=== PATIENT | male | born 1940 | race Caucasian/White ===

== ENCOUNTER 2019-09-05 09:56 | Outpatient (RCR) | payer MEDICARE, SELFPAY ==
[2019-06-13 11:05] LABS: INR 2.8; Prothrombin Time 29.1 Seconds (11.1-14.7)
[2019-07-11 10:28] LABS: Prothrombin Time 30.3 Seconds (11.1-14.7)
[2019-08-10 10:32] LABS: Prothrombin Time 30.6 Seconds (11.1-14.7)
[2019-09-05 10:41] LABS: INR 2.7; Prothrombin Time 27.9 Seconds (11.1-14.7)
== END 2019-09-11 23:59 | disposition home or self-care (01) ==
LOC: ANHLAB 09:56
PROVIDERS: PCP Family Medicine; Visit Provider Specialist
DX: Z51.81 Encounter for therapeutic drug level monitoring (principal); I48.92 Unspecified atrial flutter; Z79.01 Long term (current) use of anticoagulants
CPT/HCPCS: 36415; 85610

== ENCOUNTER 2019-09-23 11:25 | Outpatient (CLI) | payer MEDICARE, SELFPAY ==
[2019-09-23 12:21] LABS: Alanine Aminotransferase 25 U/L (4-50); Albumin Level 3.1 g/dL (3.5-5.1); Alkaline Phosphatase 80 U/L (38-126); Aspartate Amino Transferase 46 U/L (17-59); Bilirubin,Total 1.7 mg/dL (0.2-1.3); Blood Urea Nitrogen 24 mg/dL (9-20); Calcium 8.7 mg/dL (8.4-10.2); Carbon Dioxide 27 mmol/L (22-30); Chloride 101 mmol/L (98-107); Estimated Glomerular Filt Rate 58; Glucose 93 mg/dL (75-110); Potassium 4.1 mmol/L (3.4-5.0); Sodium 134 mmol/L (137-145)
[2019-09-23 12:25] LABS: Hematocrit 46.5 % (42.0-52.0); Hemoglobin 15.3 g/dL (14.0-18.0); Mean Corpuscular HGB Conc 32.9 g/dl (32-36); Mean Corpuscular Hemoglobin 30.9 pg (26-34); Mean Corpuscular Volume 93.9 fl (80-100); Mean Platelet Volume 10.7 fl (7.4-10.4); Platelet Count Result 170 k/mm3 (150-375); Red Blood Count 4.95 M/mm3 (4.6-6.20); Red Cell Distribution Width 16.3 % (11.5-14.5); White Blood Count 7.3 K/mm3 (4.5-10.0)
[2019-09-23 12:27] LABS: NT Pro B Type Natriuretic Pept 1890 PG/ML (5-100)
== END 2019-09-23 11:26 | disposition home or self-care (01) ==
LOC: ANHLAB 11:27
PROVIDERS: PCP Family Medicine; Visit Provider Physician Assistant
DX: R63.5 Abnormal weight gain (principal); N18.3 Chronic kidney disease, stage 3 (moderate); I13.0 Hypertensive heart and chronic kidney disease with heart failure and stage 1 through stage 4 chronic kidney disease, or unspecified chronic kidney disease; I50.812 Chronic right heart failure
CPT/HCPCS: 36415; 80053; 83880; 84443; 85027

== ENCOUNTER 2019-09-29 00:08 | Emergency (ER) | payer MEDICARE, SELFPAY ==
--- NOTE | ~2019-09-29 | XR_ITS ---
EXAMINATION: XR shoulder RT min 2V DATE: 09/29/2019 01:18 INDICATION: Right shoulder pain. Fall. TECHNIQUE: 4 views of right shoulder were obtained. COMPARISON: None. FINDINGS: Bone alignment is normal. No fracture. There is mild osteoarthritis of glenohumeral joint a nd severe osteoarthritis of acromioclavicular joint. Cardiomegaly is noted. IMPRESSION: 1. Polyarticular osteoarthritis. Reviewed, dictated and finalized at location A. R OPERATOR
--- NOTE | ~2019-09-29 | XR_ITS ---
EXAMINATION: XR knee RT min 4V DATE: 09/29/2019 01:18 INDICATION: Right knee pain. Fall. TECHNIQUE: 4 views of right knee were obtained. COMPARISON: Right tibia and fibula radiographs 05/20/2010 FINDINGS: Bone alignment is normal. No fracture. There is mild tricompartmental osteoarthritis charac terized by tiny osteophytes. There is chondrocalcinosis of the [place]. No knee joint effusion. IMPRESSION: 1. Mild right knee osteoarthritis. Reviewed, dictated and finalized at location A. GER IN HOME
--- NOTE | ~2019-09-29 | XR_ITS ---
EXAMINATION: XR knee LT min 4V DATE: 09/29/2019 01:18 INDICATION: Left knee pain. Fall. TECHNIQUE: 4 views of left knee were obtained. COMPARISON: Left tibia and fibula radiographs 03/20/2010 FINDINGS: Bone alignment is normal. No fracture. There is mild osteoarthritis of lateral compartment characterized by tiny marginal osteophytes. No knee joint effusion. IMPRESSION: 1. Mild left knee osteoarthritis. Reviewed, dictated and finalized at location A. D DEVELOPMENT PROFESSOR
--- NOTE | ~2019-09-29 | XR_ITS ---
EXAMINATION: XR shoulder LT min 2V DATE: 09/29/2019 01:18 INDICATION: Left shoulder pain. Fall. TECHNIQUE: 4 views of left shoulder were obtained. COMPARISON: Chest 2 views 09/16/2015 FINDINGS: Bone alignment is normal. No fracture. There is moderate osteoarthritis of glenohumeral frederic nt and severe osteoarthritis of acromioclavicular joint. Cardiomegaly is noted. IMPRESSION: 1. Polyarticular osteoarthritis. Reviewed, dictated and finalized at location A. ICIAN ALLERGIST IMMUNOLOGIST
--- NOTE | ~2019-09-29 | XR_ITS ---
EXAMINATION: XR forearm RT 2V DATE: 09/29/2019 01:19 INDICATION: Right forearm injury. Fall. TECHNIQUE: 2 views of right forearm were obtained. COMPARISON: Right hand radiographs 09/08/2007 FINDINGS: Bone alignment is normal. No fracture. There is mild osteoarthritis of distal radioulnar josé luis int and severe osteoarthritis of radioscaphoid joint. No elbow joint effusion. IMPRESSION: 1. Polyarticular osteoarthritis. Reviewed, dictated and finalized at location A. INSTRUCTOR
[2019-09-29 00:08] VITALS: BP 105/46; PULSE 75; RESP 22; TEMP 36.5; O2SAT 97
--- NOTE | 2019-09-29 00:18 | ED.FALL ---
HPI - Fall General Chief Complaint: Fall Stated Complaint: fall Time Seen by Provider: 09/29/19 00:11 Source: patient and RN notes reviewed Mode of arrival: EMS Limitations: no limitations History of Present Illness HPI Narrative: Pt is a 79 y/o male with a Hx of rheumatoid arthritis, who presents to the ED via EMS with c/o fall happening this evening. He notes that he has been having difficulty getting into his bed for roughly the past week due to worsening knee complications. Pt notes that he was trying to get into bed this evening when he slipped and fell onto the ground. Pt states that he landed on his lt side during the fall, and notes that he struck his rt forearm on a chair. He denies any head injury or LOC during the fall. Pt states that he was unable to get himself up after the fall, noting that he had to use his Life Alert to contact his family. Pt reports lt shoulder pain, an abrasion on his rt forearm, and an abrasion on his lt knee s/p the fall. He denies any recent weakness. Pt is currently taking Warfarin for his Hx of A-Fib. MD complaint: fall Fall from: out of bed Place fall occurred: home Loss of consciousness: none Symptoms prior to fall: none Location of injury - extremities: Left: shoulder and knee and Right: forearm Associated symptoms (after fall): other (lt shoulder pain; abrasion on rt forearm; abrasion on lt knee) Related Data Home Medications Medication Instructions Recorded Confirmed acetaminophen 325 mg capsule 325 mg PO Q6H PRN 06/08/19 docusate sodium 100 mg capsule 100 mg PO DAILY 06/08/19 febuxostat 80 mg tablet 80 mg PO DAILY 06/08/19 fluticasone propionate 0.005 % 1 applic TOPICAL BID 06/08/19 topical ointment folic acid 1 mg tablet 1 mg PO DAILY 06/08/19 hydroxychloroquine 200 mg tablet 200 mg PO BID 06/08/19 memantine 10 mg tablet 10 mg PO BID 06/08/19 methotrexate sodium 2.5 mg tablet 2.5 mg PO WEEKLY 06/08/19 mupirocin 2 % topical ointment 1 applic TOPICAL BID 06/08/19 tamsulosin 0.4 mg capsule 0.4 mg PO DAILY 06/08/19 warfarin 2.5 mg tablet 2.5 mg PO 4XW 06/08/19 warfarin 4 mg tablet 4 mg PO QMWF 06/08/19 cetirizine [Zyrtec] mg 06/17/19 docusate sodium 100 mg PO DAILY 06/17/19 06/17/19 febuxostat [Uloric] mg 06/17/19 folic acid 06/17/19 memantine mg 06/17/19 06/17/19 methotrexate sodium 06/17/19 tamsulosin mg PO 06/17/19 warfarin 06/17/19 Allergies Allergy/AdvReac Type Severity Reaction Status Date / Time Penicillins Allergy Unknown Rash Verified 09/29/19 01:46 Sulfa (Sulfonamide Allergy Unknown Rash Verified 09/29/19 01:46 Antibiotics) Review of Systems Review of Systems: All systems reviewed & are unremarkable except as noted in HPI and below Musculoskeletal: Musculoskeletal: Reports arthralgias (lt shoulder pain) Integumentary/Breasts: Skin/Breast: Reports new lesions (abrasion on rt forearm; abrasion on lt knee) Neurologic: Denies weakness and Denies other (head injury; LOC) [facility] Past Medical History Medical History Blood blister Cataracts, bilateral Chronic a-fib Chronic right-sided heart failure Dementia Gastrointestinal ulcer GERD (gastroesophageal reflux disease) Gout, unspecified HTN (hypertension) Inguinal hernia Pneumonia Seizures Seronegative rheumatoid arthritis Thickened nail Surgical History Surgical History Hx of cardiac catheterization Hx of cataract surgery Hx of inguinal hernia repair Family History Family History (Updated 03/23/14 @ 07:13 by DOCTOR UNKNOWN) Father Family history of Parkinson's disease Mother Hypertension Cerebrovascular accident Sibling Family history of coronary artery disease Social History Social History Smoking status: Former smoker Smoking end date: 07/27/1968 Alcohol intake: never Exam Const: General: no acute dis
--- NOTE | 2019-09-29 00:25 | ECG_ITS ---
Measurements Intervals [place] Rate: 79 P: [place]: 0 QRS: 12 QRSD: 158 T: -7 QT: 436 QTc: 501 Interpretive Statements ATRIAL FLUTTER VENTRICULAR PREMATURE COMPLEXES IVCD, CONSIDER ATYPICAL LBBB BASELINE ARTIFACT- I, II, III, AVR, AVL, AVF, V2-V3 ABNORMAL ECG Electronically Signed On 09-29-2019 6:49:46 WAD PRINTING MACHINE OPERATOR by Federico Guardado D.O.
[2019-09-29] MEDS: TETANUS,DIPHTHERIA,AC PERTUSSIS ADULT (0.5 ML) BOOSTRIX IM (00:30)
[2019-09-29 00:50] LABS: Basophils Percent Auto 0.5 % (0.2-1.2); Eosinophils Absolute Auto 0.1 K/mm3 (0-0.3); Hematocrit 43.1 % (42.0-52.0); Hemoglobin 14.5 g/dL (14.0-18.0); Immature Granulocyte Absolute 0.06 K/mm3 (0.00-0.031); Immature Granulocyte Percent A 0.8 % (0-0.5); Lymphocytes Absolute Auto 0.44 K/mm3 (0.9-3.2); Lymphocytes Percent Auto 5.6 % (18.3-44.2); Mean Corpuscular HGB Conc 33.6 g/dl (32-36); Mean Corpuscular Hemoglobin 31.3 pg (26-34); Mean Corpuscular Volume 93.1 fl (80-100); Mean Platelet Volume 10.3 fl (7.4-10.4); Monocytes Absolute Auto 0.6 K/mm3 (0.1-0.6); Monocytes Percent Auto 7.4 % (2.6-8.5); Neutrophils Absolute Auto 6.7 K/mm3 (1.3-6.7); Neutrophils Percent Auto 84.7 % (45.5-73.1); Platelet Count Result 148 k/mm3 (150-375); Red Blood Count 4.63 M/mm3 (4.6-6.20); White Blood Count 7.9 K/mm3 (4.5-10.0)
[2019-09-29 00:56] LABS: Alanine Aminotransferase 22 U/L (4-50); Albumin Level 2.7 g/dL (3.5-5.1); Alkaline Phosphatase 92 U/L (38-126); Aspartate Amino Transferase 42 U/L (17-59); Blood Urea Nitrogen 27 mg/dL (9-20); Calcium 8.2 mg/dL (8.4-10.2); Carbon Dioxide 21 mmol/L (22-30); Chloride 100 mmol/L (98-107); Estimated CRCL calculation 43 ml/min; Estimated Glomerular Filt Rate 49; Glucose 128 mg/dL (75-110); INR 4.3; Potassium 3.4 mmol/L (3.4-5.0); Prothrombin Time 40.7 Seconds (11.1-14.7); Sodium 133 mmol/L (137-145)
[2019-09-29 01:34] VITALS: BP 124/51; PULSE 71; RESP 14; O2SAT 97
[2019-09-29 03:12] VITALS: BP 118/58; PULSE 78; RESP 17; O2SAT 94
[2019-09-29 03:58] VITALS: BP 105/67; PULSE 69; RESP 18; TEMP 36.3; O2SAT 98
== END 2019-09-29 04:01 | disposition home or self-care (01) ==
PROVIDERS: Emergency Provider General Practice; PCP Family Medicine
DX: S51.801A Unspecified open wound of right forearm, initial encounter (principal); S80.212A Abrasion, left knee, initial encounter; M25.562 Pain in left knee; M25.561 Pain in right knee; M19.012 Primary osteoarthritis, left shoulder; M19.011 Primary osteoarthritis, right shoulder; M06.00 Rheumatoid arthritis without rheumatoid factor, unspecified site; Z23 Encounter for immunization; Z79.01 Long term (current) use of anticoagulants; I48.20 Chronic atrial fibrillation, unspecified; F03.90 Unspecified dementia, unspecified severity, without behavioral disturbance, psychotic disturbance, mood disturbance, and anxiety; K21.9 Gastro-esophageal reflux disease without esophagitis; M10.9 Gout, unspecified; I10 Essential (primary) hypertension; Z98.42 Cataract extraction status, left eye; Z98.41 Cataract extraction status, right eye; W06.XXXA Fall from bed, initial encounter
CPT/HCPCS: 36415; 73030; 73090; 73564; 80053; 85025; 85610; 85730; 90471; 90715; 93005; 99284

== ENCOUNTER 2019-09-30 16:37 | Outpatient (CLI) | payer MEDICARE, SELFPAY ==
[2019-09-30 17:20] LABS: Blood Urea Nitrogen 27 mg/dL (9-20); Calcium 8.5 mg/dL (8.4-10.2); Carbon Dioxide 28 mmol/L (22-30); Chloride 104 mmol/L (98-107); Estimated Glomerular Filt Rate 49; Glucose 92 mg/dL (75-110); Potassium 3.9 mmol/L (3.4-5.0); Sodium 136 mmol/L (137-145)
[2019-09-30 17:28] LABS: NT Pro B Type Natriuretic Pept 2350 PG/ML (5-100)
== END 2019-09-30 16:38 | disposition home or self-care (01) ==
LOC: ANHLAB 16:38
PROVIDERS: PCP Family Medicine; Visit Provider Physician Assistant
DX: I13.0 Hypertensive heart and chronic kidney disease with heart failure and stage 1 through stage 4 chronic kidney disease, or unspecified chronic kidney disease (principal); I50.812 Chronic right heart failure; N18.3 Chronic kidney disease, stage 3 (moderate)
CPT/HCPCS: 36415; 80048; 83880

== ENCOUNTER 2019-10-11 11:22 | Outpatient (CLI) | payer MEDICARE, SELFPAY ==
[2019-10-11 11:50] LABS: Blood Urea Nitrogen 24 mg/dL (9-20); Calcium 8.8 mg/dL (8.4-10.2); Carbon Dioxide 31 mmol/L (22-30); Chloride 104 mmol/L (98-107); Estimated Glomerular Filt Rate 58; Glucose 84 mg/dL (75-110); Potassium 3.8 mmol/L (3.4-5.0); Sodium 136 mmol/L (137-145)
[2019-10-11 11:59] LABS: NT Pro B Type Natriuretic Pept 1900 PG/ML (5-100)
== END 2019-10-11 11:23 | disposition home or self-care (01) ==
PROVIDERS: PCP Family Medicine; Visit Provider Physician Assistant
DX: I50.9 Heart failure, unspecified (principal); R63.5 Abnormal weight gain
CPT/HCPCS: 36415; 80048; 83880

== ENCOUNTER → 2019-10-17 11:57 | Outpatient (NON) | payer MEDICARE, SELFPAY ==
[2019-10-17 12:44] LABS: INR 3.2; Prothrombin Time 31.9 Seconds (11.1-14.7)
== END ==
PROVIDERS: PCP Family Medicine; Visit Provider Specialist
DX: I48.92 Unspecified atrial flutter (principal); I87.2 Venous insufficiency (chronic) (peripheral); R60.0 Localized edema; I13.0 Hypertensive heart and chronic kidney disease with heart failure and stage 1 through stage 4 chronic kidney disease, or unspecified chronic kidney disease
CPT/HCPCS: 85610

== ENCOUNTER 2019-11-29 10:56 | Outpatient (CLI) | payer MEDICARE, SELFPAY | END 2019-11-29 10:57 | disposition home or self-care (01) | PROVIDERS: PCP Family Medicine; Visit Provider Urology | DX: R97.20 Elevated prostate specific antigen [PSA] (principal) | CPT/HCPCS: 36415; 84153 ==

== ENCOUNTER 2019-12-23 09:41 | Outpatient (RCR) | payer MEDICARE, SELFPAY ==
[2019-10-03 12:56] LABS: INR 3.5; Prothrombin Time 34.7 Seconds (11.1-14.7)
[2019-11-21 11:16] LABS: INR 2.4; Prothrombin Time 25.7 Seconds (11.1-14.7)
[2019-12-23 11:04] LABS: INR 2.3; Prothrombin Time 24.4 Seconds (11.1-14.7)
== END 2020-01-01 23:59 | disposition home or self-care (01) ==
LOC: ANHLAB 09:41
PROVIDERS: PCP Family Medicine; Visit Provider Specialist
DX: Z51.81 Encounter for therapeutic drug level monitoring (principal); I48.92 Unspecified atrial flutter; N39.0 Urinary tract infection, site not specified; Z79.01 Long term (current) use of anticoagulants
CPT/HCPCS: 36415; 85610; 87077; 87086; 87088; 87186

== ENCOUNTER 2020-01-09 09:37 | Outpatient (CLI) | payer MEDICARE, SELFPAY ==
[2020-01-09 10:15] LABS: Basophils Absolute Auto 0.1 K/mm3 (0.0-0.1); Basophils Percent Auto 0.8 % (0.2-1.2); Eosinophils Absolute Auto 0.2 K/mm3 (0-0.3); Hematocrit 43.2 % (42.0-52.0); Hemoglobin 14.2 g/dL (14.0-18.0); Immature Granulocyte Absolute 0.04 K/mm3 (0.00-0.031); Immature Granulocyte Percent A 0.6 % (0-0.5); Lymphocytes Absolute Auto 0.65 K/mm3 (0.9-3.2); Lymphocytes Percent Auto 10.4 % (18.3-44.2); Mean Corpuscular HGB Conc 32.9 g/dl (32-36); Mean Corpuscular Hemoglobin 31.6 pg (26-34); Mean Platelet Volume 10.4 fl (7.4-10.4); Monocytes Absolute Auto 0.4 K/mm3 (0.1-0.6); Monocytes Percent Auto 6.7 % (2.6-8.5); Neutrophils Absolute Auto 4.9 K/mm3 (1.3-6.7); Neutrophils Percent Auto 78.5 % (45.5-73.1); Platelet Count Result 148 k/mm3 (150-375); Red Cell Distribution Width 15.8 % (11.5-14.5); White Blood Count 6.3 K/mm3 (4.5-10.0)
[2020-01-09 10:41] LABS: Potassium 3.4 mmol/L (3.4-5.0)
[2020-01-09 10:55] LABS: Alanine Aminotransferase 20 U/L (4-50); Albumin Level 3.3 g/dL (3.5-5.1); Alkaline Phosphatase 114 U/L (38-126); Aspartate Amino Transferase 33 U/L (17-59); Bilirubin,Total 1.3 mg/dL (0.2-1.3); Blood Urea Nitrogen 22 mg/dL (9-20); Calcium 8.9 mg/dL (8.4-10.2); Carbon Dioxide 29 mmol/L (22-30); Chloride 104 mmol/L (98-107); Estimated Glomerular Filt Rate 58; Glucose 91 mg/dL (75-110); Sodium 137 mmol/L (137-145)
[2020-01-09 11:07] LABS: Erythrocyte Sedimentation Rate 19 mm/hr (0-20)
== END 2020-01-09 09:38 | disposition home or self-care (01) ==
LOC: ANHLAB 09:41
PROVIDERS: PCP Family Medicine; Visit Provider Physician Assistant
DX: M06.09 Rheumatoid arthritis without rheumatoid factor, multiple sites (principal); Z79.899 Other long term (current) drug therapy
CPT/HCPCS: 36415; 80053; 85025; 85652; 86140

== ENCOUNTER 2020-02-02 07:46 | Outpatient (RCR) | payer MEDICARE, SELFPAY ==
[2020-01-20 09:37] VITALS: BMI 33.3
== END 2020-04-09 08:12 | disposition home or self-care (01) ==
LOC: ANHWOC 07:46
PROVIDERS: PCP Family Medicine; Visit Provider Family Medicine
DX: I87.2 Venous insufficiency (chronic) (peripheral) (principal); L97.929 Non-pressure chronic ulcer of unspecified part of left lower leg with unspecified severity; L97.919 Non-pressure chronic ulcer of unspecified part of right lower leg with unspecified severity
CPT/HCPCS: 99212; G0463

== ENCOUNTER 2020-04-30 11:51 | Outpatient (RCR) | payer MEDICARE, SELFPAY ==
[2020-02-14 10:17] LABS: INR 2.5; Prothrombin Time 26.6 Seconds (11.1-14.7)
[2020-03-26 10:55] LABS: INR 2.7; Prothrombin Time 28.3 Seconds (11.1-14.7)
[2020-04-30 12:22] LABS: INR 2.7; Prothrombin Time 28.2 Seconds (11.1-14.7)
== END 2020-05-14 23:59 | disposition home or self-care (01) ==
LOC: ANHLAB 11:51
PROVIDERS: PCP Family Medicine; Visit Provider Specialist
DX: Z51.81 Encounter for therapeutic drug level monitoring (principal); I48.92 Unspecified atrial flutter; Z79.01 Long term (current) use of anticoagulants
CPT/HCPCS: 36415; 85610

== ENCOUNTER 2020-08-01 10:44 | Outpatient (RCR) | payer MEDICARE, SELFPAY ==
[2020-05-31 10:36] LABS: INR 2.8; Prothrombin Time 30.2 Seconds (11.1-14.7)
[2020-07-03 11:13] LABS: INR 2.3; Prothrombin Time 26.1 Seconds (11.1-14.7)
[2020-08-01 11:24] LABS: INR 2.9; Prothrombin Time 30.8 Seconds (11.1-14.7)
== END 2020-08-29 23:59 | disposition home or self-care (01) ==
LOC: ANHLAB 10:44
PROVIDERS: PCP Family Medicine; Visit Provider Specialist
DX: Z51.81 Encounter for therapeutic drug level monitoring (principal); I48.92 Unspecified atrial flutter; Z79.01 Long term (current) use of anticoagulants
CPT/HCPCS: 36415; 85610

== ENCOUNTER 2020-08-16 10:19 | Outpatient (CLI) | payer MEDICARE, SELFPAY ==
--- NOTE | ~2020-08-16 | XR_ITS ---
EXAMINATION: HAND-CARLOS ARTHRITIS 3+VIEWS DATE: 08/16/2020 12:10 INDICATION: Systemic connective tissue disease. TECHNIQUE: Posteroanterior, lateral, and oblique views of the left and of the right hands as well as a ballcatchers view of both hands were obtained. COMPARISON: Lateral hand radiographs dated 09/08/2007 FINDINGS: No fracture at either hand or wrist. Significant progression of arthritic changes at the bilateral trejo nds, advanced at the left second and third proximal interphalangeal joints and at the right second an d fifth proximal interphalangeal joints. Secondary mild subluxation and angulation at these joints. A dditional severe arthritis at the left second and third and right third metacarpophalangeal joints an d at the right radial scaphoid articulation. Mild to moderate arthritis at the left wrist, the bilate ral triscaphe and first carpal metacarpal joints and remaining bilateral metacarpophalangeal and inte rphalangeal joints. Much of the joint space narrowing appears nonuniform and there are marginal osteo phytes consistent with osteoarthritis however there also numerous scattered periarticular or juxta ar ticular erosions suggesting secondary osteoarthritis related to an underlying inflammatory arthritis. Minute erosions demonstrated within sclerotic margins with overhanging edges and not directly periar ticular which would be most consistent with a crystalline arthropathy such as gout or calcium pyropho sphate deposition (CPPD) disease. Chondrocalcinosis seen at the bilateral wrist joints which would al so be consistent with underlying crystalline arthropathy. The severity of the arthritis at a few of t he proximal interphalangeal joints with central erosions with pencil in cup appearance could also be seen in the setting of psoriatic arthritis. IMPRESSION: 1. Polyarticular osteoarthritis, advanced at several interphalangeal joints and severe at a few addit ional joints in both hands. There are however multiple erosions suggesting some secondary osteoarthri tis superimposed over an inflammatory arthritis. In order of likelihood would suspect crystalline art hropathy such as gout or calcium pyrophosphate deposition (CPPD) disease, psoriatic arthritis, reacti ve arthritis or rheumatoid arthritis. Reviewed, dictated and finalized at location A. MAKING SUPERVISOR IMPRESSION: 1. Polyarticular osteoarthritis, advanced at several interphalangeal joints and severe at a few additional joints in both hands. There are however multiple er osions suggesting some secondary osteoarthritis superimposed over an inflammato ry arthritis. In order of likelihood would suspect crystalline arthropathy such as gout or calcium pyrophosphate deposition (CPPD) disease, psoriatic arthriti s, reactive arthritis or rheumatoid arthritis.
--- NOTE | ~2020-08-16 | XR_ITS ---
EXAMINATION: XR sacroiliac joints min 3V DATE: 08/16/2020 12:10 INDICATION: Systemic connective tissue disease TECHNIQUE: AP and left and right oblique views of the bilateral sacroiliac joints were obtained. COMPARISON: None. FINDINGS: No fracture. Mild bilateral hip osteoarthritis. Mild to moderate nonuniform joint space narrowing at the bilateral sacroiliac joints without evident erosions most consistent with osteoarthritis. Severe lower lumbar spondylosis. IMPRESSION: 1. Mild to moderate bilateral sacroiliac osteoarthritis. No erosions to suggest an inflammatory synov itis. 2. Severe lower lumbar spondylosis. Reviewed, dictated and finalized at location A. PROGRAMMING PROFESSOR IMPRESSION: 1. Mild to moderate bilateral sacroiliac osteoarthritis. No erosions to suggest an inflammatory synovitis. 2. Severe lower lumbar spondylosis.
--- NOTE | ~2020-08-16 | XR_ITS ---
EXAMINATION: XR foot LT 2V DATE: 08/16/2020 12:10 INDICATION: Systemic connective tissue disease TECHNIQUE: Dorsoplantar and lateral views of the left foot were obtained. COMPARISON: 03/20/2010 FINDINGS: Bone alignment is normal. No fracture. Moderate to severe osteoarthritis at the first metatarsophalan geal joint. Minimal to mild osteoarthritis at many additional joints in the mid and forefoot. Interva l progression of cortical erosions with overhanging edges at the medial base of the first proximal ph alanx and at the medial and plantar aspect of the head of the first metatarsal. New erosion at the me dial aspect of the distal medial cuneiform without significant joint space loss at the first tarsal m etatarsal joint prominent soft tissue swelling over the dorsum of the forefoot.. IMPRESSION: 1. Erosions at the medial cuneiform, head of the first metatarsal and base of the first proximal phal anx, the former without significant associated joint space narrowing and/or with appearance favoring crystalline arthropathy such as gout over another inflammatory arthritis such as rheumatoid. 2. Polyarticular osteoarthritis, moderate severity first metatarsophalangeal joint and otherwise mini mal to mild . Reviewed, dictated and finalized at location A. UM INFORMATICS SPECIALIST IMPRESSION: 1. Erosions at the medial cuneiform, head of the first metatarsal and base of t he first proximal phalanx, the former without significant associated joint spac e narrowing and/or with appearance favoring crystalline arthropathy such as gou t over another inflammatory arthritis such as rheumatoid. 2. Polyarticular osteoarthritis, moderate severity first metatarsophalangeal josé luis int and otherwise minimal to mild .
--- NOTE | ~2020-08-16 | XR_ITS ---
EXAMINATION: XR foot RT 2V DATE: 08/16/2020 12:10 INDICATION: Systemic involvement of connective tissue, unspecified. TECHNIQUE: 2 views of right foot were obtained. COMPARISON: Right foot radiographs 12/15/2012 FINDINGS: There is moderate hallux valgus. Osteopenia is noted. No fracture. There is moderate osteoa rthritis of first metatarsophalangeal joint and mild osteoarthritis of some of the midfoot joints and interphalangeal joints. There is an enthesophyte at plantar aspect of calcaneal tuberosity. IMPRESSION: 1. Moderate hallux valgus. 2. Polyarticular osteoarthritis. Reviewed, dictated and finalized at location B. ARD/STEWARDESS LOUNGE
[2020-08-16 11:38] LABS: Hematocrit 50.3 % (42.0-52.0); Hemoglobin 16.5 g/dL (14.0-18.0); Mean Corpuscular HGB Conc 32.8 g/dl (32-36); Mean Corpuscular Hemoglobin 31.4 pg (26-34); Mean Corpuscular Volume 95.6 fl (80-100); Mean Platelet Volume 10.1 fl (7.4-10.4); Platelet Count Result 169 k/mm3 (150-375); Red Blood Count 5.26 M/mm3 (4.6-6.20); Red Cell Distribution Width 14.3 % (11.5-14.5); White Blood Count 7.1 K/mm3 (4.5-10.0)
[2020-08-16 11:41] LABS: Add Urine Microscopic? NO; Appearance Urine Clear (Clear); Bilirubin Urine Negative (Negative); Blood Urine Negative (Negative); Color Urine Straw (Yellow); Glucose Urine UA Negative (Negative); Ketones Urine Negative (Negative); Leukocyte Esterase Ur Negative LEU/UL (Negative); Nitrate Urine Negative (Negative); Protein Urine Negative (Negative); Specific Grav Ur 1.008 (1.001-1.035); Urobilinogen Urine Negative mg/dL (<2.0)
[2020-08-16 11:49] LABS: Rheumatoid Factor < 8.6 IU/ML (<12)
[2020-08-16 11:50] LABS: Alanine Aminotransferase 20 U/L (4-50); Albumin Level 3.5 g/dL (3.5-5.1); Alkaline Phosphatase 160 U/L (38-126); Anion Gap 4 mmol/L (8-16); Aspartate Amino Transferase 41 U/L (17-59); Bilirubin,Total 1.4 mg/dL (0.2-1.3); Blood Urea Nitrogen 19 mg/dL (9-20); Calcium 8.7 mg/dL (8.4-10.2); Carbon Dioxide 28 mmol/L (22-30); Chloride 106 mmol/L (98-107); Estimated Glomerular Filt Rate 53; Glucose 83 mg/dL (75-110); Potassium 3.6 mmol/L (3.4-5.0); Sodium 138 mmol/L (137-145); Uric Acid 1.4 mg/dL (3.5-8.5)
[2020-08-16 12:40] LABS: Erythrocyte Sedimentation Rate 9 mm/hr (0-20)
[2020-08-16 12:42] LABS: Hepatitis B Surface Antigen Negative (Negative)
[2020-08-16 13:00] LABS: Hepatitis B Surface Anti Res Negative; Hepatitis C Virus Antibody Negative (Negative)
[2020-08-18 09:55] LABS: SM Antibody <1.0; SM/RNP Antibody <1.0
[2020-08-18 10:07] LABS: SS-A <1.0; SS-B <1.0
[2020-08-21 11:26] LABS: Anti Cyclic Citrullinated Pept <16 Units (<20)
== END 2020-08-16 10:20 | disposition home or self-care (01) ==
PROVIDERS: PCP Family Medicine; Visit Provider Internal Medicine
DX: M1A.9XX0 Chronic gout, unspecified, without tophus (tophi) (principal); M35.9 Systemic involvement of connective tissue, unspecified; M25.9 Joint disorder, unspecified; Z11.59 Encounter for screening for other viral diseases; M19.90 Unspecified osteoarthritis, unspecified site; M47.816 Spondylosis without myelopathy or radiculopathy, lumbar region; M19.072 Primary osteoarthritis, left ankle and foot; M19.032 Primary osteoarthritis, left wrist; M19.031 Primary osteoarthritis, right wrist; M19.071 Primary osteoarthritis, right ankle and foot
CPT/HCPCS: 36415; 72202; 73130; 73620; 80053; 81003; 84550; 85027; 85652; 86038; 86140; 86200; 86225; 86235; 86430; 86706; 86803; 87340

== ENCOUNTER 2020-08-21 09:39 | Outpatient (CLI) | payer MEDICARE, SELFPAY ==
[2020-08-23 22:51] LABS: NIL 0.01 IU/mL; Quantiferon TB Plus, 1T NEGATIVE (NEGATIVE)
== END 2020-08-21 09:40 | disposition home or self-care (01) ==
LOC: ANHLAB 09:46
PROVIDERS: PCP Family Medicine; Visit Provider Internal Medicine
DX: M35.9 Systemic involvement of connective tissue, unspecified (principal); M1A.9XX0 Chronic gout, unspecified, without tophus (tophi)
CPT/HCPCS: 36415; 86480

== ENCOUNTER 2020-08-31 10:34 | Outpatient (RCR) | payer MEDICARE, SELFPAY ==
[2020-08-31 11:26] LABS: INR 2.8; Prothrombin Time 29.7 Seconds (11.1-14.7)
== END 2020-11-29 23:59 | disposition home or self-care (01) ==
LOC: ANHLAB 10:34
PROVIDERS: PCP Family Medicine; Visit Provider Specialist
DX: Z51.81 Encounter for therapeutic drug level monitoring (principal); I48.92 Unspecified atrial flutter; Z79.01 Long term (current) use of anticoagulants
CPT/HCPCS: 36415; 85610

== ENCOUNTER 2020-09-18 16:39 | Emergency (ER) | payer MEDICARE, SELFPAY ==
--- NOTE | ~2020-09-18 | CT_ITS ---
EXAMINATION: CT cervical spine wo con DATE: 09/18/2020 19:17 INDICATION: Neck injury. TECHNIQUE: Computed tomography (CT) of the cervical spine was performed without intravenous contrast. Automated exposure control and iterative reconstruction technique were employed. The dose-length pro duct was 439.05 mGy-cm. COMPARISON: None FINDINGS: There is kyphosis of cervical spine. There is 2 mm anterolisthesis of C7 on T1. There is 16 degrees levoscoliosis of cervicothoracic spine. Vertebral body heights are normal. Osteopenia is not ed. There is severely decreased disc height from C3-C4 through C6-C7 and mildly decreased disc height at C7-T1. The following disc levels are specifically discussed: C2-C3: There is no uncovertebral joint osteoarthritis. There is severe right and mild left facet join t osteoarthritis. There is mild right neural foraminal stenosis. There is no central canal stenosis. C3-C4: There is severe bilateral uncovertebral joint osteoarthritis. There is severe bilateral facet joint osteoarthritis. There is mild bilateral neural foraminal stenosis. There is mild central canal stenosis. C4-C5: There is severe bilateral uncovertebral joint osteoarthritis. There is severe bilateral facet joint osteoarthritis. There is mild bilateral neural foraminal stenosis. There is mild central canal stenosis. C5-C6: There is severe bilateral uncovertebral joint osteoarthritis. There is mild bilateral facet josé luis int osteoarthritis. There is moderate and mild left neural foraminal stenosis. There is mild central canal stenosis. C6-C7: There is severe bilateral uncovertebral joint osteoarthritis. There is moderate bilateral face t joint osteoarthritis. There is mild bilateral neural foraminal stenosis. There is mild central connie l stenosis. C7-T1: There is no uncovertebral joint osteoarthritis. There is severe bilateral facet joint osteoart hritis. There is mild bilateral neural foraminal stenosis. There is no central canal stenosis. IMPRESSION: 1. No fracture. 2. Severe cervical spondylosis. 3. Cervicothoracic levoscoliosis. Reviewed, dictated and finalized at location A. ICK BOAT LEVERMAN
--- NOTE | ~2020-09-18 | XR_ITS ---
EXAMINATION: XR hip LT 2V w AP pelvis DATE: 09/18/2020 20:38 INDICATION: Left hip pain. Fall. TECHNIQUE: An anteroposterior view of the pelvis and 2 views of left hip were obtained. COMPARISON: None. FINDINGS: Lumbar levocurvature is noted. No fracture. There is mild osteoarthritis of the hips. There is severe lumbar spondylosis. IMPRESSION: 1. Mild osteoarthritis of the hips. Reviewed, dictated and finalized at location A. GER MULTICULTURAL
--- NOTE | ~2020-09-18 | XR_ITS ---
XR ankle LT min 3V DATE: 09/18/2020 17:36 INDICATION: Fall and injury 4-5 days ago. Left ankle pain. TECHNIQUE: 2 views COMPARISON: 08/16/2020 left foot FINDINGS: There is a comminuted fracture of Thre distal tibial diametaphysis with no significant dis placement and minimal apex anterior angulation. There is a transverse fracture of the distal fibular shaft with approximately one cortical width medi al displacement. Ankle mortise is intact. Plantar calcaneal enthesopathy. There is severe soft tissue swelling of the foot, especially severe along the dorsum of the forefoot. IMPRESSION: Distal tibial diametaphyseal and fibular shaft fractures Severe soft tissue swelling of the foot Reviewed, dictated and finalized at location A. ER PHOTOGRAPH
--- NOTE | ~2020-09-18 | CT_ITS ---
EXAMINATION: CT brain wo con DATE: 09/18/2020 19:18 INDICATION: Head injury. TECHNIQUE: Computed tomography (CT) of the head was performed without intravenous contrast. The mA wa s adjusted according to patient size. Iterative reconstruction technique was employed. The dose-lengt h product was 605.33 mGy-cm. COMPARISON: Head CT 04/06/2010, brain MRI 09/15/2013 FINDINGS: There are scattered areas of low attenuation in the cerebral white matter. There is no intr acranial hemorrhage, acute infarction, or abnormal intracranial mass lesion. The ventricles are adilson l in size. 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 There are likely changes of ocular lens replacement surgeries. 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 IMPRESSION: 1. Moderate nonspecific cerebral white matter disease, which likely represents chronic small vessel i schemic disease. Reviewed, dictated and finalized at location A. HOUSE SUPERVISOR IMPRESSION: 1. Moderate nonspecific cerebral white matter disease, which likely represents chronic small vessel ischemic disease.
--- NOTE | ~2020-09-18 | XR_ITS ---
EXAMINATION: XR chest 1V portable DATE: 09/18/2020 19:23 INDICATION: Fall. TECHNIQUE: A single frontal view of the chest was obtained. COMPARISON: Chest 2 views 09/16/2015 FINDINGS: There is no pneumonia, pleural effusion, or pneumothorax. Cardiomegaly is noted. IMPRESSION: 1. Cardiomegaly. Reviewed, dictated and finalized at location A. TER FISHERMAN IMPRESSION: 1. Cardiomegaly.
[2020-09-18 16:44] VITALS: BP 104/56; PULSE 67; RESP 16; TEMP 36.1; O2SAT 98
--- NOTE | 2020-09-18 18:48 | ECG_ITS ---
Measurements Intervals [place] Rate: 80 P: [place]: 0 QRS: 18 QRSD: 100 T: -37 QT: 398 QTc: 460 Interpretive Statements ATRIAL FLUTTER/TACHYCARDIA VENTRICULAR COUPLET AND FREQUENT VENTRICULAR PREMATURE COMPLEXES INCOMPLETE LEFT BUNDLE BRANCH BLOCK ANTEROSETPTAL ST ELEVATION- CONSIDER ACUTE INFARCT BASELINE ARTIFACT- I, II, III, AVR, AVL, AVF, V1-V6 ABNORMAL ECG Electronically Signed On 09-19-2020 7:01:22 SUPERVISOR OPERATIONS by Federico Guardado D.O.
--- NOTE | 2020-09-18 19:31 | ED.GENADULT ---
HPI - General Adult General Chief complaint: Extremity Injury, Lower Stated complaint: fall/left ankle pain Time Seen by Provider: 09/18/20 18:37 Source: patient and family Mode of arrival: EMS Limitations: no limitations History of Present Illness HPI narrative: Patient is a 80-year-old male who presents to emergency department for evaluation of left leg injury patient was going from 1 to room to another in his house when he sustained what sounds like a mechanical fall presents for EMS with pain to the distal left leg patient denies head injury or syncope or loss of consciousness. Patient is denying any head injury. Patient currently on warfarin for what he describes as atrial fibrillation. Patient denies any new medication changes or recent illness. Patient notes that he lied on the floor for 2 hours before help was able to get him off the floor and bring him to the ER Related Data Home Medications Medication Instructions Recorded Confirmed acetaminophen 325 mg capsule 325 mg PO Q6H PRN 06/08/19 08/24/20 warfarin 2.5 mg tablet 2.5 mg PO 4XW 06/08/19 08/24/20 warfarin 4 mg tablet 4 mg PO QMWF 06/08/19 08/24/20 docusate sodium 100 mg PO HS 06/17/19 08/24/20 diphenhydramine-acetaminophen 1 tablet PO HS PRN 01/20/20 08/24/20 [Tylenol PM Extra Strength] nystatin 1 applic TOPICAL BID PRN 01/20/20 08/24/20 Allergies Allergy/AdvReac Type Severity Reaction Status Date / Time Penicillins Allergy Unknown Rash Verified 09/18/20 20:55 Sulfa (Sulfonamide Allergy Unknown Rash Verified 09/18/20 20:55 Antibiotics) sulfathiazole Allergy Unknown Unknown Verified 09/18/20 20:55 Review of Systems Review of Systems: All systems reviewed & are unremarkable except as noted in HPI and below PMFSH Past Medical History Medical History Blood blister Cataracts, bilateral Chronic a-fib Chronic atrial flutter Chronic gout without tophus Chronic right-sided heart failure Chronic venous stasis dermatitis Dementia Gastrointestinal ulcer GERD (gastroesophageal reflux disease) Gout, unspecified HTN (hypertension) Inguinal hernia Pneumonia Rheumatoid arthritis Seizures Seronegative rheumatoid arthritis Thickened nail Undifferentiated connective tissue disease (~2011) Surgical History Surgical History Hx of cardiac catheterization Hx of cataract surgery Hx of inguinal hernia repair Family History Family History Father Family history of Parkinson's disease Mother Hypertension Cerebrovascular accident Sibling Family history of coronary artery disease Social History Social History Smoking status: Former smoker Smoking end date: 07/27/1968 Alcohol intake: never Gender identity (if verbalized by the patient): Male Exam Narrative: Exam Narrative: GENERAL: Well-appearing, obese, and in no acute distress. HEAD: Normocephalic, atraumatic. EYES: PERRLA and EOMI. ENT: Nares clear, no rhinorrhea or epistaxis. Mucous membranes moist. NECK: Supple. No adenopathy or masses. CHEST: Clear to auscultation. No respiratory distress. No wheezes rales or rhonchi HEART: Irregularly irregular rate and rhythm. No murmur heard. Normal peripheral pulses. ABDOMEN: Soft, patient with dependent edema in the left side of the abdomen with tenderness at this location to involve the left abdomen and flank. EXTREMITIES: Tenderness of the distal left leg above the level of the ankle remainder of extremities palpated nontender. 4+ edema dorsum left foot. No cervical thoracic or lumbar tenderness. SKIN: Warm, dry, patient with excoriations here erythema to the inguinal creases NEURO: No focal deficits. Alert and oriented x3. Cranial nerves II through XII grossly intact. Neurovascularly intact. Capillary refill less joselyn
[2020-09-18 20:15] VITALS: BP 113/73; PULSE 83; RESP 16; O2SAT 96
[2020-09-18] MEDS: SODIUM CHLORIDE 0.9% IV 500 ML 999 ML IV CONT (20:18)
[2020-09-18] MEDS: MORPHINE SULFATE (*CRX) 4 MG/ML INJ IV PUSH (20:19)
[2020-09-18 20:50] LABS: Hemoglobin 16.3 g/dL (14.0-18.0); Mean Corpuscular HGB Conc 33.3 g/dl (32-36); Mean Corpuscular Hemoglobin 30.6 pg (26-34); Mean Corpuscular Volume 92.1 fl (80-100); Mean Platelet Volume 10.2 fl (7.4-10.4); Platelet Count Result 179 k/mm3 (150-375); Red Blood Count 5.32 M/mm3 (4.6-6.20); Red Cell Distribution Width 14.2 % (11.5-14.5); White Blood Count 9.1 K/mm3 (4.5-10.0)
[2020-09-18 21:02] LABS: INR 3.6; Prothrombin Time 36.4 Seconds (11.1-14.7)
[2020-09-18 21:03] LABS: Lactic Acid Reflex 1.5 mmol/L (0.7-2.1); Partial Thromboplastin Time 56.5 SECONDS (22.3-36.8)
[2020-09-18 21:07] LABS: Alanine Aminotransferase 22 U/L (4-50); Alkaline Phosphatase 151 U/L (38-126); Anion Gap 5 mmol/L (8-16); Aspartate Amino Transferase 51 U/L (17-59); Bilirubin,Total 0.9 mg/dL (0.2-1.3); Blood Urea Nitrogen 24 mg/dL (9-20); CRP 3.1 mg/dL (<1.0); Calcium 8.6 mg/dL (8.4-10.2); Carbon Dioxide 27 mmol/L (22-30); Chloride 105 mmol/L (98-107); Creatine Kinase 838 U/L (55-170); Estimated CRCL calculation 39 ml/min; Estimated Glomerular Filt Rate 45; Glucose 95 mg/dL (75-110); Potassium 3.2 mmol/L (3.4-5.0); Sodium 137 mmol/L (137-145)
[2020-09-18 21:09] LABS: Band Neutrophils Percent 3 % (0-6); Lymphocytes Absolute Manual 0.27 K/mm3 (1.1-4.5); Monocytes Absolute Manual 0.81 K/mm3 (0.1-0.90); Monocytes Percent Manual 9 % (3-9); Neutrophils Percent Manual 85 % (46-73); Platelet Estimate Adequate (Adequate); Total Cells Counted 100
[2020-09-18] MEDS: HYDROcodone/acetaminophen (*CRX) 7.5-325 MG TABLET 1 TAB PO (21:12)
[2020-09-18 21:26] VITALS: BP 127/64; PULSE 66; RESP 16; O2SAT 97
--- NOTE | 2020-09-18 21:30 | PC.NURSE ---
contacted [place] to transfer patient to [facility].eta [id number]
[2020-09-18 22:00] VITALS: BP 119/60; PULSE 69; RESP 18; O2SAT 98
[2020-09-18 22:30] VITALS: BP 120/69; PULSE 66; RESP 18; O2SAT 98
--- NOTE | 2020-09-18 22:52 | PC.NURSE ---
robin has arrived
== END 2020-09-18 23:11 | disposition short-term general hospital (02) ==
PROVIDERS: Emergency Medicine Emergency Medical Services; Emergency Provider Emergency Medicine; PCP Family Medicine
DX: S89.192A Other physeal fracture of lower end of left tibia, initial encounter for closed fracture (principal); S89.392A Other physeal fracture of lower end of left fibula, initial encounter for closed fracture; I48.20 Chronic atrial fibrillation, unspecified; Z79.01 Long term (current) use of anticoagulants; I48.92 Unspecified atrial flutter; M1A.9XX1 Chronic gout, unspecified, with tophus (tophi); F03.90 Unspecified dementia, unspecified severity, without behavioral disturbance, psychotic disturbance, mood disturbance, and anxiety; I87.8 Other specified disorders of veins; I50.9 Heart failure, unspecified; K21.9 Gastro-esophageal reflux disease without esophagitis; M06.9 Rheumatoid arthritis, unspecified; Z98.49 Cataract extraction status, unspecified eye; Z87.891 Personal history of nicotine dependence; M47.812 Spondylosis without myelopathy or radiculopathy, cervical region; I51.7 Cardiomegaly; R90.82 White matter disease, unspecified; R00.8 Other abnormalities of heart beat; I44.7 Left bundle-branch block, unspecified; R94.31 Abnormal electrocardiogram [ECG] [EKG]; M16.0 Bilateral primary osteoarthritis of hip; W19.XXXA Unspecified fall, initial encounter
CPT/HCPCS: 29515; 36415; 70450; 71045; 72125; 73502; 73610; 80053; 82550; 83605; 84484; 85025; 85610; 85730; 86140; 93005; 96361; 96374; 99285; A9270; J2270; J7040

== ENCOUNTER 2021-02-14 11:54 | Inpatient (IN) | payer MEDICARE, SELFPAY ==
--- NOTE | ~2021-02-14 | US_ITS ---
EXAMINATION: US abdomen limited EXAM DATE: 02/16/2021 08:48 INDICATION: Abd distention, evaluate liver cause TECHNIQUE: Multiple grayscale and Doppler images of the abdomen right upper quadrant were obtained (b y a technologist who performed the scan) and subsequently reviewed. Comparison is made to prior exami nation from 03/14/2015. FINDINGS: No evidence of ascites. The pancreatic head and body are normal in appearance. The pancreatic tail is not visualized. The li tolu has a mildly nodular contour, possible cirrhosis. There is no evidence of intrahepatic biliary du ct dilation. Portal venous flow was seen in the hepatopedal, normal direction and has normal Doppler waveform. No right-sided hydronephrosis. Common bile duct measures 4-5 mm, which is normal. Gallbladder is contracted likely causing the bord arias wall thickening. No calcified cholelithiasis identified. No sonographic Sotelo's sign was demo nstrated. IMPRESSION: 1. Mildly nodular liver contour, possible cirrhosis. 2. Contracted gallbladder without stones suspected. Reviewed, dictated and finalized at location G.
--- NOTE | ~2021-02-14 | XR_ITS ---
XR chest 1V portable 02/19/2021 05:52 Indication: Shortness of breath. Procedure: AP portable chest Comparison: Comparison to multiple prior studies sequentially, with oldest reviewed study dated 11/07. Findings: Moderate cardiomegaly. No focal air space disease, pulmonary edema, pleural effusion or duran pected pneumothorax. No acute osseous abnormality. Impression: 1: No acute cardiopulmonary disease. 2: Cardiomegaly. Reviewed, dictated and finalized at location A. Impression: 1: No acute cardiopulmonary disease. 2: Cardiomegaly.
--- NOTE | ~2021-02-14 | XR_ITS ---
EXAMINATION: XR chest 2V DATE: 02/14/2021 12:11 INDICATION: Lower limb swelling and shortness of breath TECHNIQUE: AP and lateral views of the chest are obtained. COMPARISON: 09/18/2020 FINDINGS: Cardiomegaly is noted. There are small pleural effusions. Minimal bibasilar airspace opacit ies are present. There is no pneumothorax. Mild IMPRESSION: 1. Cardiomegaly. 2. Small pleural effusions. 3. Minimal basilar airspace opacity, likely atelectasis Reviewed, dictated and finalized at location B.
[2021-02-14 11:57] VITALS: BP 139/65; PULSE 70; RESP 16; TEMP 37; O2SAT 100
--- NOTE | 2021-02-14 11:57 | ECG_ITS ---
Measurements Intervals [place] Rate: 74 P: [place]: 0 QRS: 16 QRSD: 130 T: 240 QT: 410 QTc: 456 Interpretive Statements ATRIAL FLUTTER/TACHYCARDIA VENTRICULAR PREMATURE COMPLEX INTRAVENTRICULAR CONDUCTION DELAY ANTEROLATERAL INFARCT, AGE INDETERMINATE CONSIDER INFERIOR INFARCT, AGE INDETERMINATE BORDERLINE T WAVE ABNORMALITY- HIGH LATERAL LEADS BASELINE WANDER- V3 ABNORMAL ECG Electronically Signed On 02-14-2021 12:44:07 CDT by Federico Guardado D.O.
[2021-02-14 12:15] LABS: Basophils Absolute Auto 0.1 K/mm3 (0.0-0.1); Basophils Percent Auto 0.8 % (0.2-1.2); Eosinophils Absolute Auto 0.3 K/mm3 (0-0.3); Eosinophils Percent Auto 4.1 % (0-4.4); Hematocrit 40.9 % (42.0-52.0); Hemoglobin 12.9 g/dL (14.0-18.0); Immature Granulocyte Absolute 0.03 K/mm3 (0.00-0.031); Immature Granulocyte Percent A 0.4 % (0-0.5); Lymphocytes Absolute Auto 0.55 K/mm3 (0.9-3.2); Lymphocytes Percent Auto 7.5 % (18.3-44.2); Mean Corpuscular HGB Conc 31.5 g/dl (32-36); Mean Corpuscular Hemoglobin 28.5 pg (26-34); Mean Corpuscular Volume 90.3 fl (80-100); Mean Platelet Volume 9.8 fl (7.4-10.4); Monocytes Absolute Auto 0.8 K/mm3 (0.1-0.6); Monocytes Percent Auto 11.3 % (2.6-8.5); Neutrophils Absolute Auto 5.6 K/mm3 (1.3-6.7); Neutrophils Percent Auto 75.9 % (45.5-73.1); Platelet Count Result 184 k/mm3 (150-375); Red Blood Count 4.53 M/mm3 (4.6-6.20); Red Cell Distribution Width 14.6 % (11.5-14.5); White Blood Count 7.4 K/mm3 (4.5-10.0)
[2021-02-14 12:26] LABS: Anion Gap 4 mmol/L (8-16); Blood Urea Nitrogen 21 mg/dL (9-20); Calcium 8.4 mg/dL (8.4-10.2); Carbon Dioxide 20 mmol/L (22-30); Chloride 109 mmol/L (98-107); Estimated CRCL calculation 49 ml/min; Estimated Glomerular Filt Rate 58; Glucose 90 mg/dL (65-110); Potassium 4.3 mmol/L (3.4-5.0); Sodium 133 mmol/L (137-145)
[2021-02-14 12:32] LABS: INR 2.3; Prothrombin Time 24.6 Seconds (11.1-14.7)
[2021-02-14 12:33] LABS: Partial Thromboplastin Time 46.1 SECONDS (22.3-36.8)
[2021-02-14 12:39] LABS: NT Pro B Type Natriuretic Pept 4350 pg/mL (5-100); Troponin I 0.043 ng/mL (0.000-0.034)
[2021-02-14 13:31] VITALS: BP 144/79; PULSE 62; RESP 20; O2SAT 100
--- NOTE | 2021-02-14 14:56 | ED.SOB ---
HPI - SOB/Dyspnea General Chief Complaint: Shortness of Breath/Dyspnea Stated Complaint: sob Time Seen by Provider: 02/14/21 13:28 Source: patient, family and EMS Mode of arrival: EMS Limitations: no limitations History of Present Illness HPI Narrative: 80-year-old male Presents from [facility] for evaluation of 3 days of increased dyspnea History of chronic A. fib, does have furosemide on his med list He has had shortness of breath and feels like he is retaining fluid, mostly in his belly and chest, for the last 3 days There was no inciting event, he does not think he missed any of his pills, he did not have any chest pain, there is no fever cough Does think he has some swelling in his legs Symptoms are severe enough that he started to have to use a walker in order to walk down the [place], not too much trouble Related Data Home Medications Medication Instructions Recorded Confirmed acetaminophen 325 mg capsule 325 mg PO Q6H PRN 06/08/19 08/24/20 warfarin 2.5 mg tablet 2.5 mg PO 4XW 06/08/19 08/24/20 warfarin 4 mg tablet 4 mg PO QMWF 06/08/19 08/24/20 docusate sodium 100 mg PO HS 06/17/19 08/24/20 diphenhydramine-acetaminophen 1 tablet PO HS PRN 01/20/20 08/24/20 [Tylenol PM Extra Strength] nystatin 1 applic TOPICAL BID PRN 01/20/20 08/24/20 Allergies Allergy/AdvReac Type Severity Reaction Status Date / Time Penicillins Allergy Unknown Rash Verified 09/18/20 20:55 Sulfa (Sulfonamide Allergy Unknown Rash Verified 09/18/20 20:55 Antibiotics) sulfathiazole Allergy Unknown Unknown Verified 09/18/20 20:55 Review of Systems Review of Systems: All systems reviewed & are unremarkable except as noted in HPI and below Constitutional: Constitutional: Reports no additional constitutional complaints, Denies chills, Denies fever(s), Denies headache(s) and Reports weakness Eyes: Eyes: Reports no additional eye complaints and Denies change in vision ENT: Denies headache(s) and Denies sore throat Cardiovascular: Cardiovascular: Denies chest pain and Denies dyspnea Respiratory: Respiratory: Denies cough and Reports dyspnea Gastrointestinal: Gastrointestinal: Denies abdominal pain, Denies diarrhea and Denies vomiting Genitourinary: Genitourinary: Denies dysuria and Denies urinary frequency Musculoskeletal: Musculoskeletal: Denies deformity, Denies arthralgias, Reports joint swelling and Denies numbness Integumentary/Breasts: Skin/Breast: Denies rash and Denies wounds Neurologic: Denies headache(s), Denies focal weakness and Denies numbness Psychiatric: Psychiatric: Reports no additional psychiatric complaints Endocrine: Endocrine: Reports no additional endocrine complaints Hematologic/Lymphatic: Hematologic/Lymphatic: Reports no additional hematologic/lymphatic complaints Allergic/Immunologic: Allergic/Immunologic: Reports no additional allergic/immunologic complaints [facility] Past Medical History Medical History Blood blister Cataracts, bilateral Chronic a-fib Chronic atrial flutter Chronic gout without tophus Chronic right-sided heart failure Chronic venous stasis dermatitis Dementia Gastrointestinal ulcer GERD (gastroesophageal reflux disease) Gout, unspecified HTN (hypertension) Inguinal hernia Pneumonia Rheumatoid arthritis Seizures Seronegative rheumatoid arthritis Thickened nail Undifferentiated connective tissue disease (~2011) Surgical History Surgical History Hx of cardiac catheterization Hx of cataract surgery Hx of inguinal hernia repair Family History Family History Father Family history of Parkinson's disease Mother Hypertension Cerebrovascular accident Sibling Family history of coronary artery disease Social History Social History Smoking status
[2021-02-14] MEDS: BUMETANIDE INJ 1 MG/4 ML VIAL 2 MG IV PUSH (15:14)
--- NOTE | 2021-02-14 15:24 | PC.NURSE ---
Spoke with [facility], they will be faxing over his facesheet and medication list.
[2021-02-14 15:48] LABS: Troponin I 0.042 ng/mL (0.000-0.034)
[2021-02-14 16:29] LABS: Add Urine Microscopic? NO; Appearance Urine Clear (Clear); Bilirubin Urine Negative (Negative); Blood Urine Negative (Negative); Color Urine Straw (Yellow); Glucose Urine UA Negative (Negative); Ketones Urine Negative (Negative); Leukocyte Esterase Ur Negative LEU/UL (Negative); Nitrate Urine Negative (Negative); Protein Urine Negative (Negative); Specific Grav Ur 1.008 (1.001-1.035); Urobilinogen Urine Negative mg/dL (<2.0)
[2021-02-14 18:57] VITALS: BP 147/90; PULSE 72; RESP 18; O2SAT 100
--- NOTE | 2021-02-14 22:13 | ADMGEN ---
This patient, Shaan Landis, was admitted to Medical Room 252-. Patient/family oriented to hospital policies and general routines including ID bracelet, bed and alarms, visiting hours, pain management, procedures, bathroom and other care routines, personal items, smoking policy, room service/diet, and visiting hours. Information on how to activate the Rapid Response Team has been discussed. Patient/Family are encouraged to report perceived risks to care and to ask questions if they do not understand what they are told or what they should do.
[2021-02-14 22:21] VITALS: BP 124/65; PULSE 69; RESP 20; TEMP 36.2; O2SAT 98; BMI 32.9
[2021-02-14 22:35] VITALS: PULSE 66
[2021-02-15] VITALS (9 sets, daily range): BP systolic 109–132; BP diastolic 51–66; PULSE 58–89; RESP 16–20; TEMP 36.1–36.7; O2SAT 95–97
--- NOTE | 2021-02-15 02:58 | PM.IMHP ---
H&P: HPI History of Present Illness Date/Time: 02/15/21 02:58 Chief Complaint: could not pee, abdominal swelling, shortness of breath Narrative: 80-year-old male with past medical history of right-sided heart failure who presented to the ER with shortness of breath. he reports that he has gained 25 lb in the last 3 weeks. He recently moved from the senior care facility to assisted Living . The meals at assisted living are not low-sodium meals. He has noticed over the last week that he has had increased abdominal distension and has had trouble producing much urine. He he has also had increased dyspnea on exertion and has had to start using a wheelchair to go to the dining [place]. Previously he had been ambulating with a walker. He denies any chest pain or palpitations. He has been taking his medications as directed. In the ER he received 2 mg of Bumex and subsequently put out 2 L of urine before he left the ER. He reports that he feels much better. His abdomen is less distended. He has been having normal bowel movements. He denies any dysuria hematuria. He has not had any cough or congestion. He is fully vaccinated for COVID-19. He has been having some nasal congestion but this has improved with Flonase. He does have a history of dementia but is a fair historian. He is alert oriented x3 but is easily distracted in will talk about events in the distant past in great detail. He is very loquacious. Review of Systems Review of Systems: Narrative: 12 systems were reviewed with pertinent positives and negatives per HPI. Except as documented in the HPI, all other systems were reviewed and are negative. [facility] Past Medical History Medical History (Updated 02/15/21 @ 03:12 by Ariela English DO) Blood blister BPH (benign prostatic hyperplasia) Chronic a-fib Chronic atrial flutter Chronic gout without tophus Chronic right-sided heart failure Echocardiogram November 2019: Normal left ventricular systolic function with EF of 78%, severe enlargement of right ventricle with severe right ventricular hypokinesis, severe enlargement of the right atrium Chronic venous stasis dermatitis Coronary artery disease Dementia Dyslipidemia Gastrointestinal ulcer GERD (gastroesophageal reflux disease) HTN (hypertension) Inguinal hernia Pneumonia Rheumatoid arthritis Seizures 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) Surgical History Surgical History (Updated 02/15/21 @ 08:37 by Ariela English DO) Hx of cardiac catheterization and 2009 Hx of cataract surgery Hx of inguinal hernia repair right Status post open reduction with internal fixation of fracture (~08/2020) left tibial fracture with interosseous pinning Family History Family History Father , at age 54 Parkinsons disease Cerebrovascular accident Mother , in her 80s Hypertension Cerebrovascular accident Essential hypertension Hypothyroidism Heart disease Sibling Coronary artery disease Social History Social History (Updated 02/15/21 @ 08:36 by Ariela English DO) Social History: He is single and has never been . He is currently living at [facility]. He had previously been in the skilled facility for rehab following a left leg fracture August 2020. He smoked a pipe up until 1979. 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 primary care physician: Dr. Carlos Manuel Vasquez Code status: Full code Healthcare power of guitar technician: Kellie Rico (cousins) Smoking status: Former smoker Tobacco type: pipe Smoking end date: 07/27/1968 Alcohol intake: never Substance use: never Gender identity (if verbalized by the patient): Male Spiritual care concerns: No Meds Home Medications and Allergies Home Medications Medication Instructio
[2021-02-15 05:51] LABS: Hematocrit 38.8 % (42.0-52.0); Hemoglobin 12.4 g/dL (14.0-18.0); Mean Corpuscular Hemoglobin 28.5 pg (26-34); Mean Corpuscular Volume 89.2 fl (80-100); Mean Platelet Volume 9.9 fl (7.4-10.4); Platelet Count Result 176 k/mm3 (150-375); Red Blood Count 4.35 M/mm3 (4.6-6.20); Red Cell Distribution Width 14.6 % (11.5-14.5); White Blood Count 6.4 K/mm3 (4.5-10.0)
[2021-02-15 06:02] LABS: Alanine Aminotransferase 12 U/L (4-50); Albumin Level 2.6 g/dL (3.5-5.1); Alkaline Phosphatase 130 U/L (38-126); Anion Gap 4 mmol/L (8-16); Aspartate Amino Transferase 26 U/L (17-59); Blood Urea Nitrogen 21 mg/dL (9-20); Calcium 8.2 mg/dL (8.4-10.2); Carbon Dioxide 20 mmol/L (22-30); Chloride 111 mmol/L (98-107); Estimated CRCL calculation 47 ml/min; Estimated Glomerular Filt Rate 58; Glucose 91 mg/dL (65-110); Potassium 4.3 mmol/L (3.4-5.0); Sodium 135 mmol/L (137-145)
[2021-02-15 06:32] LABS: Magnesium 1.7 mg/dL (1.6-2.3)
[2021-02-15] MEDS: FLUTICASONE PROPIONATE 0.05% NA SPR 16 GM BTL (*BKC) 2 SPRAY NASAL (08:24)
[2021-02-15] MEDS: ASPIRIN 81 MG CHEWABLE TABLET PO (08:24)
[2021-02-15] MEDS: TOLNAFTATE 1% POWDER 45 GM BTL 1 APPLIC TOPICAL (08:24)
[2021-02-15] MEDS: POTASSIUM CHLORIDE 20 MEQ TABLET.ER PO ×2 (08:25→16:41)
[2021-02-15] MEDS: HYDROXYCHLOROQUINE SULFATE 200 MG TABLET PO ×2 (08:25→16:41)
[2021-02-15] MEDS: LEFLUNOMIDE 20 MG TABLET PO (08:26)
[2021-02-15] MEDS: FEBUXOSTAT 40 MG TABLET 80 MG PO (08:26)
[2021-02-15] MEDS: MEMANTINE 10 MG TABLET PO ×2 (08:26→19:45)
[2021-02-15] MEDS: FOLIC ACID 1 MG TABLET PO (08:26)
[2021-02-15] MEDS: BUMETANIDE INJ 1 MG/4 ML VIAL IV PUSH (08:26)
[2021-02-15] MEDS: guaiFENesin 12 HR 600 MG TABCR PO ×2 (08:26→19:45)
[2021-02-15] MEDS: PANTOPRAZOLE 40 MG TABLET PO (08:27)
[2021-02-15] MEDS: TAMSULOSIN HCL 0.4 MG CAPSULE PO (08:27)
[2021-02-15] MEDS: SPIRONOLACTONE 25 MG TABLET PO (08:27)
--- NOTE | 2021-02-15 11:43 | PM.IMPN ---
Progress Note: A&P Assessment and Plan (1) CHF (congestive heart failure): Qualifiers: Heart failure chronicity: acute on chronic Heart failure type: right-sided Qualified Code(s): I50.813 - Acute on chronic right heart failure Code(s): I50.9 - Heart failure, unspecified Status: Acute Assessment and Plan: acute on chronic right-sided heart failure with acute exacerbation. he had elevated BNP of 4300. Flat troponin suggesting fluid overload strain on the heart. He has responded well to IV Bumex which will be continued daily while admitted. He is only on spironolactone at home will need to add second diuretic therapy at discharge. Will monitor strict I&O's and daily weights. Electrolytes during diuresis and renal function. (2) Anasarca: Code(s): R60.1 - Generalized edema Status: Acute Assessment and Plan: Normal LFTs but will get an abdominal ultrasound in the morning to rule out his liver causing anasarca. Could all be from his right-sided congestive heart failure. (3) Chronic atrial flutter: Code(s): I48.92 - Unspecified atrial flutter Status: Acute Assessment and Plan: chronic AFib. On telemetry his heart rate well controlled 85 beats per minute. Continue on his medications which include warfarin blood thinner and it does not appear he is on any type of beta-oswald. Heart rate is otherwise controlled at this time. Will DC telemetry. (4) Chronic kidney disease, stage III (moderate): Code(s): N18.3 - Chronic kidney disease, stage 3 (moderate) Status: Acute Assessment and Plan: renal function is stable with a creatinine 1.2, estimated creatinine clearance was 47. Continue monitoring electrolytes and renal function with diuresis Time Spent With Patient Time with patient: 25 - 35 minutes Subjective Date/time seen: 02/15/21 11:43 Interval history: date of service 02/15/2021: the patient reports improvement of his abdominal swelling since arrival. He is urinating well after diuretic therapy. he states before coming in he was barely urinating at all. Here he denies much urinary retention, hesitancy with urination, or pain with urination.He denies much leg swelling. He denies any chest pain, shortness of breath, orthopnea, cough, nausea, vomiting, or any other symptoms at this time. Review of Systems Review of Systems: All systems reviewed & are unremarkable except as noted in HPI and below Exam Narrative: Exam Narrative: General: 80-year-old man Sitting up in bed watching TV. Appears comfortable. In no acute distress. Skin: No jaundice or cyanosis. Good skin turgor. Neck: Full range of motion. Supple. Respiratory: Lungs are clear to auscultation bilaterally. No wheezing, rales or rhonchi.No bony chest wall tenderness. Cardiovascular: The heart has a regular rate and rhythm without murmur. Tele shows atrial flutter with a heart rate 85 beats per minute, few PVCs noted. Lower extremities: Chronic venous stasis changes with dry skin, scaling present. Some 1+ pitting edema noted to left foot. Some 2+edema noted to bilateral thighs. Distal pulses are easily palpated. No calf tenderness to palpation. Gastrointestinal: Distended abdomen. The top of the abdomen is soft, but hard subq fluid noted to bilateral flanks. Nontender with active bowel sounds. Psychiatric: Lucid and oriented. Memory intact. Neurologic: No focal deficits. Speech is clear. No facial drooping. Objective Data Vital Signs Vital Signs: Vital Signs - 24 hr 02/14/21 11:57 02/14/21 13:31 02/14/21 18:57 Temperature 98.6 F Pulse Rate 70 62 72 Respiratory Rate 16 20 18 Blood Pressure 139/65 144/79 H 147/90 H Pulse Oximetry 100 100 100
--- NOTE | 2021-02-15 12:52 | PCWOUND ---
WOCN NOTE No open areas present to the lower legs. Large plaques of dry skin noted to legs and feet from poor hygiene. Spoke with RN that patients needs to have legs and feet washed with soap and water. May resume patients home regimen of Eucerin application.
[2021-02-15] MEDS: EUCERIN CREAM 120 GM JAR 1 APPLIC TOPICAL (14:54)
[2021-02-15] MEDS: WARFARIN (*PBKC) 3 MG TABLET PO (16:41)
[2021-02-16 05:36] LABS: Hematocrit 38.2 % (42.0-52.0); Hemoglobin 12.4 g/dL (14.0-18.0); Mean Corpuscular HGB Conc 32.5 g/dl (32-36); Mean Corpuscular Hemoglobin 28.2 pg (26-34); Mean Platelet Volume 9.8 fl (7.4-10.4); Platelet Count Result 177 k/mm3 (150-375); Red Blood Count 4.39 M/mm3 (4.6-6.20); Red Cell Distribution Width 14.6 % (11.5-14.5); White Blood Count 5.7 K/mm3 (4.5-10.0)
[2021-02-16 05:47] LABS: INR 1.7; Prothrombin Time 19.4 Seconds (11.1-14.7)
[2021-02-16 05:56] LABS: Anion Gap 2 mmol/L (8-16); Blood Urea Nitrogen 26 mg/dL (9-20); Calcium 8.3 mg/dL (8.4-10.2); Carbon Dioxide 22 mmol/L (22-30); Chloride 109 mmol/L (98-107); Estimated CRCL calculation 44 ml/min; Estimated Glomerular Filt Rate 53; Glucose 87 mg/dL (65-110); Magnesium 1.8 mg/dL (1.6-2.3); Potassium 4.6 mmol/L (3.4-5.0); Sodium 133 mmol/L (137-145)
[2021-02-16 06:00] VITALS: BP 123/69; PULSE 63; RESP 14; TEMP 36.3; O2SAT 95
[2021-02-16] MEDS: FLUTICASONE PROPIONATE 0.05% NA SPR 16 GM BTL (*BKC) 2 SPRAY NASAL (09:18)
[2021-02-16] MEDS: LEFLUNOMIDE 20 MG TABLET PO (09:19)
[2021-02-16] MEDS: FEBUXOSTAT 40 MG TABLET 80 MG PO (09:19)
[2021-02-16] MEDS: ASPIRIN 81 MG CHEWABLE TABLET PO (09:19)
[2021-02-16] MEDS: SPIRONOLACTONE 25 MG TABLET PO (09:19)
[2021-02-16] MEDS: TAMSULOSIN HCL 0.4 MG CAPSULE PO (09:19)
[2021-02-16] MEDS: HYDROXYCHLOROQUINE SULFATE 200 MG TABLET PO ×2 (09:19→17:26)
[2021-02-16] MEDS: guaiFENesin 12 HR 600 MG TABCR PO ×2 (09:19→20:10)
[2021-02-16] MEDS: POTASSIUM CHLORIDE 20 MEQ TABLET.ER PO ×2 (09:19→17:26)
[2021-02-16] MEDS: FOLIC ACID 1 MG TABLET PO (09:19)
[2021-02-16] MEDS: MEMANTINE 10 MG TABLET PO ×2 (09:19→20:10)
[2021-02-16] MEDS: PANTOPRAZOLE 40 MG TABLET PO (09:19)
[2021-02-16] MEDS: BUMETANIDE INJ 1 MG/4 ML VIAL IV PUSH (09:20)
[2021-02-16] MEDS: EUCERIN CREAM 120 GM JAR 1 APPLIC TOPICAL (09:22)
--- NOTE | 2021-02-16 12:25 | PM.IMPN ---
Progress Note: A&P Assessment and Plan (1) CHF (congestive heart failure): Qualifiers: Heart failure chronicity: acute on chronic Heart failure type: right-sided Qualified Code(s): I50.813 - Acute on chronic right heart failure Code(s): I50.9 - Heart failure, unspecified Status: Acute Assessment and Plan: acute on chronic right-sided heart failure with acute exacerbation. he had elevated BNP of 4300. Flat troponin suggesting fluid overload strain on the heart. He has responded well to IV Bumex which will be continued daily while admitted. He is only on spironolactone at home will need to add second diuretic therapy at discharge. (2) Anasarca: Code(s): R60.1 - Generalized edema Status: Acute Assessment and Plan: Likely all be from his right-sided congestive heart failure. (3) Chronic atrial flutter: Code(s): I48.92 - Unspecified atrial flutter Status: Acute Assessment and Plan: On telemetry his heart rate well controlled 85 beats per minute. continue warfarin. Heart rate is controlled at this time. (4) Chronic kidney disease, stage III (moderate): Code(s): N18.3 - Chronic kidney disease, stage 3 (moderate) Status: Acute Assessment and Plan: renal function is stable with a creatinine 1.3 Continue monitoring electrolytes and renal function with diuresis Subjective Date/time seen: 02/16/21 12:25 Interval history: Admitted February 14 with exacerbation of right-sided heart failure with abdominal bloating and lower extremity swelling and dyspnea. February 16. Breathing much better. Much less swelling of lower extremities. Tolerating diet. Denied chest pain. Denied bowel or bladder issues. Denied abnormal bleeding. Review of Systems Review of Systems: All systems reviewed & are unremarkable except as noted in HPI and below Exam Narrative: Exam Narrative: General: Elderly gentleman in no acute distress Skin: No jaundice or cyanosis. Venous stasis changes over both distal lower extremities Neck: no jugular venous distention visible Respiratory: Lungs are clear to auscultation bilaterally. No wheezing, rales or rhonchi. Cardiovascular: Regular rate. Normal S1 and S2. No audible murmur. Lower extremities: 2+ pitting edema to the distal thighs Gastrointestinal: Distended but soft. Nontender with active bowel sounds. Psychiatric: Alert and oriented to person place time and situation Neurologic: No focal deficits. Speech is clear. No facial drooping. Objective Data Vital Signs Vital Signs: Vital Signs - 24 hr 02/15/21 14:00 02/15/21 16:00 02/15/21 21:51 Temperature 97.0 F L 98.0 F Pulse Rate 58 L 62 64 Respiratory Rate 18 20 Blood Pressure 109/53 L 116/51 L Pulse Oximetry 97 96 02/16/21 06:00 Temperature 97.3 F L Pulse Rate 63 Respiratory Rate 14 Blood Pressure 123/69 Pulse Oximetry 95 Intake/Output Intake/Output: Intake & Output 02/13/21 02/14/21 02/15/21 02/16/21 23:59 23:59 23:59 23:59 Intake Total 1260 780 Output Total 1875 425 Balance -615 355 Meds/Results Medications: Active Medications Generic Name Dose Route Start Last Admin Trade Name Freq PRN Reason Stop Dose Admin Acetaminophen 650 mg 02/14/21 18:01 Acetaminophen 325 Mg Tablet PO Q4H PRN Mild Pain (1-3) or Fever Hydrocodone Bitart/Acetaminophen 1 tab 02/15/21 02:52 Hydrocodone/Acetaminophen (*Crx) 5-325 Mg Tablet PO Q4H PRN pain 4-6 Albuterol 2 puff 02/15/21 02:52 Albuterol Sulfate (*Sp) Aerosol 1 Puff INHALATION Q8H PRN shortness of breath or wheezing Aspirin 81 mg 02/15/21 08:00 02/16/21 09:19 Aspirin 81 Mg Chewable Tablet PO 81 mg DA
[2021-02-16 14:30] VITALS: BP 148/61; PULSE 60; RESP 16; TEMP 36.4; O2SAT 98
[2021-02-16] MEDS: WARFARIN (*PBKC) 3 MG TABLET PO (17:26)
[2021-02-16 20:00] VITALS: PULSE 55; RESP 14; O2SAT 96
[2021-02-16 22:00] VITALS: BP 120/60; PULSE 55; RESP 14; TEMP 36.6; O2SAT 96
[2021-02-17 06:00] VITALS: BP 114/55; PULSE 56; RESP 16; TEMP 36.1; O2SAT 97
[2021-02-17 06:02] LABS: INR 1.7; Prothrombin Time 19.4 Seconds (11.1-14.7)
[2021-02-17 06:08] LABS: Anion Gap 3 mmol/L (8-16); Blood Urea Nitrogen 29 mg/dL (9-20); Calcium 8.5 mg/dL (8.4-10.2); Carbon Dioxide 23 mmol/L (22-30); Chloride 106 mmol/L (98-107); Estimated CRCL calculation 41 ml/min; Estimated Glomerular Filt Rate 49; Glucose 87 mg/dL (65-110); Potassium 4.8 mmol/L (3.4-5.0); Sodium 132 mmol/L (137-145)
[2021-02-17] MEDS: FLUTICASONE PROPIONATE 0.05% NA SPR 16 GM BTL (*BKC) 2 SPRAY NASAL (09:08)
[2021-02-17] MEDS: TAMSULOSIN HCL 0.4 MG CAPSULE PO (09:09)
[2021-02-17] MEDS: FEBUXOSTAT 40 MG TABLET 80 MG PO (09:09)
[2021-02-17] MEDS: BUMETANIDE INJ 1 MG/4 ML VIAL IV PUSH (09:09)
[2021-02-17] MEDS: PANTOPRAZOLE 40 MG TABLET PO (09:09)
[2021-02-17] MEDS: POTASSIUM CHLORIDE 20 MEQ TABLET.ER PO ×2 (09:09→17:05)
[2021-02-17] MEDS: HYDROXYCHLOROQUINE SULFATE 200 MG TABLET PO ×2 (09:09→17:05)
[2021-02-17] MEDS: SPIRONOLACTONE 25 MG TABLET PO (09:09)
[2021-02-17] MEDS: guaiFENesin 12 HR 600 MG TABCR PO ×2 (09:09→21:59)
[2021-02-17] MEDS: ASPIRIN 81 MG CHEWABLE TABLET PO (09:10)
[2021-02-17] MEDS: LEFLUNOMIDE 20 MG TABLET PO (09:10)
[2021-02-17] MEDS: FOLIC ACID 1 MG TABLET PO (09:10)
[2021-02-17] MEDS: EUCERIN CREAM 120 GM JAR 1 APPLIC TOPICAL (09:11)
[2021-02-17] MEDS: MEMANTINE 10 MG TABLET PO ×2 (10:47→21:59)
[2021-02-17 14:10] VITALS: BP 122/70; PULSE 70; RESP 16; TEMP 36.6; O2SAT 98
--- NOTE | 2021-02-17 14:32 | PM.IMPN ---
Progress Note: A&P Assessment and Plan (1) CHF (congestive heart failure): Qualifiers: Heart failure chronicity: acute on chronic Heart failure type: right-sided Qualified Code(s): I50.813 - Acute on chronic right heart failure Code(s): I50.9 - Heart failure, unspecified Status: Acute Assessment and Plan: acute on chronic right-sided heart failure with acute exacerbation. he had elevated BNP of 4300. Flat troponin suggesting fluid overload strain on the heart. Continue IV bumetanide continue spironolactone Due to Na 132, add fluid restriction 1500 ml/day 02/17 (2) Anasarca: Code(s): R60.1 - Generalized edema Status: Acute Assessment and Plan: Likely all be from his right-sided congestive heart failure. (3) Chronic atrial flutter: Code(s): I48.92 - Unspecified atrial flutter Status: Acute Assessment and Plan: continue warfarin. Heart rate is controlled. (4) Chronic kidney disease, stage III (moderate): Code(s): N18.3 - Chronic kidney disease, stage 3 (moderate) Status: Acute Assessment and Plan: renal function is relatively stable with a creatinine 1.4 (thought suggesting an upward trend) Continue monitoring electrolytes and renal function with diuresis Subjective Date/time seen: 02/17/21 14:32 Interval history: Admitted February 14 with exacerbation of right-sided heart failure with abdominal bloating and lower extremity swelling and dyspnea. February 17. Feeling better overall with less sob and less swelling of lower extremities. Tolerating diet. Denied chest pain. Denied bowel or bladder issues. Denied abnormal bleeding. Review of Systems Review of Systems: All systems reviewed & are unremarkable except as noted in HPI and below Exam Narrative: Exam Narrative: General: Elderly gentleman in no acute distress Skin: No jaundice or cyanosis. Venous stasis changes over both distal lower extremities Neck: no jugular venous distention visible Respiratory: Lungs are clear to auscultation bilaterally. No wheezing, rales or rhonchi. Cardiovascular: Regular rate. Normal S1 and S2. No audible murmur. Lower extremities: pitting edema to the distal thigh, 2+ on left, 1+ on right Gastrointestinal: Distended but soft. Nontender with active bowel sounds. Psychiatric: Alert and oriented to person place time and situation Neurologic: No focal deficits. Speech is clear. No facial drooping. Objective Data Vital Signs Vital Signs: Vital Signs - 24 hr 02/16/21 20:00 02/16/21 22:00 02/17/21 06:00 Temperature 97.8 F 96.9 F L Pulse Rate 55 L 55 L 56 L Respiratory Rate 14 14 16 Blood Pressure 120/60 114/55 L Pulse Oximetry 96 96 97 02/17/21 14:10 Temperature 97.8 F Pulse Rate 70 Respiratory Rate 16 Blood Pressure 122/70 Pulse Oximetry 98 Intake/Output Intake/Output: Intake & Output 02/14/21 02/15/21 02/16/21 02/17/21 23:59 23:59 23:59 23:59 Intake Total 1260 1890 900 Output Total 1875 1450 500 Balance -615 440 400 Meds/Results Medications: Active Medications Generic Name Dose Route Start Last Admin Trade Name Freq PRN Reason Stop Dose Admin Acetaminophen 650 mg 02/14/21 18:01 Acetaminophen 325 Mg Tablet PO Q4H PRN Mild Pain (1-3) or Fever Hydrocodone Bitart/Acetaminophen 1 tab 02/15/21 02:52 Hydrocodone/Acetaminophen (*Crx) 5-325 Mg Tablet PO Q4H PRN pain 4-6 Albuterol 2 puff 02/15/21 02:52 Albuterol Sulfate (*Sp) Aerosol 1 Puff INHALATION Q8H PRN shortness of breath or wheezing Aspirin 81 mg 02/15/21 08:00 02/17/21 09:10 Aspirin 81 Mg Chewable Tablet PO 81 mg DAILY@0800 SANAM Administration Bumetanide 1 mg
[2021-02-17] MEDS: WARFARIN (*PBKC) 3 MG TABLET PO (17:05)
[2021-02-17 20:00] VITALS: PULSE 56; RESP 20; O2SAT 98
[2021-02-17 22:00] VITALS: BP 139/82; PULSE 56; RESP 20; TEMP 36.5; O2SAT 98
--- NOTE | 2021-02-18 | ECHO_ITS ---
Patient Info Name: Shaan Landis Age: 80 years : 1940 Gender: Male Ht: 67 in Wt: 207 lbs BSA: 2.14 m2 HR: 67 bpm BP: 139 / 82 mmHg Heart Rhythm: Indeterminant Technical Quality: Fair Exam Date: 02/18/2021 3:13 PM Exam Location: [facility] Pulmonary Exam Room: 252 Patient Status: Inpatient Admit Date: 02/15/2021 Staff Ordering Physician: Jh Moya MD Industrial Electrical Technician: Windy Mcnally RDCS Attending Provider: Yusra Randolph PA-C Referring Physician: Griffin BIRD; Exam Type: CA echo doppler color flow Study Info Indications - RIGHT HEART FAILURE Complete two-dimensional, color flow and Doppler transthoracic echocardiogram is performed. Summary 1. Complete two-dimensional, color flow and Doppler transthoracic echocardiogram is performed. 2. Normal left ventricular size, thickness and systolic function, with no segmental wall motion abnormalities. Ejection fraction 60-65%. Normal diastolic function. 3. Severe right ventricular enlargement with severe hypokinesis. 4. Septal flattening during systole and diastole consistent with right ventricular volume and pressure overload. 5. Mild left atrial enlargement. 6. Severe right atrial enlargement. 7. Dilated inferior vena cava. 8. Moderate tricuspid regurgitation due to poor coaptation of the leaflet tips. 9. No pulmonary hypertension on this study; however, the hemodynamics may be abnormal and the right ventricular systolic pressure may not be he calculated reliably with this study. 10. Rhythm indeterminate. Left Ventricle Left ventricular chamber dimension is normal. Left ventricular systolic function is normal, estimated at 60-65%. There is no increased left ventricular wall thickness. Left ventricular septal wall motion is normal. The left ventricular diastolic function is normal. Right Ventricle Right ventricular chamber dimension is severely enlarged. Right ventricular systolic function is reduced. Left Atria Left atrial chamber dimension is mildly enlarged. Right Atria Right atrial chamber dimension is severely enlarged. Aortic Valve The aortic valve is trileaflet. There is no aortic valve sclerosis. There is no aortic valve stenosis. There is no aortic valve regurgitation. Pulmonic Valve The pulmonic valve is normal. There is no pulmonic valve stenosis. There is trace pulmonic regurgitation. Mitral Valve The mitral valve has normal leaflets. There is no mitral valve stenosis. There is no mitral valve regurgitation. Tricuspid Valve The tricuspid valve leaflets are normal. There is no significant tricuspid valve stenosis. There is moderate tricuspid valve regurgitation. No pulmonary hypertension, estimated pulmonary arterial systolic pressure is 21 mmHg. Pericardium/Pleural The pericardium appears normal. There is no pericardial effusion. Inferior Vena Cava Dilated inferior vena cava with >50% collapse upon inspiration consistent with Empty right atrial pressure, 10 mmHg. Aorta The aortic root size at the sinus of Valsalva is normal. The prox ascending aorta size is normal. Left Ventricular Outflow Tract Name Value Normal LVOT 2D LVOT Diameter 2.1 cm
[2021-02-18 05:59] LABS: Prothrombin Time 21.9 Seconds (11.1-14.7)
[2021-02-18 06:00] VITALS: BP 121/67; PULSE 84; RESP 18; TEMP 36.6; O2SAT 96
[2021-02-18 06:09] LABS: Anion Gap 5 mmol/L (8-16); Blood Urea Nitrogen 30 mg/dL (9-20); Calcium 8.3 mg/dL (8.4-10.2); Carbon Dioxide 20 mmol/L (22-30); Chloride 108 mmol/L (98-107); Estimated CRCL calculation 43 ml/min; Estimated Glomerular Filt Rate 53; Glucose 85 mg/dL (65-110); Potassium 4.7 mmol/L (3.4-5.0); Sodium 133 mmol/L (137-145)
[2021-02-18] MEDS: EUCERIN CREAM 120 GM JAR 1 APPLIC TOPICAL (08:01)
[2021-02-18] MEDS: ASPIRIN 81 MG CHEWABLE TABLET PO (08:03)
[2021-02-18] MEDS: POTASSIUM CHLORIDE 20 MEQ TABLET.ER PO ×2 (08:03→16:41)
[2021-02-18] MEDS: HYDROXYCHLOROQUINE SULFATE 200 MG TABLET PO ×2 (08:03→16:41)
[2021-02-18] MEDS: BUMETANIDE INJ 1 MG/4 ML VIAL IV PUSH ×2 (08:03→16:42)
[2021-02-18] MEDS: FEBUXOSTAT 40 MG TABLET 80 MG PO (08:03)
[2021-02-18] MEDS: FOLIC ACID 1 MG TABLET PO (08:04)
[2021-02-18] MEDS: LEFLUNOMIDE 20 MG TABLET PO (08:04)
[2021-02-18] MEDS: MEMANTINE 10 MG TABLET PO ×2 (08:04→21:20)
[2021-02-18] MEDS: guaiFENesin 12 HR 600 MG TABCR PO ×2 (08:04→21:20)
[2021-02-18] MEDS: FLUTICASONE PROPIONATE 0.05% NA SPR 16 GM BTL (*BKC) 2 SPRAY NASAL (08:04)
[2021-02-18] MEDS: SPIRONOLACTONE 25 MG TABLET PO (08:05)
[2021-02-18] MEDS: PANTOPRAZOLE 40 MG TABLET PO (08:05)
[2021-02-18] MEDS: TAMSULOSIN HCL 0.4 MG CAPSULE PO (08:05)
--- NOTE | 2021-02-18 08:16 | PM.IMPN ---
Progress Note: A&P Assessment and Plan (1) CHF (congestive heart failure): Qualifiers: Heart failure chronicity: acute on chronic Heart failure type: right-sided Qualified Code(s): I50.813 - Acute on chronic right heart failure Code(s): I50.9 - Heart failure, unspecified Status: Acute Assessment and Plan: acute on chronic right-sided heart failure with acute exacerbation. he had elevated BNP of 4300. Flat troponin suggesting fluid overload strain on the heart. Continue IV bumetanide but will increase the dose to 1 mg IV twice a day. He had a negative fluid balance of 80 cc in the last 24 hour. continue spironolactone Due to Na 132, add fluid restriction 1500 ml/day 02/17 Echo is pending. (2) Anasarca: Code(s): R60.1 - Generalized edema Status: Acute Assessment and Plan: Likely from his right-sided heart failure. (3) Chronic atrial flutter: Code(s): I48.92 - Unspecified atrial flutter Status: Acute Assessment and Plan: continue warfarin. Heart rate is controlled. INR is therapeutic. No signs of bleeding. (4) Chronic kidney disease, stage III (moderate): Code(s): N18.3 - Chronic kidney disease, stage 3 (moderate) Status: Acute Assessment and Plan: renal function is relatively stable Continue monitoring electrolytes and renal function with diuresis Continue to monitor intake output records closely. Additional Plan PT OT has been consulted. He will likely be discharged in a.m. if he remains stable and after PT OT evaluation. DVT prophylaxis with systemic anticoagulation GI prophylaxis with PPI Subjective Date/time seen: 02/18/21 08:16 Interval history: Admitted February 14 with exacerbation of right-sided heart failure with abdominal bloating and lower extremity swelling and dyspnea. February 18. He is feeling better. He is still complaining of shortness of breath with walking. He denied have any chest pain or cough. He was on room air at the time of my evaluation. He has not been seen by PT OT yet. He has diuresed with Bumex but had only 80 cc net negative fluid balance in the last 24 hour. Echo is pending. His INR is therapeutic. Review of Systems Review of Systems: All systems reviewed & are unremarkable except as noted in HPI and below Exam Narrative: Exam Narrative: General: Elderly gentleman in no acute distress Skin: No jaundice or cyanosis. Venous stasis changes over both distal lower extremities Neck: no jugular venous distention visible Respiratory: Bilateral crackles heard at the bases. Cardiovascular: Regular rate. Normal S1 and S2. No audible murmur. Lower extremities: pitting edema to the distal thigh, 2+ on left, 1+ on right Gastrointestinal: Soft and nontender Psychiatric: Alert and oriented to person place time and situation Neurologic: No focal deficits. Speech is clear. No facial drooping. Objective Data Vital Signs Vital Signs: Vital Signs - 24 hr 02/17/21 14:10 02/17/21 20:00 02/17/21 22:00 Temperature 36.6 C 36.5 C Pulse Rate 70 56 L 56 L Respiratory Rate 16 20 20 Blood Pressure 122/70 139/82 Pulse Oximetry 98 98 98 02/18/21 06:00 Temperature 36.6 C Pulse Rate 84 Respiratory Rate 18 Blood Pressure 121/67 Pulse Oximetry 96 Intake/Output Intake/Output: Intake & Output 02/15/21 02/16/21 02/17/21 02/18/21 23:59 23:59 23:59 23:59 Intake Total 1260 1890 1290 500 Output Total 1875 1450 1150 800 Balance -615 440 140 -300 Meds/Results Medications: Active Medications Generic Name Dose Route Start Last Admin Trade Name Freq PRN Reason Stop Dose Admin Acetaminophen 650 mg 02/14/21 18:01 Acetaminophen 325 Mg Tabl
[2021-02-18 14:15] VITALS: BP 118/73; PULSE 84; RESP 18; TEMP 36.2; O2SAT 96
[2021-02-18] MEDS: WARFARIN (*PBKC) 3 MG TABLET PO (16:41)
[2021-02-18 20:00] VITALS: PULSE 84; RESP 18; O2SAT 96
[2021-02-18 22:00] VITALS: BP 114/61; PULSE 67; RESP 18; TEMP 36.7; O2SAT 97
[2021-02-19 05:58] LABS: INR 2.1; Prothrombin Time 23.3 Seconds (11.1-14.7)
[2021-02-19 06:00] VITALS: BP 127/56; PULSE 56; RESP 16; TEMP 36.8; O2SAT 97
[2021-02-19 06:32] LABS: Anion Gap 5 mmol/L (8-16); Blood Urea Nitrogen 34 mg/dL (9-20); Calcium 8.3 mg/dL (8.4-10.2); Carbon Dioxide 22 mmol/L (22-30); Chloride 107 mmol/L (98-107); Estimated CRCL calculation 40 ml/min; Estimated Glomerular Filt Rate 49; Glucose 87 mg/dL (65-110); Potassium 4.4 mmol/L (3.4-5.0); Sodium 134 mmol/L (137-145)
[2021-02-19] MEDS: FLUTICASONE PROPIONATE 0.05% NA SPR 16 GM BTL (*BKC) 2 SPRAY NASAL (09:00)
[2021-02-19] MEDS: ASPIRIN 81 MG CHEWABLE TABLET PO (09:01)
[2021-02-19] MEDS: LEFLUNOMIDE 20 MG TABLET PO (09:01)
[2021-02-19] MEDS: FOLIC ACID 1 MG TABLET PO (09:01)
[2021-02-19] MEDS: PANTOPRAZOLE 40 MG TABLET PO (09:01)
[2021-02-19] MEDS: TAMSULOSIN HCL 0.4 MG CAPSULE PO (09:01)
[2021-02-19] MEDS: MEMANTINE 10 MG TABLET PO (09:01)
[2021-02-19] MEDS: guaiFENesin 12 HR 600 MG TABCR PO (09:01)
[2021-02-19 09:02] VITALS: RESP 16; O2SAT 96
[2021-02-19] MEDS: HYDROXYCHLOROQUINE SULFATE 200 MG TABLET PO (09:02)
[2021-02-19] MEDS: BUMETANIDE INJ 1 MG/4 ML VIAL IV PUSH (09:02)
[2021-02-19] MEDS: FEBUXOSTAT 40 MG TABLET 80 MG PO (09:02)
[2021-02-19] MEDS: POTASSIUM CHLORIDE 20 MEQ TABLET.ER PO (09:02)
[2021-02-19] MEDS: SPIRONOLACTONE 25 MG TABLET PO (09:02)
[2021-02-19] MEDS: EUCERIN CREAM 120 GM JAR 1 APPLIC TOPICAL (09:03)
--- NOTE | 2021-02-19 13:24 | PM.DS ---
DS: Admitting Diagnosis Admitting Diagnosis acute on chronic congestive heart failure exacerbation atrial flutter DS: Discharge Diagnosis Discharge Diagnosis (1) CHF (congestive heart failure): Qualifiers: Heart failure chronicity: acute on chronic Heart failure type: right-sided Qualified Code(s): I50.813 - Acute on chronic right heart failure Code(s): I50.9 - Heart failure, unspecified Status: Acute Assessment and Plan: acute on chronic right-sided heart failure with acute exacerbation. he had elevated BNP of 4300. Flat troponin suggesting fluid overload strain on the heart. he was diuresed with IV Bumex. continue spironolactone Due to Na 132, add fluid restriction 1500 ml/day 02/17 With improvement in his serum sodium. It phos 134 on the day of discharge. His symptoms improved significantly. His clinical examination improved significantly as well with no significant edema, no crepitation on lung auscultation. Echo Was done but pending read by drop hammer setter up. It will be followed by his primary care physician. (2) Anasarca: Code(s): R60.1 - Generalized edema Status: Acute Assessment and Plan: Likely from his right-sided heart failure. Improved with aggressive IV diuresis is (3) Chronic atrial flutter: Code(s): I48.92 - Unspecified atrial flutter Status: Acute Assessment and Plan: continue warfarin. Heart rate is controlled. INR is therapeutic. No signs of bleeding. (4) Chronic kidney disease, stage III (moderate): Code(s): N18.3 - Chronic kidney disease, stage 3 (moderate) Status: Acute Assessment and Plan: renal function is relatively stable Continue monitoring electrolytes and renal function with diuresis Continue to monitor intake output records closely. DS: Summary Hospital Course Reason for hospitalization: lower extremity swelling and generalized anasarca Hospital Course: as above Time Spent with Patient Time attestation: Total time spent providing and/or coordinating discharge services: 35 minutes Exam Narrative: Exam Narrative: General: Elderly gentleman in no acute distress Skin: No jaundice or cyanosis. Venous stasis changes over both distal lower extremities Neck: no jugular venous distention visible Respiratory: Bilateral crackles heard at the bases. Cardiovascular: Regular rate. Normal S1 and S2. No audible murmur. Lower extremities: minimal edema Gastrointestinal: Soft and nontender Psychiatric: Alert and oriented to person place time and situation Neurologic: No focal deficits. Speech is clear. No facial drooping. DS: Data Data Completed and Pending Labs on day of discharge: Labs from last 24 hours 02/19/21 02/19/21 05:33 05:33 PT 23.3 H INR 2.1 Sodium 134 L Potassium 4.4 Chloride 107 Carbon Dioxide 22 Anion Gap 5 L BUN 34 H Creatinine 1.40 H Estim Creat Clear Calc 40 Estimated GFR 49 L Glucose 87 Calcium 8.3 L Discharge Plan Discharge Attending physician on discharge: Roger Garcia Discharging Clinician: Roger Garcia Anticipated Discharge Date/Time: 02/19/21 11:02 Patient Disposition: [facility] Activity: as tolerated Diet: heart healthy Patient Instructions: Antibiotic Form, Warfarin (By mouth), Heart Failure (ED), Safe Use of Anticoagulants (ED) Stand Alone Forms: General Discharge Information Follow-up/Referrals: Carlos Manuel Vasquez MD [Primary Care Provider] - 2 Weeks Discharge Medications: New furosemide [Lasix] 20 mg tablet 20 mg PO DAILY Qty: 14 RF: 0 Continued docusate sodium 100 mg Tablet 100 mg PO DAILY PRN (Reason: Constipation) RF: 0
== END 2021-02-19 12:30 | DRG 292 ==
LOC: ANHED 18:01 → ANH2MED 19:36
PROVIDERS: Emergency Medicine; Internal Medicine; Physician Assistant; Admitting Provider Family Medicine; Emergency Provider Emergency Medicine; PCP Family Medicine; Visit Provider Internal Medicine Critical Care Medicine
DX: I13.0 Hypertensive heart and chronic kidney disease with heart failure and stage 1 through stage 4 chronic kidney disease, or unspecified chronic kidney disease (principal); I48.92 Unspecified atrial flutter; I48.20 Chronic atrial fibrillation, unspecified; I50.813 Acute on chronic right heart failure; N18.30 Chronic kidney disease, stage 3 unspecified; N40.0 Benign prostatic hyperplasia without lower urinary tract symptoms; I25.10 Atherosclerotic heart disease of native coronary artery without angina pectoris; E78.5 Hyperlipidemia, unspecified; M06.9 Rheumatoid arthritis, unspecified; F03.90 Unspecified dementia, unspecified severity, without behavioral disturbance, psychotic disturbance, mood disturbance, and anxiety; K21.9 Gastro-esophageal reflux disease without esophagitis; M1A.9XX0 Chronic gout, unspecified, without tophus (tophi); I87.2 Venous insufficiency (chronic) (peripheral); Z79.01 Long term (current) use of anticoagulants; Z87.891 Personal history of nicotine dependence
CPT/HCPCS: 36415; 71045; 71046; 76705; 80048; 80053; 81003; 83735; 83880; 84484; 85025; 85027; 85610; 85730; 93005; 96374; 96376; 97110; 97116; 97161; 99284; A9270; C8929; G0378

== ENCOUNTER 2021-11-25 18:16 | Inpatient (IN) | payer MEDICARE, SELFPAY ==
[2021-11-25] VITALS (23 sets, daily range): BP systolic 106–135; BP diastolic 54–75; PULSE 57–93; RESP 12–21; TEMP 36.1–36.6; O2SAT 96–100; BMI 34.7
--- NOTE | ~2021-11-25 | XR_ITS ---
EXAMINATION: XR chest 1V portable DATE: 11/28/2021 13:40 INDICATION: Shortness of breath. TECHNIQUE: A single frontal view of the chest was obtained. COMPARISON: Chest 2 views 11/25/2021 FINDINGS: There is mild atelectasis in the lower lung zones. No pleural effusion or pneumothorax. Car diomegaly is noted. IMPRESSION: 1. Mild atelectasis in the lower lung zones. 2. Cardiomegaly. Reviewed, dictated and finalized at location A.
--- NOTE | ~2021-11-25 | XR_ITS ---
EXAMINATION: XR chest 2V Exam Date/Time: 11/25/2021 18:47 CDT CLINICAL HISTORY: swelling Comparison: 02/19/2021 and 02/14/2021. RESULT: Lines, tubes, and devices: None. Lungs and pleura: Clear. Cardiomediastinal silhouette: Stable cardiomediastinal silhouette. Other: No acute osseous or upper abdominal finding. IMPRESSION: No acute cardiopulmonary process Reviewed, dictated and finalized at location K.
--- NOTE | ~2021-11-25 | NM_ITS ---
EXAMINATION: NM pulmonary perfusion DATE: 11/29/2021 14:09 INDICATION: Pulmonary embolism. TECHNIQUE: 4.8 mCi Tc-99m MAA was administered intravenously for perfusion images. Scintigraphic santy ges of the chest were obtained. COMPARISON: Chest single view 11/28/2021, ventilation perfusion scintigraphy 04/03/2010 FINDINGS: Perfusion images show small defects in the lower lobes. Cardiomegaly is noted. IMPRESSION: 1. Pulmonary embolism absent (low probability). Reviewed, dictated and finalized at location A.
--- NOTE | 2021-11-25 18:41 | ECG_ITS ---
Measurements Intervals [place] Rate: 54 P: CT: 0 QRS: 5 QRSD: 107 T: 69 QT: 462 QTc: 439 Interpretive Statements ATRIAL FLUTTER/TACHYCARDIA WITH SLOW VENTRICULAR RESPONSE LOW QRS VOLTAGE IN PRECORDIAL LEADS ANTEROSEPTAL INFARCT, AGE INDETERMINATE BASELINE ARTIFACT- I, II, AVR, V4, V6 ABNORMAL ECG Electronically Signed On 11-25-2021 20:25:15 CDT by Federico Guardado D.O.
[2021-11-25 19:12] LABS: Basophils Absolute Auto 0.1 K/mm3 (0.0-0.1); Basophils Percent Auto 0.8 % (0.2-1.2); Eosinophils Absolute Auto 0.2 K/mm3 (0-0.3); Eosinophils Percent Auto 2.1 % (0-4.4); Hematocrit 43.6 % (42.0-52.0); Hemoglobin 12.8 g/dL (14.0-18.0); Immature Granulocyte Absolute 0.08 K/mm3 (0.00-0.031); Immature Granulocyte Percent A 0.9 % (0-0.5); Lymphocytes Absolute Auto 0.83 K/mm3 (0.9-3.2); Lymphocytes Percent Auto 9.2 % (18.3-44.2); Mean Corpuscular HGB Conc 29.4 g/dl (32-36); Mean Corpuscular Hemoglobin 23.7 pg (26-34); Mean Corpuscular Volume 80.7 fl (80-100); Mean Platelet Volume 9.5 fl (7.4-10.4); Monocytes Absolute Auto 0.9 K/mm3 (0.1-0.6); Monocytes Percent Auto 9.5 % (2.6-8.5); Neutrophils Percent Auto 77.5 % (45.5-73.1); Platelet Count Result 243 k/mm3 (150-375); Red Cell Distribution Width 18.1 % (11.5-14.5); White Blood Count 9.1 K/mm3 (4.5-10.0)
[2021-11-25 19:29] LABS: Alanine Aminotransferase 17 U/L (4-50); Albumin Level 2.8 g/dL (3.5-5.1); Alkaline Phosphatase 88 U/L (38-126); Anion Gap 5 mmol/L (8-16); Aspartate Amino Transferase 32 U/L (17-59); Bilirubin,Total 0.5 mg/dL (0.2-1.3); Blood Urea Nitrogen 39 mg/dL (9-20); Calcium 8.4 mg/dL (8.4-10.2); Carbon Dioxide 26 mmol/L (22-30); Chloride 101 mmol/L (98-107); Estimated CRCL calculation 34 ml/min; Estimated Glomerular Filt Rate 39; Glucose 109 mg/dL (65-110); Potassium 4.3 mmol/L (3.4-5.0); Sodium 132 mmol/L (137-145)
--- NOTE | 2021-11-25 19:35 | PC.NURSE ---
Please call Lexi when pt gets into room. [phone]
[2021-11-25 19:42] LABS: NT Pro B Type Natriuretic Pept 3080 pg/mL (5-100); Troponin I 0.064 ng/mL (0.000-0.034)
--- NOTE | 2021-11-25 20:09 | ED.GENADULT ---
HPI - General Adult General Chief complaint: Recheck/Abnormal Lab/Rx Stated complaint: Lower Leg Swelling Time Seen by Provider: 11/25/21 19:43 History of Present Illness HPI narrative: Patient is an 81-year-old male who presents ER with shortness of breath. Ongoing over the last couple days. Associated with swelling in his legs. He endorses orthopnea. He has history of CHF. He reports he has been compliant with home medication. No chest pain or chest pressure. Family reports chronic memory issues and feels he has dementia that he would not say that he does. Patient has been in assisted living so he has been getting his medication. Patient was unable to stand up from wheelchair due to lack of mobility and he cannot be like this in assisted living. Related Data Home Medications Medication Instructions Recorded Confirmed acetaminophen 325 mg capsule 325 mg PO Q6H PRN 06/08/19 05/28/21 docusate sodium 100 mg PO DAILY PRN 06/17/19 05/28/21 fluticasone propionate [Flonase 50 mcg INTRANASAL DAILY 02/14/21 05/28/21 Allergy Relief] guaifenesin [Mucinex] 600 mg PO BID 02/14/21 05/28/21 hydrocodone-acetaminophen 1 tablet PO Q4H PRN 02/14/21 05/28/21 Allergies Allergy/AdvReac Type Severity Reaction Status Date / Time Penicillins Allergy Unknown Rash Verified 05/28/21 10:44 Sulfa (Sulfonamide Allergy Unknown Rash Verified 05/28/21 10:44 Antibiotics) sulfathiazole Allergy Unknown Unknown Verified 05/28/21 10:44 Review of Systems Review of Systems: All systems reviewed & are unremarkable except as noted in HPI and below Constitutional: Constitutional: Denies chills, Denies fever(s) and Denies weakness ENT: Denies nasal congestion and Denies sore throat Cardiovascular: Cardiovascular: Denies chest pain, Denies rapid heart rate and Denies radiating jaw, neck or arm pain Respiratory: Respiratory: Denies cough, Reports dyspnea and Denies wheezing Comments: Orthopnea Gastrointestinal: Gastrointestinal: Denies abdominal pain, Denies nausea and Denies vomiting [facility] Past Medical History Medical History (Updated 11/25/21 @ 21:15 by George Reed MD) Blood blister BPH (benign prostatic hyperplasia) Chronic a-fib Chronic atrial flutter Chronic gout without tophus Chronic kidney disease, stage 3 unspecified Chronic right-sided heart failure Echocardiogram November 2019: Normal left ventricular systolic function with EF of 78%, severe enlargement of right ventricle with severe right ventricular hypokinesis, severe enlargement of the right atrium Chronic venous stasis dermatitis Coronary artery disease Dementia Dyslipidemia Gastrointestinal ulcer GERD (gastroesophageal reflux disease) HTN (hypertension) Inguinal hernia Pneumonia Rheumatoid arthritis Seizures 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) Surgical History Surgical History Hx of cardiac catheterization and 2009 Hx of cataract surgery Hx of inguinal hernia repair right Status post open reduction with internal fixation of fracture (~08/2020) left tibial fracture with interosseous pinning Family History Family History Father , at age 54 Parkinsons disease Cerebrovascular accident Mother , in her 80s Hypertension Cerebrovascular accident Essential hypertension Hypothyroidism Heart disease Sibling Coronary artery disease Social History Social History Social History: He is single and has never been . He is currently living at [facility]. He had previously been in the skilled facility for rehab following a left leg fracture August 2020. He smoked a pipe up until 1979. 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 primary care physician: Dr. Street
[2021-11-25 20:20] LABS: Prothrombin Time 30.3 Seconds (11.1-14.7)
[2021-11-25 20:21] LABS: Partial Thromboplastin Time 48.9 SECONDS (22.3-36.8)
[2021-11-25] MEDS: FUROSEMIDE INJ 40 MG/4 ML VIAL IV PUSH (20:39)
--- NOTE | 2021-11-25 22:54 | ADMGEN ---
This patient, Shaan Landis, was admitted to IMU Room 200-01. Patient/family oriented to hospital policies and general routines including ID bracelet, bed and alarms, visiting hours, pain management, procedures, bathroom and other care routines, personal items, smoking policy, room service/diet, and visiting hours. Information on how to activate the Rapid Response Team has been discussed. Patient/Family are encouraged to report perceived risks to care and to ask questions if they do not understand what they are told or what they should do.
[2021-11-26] VITALS (8 sets, daily range): BP systolic 111–124; BP diastolic 61–72; PULSE 60–85; RESP 16–20; TEMP 36.1–36.5; O2SAT 97–100
--- NOTE | 2021-11-26 04:43 | ECHO_ITS ---
Patient Info Name: Shaan Landis Age: 81 years : 1940 Gender: Male Ht: 67 in Wt: 221 lbs BSA: 2.22 m2 HR: 61 bpm BP: 122 / 62 mmHg Heart Rhythm: Sinus Rhythm Technical Quality: Fair Exam Date: 11/26/2021 7:45 AM Exam Location: [facility] Pulmonary Patient Status: Inpatient Admit Date: 11/26/2021 Staff Ordering Physician: Gregorio Ding DO Utility Accounts Director: Gely Cruz RDCS Attending Provider: Gregorio Ding DO Exam Type: CA echo doppler color flow Study Info Indications - HF, h/o RV failure Complete two-dimensional, color flow and Doppler transthoracic echocardiogram is performed. Summary 1. Complete two-dimensional, color flow and Doppler transthoracic echocardiogram is performed. 2. Left ventricular chamber dimension is normal. 3. Left ventricular systolic function is normal, estimated at 65-70%. 4. There is no increased left ventricular wall thickness. 5. The left ventricular diastolic function is abnormal. 6. D shaped septum in both systole and diastole consistent right ventricular volume and pressure. 7. Right ventricular chamber dimension is severely enlarged. 8. Right ventricular systolic function is reduced. 9. Left atrial chamber dimension is mildly enlarged. 10. Right atrial chamber dimension is severely enlarged. 11. There is mild mitral valve regurgitation. 12. There is mild tricuspid valve regurgitation. 13. There is mild pulmonic regurgitation. 14. There is small pericardial effusion. Left Ventricle Left ventricular chamber dimension is normal. Left ventricular systolic function is normal, estimated at 65-70%. There is no increased left ventricular wall thickness. The left ventricular diastolic function is abnormal. D shaped septum in both systole and diastole consistent right ventricular volume and pressure. Right Ventricle Right ventricular chamber dimension is severely enlarged. Right ventricular systolic function is reduced. Left Atria Left atrial chamber dimension is mildly enlarged. Right Atria Right atrial chamber dimension is severely enlarged. Atrial Septum Intact interatrial septum visualized by color flow imaging. Aortic Valve The aortic valve is trileaflet. There is mild aortic valve sclerosis. There is no aortic valve stenosis. There is trace aortic valve regurgitation. Pulmonic Valve The pulmonic valve is normal. There is no pulmonic valve stenosis. There is mild pulmonic regurgitation. Mitral Valve The mitral valve has thickened leaflets. There is no mitral valve stenosis. There is mild mitral valve regurgitation. Tricuspid Valve The tricuspid valve leaflets are normal. There is no significant tricuspid valve stenosis. There is mild tricuspid valve regurgitation. No pulmonary hypertension, estimated pulmonary arterial systolic pressure is 30 mmHg. Pericardium/Pleural The pericardium appears normal. There is small pericardial effusion. Inferior Vena Cava Dilated inferior vena cava with >50% collapse upon inspiration consistent with elevated right atrial pressure, 15 mmHg. Aorta The aortic root size at the sinus of Valsalva is normal. Left Ventricular Outflow Tract Name Value Normal LVOT 2D LVOT Diameter
--- NOTE | 2021-11-26 04:50 | PM.IMHP ---
H&P: HPI History of Present Illness Date/Time: 11/26/21 04:50 Chief Complaint: SOB, abdominal distension Narrative: 81 yo M PMHx of seizures, CAD, AF on coumadin, HFpEF with known RV Failure, GERD, CKD (baseline Cr around 1.4), HTN/HLD, RA, and gout. Presents with SOB for 4 days, and abdominal distension for the past 2-3 days. He states this feels similar to his previous HF episodes. Denies fevers/chills, cough, n/v/d/c, dysuria, hematuria, blood in stool. Patient last TTE 01/2021 shows normal LVEF, but dilated RV with elevated RA pressures and mild to moderate TR, but RVSP is normal. In ED patient's labs remarkable for INR 3, sodium 132 and chloride 101, Cr 1.7. Troponin 0.064, BNP 3080. Albumin 2.8. EKG shows slow a flutter wtih HR in 50s. CXR shows cardiomegaly, no pulmonary vascular congestion. Patient given IV lasix 40 mg. Review of Systems Review of Systems: All systems reviewed & are unremarkable except as noted in HPI and below [facility] Past Medical History Medical History (Updated 11/26/21 @ 05:14 by Gregorio Ding DO) Blood blister BPH (benign prostatic hyperplasia) Chronic a-fib Chronic atrial flutter Chronic gout without tophus Chronic kidney disease, stage 3 unspecified Chronic right-sided heart failure Echocardiogram November 2019: Normal left ventricular systolic function with EF of 78%, severe enlargement of right ventricle with severe right ventricular hypokinesis, severe enlargement of the right atrium Chronic venous stasis dermatitis Coronary artery disease Dementia Dyslipidemia Gastrointestinal ulcer GERD (gastroesophageal reflux disease) HTN (hypertension) Inguinal hernia Pneumonia Rheumatoid arthritis Seizures 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) Surgical History Surgical History Hx of cardiac catheterization and 2009 Hx of cataract surgery Hx of inguinal hernia repair right Status post open reduction with internal fixation of fracture (~08/2020) left tibial fracture with interosseous pinning Family History Family History Father , at age 54 Parkinsons disease Cerebrovascular accident Mother , in her 80s Hypertension Cerebrovascular accident Essential hypertension Hypothyroidism Heart disease Sibling Coronary artery disease Social History Social History Social History: He is single and has never been . He is currently living at [facility]. He had previously been in the skilled facility for rehab following a left leg fracture August 2020. He smoked a pipe up until 1979. 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 primary care physician: Dr. Carlos Manuel Vasquez Code status: Full code Healthcare power of compliance attorney: Kellie Rico (cousins) Smoking status: Former smoker Tobacco type: cigarettes, pipe and cigars Smoking end date: 07/27/1968 Alcohol intake: never Substance use: never Gender identity (if verbalized by the patient): Male Spiritual care concerns: No Meds Home Medications and Allergies Home Medications Medication Instructions Recorded Confirmed Type acetaminophen 325 mg capsule 325 mg PO Q6H PRN 06/08/19 11/25/21 History docusate sodium 100 mg PO DAILY PRN 06/17/19 11/25/21 History fluticasone propionate [Flonase 1 spray INTRANASAL BID 02/14/21 11/25/21 History Allergy Relief] guaifenesin [Mucinex] 600 mg PO BID PRN 02/14/21 11/25/21 History hydrocodone-acetaminophen 1 tablet PO Q4H PRN 02/14/21 11/25/21 History albuterol sulfate 90 mcg/actuation 2 inh INHALATION Q8H PRN #8.5 g 03/11/21 11/25/21 Rx aerosol inhaler warfarin 3 mg tablet 3 mg PO DAILY #90 tablet 09/03/21 11/25/21 Rx ergocalciferol (vitamin D2) 1,250 1,250 mcg PO
[2021-11-26] MEDS: FUROSEMIDE INJ 100 MG/10 ML VIAL 80 MG IV PUSH ×2 (06:13→17:29)
[2021-11-26 06:32] LABS: Basophils Absolute Auto 0.1 K/mm3 (0.0-0.1); Basophils Percent Auto 0.8 % (0.2-1.2); Eosinophils Absolute Auto 0.2 K/mm3 (0-0.3); Eosinophils Percent Auto 2.9 % (0-4.4); Hematocrit 39.7 % (42.0-52.0); Hemoglobin 11.9 g/dL (14.0-18.0); Immature Granulocyte Absolute 0.06 K/mm3 (0.00-0.031); Immature Granulocyte Percent A 0.8 % (0-0.5); Lymphocytes Percent Auto 8.2 % (18.3-44.2); Mean Corpuscular Hemoglobin 23.7 pg (26-34); Mean Corpuscular Volume 78.9 fl (80-100); Mean Platelet Volume 9.8 fl (7.4-10.4); Monocytes Absolute Auto 0.7 K/mm3 (0.1-0.6); Monocytes Percent Auto 9.1 % (2.6-8.5); Neutrophils Absolute Auto 5.8 K/mm3 (1.3-6.7); Neutrophils Percent Auto 78.2 % (45.5-73.1); Platelet Count Result 243 k/mm3 (150-375); Red Blood Count 5.03 M/mm3 (4.6-6.20); Red Cell Distribution Width 17.5 % (11.5-14.5); White Blood Count 7.4 K/mm3 (4.5-10.0)
[2021-11-26 06:33] LABS: Anion Gap 1 mmol/L (8-16); Blood Urea Nitrogen 38 mg/dL (9-20); Calcium 8.2 mg/dL (8.4-10.2); Carbon Dioxide 30 mmol/L (22-30); Chloride 102 mmol/L (98-107); Estimated CRCL calculation 39 ml/min; Estimated Glomerular Filt Rate 45; Glucose 100 mg/dL (65-110); Sodium 133 mmol/L (137-145)
[2021-11-26 06:46] LABS: INR 3.1; Prothrombin Time 31.2 Seconds (11.1-14.7)
[2021-11-26 06:47] LABS: Troponin I 0.054 ng/mL (0.000-0.034)
[2021-11-26 09:36] LABS: Appearance Urine Clear (Clear); Bilirubin Urine Negative (Negative); Blood Urine Negative (Negative); Color Urine Yellow (Yellow); Glucose Urine UA Negative (Negative); Ketones Urine Negative (Negative); Leukocyte Esterase Ur Negative LEU/UL (Negative); Nitrate Urine Negative (Negative); Protein Urine Negative (Negative); Specific Grav Ur 1.015 (1.001-1.035); Urobilinogen Urine 0.2 mg/dL (<2.0); pH Urine 7.5 (5.0-9.0)
[2021-11-26 09:37] LABS: RBC Urine 0-2 /hpf (0-2); WBC Urine 0-3 /hpf
[2021-11-26] MEDS: TAMSULOSIN HCL 0.4 MG CAPSULE PO (09:39)
[2021-11-26] MEDS: PANTOPRAZOLE 40 MG TABLET PO ×2 (09:39→17:29)
[2021-11-26] MEDS: MEMANTINE 10 MG TABLET PO ×2 (09:39→20:26)
[2021-11-26] MEDS: FOLIC ACID 1 MG TABLET PO (09:40)
[2021-11-26 10:02] LABS: Add Urine Microscopic? YES
--- NOTE | 2021-11-26 10:19 | PM.CNCAR ---
Assessment and Plan Assessment and plan (1) Acute exacerbation of congestive heart failure: Code(s): I50.9 - Heart failure, unspecified Status: Acute Assessment and Plan: 81-year-old male with CHF with preserved ejection fraction, RV failure, atrial fibrillation on chronic anticoagulation with warfarin, CKD, gout,? Rheumatoid arthritis, cognitive impairment/dementia. Patient admitted to the hospital with worsening shortness of breath. He has history of RV failure. His previous echocardiogram has shown preserved LV systolic function, RV enlargement with RV failure. Exact etiology of RV failure is uncertain at this time. Patient had symptomatic improvement with diuresis since hospitalization. Check echocardiogram with Doppler to reassess LV/RV function and PA pressures. May consider invasive hemodynamics with right heart catheterization if echocardiogram is inadequate to check PA pressures. Pulmonology evaluation as an outpatient to check for intrinsic lung disease. Continue diuresis with furosemide with close monitoring of electrolytes and renal function. Avoid excessive diuresis as patient is preload dependent. (2) Atrial flutter: Code(s): I48.92 - Unspecified atrial flutter Status: Acute Assessment and Plan: Patient has atrial flutter/fibrillation with controlled ventricular response. He is not on rate-controlling agents. Patient has been on chronic anticoagulation with warfarin. Consider switching warfarin to one of the direct oral anticoagulants. (3) Acute kidney injury superimposed on chronic kidney disease: Code(s): N17.9 - Acute kidney failure, unspecified; N18.9 - Chronic kidney disease, unspecified Status: Acute Assessment and Plan: Creatinine has improved. Continue to monitor renal function and electrolytes. History of Present Illness History of Present Illness Consult date/time: 11/26/21 10:19 DATE OF CONSULT: 11/26/2021 REASON FOR CONSULT: CHF exacerbation REQUESTING PHYSICIAN:Gregorio Ding DO CHIEF COMPLAINT: Shortness of breath HPI: 81-year-old male with CHF with preserved ejection fraction, RV failure, atrial fibrillation on chronic anticoagulation with warfarin, CKD, gout,? Rheumatoid arthritis, cognitive impairment/dementia. Patient lives in assisted living facility. He states that he follows up with Dr. Lozano for his cardiovascular care. He was brought to [facility] on 11/25/2021 with worsening shortness of breath. He denied chest pain, palpitation, dizziness or syncope. Patient has limited mobility in the assisted living facility. EKG on my personal evaluation showed atrial flutter with slow ventricular response, low voltage, anteroseptal infarct-age indeterminate. Chest x-ray showed cardiomegaly without pulmonary vascular congestion. Troponins minimally elevated. NT proBNP 3080. Reason For Visit: chf exacerbation, chronically elevated troponin Review of Systems Review of Systems: General: Positive for fatigue Psychological: Negative for anxiety, depression Ophthalmic: negative for loss of vision ENT: Negative for epistaxis, headaches Allergy and immunology: Negative for hives, nasal congestion Hematologic and lymphatic: Negative for overt bleeding problems Endocrine: Negative for hot flashes, palpitations Respiratory: Positive for shortness of breaths Cardiovascular: Negative for chest pain, positive for shortness of breaths Gastrointestinal: Negative for abdominal pain Musculoskeletal: Negative for myalgia, joint pains Neurological: Generalized weakness, memory impairment Dermatological: Stasis dermatitis changes both lower extremity [facility] Past Medical History Medical History Blood blister BPH (benign prostatic hyperplasia) Chronic a-fib Chronic atrial flutter Chronic gout without tophus Chronic kidney disease, stage 3 unspecified Chronic right-sided heart failure Ec
--- NOTE | 2021-11-26 11:27 | PM.IMPN ---
Progress Note: A&P Assessment and Plan (1) Acute exacerbation of congestive heart failure: Code(s): I50.9 - Heart failure, unspecified Status: Acute Assessment and Plan: Probable acute and of chronic diastolic CHF exacerbation Pending echo Cardiology recommendation appreciated IV diuresis (2) Chronic gout without tophus: Code(s): M1A.9XX0 - Chronic gout, unspecified, without tophus (tophi) Status: Acute Assessment and Plan: patient on febuxostat at home, consider stopping in setting of heart disease (black box warning) follow-up with PCP (3) Rheumatoid arthritis: Code(s): M06.9 - Rheumatoid arthritis, unspecified Status: Acute Assessment and Plan: Patient does not appear to be on any medication for this at the moment (4) Chronic atrial flutter: Code(s): I48.92 - Unspecified atrial flutter Status: Acute Assessment and Plan: Patient is not on rate controlling meds. INR 3,1 will hold today's dose of coumadin. (5) Unspecified dementia without behavioral disturbance: Code(s): F03.90 - Unspecified dementia without behavioral disturbance Status: Acute Assessment and Plan: Continue galantamine and memantine (6) BPH (benign prostatic hyperplasia): Code(s): N40.0 - Benign prostatic hyperplasia without lower urinary tract symptoms Status: Inactive Assessment and Plan: continue flomax (7) Acute kidney injury superimposed on chronic kidney disease: Code(s): N17.9 - Acute kidney failure, unspecified; N18.9 - Chronic kidney disease, unspecified Status: Acute Assessment and Plan: likely cardiorenal in setting of RV failure, continue to monitor with diuresis (8) Poor nutrition: Code(s): E63.9 - Nutritional deficiency, unspecified Status: Acute Assessment and Plan: albumin 2.8. C/s dietary Subjective Date/time seen: 11/26/21 11:27 Interval history: 81 years old male with past medical history of AFib CHF CKD gout presented to the hospital shortness of breath was found to have acute CHF exacerbation treated with IV diuresis cardiology was consulted Patient feels weak short of breath Patient denies fever headache chest pain shortness of breath I am seeing the patient for shortness of breath Exam Narrative: Alert Chest no wheeze crackles Abdomen nontender nondistended CVS S1 + S2 Lower extremity edema bilateral lower extremity redness Objective Data Vital Signs Vital Signs: Vital Signs - 24 hr 11/25/21 18:38 11/25/21 20:00 11/25/21 20:01 Temperature 96.9 F L Pulse Rate 74 62 57 L Respiratory Rate 16 15 20 Blood Pressure 123/54 L 106/57 L Pulse Oximetry 99 96 11/25/21 20:15 11/25/21 20:16 11/25/21 20:30 Temperature Pulse Rate 76 73 75 Respiratory Rate 19 19 15 Blood Pressure 121/60 Pulse Oximetry 97 96 100 11/25/21 20:31 11/25/21 20:43 11/25/21 20:45 Temperature Pulse Rate 61 67 59 L Respiratory Rate 15 16 16 Blood Pressure 114/61 124/58 L Pulse Oximetry 100 97 98 11/25/21 20:46 11/25/21 21:00 11/25/21 21:01 Temperature Pulse Rate 93 65 63 Respiratory Rate 17 16 18 Blood Pressure 115/66 122/64 Pulse Oximetry 99 11/25/21 21:15 11/25/21 21:16 11/25/21 21:30 Temperature Pulse Rate 59 L 69 67 Respiratory Rate 21 H 15 18 Blood Pressure 120/75 Pulse Oximetry 11/25/21 21:31 11/25/21 21:46 11/25/21 21:58 Temperature Pulse Rate 66 75 Respiratory Rate 21 H 15 Blood Pressure 106/67 114/56 L Pulse Oximetry 11/25/21 22:01 11/25/21 22:04 11/25/21 22:15 Temperature Pulse Rate 75 65 Respiratory Rate 12 19 Blood Pressure 126/70 110/57 L Pulse Oximetry 96 11/25/21 23:03 11/25/21 23:18 11/26/21 00:00 Temperature 97.8 F 97.8 F Pulse Rate 84 84 78 Respiratory Rate 20 20 Blood Pressure 135/68 135/68 Pulse Oximetry 99 99 11/26/21 04:00 11/26/21 08:00 Temperature 97.4 F L 97 F L P
--- NOTE | 2021-11-26 11:48 | PCDIET ---
Nutrition consult received for possible need for supplementation. Pt is on a heart healthy 2gm NA diet, 1800ml fluid restriction. Intake of meals is excellent at 100%. Pt reports great appetite and intake, no hx of decreased appetite prior. No reported wt loss. BMI: 34 - obese. Noted some weight gain, most likely from fluid retention as pt is on lasix and restricted fluids. No skin issues. Continue with current plan of care. No recommendations at this time.
[2021-11-26] MEDS: TOLNAFTATE 1% POWDER 45 GM BTL 1 APPLIC TOPICAL (20:27)
[2021-11-27] VITALS (15 sets, daily range): BP systolic 110–129; BP diastolic 56–67; PULSE 54–78; RESP 16–20; TEMP 35.7–36.5; O2SAT 97–100
[2021-11-27 05:22] LABS: Basophils Absolute Auto 0.1 K/mm3 (0.0-0.1); Basophils Percent Auto 0.8 % (0.2-1.2); Eosinophils Absolute Auto 0.2 K/mm3 (0-0.3); Eosinophils Percent Auto 3.3 % (0-4.4); Hematocrit 39.6 % (42.0-52.0); Hemoglobin 12.1 g/dL (14.0-18.0); Immature Granulocyte Absolute 0.04 K/mm3 (0.00-0.031); Immature Granulocyte Percent A 0.6 % (0-0.5); Lymphocytes Absolute Auto 0.66 K/mm3 (0.9-3.2); Lymphocytes Percent Auto 9.1 % (18.3-44.2); Mean Corpuscular HGB Conc 30.6 g/dl (32-36); Mean Corpuscular Hemoglobin 23.4 pg (26-34); Mean Corpuscular Volume 76.4 fl (80-100); Mean Platelet Volume 9.6 fl (7.4-10.4); Monocytes Absolute Auto 0.7 K/mm3 (0.1-0.6); Monocytes Percent Auto 9.5 % (2.6-8.5); Neutrophils Absolute Auto 5.6 K/mm3 (1.3-6.7); Neutrophils Percent Auto 76.7 % (45.5-73.1); Platelet Count Result 235 k/mm3 (150-375); Red Blood Count 5.18 M/mm3 (4.6-6.20); Red Cell Distribution Width 17.5 % (11.5-14.5); White Blood Count 7.3 K/mm3 (4.5-10.0)
[2021-11-27 05:29] LABS: INR 2.7; Prothrombin Time 27.4 Seconds (11.1-14.7)
[2021-11-27 05:33] LABS: Anion Gap 2 mmol/L (8-16); Blood Urea Nitrogen 44 mg/dL (9-20); Calcium 8.3 mg/dL (8.4-10.2); Carbon Dioxide 26 mmol/L (22-30); Chloride 105 mmol/L (98-107); Estimated CRCL calculation 36 ml/min; Estimated Glomerular Filt Rate 42; Glucose 102 mg/dL (65-110); Potassium 4.1 mmol/L (3.4-5.0); Sodium 133 mmol/L (137-145)
--- NOTE | 2021-11-27 08:30 | PM.PNCARD ---
Progress Note: A&P Additional Plan This is an 81-year-old man with: Chronic atrial flutter with rate control and anticoagulation. Patient has baseline AV node dysfunction requires no medication to provide rate control. He has echocardiographic evidence of normal/vigorous left ventricular systolic function but obvious evidence of right ventricular dilation with severe systolic dysfunction. Current echocardiogram also shows flattening of the septum suggestive of pulmonary hypertension. The exact etiology of this is unclear but in this 81-year-old gentleman with DNR status I do not believe any further invasive workup is going to be recommended. He is benefiting from IV furosemide feels better with less volume overload. There is no evidence on exam today or on admitting chest x-ray of left-sided heart failure. Fluid volume and sodium restriction will also be important parts of his management Gregorio Lozano MD [facility] Subjective Date/time seen: Date of service: 11/27/21 08:30 Interval history: Follow-up visit in this 81-year-old man with: Chronic atrial flutter/atrial fib with chronic right ventricular failure and significant volume overload. Echocardiogram has stigmata of RV pressure overload as well. Patient says he feels better this morning has been in the hospital for a couple of days receiving intravenous furosemide. Breathing is much more comfortable. Exam Const: General: comfortable and no acute distress Other: Pleasant elderly man supine in bed head of the bed elevated about 30? feels well this morning HENMT: Mouth: Yes moist mucous membranes Eyes: Sclera: sclerae normal Pupils: Equal, round and reactive pupils present Neck: Neck: supple Other: About 2 cm of JVD Resp: Effort & Inspection: normal respiratory effort Auscultation: clear to auscultation bilaterally Cardio: Rhythm: abnormal rhythm irregularly irregular Other: PMI not palpable/no murmur GI: Inspection: distended Auscultation: normal bowel sounds Skin: General skin exam: normal color Neuro: Cognition (Neuro): normal cognition Extrem: Other: Very small amount of lower extremity pitting remains. Changes of chronic venous stasis noted bilaterally Objective Data Vital Signs Vital Signs: Vital Signs - 24 hr 11/26/21 12:00 11/26/21 16:00 11/26/21 18:00 Temperature 36.4 C 36.5 C Pulse Rate 77 70 79 Respiratory Rate 16 18 Blood Pressure 119/72 111/64 Pulse Oximetry 97 97 11/26/21 20:00 11/26/21 22:00 11/27/21 00:00 Temperature 36.4 C L 36.4 C L Pulse Rate 68 60 76 Respiratory Rate 16 20 Blood Pressure 118/61 116/56 L Pulse Oximetry 100 99 11/27/21 02:00 11/27/21 04:00 11/27/21 06:00 Temperature 36.5 C Pulse Rate 62 69 64 Respiratory Rate 16 Blood Pressure 125/63 Pulse Oximetry 98 11/27/21 08:00 Temperature 36.4 C Pulse Rate 75 Respiratory Rate 16 Blood Pressure 117/66 Pulse Oximetry 99 Intake/Output Intake/Output: Intake & Output 11/24/21 11/25/21 11/26/21 11/27/21 23:59 23:59 23:59 23:59 Intake Total 480 450 Output Total 200 1275 Balance -200 -795 450 Meds/Results Medications: Active Medications Generic Name Dose Route Start Last Admin Trade Name Freq PRN Reason Stop Dose Admin Acetaminophen 650 mg 11/25/21 21:06 Acetaminophen 325 Mg Tablet PO Q4H PRN Mild Pain (1-3) or Fever Hydrocodone Bitart/Acetaminophen 1 tab 11/26/21 04:40 Hydrocodone/Acetaminophen (*Crx) 5-325 Mg Tablet PO Q4H PRN pain 4-6 Albuterol 2 puff 11/26/21 04:40 Albuterol Sulfate (*Sp) Aerosol 1 Puff INHALATION Q8H PRN shortness of breath or wheezing Febuxostat 80 mg 11/27/21 09:00 Febuxostat 40 Mg Tablet PO 12/27/21 08:59 DAILY SANAM Folic Acid 1 mg 11/26/21 09:00 11/26/21 09:40 Folic Acid 1 Mg Tablet PO 1 mg DAILY SANAM Administration Furosemide 80 mg 11/26/21 04:40 11/26/21 17:29 Furosemide Inj 100 Mg/10 Ml Vial IV PUSH
[2021-11-27] MEDS: FUROSEMIDE INJ 100 MG/10 ML VIAL 80 MG IV PUSH ×2 (08:37→17:29)
[2021-11-27] MEDS: FEBUXOSTAT 40 MG TABLET 80 MG PO (08:38)
[2021-11-27] MEDS: FOLIC ACID 1 MG TABLET PO (08:38)
[2021-11-27] MEDS: MEMANTINE 10 MG TABLET PO ×2 (08:38→20:19)
[2021-11-27] MEDS: TAMSULOSIN HCL 0.4 MG CAPSULE PO (08:38)
[2021-11-27] MEDS: PANTOPRAZOLE 40 MG TABLET PO ×2 (08:38→17:30)
[2021-11-27] MEDS: TOLNAFTATE 1% POWDER 45 GM BTL 1 APPLIC TOPICAL ×2 (08:39→20:19)
--- NOTE | 2021-11-27 11:05 | PM.IMPN ---
Progress Note: A&P Assessment and Plan (1) Acute exacerbation of congestive heart failure: Code(s): I50.9 - Heart failure, unspecified Status: Acute Assessment and Plan: Probable acute and of chronic diastolic CHF exacerbation Pending echo Cardiology recommendation appreciated IV diuresis no plan for ivasive work up (2) Chronic gout without tophus: Code(s): M1A.9XX0 - Chronic gout, unspecified, without tophus (tophi) Status: Acute Assessment and Plan: patient on febuxostat at home, consider stopping in setting of heart disease (black box warning) follow-up with PCP (3) Rheumatoid arthritis: Code(s): M06.9 - Rheumatoid arthritis, unspecified Status: Acute Assessment and Plan: Patient does not appear to be on any medication for this at the moment (4) Chronic atrial flutter: Code(s): I48.92 - Unspecified atrial flutter Status: Acute Assessment and Plan: Patient is not on rate controlling meds. INR 3,1 will hold today's dose of coumadin. (5) Unspecified dementia without behavioral disturbance: Code(s): F03.90 - Unspecified dementia without behavioral disturbance Status: Acute Assessment and Plan: Continue galantamine and memantine (6) BPH (benign prostatic hyperplasia): Code(s): N40.0 - Benign prostatic hyperplasia without lower urinary tract symptoms Status: Inactive Assessment and Plan: continue flomax (7) Acute kidney injury superimposed on chronic kidney disease: Code(s): N17.9 - Acute kidney failure, unspecified; N18.9 - Chronic kidney disease, unspecified Status: Acute Assessment and Plan: likely cardiorenal in setting of RV failure, continue to monitor with diuresis (8) Poor nutrition: Code(s): E63.9 - Nutritional deficiency, unspecified Status: Acute Assessment and Plan: albumin 2.8. C/s dietary (9) Abnormal finding on urinalysis: Code(s): R82.90 - Unspecified abnormal findings in urine Status: Acute Assessment and Plan: positive recent culture probable contaminant continue to monitor Subjective Date/time seen: 11/27/21 11:05 Interval history: 81 years old male with past medical history of AFib CHF CKD gout presented to the hospital shortness of breath was found to have acute CHF exacerbation treated with IV diuresis cardiology was consulted Patient feels weak short of breath better than yesterday Patient denies fever headache chest pain shortness of breath I am seeing the patient for shortness of breath Exam Narrative: Alert Chest no wheeze crackles Abdomen nontender nondistended CVS S1 + S2 Lower extremity edema bilateral lower extremity redness Objective Data Vital Signs Vital Signs: Vital Signs - 24 hr 11/26/21 12:00 11/26/21 16:00 11/26/21 18:00 Temperature 97.6 F 97.7 F Pulse Rate 77 70 79 Respiratory Rate 16 18 Blood Pressure 119/72 111/64 Pulse Oximetry 97 97 11/26/21 20:00 11/26/21 22:00 11/27/21 00:00 Temperature 97.5 F L 97.5 F L Pulse Rate 68 60 76 Respiratory Rate 16 20 Blood Pressure 118/61 116/56 L Pulse Oximetry 100 99 11/27/21 02:00 11/27/21 04:00 11/27/21 06:00 Temperature 97.7 F Pulse Rate 62 69 64 Respiratory Rate 16 Blood Pressure 125/63 Pulse Oximetry 98 11/27/21 08:00 11/27/21 10:00 Temperature 97.6 F Pulse Rate 59 L 77 Respiratory Rate 16 Blood Pressure 117/66 Pulse Oximetry 99 Intake/Output Intake/Output: Intake & Output 11/24/21 11/25/21 11/26/21 11/27/21 23:59 23:59 23:59 23:59 Intake Total 480 570 Output Total 200 1275 Balance -200 -790 570 Meds/Results Medications: Active Medications Generic Name Dose Route Start Last Admin Trade Name Magdy PRN Reason Stop Dose Admin Acetaminophen 650 mg 11/25/21 21:06 Acetaminophen 325 Mg Tablet PO Q4H PRN Mild Pain (1-3) or Fever Hydrocodone Bitart/Acetaminophen 1 tab
[2021-11-27] MEDS: WARFARIN (*PBKC) 2 MG TABLET PO (12:58)
[2021-11-27] MEDS: ACETAMINOPHEN 325 MG TABLET 650 MG PO (13:00)
[2021-11-28] VITALS (14 sets, daily range): BP systolic 92–129; BP diastolic 55–74; PULSE 52–79; RESP 16–20; TEMP 36.2–37.1; O2SAT 95–100
[2021-11-28] MEDS: ACETAMINOPHEN 325 MG TABLET 650 MG PO ×2 (03:23→13:48)
[2021-11-28 05:46] LABS: INR 2.2; Prothrombin Time 23.3 Seconds (11.1-14.7)
[2021-11-28 05:57] LABS: Anion Gap 3 mmol/L (8-16); Blood Urea Nitrogen 43 mg/dL (9-20); Calcium 8.3 mg/dL (8.4-10.2); Carbon Dioxide 29 mmol/L (22-30); Chloride 104 mmol/L (98-107); Estimated CRCL calculation 32 ml/min; Estimated Glomerular Filt Rate 36; Glucose 99 mg/dL (65-110); Potassium 3.5 mmol/L (3.4-5.0); Sodium 136 mmol/L (137-145)
[2021-11-28] MEDS: FOLIC ACID 1 MG TABLET PO (08:33)
[2021-11-28] MEDS: MEMANTINE 10 MG TABLET PO ×2 (08:33→20:42)
[2021-11-28] MEDS: FEBUXOSTAT 40 MG TABLET 80 MG PO (08:33)
[2021-11-28] MEDS: PANTOPRAZOLE 40 MG TABLET PO ×2 (08:33→17:08)
[2021-11-28] MEDS: TAMSULOSIN HCL 0.4 MG CAPSULE PO (08:33)
[2021-11-28] MEDS: FUROSEMIDE INJ 100 MG/10 ML VIAL 80 MG IV PUSH (08:34)
[2021-11-28] MEDS: TOLNAFTATE 1% POWDER 45 GM BTL 1 APPLIC TOPICAL ×2 (08:34→20:42)
--- NOTE | 2021-11-28 08:54 | PM.PNCARD ---
Progress Note: A&P Assessment and Plan (1) Acute exacerbation of congestive heart failure: Code(s): I50.9 - Heart failure, unspecified Status: Acute Assessment and Plan: 81-year-old male with CHF with preserved ejection fraction, RV failure, atrial fibrillation on chronic anticoagulation with warfarin, CKD, gout,? Rheumatoid arthritis, cognitive impairment/dementia. Patient admitted to the hospital with worsening shortness of breath. He has history of RV failure. His previous echocardiogram has shown preserved LV systolic function, RV enlargement with RV failure. Exact etiology of RV failure is uncertain at this time. Patient had symptomatic improvement with diuresis since hospitalization. No plans for invasive hemodynamic assessment with [facility] pulmonology evaluation to check for intrinsic lung disease Continue diuresis but avoid excessive diuresis as he is preload dependent. Perhaps shift to oral furosemide tomorrow Monitor renal function and electrolytes with daily BMP Dietary c/s to review low sodium diet (2) Atrial flutter: Code(s): I48.92 - Unspecified atrial flutter Status: Acute Assessment and Plan: Patient has atrial flutter/fibrillation with controlled ventricular response. He is not on rate-controlling agents. Patient has been on chronic anticoagulation with warfarin. Consider switching warfarin to one of the direct oral anticoagulants. (3) Acute kidney injury superimposed on chronic kidney disease: Code(s): N17.9 - Acute kidney failure, unspecified; N18.9 - Chronic kidney disease, unspecified Status: Acute Assessment and Plan: Creatinine 1.8 today from 1.6. Continue to monitor renal function and electrolytes. Subjective Date/time seen: 11/28/21 08:55 Interval history: Follow-up visit in this 81-year-old man with: Chronic atrial flutter/atrial fib with chronic right ventricular failure and significant volume overload. Echocardiogram has stigmata of RV pressure overload as well. Patient says he feels better this morning has been in the hospital for a couple of days receiving intravenous furosemide. Breathing is much more comfortable. Date of service 11/28/2021: Continues to feel better. Breathing comfortably on room air at this point. He does still have pitting edema on his thighs but he tells me this has significantly improved. Does not have any chest pain or palpitations. Review of Systems Review of Systems: All systems reviewed & are unremarkable except as noted in HPI and below Exam Const: General: comfortable and no acute distress Other: [facility] HENMT: Mouth: Yes moist mucous membranes Eyes: Sclera: sclerae normal Pupils: Equal, round and reactive pupils present Neck: Neck: supple Resp: Effort & Inspection: normal respiratory effort Auscultation: clear to auscultation bilaterally Cardio: Rhythm: abnormal rhythm irregularly irregular Heart sounds: no murmurs GI: Inspection: distended Auscultation: normal bowel sounds Skin: General skin exam: normal color Neuro: Cranial nerves: Yes Equal, round and reactive pupils present Cognition (Neuro): normal cognition Extrem: Other: Mild pretibial edema, 1+ pitting edema on thighs. Changes of chronic venous stasis noted bilaterally Objective Data Vital Signs Vital Signs: Vital Signs - 24 hr 11/27/21 10:00 11/27/21 12:00 11/27/21 14:00 Temperature 35.7 C L Pulse Rate 77 54 L 76 Respiratory Rate 16 Blood Pressure 129/67 Pulse Oximetry 97 11/27/21 16:00 11/27/21 18:00 11/27/21 19:58 Temperature 36.4 C L Pulse Rate 76 77 65 Respiratory Rate 18 Blood Pressure 110/58 L Pulse Oximetry 99 11/27/21 20:00 11/27/21 22:00 11/27/21 23:42 Temperature 36.1 C L 36.1 C L Pulse Rate 78 57 L 56 L Respiratory Rate 16 20 Blood Pressure 126/64 123/67 Pulse Oximetry 99 100 11/27/21 23:55 11/28/21 00:00 11/28/21 02:00
--- NOTE | 2021-11-28 11:06 | PM.IMPN ---
Progress Note: A&P Assessment and Plan (1) Acute exacerbation of congestive heart failure: Code(s): I50.9 - Heart failure, unspecified Status: Acute Assessment and Plan: Probable acute and of chronic diastolic CHF exacerbation Follow echo Cardiology recommendation appreciated Associated with worsening renal failure decreased the dose of IV Lasix out re-evaluate in a.m. Will get repeat chest x-ray no plan for ivasive work up (2) Chronic gout without tophus: Code(s): M1A.9XX0 - Chronic gout, unspecified, without tophus (tophi) Status: Acute Assessment and Plan: patient on febuxostat at home, consider stopping in setting of heart disease (black box warning) follow-up with PCP (3) Rheumatoid arthritis: Code(s): M06.9 - Rheumatoid arthritis, unspecified Status: Acute Assessment and Plan: Patient does not appear to be on any medication for this at the moment (4) Chronic atrial flutter: Code(s): I48.92 - Unspecified atrial flutter Status: Acute Assessment and Plan: INR was supratherapeutic on admission but currently INR currently therapeutic resume Coumadin today (5) Unspecified dementia without behavioral disturbance: Code(s): F03.90 - Unspecified dementia without behavioral disturbance Status: Acute Assessment and Plan: Continue galantamine and memantine (6) BPH (benign prostatic hyperplasia): Code(s): N40.0 - Benign prostatic hyperplasia without lower urinary tract symptoms Status: Inactive Assessment and Plan: continue flomax (7) Acute kidney injury superimposed on chronic kidney disease: Code(s): N17.9 - Acute kidney failure, unspecified; N18.9 - Chronic kidney disease, unspecified Status: Acute Assessment and Plan: likely cardiorenal in setting of RV failure, continue to monitor with diuresis worsening today benefit outweighed the risk adjusted diuresis (8) Poor nutrition: Code(s): E63.9 - Nutritional deficiency, unspecified Status: Acute Assessment and Plan: albumin 2.8. C/s dietary (9) Abnormal finding on urinalysis: Code(s): R82.90 - Unspecified abnormal findings in urine Status: Acute Assessment and Plan: positive recent culture probable contaminant continue to monitor Subjective Date/time seen: 11/28/21 11:06 Interval history: 81 years old male with past medical history of AFib CHF CKD gout presented to the hospital shortness of breath was found to have acute CHF exacerbation treated with IV diuresis cardiology was consulted renal function worsening lower extremity swelling has resolved shortness of breath has significantly improved with IV diuresis will get repeat chest x-ray today decrease the dose of IV Lasix to 40 IV daily and re-evaluate in a.m. Patient feels weak short of breath better than yesterday Patient denies fever headache chest pain shortness of breath I am seeing the patient for shortness of breath Exam Narrative: Alert Chest no wheeze crackles Abdomen nontender nondistended CVS S1 + S2 Lower extremity edema bilateral lower extremity redness Objective Data Vital Signs Vital Signs: Vital Signs - 24 hr 11/27/21 12:00 11/27/21 14:00 11/27/21 16:00 Temperature 96.2 F L 97.5 F L Pulse Rate 54 L 76 76 Respiratory Rate 16 18 Blood Pressure 129/67 110/58 L Pulse Oximetry 97 99 11/27/21 18:00 11/27/21 19:58 11/27/21 20:00 Temperature 96.9 F L Pulse Rate 77 65 78 Respiratory Rate 16 Blood Pressure 126/64 Pulse Oximetry 99 11/27/21 22:00 11/27/21 23:42 11/27/21 23:55 Temperature 96.9 F L Pulse Rate 57 L 56 L 74 Respiratory Rate 20 Blood Pressure 123/67 Pulse Oximetry 100 11/28/21 00:00 11/28/21 02:00 11/28/21 04:00 Temperature 97.2 F L Pulse Rate 74 74 71 Respiratory Rate 20 16 Blood Pressure 129/65 Pulse Oximetry 100 97 11/28/21 06:00 11/28/21 08:00 11/28/21 08:06 T
[2021-11-28 11:36] LABS: Basophils Absolute Auto 0.1 K/mm3 (0.0-0.1); Basophils Percent Auto 0.7 % (0.2-1.2); Eosinophils Absolute Auto 0.2 K/mm3 (0-0.3); Eosinophils Percent Auto 2.3 % (0-4.4); Hemoglobin 12.9 g/dL (14.0-18.0); Immature Granulocyte Absolute 0.05 K/mm3 (0.00-0.031); Immature Granulocyte Percent A 0.6 % (0-0.5); Lymphocytes Absolute Auto 0.44 K/mm3 (0.9-3.2); Lymphocytes Percent Auto 5.3 % (18.3-44.2); Mean Corpuscular HGB Conc 30.7 g/dl (32-36); Mean Corpuscular Hemoglobin 23.8 pg (26-34); Mean Corpuscular Volume 77.3 fl (80-100); Mean Platelet Volume 9.4 fl (7.4-10.4); Monocytes Absolute Auto 0.7 K/mm3 (0.1-0.6); Monocytes Percent Auto 7.8 % (2.6-8.5); Neutrophils Absolute Auto 6.9 K/mm3 (1.3-6.7); Neutrophils Percent Auto 83.3 % (45.5-73.1); Platelet Count Result 251 k/mm3 (150-375); Red Blood Count 5.43 M/mm3 (4.6-6.20); White Blood Count 8.3 K/mm3 (4.5-10.0)
--- NOTE | 2021-11-28 13:02 | PCNSR ---
On 11/28/21, the student, Charity Estrada, provided care and completed [facility] documentation on this patient. I have reviewed the student's documentation and agree with the findings.
[2021-11-28] MEDS: WARFARIN (*PBKC) 0.5 MG TABLET PO (17:08)
[2021-11-28] MEDS: WARFARIN (*PBKC) 3 MG TABLET PO (17:08)
[2021-11-29] VITALS (16 sets, daily range): BP systolic 119–133; BP diastolic 51–63; PULSE 54–80; RESP 16–24; TEMP 36.2–37; O2SAT 97–100
[2021-11-29 05:03] LABS: Basophils Absolute Auto 0.1 K/mm3 (0.0-0.1); Basophils Percent Auto 0.7 % (0.2-1.2); Eosinophils Absolute Auto 0.2 K/mm3 (0-0.3); Eosinophils Percent Auto 3.2 % (0-4.4); Hematocrit 39.3 % (42.0-52.0); Hemoglobin 12.1 g/dL (14.0-18.0); Immature Granulocyte Absolute 0.05 K/mm3 (0.00-0.031); Immature Granulocyte Percent A 0.7 % (0-0.5); Lymphocytes Percent Auto 8.3 % (18.3-44.2); Mean Corpuscular HGB Conc 30.8 g/dl (32-36); Mean Corpuscular Hemoglobin 23.7 pg (26-34); Mean Corpuscular Volume 76.9 fl (80-100); Mean Platelet Volume 9.3 fl (7.4-10.4); Monocytes Absolute Auto 0.7 K/mm3 (0.1-0.6); Monocytes Percent Auto 9.9 % (2.6-8.5); Neutrophils Absolute Auto 5.6 K/mm3 (1.3-6.7); Neutrophils Percent Auto 77.2 % (45.5-73.1); Platelet Count Result 213 k/mm3 (150-375); Red Blood Count 5.11 M/mm3 (4.6-6.20); Red Cell Distribution Width 17.5 % (11.5-14.5); White Blood Count 7.2 K/mm3 (4.5-10.0)
[2021-11-29 05:15] LABS: INR 2.2; Prothrombin Time 23.9 Seconds (11.1-14.7)
[2021-11-29 05:22] LABS: Alanine Aminotransferase 14 U/L (4-50); Albumin Level 2.6 g/dL (3.5-5.1); Alkaline Phosphatase 79 U/L (38-126); Anion Gap 3 mmol/L (8-16); Aspartate Amino Transferase 28 U/L (17-59); Bilirubin,Total 1.1 mg/dL (0.2-1.3); Blood Urea Nitrogen 45 mg/dL (9-20); Calcium 8.2 mg/dL (8.4-10.2); Carbon Dioxide 26 mmol/L (22-30); Chloride 106 mmol/L (98-107); Estimated CRCL calculation 34 ml/min; Estimated Glomerular Filt Rate 39; Glucose 102 mg/dL (65-110); Potassium 3.7 mmol/L (3.4-5.0); Sodium 135 mmol/L (137-145)
[2021-11-29] MEDS: ACETAMINOPHEN 325 MG TABLET 650 MG PO (08:22)
[2021-11-29] MEDS: MEMANTINE 10 MG TABLET PO ×2 (09:13→20:20)
[2021-11-29] MEDS: FEBUXOSTAT 40 MG TABLET 80 MG PO (09:13)
[2021-11-29] MEDS: PANTOPRAZOLE 40 MG TABLET PO ×2 (09:13→16:01)
[2021-11-29] MEDS: FOLIC ACID 1 MG TABLET PO (09:13)
[2021-11-29] MEDS: TOLNAFTATE 1% POWDER 45 GM BTL 1 APPLIC TOPICAL ×2 (09:14→20:20)
[2021-11-29] MEDS: FUROSEMIDE INJ 40 MG/4 ML VIAL IV PUSH (09:14)
[2021-11-29] MEDS: TAMSULOSIN HCL 0.4 MG CAPSULE PO (10:10)
--- NOTE | 2021-11-29 10:20 | PM.IMPN ---
Progress Note: A&P Assessment and Plan (1) Acute exacerbation of congestive heart failure: Code(s): I50.9 - Heart failure, unspecified Status: Acute Assessment and Plan: Probable acute and of chronic diastolic CHF exacerbation Follow echo shows normal ejection fraction D shaped right ventricle V/Q scan on 11/29/2021 Cardiology recommendation appreciated Renal function improved continue Lasix 80 mg twice a day Cardiology following Reviewed chest x-ray Cardiomegaly and atelectasis no plan for ivasive work up (2) Chronic gout without tophus: Code(s): M1A.9XX0 - Chronic gout, unspecified, without tophus (tophi) Status: Acute Assessment and Plan: patient on febuxostat at home, consider stopping in setting of heart disease (black box warning) follow-up with PCP (3) Rheumatoid arthritis: Code(s): M06.9 - Rheumatoid arthritis, unspecified Status: Acute Assessment and Plan: Patient does not appear to be on any medication for this at the moment (4) Chronic atrial flutter: Code(s): I48.92 - Unspecified atrial flutter Status: Acute Assessment and Plan: INR was supratherapeutic on admission but currently INR currently therapeutic resume Coumadin today (5) Unspecified dementia without behavioral disturbance: Code(s): F03.90 - Unspecified dementia without behavioral disturbance Status: Acute Assessment and Plan: Continue galantamine and memantine (6) BPH (benign prostatic hyperplasia): Code(s): N40.0 - Benign prostatic hyperplasia without lower urinary tract symptoms Status: Inactive Assessment and Plan: continue flomax (7) Acute kidney injury superimposed on chronic kidney disease: Code(s): N17.9 - Acute kidney failure, unspecified; N18.9 - Chronic kidney disease, unspecified Status: Acute Assessment and Plan: likely cardiorenal in setting of RV failure, improved monitor closely as patient also on IV diuresis (8) Poor nutrition: Code(s): E63.9 - Nutritional deficiency, unspecified Status: Acute Assessment and Plan: albumin 2.8. C/s dietary (9) Abnormal finding on urinalysis: Code(s): R82.90 - Unspecified abnormal findings in urine Status: Acute Assessment and Plan: positive recent culture probable contaminant continue to monitor Subjective Date/time seen: 11/29/21 10:20 Interval history: 81 years old male with past medical history of AFib CHF CKD gout presented to the hospital shortness of breath was found to have acute CHF exacerbation treated with IV diuresis cardiology was consulted renal function improved today but lower extremity swelling has worsened continue IV Lasix 80 mg twice a day. Still feels short of breath Patient denies fever headache chest pain shortness of breath I am seeing the patient for shortness of breath Objective Data Vital Signs Vital Signs: Vital Signs - 24 hr 11/28/21 12:00 11/28/21 14:00 11/28/21 16:00 Temperature 97.5 F L 97.6 F Pulse Rate 75 62 52 L Respiratory Rate 16 16 Blood Pressure 113/55 L 109/68 Pulse Oximetry 97 100 11/28/21 18:00 11/28/21 20:00 11/28/21 22:00 Temperature 97.5 F L Pulse Rate 78 52 L 56 L Respiratory Rate 16 Blood Pressure 92/59 L Pulse Oximetry 98 11/28/21 23:35 11/29/21 00:00 11/29/21 02:00 Temperature 98.8 F Pulse Rate 55 L 61 62 Respiratory Rate 16 16 Blood Pressure 123/74 Pulse Oximetry 99 99 11/29/21 04:00 11/29/21 05:46 11/29/21 08:15 Temperature 98.6 F 97.1 F L Pulse Rate 70 54 L 77 Respiratory Rate 20 20 Blood Pressure 133/63 120/58 L Pulse Oximetry 99 100 Intake/Output Intake/Output: Intake & Output 11/26/21 11/27/21 11/28/21 11/29/21 23:59 23:59 23:59 23:59 Intake Total 480 1210 460 440 Output Total 0622 419 3732 900 Balance -795 960 -1760 -460 Meds/Results Medications: Active Medications Generic Name Dose Route St
--- NOTE | 2021-11-29 11:21 | PM.PNCARD ---
Progress Note: A&P Assessment and Plan (1) Acute exacerbation of congestive heart failure: Code(s): I50.9 - Heart failure, unspecified Status: Acute Assessment and Plan: 81-year-old male with CHF with preserved ejection fraction, RV failure, atrial fibrillation on chronic anticoagulation with warfarin, CKD, gout,? Rheumatoid arthritis, cognitive impairment/dementia. Patient admitted to the hospital with worsening shortness of breath. He has history of RV failure. His previous echocardiogram has shown preserved LV systolic function, RV enlargement with RV failure. Exact etiology of RV failure is uncertain at this time. Patient had symptomatic improvement with diuresis since hospitalization. No plans for invasive hemodynamic assessment with [facility] pulmonology evaluation to check for intrinsic lung disease Continue diuresis but avoid excessive diuresis as he is preload dependent. Will shift him to p.o. furosemide today with the intent of discharge within the next 1-2 days. Monitor renal function and electrolytes with daily BMP Dietary c/s to review low sodium diet (2) Atrial flutter: Code(s): I48.92 - Unspecified atrial flutter Status: Acute Assessment and Plan: Patient has atrial flutter/fibrillation with controlled ventricular response. He is not on rate-controlling agents. Patient has been on chronic anticoagulation with warfarin. Consider switching warfarin to one of the direct oral anticoagulants. (3) Acute kidney injury superimposed on chronic kidney disease: Code(s): N17.9 - Acute kidney failure, unspecified; N18.9 - Chronic kidney disease, unspecified Status: Acute Assessment and Plan: Renal function is stable. Continue monitoring with diuresis. Subjective Date/time seen: 11/29/21 11:21 Interval history: Follow-up visit in this 81-year-old man with: Chronic atrial flutter/atrial fib with chronic right ventricular failure and significant volume overload. Echocardiogram has stigmata of RV pressure overload as well. Patient says he feels better this morning has been in the hospital for a couple of days receiving intravenous furosemide. Breathing is much more comfortable. Date of service 11/28/2021: Continues to feel better. Breathing comfortably on room air at this point. He does still have pitting edema on his thighs but he tells me this has significantly improved. Does not have any chest pain or palpitations. Date of service 11/28/2021: Continues to improve. Swelling is better. Denies shortness of breath. Review of Systems Review of Systems: All systems reviewed & are unremarkable except as noted in HPI and below Exam Const: General: comfortable and no acute distress Other: Pleasant elderly man sitting in the ciahr HENMT: Mouth: Yes moist mucous membranes Eyes: Sclera: sclerae normal Pupils: Equal, round and reactive pupils present Neck: Neck: supple Other: Did not appreciate any JVD Resp: Effort & Inspection: normal respiratory effort Auscultation: clear to auscultation bilaterally Cardio: Rhythm: abnormal rhythm irregularly irregular Heart sounds: no murmurs GI: Inspection: distended Auscultation: normal bowel sounds Skin: General skin exam: normal color Neuro: Cranial nerves: Yes Equal, round and reactive pupils present Cognition (Neuro): normal cognition Extrem: Other: Mild pretibial edema, 1+ pitting edema on thighs. Changes of chronic venous stasis noted bilaterally Objective Data Vital Signs Vital Signs: Vital Signs - 24 hr 11/28/21 12:00 11/28/21 14:00 11/28/21 16:00 Temperature 36.4 C L 36.4 C Pulse Rate 75 62 52 L Respiratory Rate 16 16 Blood Pressure 113/55 L 109/68 Pulse Oximetry 97 100 11/28/21 18:00 11/28/21 20:00 11/28/21 22:00 Temperature 36.4 C L Pulse Rate 78 52 L 56 L Respiratory Rate 16 Blood Pressure 92/59 L Pulse Oximetry 98 11/28/21 23:35 11/29/21 00:00 11/29/21 02:00
[2021-11-29] MEDS: WARFARIN (*PBKC) 3 MG TABLET PO (16:01)
[2021-11-29] MEDS: HYDROcodone/acetaminophen (*CRX) 5-325 MG TABLET 1 TAB PO (16:02)
[2021-11-29] MEDS: WARFARIN (*PBKC) 0.5 MG TABLET PO (16:02)
[2021-11-29] MEDS: FUROSEMIDE 40 MG TABLET PO (16:20)
[2021-11-30] VITALS (13 sets, daily range): BP systolic 103–132; BP diastolic 55–66; PULSE 46–98; RESP 18–20; TEMP 36.2–37; O2SAT 96–98
[2021-11-30 05:26] LABS: Basophils Absolute Auto 0.1 K/mm3 (0.0-0.1); Basophils Percent Auto 0.6 % (0.2-1.2); Eosinophils Absolute Auto 0.2 K/mm3 (0-0.3); Eosinophils Percent Auto 1.9 % (0-4.4); Hemoglobin 12.3 g/dL (14.0-18.0); Immature Granulocyte Absolute 0.04 K/mm3 (0.00-0.031); Immature Granulocyte Percent A 0.5 % (0-0.5); Lymphocytes Percent Auto 8.1 % (18.3-44.2); Mean Corpuscular HGB Conc 30.8 g/dl (32-36); Mean Corpuscular Hemoglobin 23.9 pg (26-34); Mean Corpuscular Volume 77.7 fl (80-100); Monocytes Percent Auto 11.1 % (2.6-8.5); Neutrophils Absolute Auto 6.7 K/mm3 (1.3-6.7); Neutrophils Percent Auto 77.8 % (45.5-73.1); Platelet Count Result 212 k/mm3 (150-375); Red Blood Count 5.15 M/mm3 (4.6-6.20); Red Cell Distribution Width 18.1 % (11.5-14.5); White Blood Count 8.6 K/mm3 (4.5-10.0)
[2021-11-30 05:40] LABS: Alanine Aminotransferase 17 U/L (4-50); Albumin Level 2.6 g/dL (3.5-5.1); Alkaline Phosphatase 88 U/L (38-126); Anion Gap 2 mmol/L (8-16); Aspartate Amino Transferase 30 U/L (17-59); Bilirubin,Total 1.2 mg/dL (0.2-1.3); Blood Urea Nitrogen 41 mg/dL (9-20); Calcium 8.3 mg/dL (8.4-10.2); Carbon Dioxide 28 mmol/L (22-30); Chloride 106 mmol/L (98-107); Estimated CRCL calculation 38 ml/min; Estimated Glomerular Filt Rate 45; Glucose 106 mg/dL (65-110); Potassium 3.8 mmol/L (3.4-5.0); Sodium 136 mmol/L (137-145)
[2021-11-30 05:47] LABS: INR 2.7
[2021-11-30] MEDS: PANTOPRAZOLE 40 MG TABLET PO ×2 (10:00→17:16)
[2021-11-30] MEDS: TAMSULOSIN HCL 0.4 MG CAPSULE PO (10:00)
[2021-11-30] MEDS: FUROSEMIDE 40 MG TABLET PO ×2 (10:01→17:16)
[2021-11-30] MEDS: MEMANTINE 10 MG TABLET PO ×2 (10:01→20:32)
[2021-11-30] MEDS: FOLIC ACID 1 MG TABLET PO (10:01)
[2021-11-30] MEDS: TOLNAFTATE 1% POWDER 45 GM BTL 1 APPLIC TOPICAL ×2 (10:02→20:32)
[2021-11-30] MEDS: FEBUXOSTAT 40 MG TABLET 80 MG PO (10:02)
--- NOTE | 2021-11-30 11:09 | PM.IMPN ---
Progress Note: A&P Assessment and Plan (1) Acute exacerbation of congestive heart failure: Code(s): I50.9 - Heart failure, unspecified Status: Acute Assessment and Plan: Probable acute and of chronic diastolic CHF exacerbation Follow echo shows normal ejection fraction D shaped right ventricle V/Q scan on 11/29/2021 negative Cardiology recommendation appreciated Renal function improved continue diuresis per Cardiology Cardiology following Reviewed chest x-ray cardiomegaly and atelectasis Cardiomegaly and atelectasis no plan for ivasive work up (2) Chronic gout without tophus: Code(s): M1A.9XX0 - Chronic gout, unspecified, without tophus (tophi) Status: Acute Assessment and Plan: patient on febuxostat at home, consider stopping in setting of heart disease (black box warning) follow-up with PCP (3) Rheumatoid arthritis: Code(s): M06.9 - Rheumatoid arthritis, unspecified Status: Acute Assessment and Plan: Patient does not appear to be on any medication for this at the moment (4) Chronic atrial flutter: Code(s): I48.92 - Unspecified atrial flutter Status: Acute Assessment and Plan: INR was supratherapeutic on admission but currently INR currently therapeutic resume Coumadin today (5) Unspecified dementia without behavioral disturbance: Code(s): F03.90 - Unspecified dementia without behavioral disturbance Status: Acute Assessment and Plan: Continue galantamine and memantine (6) BPH (benign prostatic hyperplasia): Code(s): N40.0 - Benign prostatic hyperplasia without lower urinary tract symptoms Status: Inactive Assessment and Plan: continue flomax (7) Acute kidney injury superimposed on chronic kidney disease: Code(s): N17.9 - Acute kidney failure, unspecified; N18.9 - Chronic kidney disease, unspecified Status: Acute Assessment and Plan: likely cardiorenal in setting of RV failure, improved monitor closely as patient also on diuresis (8) Poor nutrition: Code(s): E63.9 - Nutritional deficiency, unspecified Status: Acute Assessment and Plan: albumin 2.8. C/s dietary (9) Abnormal finding on urinalysis: Code(s): R82.90 - Unspecified abnormal findings in urine Status: Acute Assessment and Plan: positive recent culture probable contaminant continue to monitor Subjective Date/time seen: 11/30/21 11:09 Interval history: 81 years old male with past medical history of AFib CHF CKD gout presented to the hospital shortness of breath was found to have acute CHF exacerbation treated with IV diuresis cardiology was consulted renal function improved switched to oral diuretics V/Q scan negative for PE chest x-ray shows cardiomegaly and atelectasis Shortness of breath has improved patient is interested to go to rehab Patient denies fever headache chest pain I am seeing the patient for shortness of breath Exam Narrative: Alert Chest no wheeze crackles Abdomen nontender nondistended CVS S1 + S2 Lower extremity edema bilateral lower extremity redness Objective Data Vital Signs Vital Signs: Vital Signs - 24 hr 11/29/21 11:44 11/29/21 12:00 11/29/21 14:00 Temperature 97.8 F Pulse Rate 78 80 67 Respiratory Rate 20 Blood Pressure 119/57 L Pulse Oximetry 98 11/29/21 16:00 11/29/21 16:47 11/29/21 18:00 Temperature 98.4 F Pulse Rate 60 71 80 Respiratory Rate 24 H Blood Pressure 126/51 L Pulse Oximetry 98 11/29/21 20:00 11/29/21 20:03 11/29/21 23:08 Temperature 97.6 F 97.6 F Pulse Rate 79 80 Respiratory Rate 18 20 Blood Pressure 120/53 L 126/52 L Pulse Oximetry 98 98 97 11/30/21 00:00 11/30/21 04:00 11/30/21 05:49 Temperature 98.6 F Pulse Rate 60 69 50 L Respiratory Rate 20 Blood Pressure 118/55 L Pulse Oximetry 97 11/30/21 08:00 11/30/21 10:00 Temperature 97.5 F L Pulse Rate 78 83 Respiratory Ra
--- NOTE | 2021-11-30 13:38 | PM.PNCARD ---
Progress Note: A&P Assessment and Plan (1) Acute exacerbation of congestive heart failure: Code(s): I50.9 - Heart failure, unspecified Status: Acute Assessment and Plan: 81-year-old male with CHF with preserved ejection fraction, RV failure, atrial fibrillation on chronic anticoagulation with warfarin, CKD, cognitive impairment/dementia. RV enlargement with RV failure. Exact etiology of RV failure is uncertain at this time. Patient had symptomatic improvement with diuresis since hospitalization. Diuresis well with oral diuretics lasix 40 mg po BID Low slat diet and limit fluid intake to 1 L per day (2) Atrial flutter: Code(s): I48.92 - Unspecified atrial flutter Status: Acute Assessment and Plan: Patient has atrial flutter/fibrillation with controlled ventricular response. He is not on rate-controlling agents. Patient has been on chronic anticoagulation with warfarin. Consider switching warfarin to one of the direct oral anticoagulants. (3) Acute kidney injury superimposed on chronic kidney disease: Code(s): N17.9 - Acute kidney failure, unspecified; N18.9 - Chronic kidney disease, unspecified Status: Acute Assessment and Plan: Renal function is stable. Continue monitoring with diuresis. Subjective Date/time seen: 11/30/21 13:38 Interval history: no acute events Tele: A flutter 80 Review of Systems Review of Systems: All systems reviewed & are unremarkable except as noted in HPI and below Exam Narrative: PHYSICAL EXAMINATION: GENERAL: Patient is sitting up in the chair, Alert, oriented, no acute distress MENTAL STATUS: affect appropriate to mood EYES: Extraocular movements intact, no pallor EARS: External ears appear normal, hearing grossly normal NOSE: Normal and patent, no discharge MOUTH: Mucous membranes moist, tongue normal NECK: Supple, JVD CHEST: Scattered crackles bilaterally, predominantly at the base HEART: Normal rate, irregular rhythm, systolic murmur ABDOMEN: Soft, nontender NEUROLOGICAL: Alert, oriented, normal speech MUSCULOSKELETAL: No major deformity, no amputation EXTREMITIES: Nonpitting edema bilaterally lower extremities SKIN: Extensive stasis dermatitis bilateral lower extremities PSYCHIATRIC: Normal mood, appropriate affect Const: Other: Able to lie flat Resp: Other: No chest wall tenderness Skin: Other: Warm Neuro: Other: No obvious focal deficit or facial asymmetry Extrem: Other: Normal capillary refills Intact distal pulses. Objective Data Vital Signs Vital Signs: Vital Signs - 24 hr 11/29/21 14:00 11/29/21 16:00 11/29/21 16:47 Temperature 36.9 C Pulse Rate 67 60 71 Respiratory Rate 24 H Blood Pressure 126/51 L Pulse Oximetry 98 11/29/21 18:00 11/29/21 20:00 11/29/21 20:03 Temperature 36.4 C Pulse Rate 80 79 Respiratory Rate 18 Blood Pressure 120/53 L Pulse Oximetry 98 98 11/29/21 23:08 11/30/21 00:00 11/30/21 04:00 Temperature 36.4 C 37.0 C Pulse Rate 80 60 69 Respiratory Rate 20 20 Blood Pressure 126/52 L 118/55 L Pulse Oximetry 97 97 11/30/21 05:49 11/30/21 08:00 11/30/21 10:00 Temperature 36.4 C L Pulse Rate 50 L 78 83 Respiratory Rate 18 Blood Pressure 132/61 Pulse Oximetry 96 11/30/21 12:00 Temperature 36.4 C L Pulse Rate 67 Respiratory Rate 20 Blood Pressure 103/58 L Pulse Oximetry 98 Intake/Output Intake/Output: Intake & Output 11/27/21 11/28/21 11/29/21 11/30/21 23:59 23:59 23:59 23:59 Intake Total 1210 460 680 240 Output Total 250 2220 1750 825 Balance 960 -1760 -1070 -585 Meds/Results Medications: Active Medications Generic Name Dose Route Start Last Admin Trade Name Freq PRN Reason Stop Dose Admin Acetaminophen 650 mg 11/25/21 21:06 11/29/21 08:22 Acetaminophen 325 Mg Tablet PO 650 mg Q4H PRN Administration Mild Pain (1-3) or Fever Hydrocodone Bitart/Acetaminophen 1 tab 05
[2021-11-30] MEDS: WARFARIN (*PBKC) 0.5 MG TABLET PO (17:16)
[2021-11-30] MEDS: WARFARIN (*PBKC) 3 MG TABLET PO (17:16)
[2021-12-01] VITALS (9 sets, daily range): BP systolic 118–139; BP diastolic 57–66; PULSE 46–93; RESP 16–20; TEMP 36.2–36.9; O2SAT 97–99
[2021-12-01 06:38] LABS: Basophils Absolute Auto 0.1 K/mm3 (0.0-0.1); Basophils Percent Auto 0.8 % (0.2-1.2); Eosinophils Absolute Auto 0.3 K/mm3 (0-0.3); Eosinophils Percent Auto 4.6 % (0-4.4); Hematocrit 40.7 % (42.0-52.0); Hemoglobin 11.6 g/dL (14.0-18.0); Immature Granulocyte Absolute 0.06 K/mm3 (0.00-0.031); Immature Granulocyte Percent A 0.8 % (0-0.5); Lymphocytes Absolute Auto 0.66 K/mm3 (0.9-3.2); Lymphocytes Percent Auto 9.1 % (18.3-44.2); Mean Corpuscular HGB Conc 28.5 g/dl (32-36); Mean Corpuscular Hemoglobin 23.4 pg (26-34); Mean Corpuscular Volume 82.2 fl (80-100); Mean Platelet Volume 10.4 fl (7.4-10.4); Monocytes Absolute Auto 0.8 K/mm3 (0.1-0.6); Monocytes Percent Auto 10.6 % (2.6-8.5); Neutrophils Absolute Auto 5.4 K/mm3 (1.3-6.7); Neutrophils Percent Auto 74.1 % (45.5-73.1); Platelet Count Result 216 k/mm3 (150-375); Red Blood Count 4.95 M/mm3 (4.6-6.20); Red Cell Distribution Width 18.4 % (11.5-14.5); White Blood Count 7.3 K/mm3 (4.5-10.0)
[2021-12-01 06:45] LABS: Alanine Aminotransferase 15 U/L (4-50); Albumin Level 2.5 g/dL (3.5-5.1); Alkaline Phosphatase 79 U/L (38-126); Anion Gap 5 mmol/L (8-16); Aspartate Amino Transferase 35 U/L (17-59); Bilirubin,Total 0.8 mg/dL (0.2-1.3); Blood Urea Nitrogen 47 mg/dL (9-20); Calcium 8.4 mg/dL (8.4-10.2); Carbon Dioxide 28 mmol/L (22-30); Chloride 106 mmol/L (98-107); Estimated CRCL calculation 34 ml/min; Estimated Glomerular Filt Rate 39; Glucose 98 mg/dL (65-110); Sodium 139 mmol/L (137-145)
[2021-12-01] MEDS: MEMANTINE 10 MG TABLET PO ×2 (09:18→21:42)
[2021-12-01] MEDS: FEBUXOSTAT 40 MG TABLET 80 MG PO (09:18)
[2021-12-01] MEDS: FUROSEMIDE 40 MG TABLET PO ×2 (09:18→17:08)
[2021-12-01] MEDS: FOLIC ACID 1 MG TABLET PO (09:18)
[2021-12-01] MEDS: PANTOPRAZOLE 40 MG TABLET PO ×2 (09:19→17:07)
[2021-12-01] MEDS: TAMSULOSIN HCL 0.4 MG CAPSULE PO (09:19)
[2021-12-01] MEDS: TOLNAFTATE 1% POWDER 45 GM BTL 1 APPLIC TOPICAL (09:20)
[2021-12-01] MEDS: ARTIFICIAL TEARS OPHTH SOLN 15 ML BOTTLE 1 DROP EACH EYE ×2 (09:58→21:43)
--- NOTE | 2021-12-01 10:17 | PM.IMPN ---
Progress Note: A&P Assessment and Plan (1) Acute exacerbation of congestive heart failure: Code(s): I50.9 - Heart failure, unspecified Status: Acute Assessment and Plan: Probable acute and of chronic diastolic CHF exacerbation Follow echo shows normal ejection fraction D shaped right ventricle V/Q scan on 11/29/2021 negative Cardiology recommendation appreciated Renal function improved continue diuresis per Cardiology Cardiology following continue diuresis Reviewed chest x-ray cardiomegaly and atelectasis Cardiomegaly and atelectasis no plan for ivasive work up (2) Chronic gout without tophus: Code(s): M1A.9XX0 - Chronic gout, unspecified, without tophus (tophi) Status: Acute Assessment and Plan: patient on febuxostat at home, consider stopping in setting of heart disease (black box warning) follow-up with PCP (3) Rheumatoid arthritis: Code(s): M06.9 - Rheumatoid arthritis, unspecified Status: Acute Assessment and Plan: Patient does not appear to be on any medication for this at the moment (4) Chronic atrial flutter: Code(s): I48.92 - Unspecified atrial flutter Status: Acute Assessment and Plan: INR was supratherapeutic on admission but currently INR currently therapeutic resume Coumadin at lower dose (5) Unspecified dementia without behavioral disturbance: Code(s): F03.90 - Unspecified dementia without behavioral disturbance Status: Acute Assessment and Plan: Continue galantamine and memantine (6) BPH (benign prostatic hyperplasia): Code(s): N40.0 - Benign prostatic hyperplasia without lower urinary tract symptoms Status: Inactive Assessment and Plan: continue flomax (7) Acute kidney injury superimposed on chronic kidney disease: Code(s): N17.9 - Acute kidney failure, unspecified; N18.9 - Chronic kidney disease, unspecified Status: Acute Assessment and Plan: likely cardiorenal in setting of RV failure, worsened today monitor closely as patient also on diuresis (8) Poor nutrition: Code(s): E63.9 - Nutritional deficiency, unspecified Status: Acute Assessment and Plan: albumin 2.8. C/s dietary (9) Abnormal finding on urinalysis: Code(s): R82.90 - Unspecified abnormal findings in urine Status: Acute Assessment and Plan: positive recent culture probable contaminant continue to monitor Subjective Date/time seen: 12/01/21 10:17 Interval history: 81 years old male with past medical history of AFib CHF CKD gout presented to the hospital shortness of breath was found to have acute CHF exacerbation treated with IV diuresis cardiology was consulted renal function improved switched to oral diuretics V/Q scan negative for PE chest x-ray shows cardiomegaly and atelectasis Shortness of breath has improved patient is interested to go to rehab For renal function mildly worsening Patient denies fever headache chest pain I am seeing the patient for shortness of breath Exam Narrative: Alert Chest no wheeze crackles Abdomen nontender nondistended CVS S1 + S2 Lower extremity edema bilateral lower extremity redness Objective Data Vital Signs Vital Signs: Vital Signs - 24 hr 11/30/21 12:00 11/30/21 14:00 11/30/21 16:00 Temperature 97.5 F L 97.4 F L Pulse Rate 98 47 L 98 Respiratory Rate 20 20 Blood Pressure 103/58 L 124/66 Pulse Oximetry 98 98 11/30/21 18:00 11/30/21 20:00 11/30/21 21:50 Temperature 97.1 F L Pulse Rate 80 79 46 L Respiratory Rate 20 Blood Pressure 118/63 Pulse Oximetry 98 11/30/21 23:45 11/30/21 23:59 12/01/21 00:00 Temperature 97.6 F Pulse Rate 74 74 46 L Respiratory Rate 20 20 Blood Pressure 112/56 L Pulse Oximetry 98 98 12/01/21 02:00 12/01/21 04:00 12/01/21 05:15 Temperature 97.6 F Pulse Rate 76 93 71 Respiratory Rate 20 Blood Pressure 126/64 Pulse Oximetry 99 12/01/21 08:
--- NOTE | 2021-12-01 11:18 | PM.PNCARD ---
Progress Note: A&P Assessment and Plan (1) Acute exacerbation of congestive heart failure: Code(s): I50.9 - Heart failure, unspecified Status: Acute Assessment and Plan: 81-year-old male with CHF with preserved ejection fraction, RV failure, atrial fibrillation on chronic anticoagulation with warfarin, CKD, cognitive impairment/dementia. RV enlargement with RV failure. Exact etiology of RV failure is uncertain at this time. Patient had symptomatic improvement with diuresis since hospitalization. Diuresis well with oral diuretics lasix 40 mg po BID Low salt diet and limit fluid intake to 1 L per day (2) Atrial flutter: Code(s): I48.92 - Unspecified atrial flutter Status: Acute Assessment and Plan: Patient has atrial flutter/fibrillation with controlled ventricular response. He is not on rate-controlling agents. Patient has been on chronic anticoagulation with warfarin. Consider switching warfarin to one of the direct oral anticoagulants. (3) Acute kidney injury superimposed on chronic kidney disease: Code(s): N17.9 - Acute kidney failure, unspecified; N18.9 - Chronic kidney disease, unspecified Status: Acute Assessment and Plan: Renal function is stable. Continue monitoring with diuresis. Subjective Date/time seen: 12/01/21 11:18 Interval history: no acute events Feels better A flutter with controlled V response Review of Systems Review of Systems: All systems reviewed & are unremarkable except as noted in HPI and below Exam Const: General: comfortable and no acute distress Other: Able to lie flat HENMT: General nose exam: Normal nares present and no epistaxis Mouth: Yes moist mucous membranes Eyes: Sclera: sclerae normal Pupils: Equal, round and reactive pupils present Neck: Neck: supple and no JVD Carotids: no bruits Resp: Auscultation: clear to auscultation bilaterally and lung sounds not diminished Other: No chest wall tenderness Cardio: Rate: regular rate Rhythm: regular rhythm Heart sounds: no gallops, no murmurs and no rubs GI: GI Palp: Yes Soft to palpation and No Tenderness to palpation present (GI) Auscultation: normal bowel sounds Skin: General skin exam: normal color, rashes and/or lesions noted and no erythema Other: Warm Neuro: Cranial nerves: Yes Equal, round and reactive pupils present Speech: normal speech Other: No obvious focal deficit or facial asymmetry Extrem: General: edema (bilateral) Other: Normal capillary refills Intact distal pulses. Objective Data Vital Signs Vital Signs: Vital Signs - 24 hr 11/30/21 12:00 11/30/21 14:00 11/30/21 16:00 Temperature 36.4 C L 36.3 C L Pulse Rate 98 47 L 98 Respiratory Rate 20 20 Blood Pressure 103/58 L 124/66 Pulse Oximetry 98 98 11/30/21 18:00 11/30/21 20:00 11/30/21 21:50 Temperature 36.2 C L Pulse Rate 80 79 46 L Respiratory Rate 20 Blood Pressure 118/63 Pulse Oximetry 98 11/30/21 23:45 11/30/21 23:59 12/01/21 00:00 Temperature 36.4 C Pulse Rate 74 74 46 L Respiratory Rate 20 20 Blood Pressure 112/56 L Pulse Oximetry 98 98 12/01/21 02:00 12/01/21 04:00 12/01/21 05:15 Temperature 36.4 C Pulse Rate 76 93 71 Respiratory Rate 20 Blood Pressure 126/64 Pulse Oximetry 99 12/01/21 08:00 Temperature 36.2 C L Pulse Rate 78 Respiratory Rate 16 Blood Pressure 139/66 Pulse Oximetry 98 Intake/Output Intake/Output: Intake & Output 11/28/21 11/29/21 11/30/21 12/01/21 23:59 23:59 23:59 23:59 Intake Total 460 680 600 80 Output Total 2220 1750 1125 540 [facility] -1760 -1070 -525 -460 Meds/Results Medications: Active Medications Generic Name Dose Route Start Last Admin Trade Name Freq PRN Reason Stop Dose Admin Acetaminophen 650 mg 11/25/21 21:06 11/29/21 08:22 Acetaminophen 325 Mg Tablet PO 650 mg Q4H PRN Administration Mild Pain (1-3) or Fever Hydrocodone Bitart/Acetaminophen 1 tab 0
[2021-12-01] MEDS: HYDROcodone/acetaminophen (*CRX) 5-325 MG TABLET 1 TAB PO (17:08)
[2021-12-01 18:12] LABS: INR 2.8; Prothrombin Time 28.5 Seconds (11.1-14.7)
[2021-12-01] MEDS: WARFARIN (*PBKC) 3 MG TABLET PO (18:52)
[2021-12-02] VITALS (7 sets, daily range): BP systolic 125–127; BP diastolic 46–60; PULSE 54–86; RESP 18–22; TEMP 36.2–37.6; O2SAT 96–97
[2021-12-02 05:50] LABS: Prothrombin Time 29.8 Seconds (11.1-14.7)
[2021-12-02] MEDS: FEBUXOSTAT 40 MG TABLET 80 MG PO (09:02)
[2021-12-02] MEDS: FUROSEMIDE 40 MG TABLET PO (09:02)
[2021-12-02] MEDS: ARTIFICIAL TEARS OPHTH SOLN 15 ML BOTTLE 1 DROP EACH EYE (09:03)
[2021-12-02] MEDS: TAMSULOSIN HCL 0.4 MG CAPSULE PO (09:03)
[2021-12-02] MEDS: MEMANTINE 10 MG TABLET PO (09:03)
[2021-12-02] MEDS: FOLIC ACID 1 MG TABLET PO (09:03)
[2021-12-02] MEDS: PANTOPRAZOLE 40 MG TABLET PO (09:03)
[2021-12-02] MEDS: TOLNAFTATE 1% POWDER 45 GM BTL 1 APPLIC TOPICAL (09:04)
[2021-12-02] MEDS: HYDROcodone/acetaminophen (*CRX) 5-325 MG TABLET 1 TAB PO (09:07)
--- NOTE | 2021-12-02 10:25 | PM.DS ---
DS: Admitting Diagnosis Discharge Date 12/02/2021 Admitting Diagnosis Shortness of breath DS: Discharge Diagnosis Discharge Diagnosis (1) Acute exacerbation of congestive heart failure: Code(s): I50.9 - Heart failure, unspecified Status: Acute Assessment and Plan: Probable acute and of chronic diastolic CHF exacerbation Follow echo shows normal ejection fraction D shaped right ventricle V/Q scan on 11/29/2021 negative Cardiology recommendation appreciated Renal function improved continue diuresis per Cardiology Cardiology following continue diuresis Reviewed chest x-ray Cardiomegaly and atelectasis no plan for ivasive work up Patient will be discharged on oral Lasix DC Bumex Consider evaluation for restart Aldactone as outpatient once patient follow-up with cardiology (2) Chronic gout without tophus: Code(s): M1A.9XX0 - Chronic gout, unspecified, without tophus (tophi) Status: Acute Assessment and Plan: patient on febuxostat at home, consider stopping in setting of heart disease (black box warning) follow-up with PCP (3) Rheumatoid arthritis: Code(s): M06.9 - Rheumatoid arthritis, unspecified Status: Acute Assessment and Plan: Patient does not appear to be on any medication for this at the moment (4) Chronic atrial flutter: Code(s): I48.92 - Unspecified atrial flutter Status: Acute Assessment and Plan: INR was supratherapeutic on admission repeat INR in the morning patient to follow-up as outpatient with PCP I decreased at the dose of Coumadin to 2.5 mg daily pending results of INR in the morning do not take Coumadin today follow INR in the morning Consider new generation oral anticoagulation as outpatient follow-up with PCP (5) Unspecified dementia without behavioral disturbance: Code(s): F03.90 - Unspecified dementia without behavioral disturbance Status: Acute Assessment and Plan: Continue galantamine and memantine (6) BPH (benign prostatic hyperplasia): Code(s): N40.0 - Benign prostatic hyperplasia without lower urinary tract symptoms Status: Inactive Assessment and Plan: continue flomax (7) Acute kidney injury superimposed on chronic kidney disease: Code(s): N17.9 - Acute kidney failure, unspecified; N18.9 - Chronic kidney disease, unspecified Status: Acute Assessment and Plan: likely cardiorenal in setting of RV failure, monitor CMP in 1 week (8) Poor nutrition: Code(s): E63.9 - Nutritional deficiency, unspecified Status: Acute Assessment and Plan: albumin 2.8. C/s dietary (9) Abnormal finding on urinalysis: Code(s): R82.90 - Unspecified abnormal findings in urine Status: Acute Assessment and Plan: positive recent culture probable contaminant continue to monitor DS: Summary Hospital Course Hospital Course: 81 years old male with past medical history of AFib CHF CKD gout presented to the hospital shortness of breath was found to have acute CHF exacerbation acute and of chronic renal failure treated with IV diuresis cardiology was consulted renal function improved switched to oral diuretics V/Q scan negative for PE chest x-ray shows cardiomegaly and atelectasis patient will be discharged on oral diuretics, INR was supratherapeutic on admission Coumadin dose was adjusted follow INR in the morning follow-up with and Cardiology PCP as outpatient Time Spent with Patient Time attestation: Total time spent providing and/or coordinating discharge services: Exam Narrative: Alert Chest no wheeze crackles Abdomen nontender nondistended CVS S1 + S2 Lower extremity edema bilateral lower extremity redness DS: Data Data Completed and Pending Labs on day of discharge: Labs from last 24 hours 12/02/21 12/01/21 04:48 17:47 PT 29.8 H 28.5 H INR 3.0 2.8 Preliminary micro results at discharge 11/28/21 11:29 Blood Culture - Prelimin
== END 2021-12-02 13:43 | disposition home health service (06) | DRG 291 ==
LOC: ANHED 21:15 → ANHIMU 21:27
PROVIDERS: Emergency Medicine; Admitting Provider Internal Medicine; Emergency Provider Emergency Medicine; PCP Family Medicine; Visit Provider Internal Medicine
DX: I13.0 Hypertensive heart and chronic kidney disease with heart failure and stage 1 through stage 4 chronic kidney disease, or unspecified chronic kidney disease (principal); I50.33 Acute on chronic diastolic (congestive) heart failure; N17.9 Acute kidney failure, unspecified; I48.92 Unspecified atrial flutter; I48.20 Chronic atrial fibrillation, unspecified; E63.9 Nutritional deficiency, unspecified; N18.30 Chronic kidney disease, stage 3 unspecified; R82.90 Unspecified abnormal findings in urine; F03.90 Unspecified dementia, unspecified severity, without behavioral disturbance, psychotic disturbance, mood disturbance, and anxiety; N40.0 Benign prostatic hyperplasia without lower urinary tract symptoms; M1A.9XX0 Chronic gout, unspecified, without tophus (tophi); M06.00 Rheumatoid arthritis without rheumatoid factor, unspecified site; K21.9 Gastro-esophageal reflux disease without esophagitis; I87.2 Venous insufficiency (chronic) (peripheral); Z66 Do not resuscitate; Z87.891 Personal history of nicotine dependence
CPT/HCPCS: 36415; 71045; 71046; 78580; 80048; 80053; 81001; 83880; 84484; 85025; 85610; 85730; 87040; 93005; 93306; 96374; 96376; 97110; 97116; 97161; 97165; 97530; 99285; A9270; A9540; G0378; J1940

== ENCOUNTER 2021-12-18 01:33 | Emergency (ER) | payer MEDICARE, SELFPAY ==
[2021-12-18 01:34] VITALS: BP 125/59; PULSE 70; RESP 19; TEMP 36.3; O2SAT 98
[2021-12-18 01:41] VITALS: BP 125/59; PULSE 70; RESP 19; TEMP 36.3; O2SAT 98
--- NOTE | 2021-12-18 01:59 | ED.MALEGU ---
HPI - Male Genitourinary General Chief complaint: Urogenital-Male Stated complaint: PAINFUL URINATION Time Seen by Provider: 12/18/21 01:43 History of Present Illness HPI Narrative: Patient is an 81-year-old male complaining of unable to urinate x1 day. Patient states that last time he urinated was this morning. Patient states that he had similar episodes in the past due to his enlarged prostate. Patient also complaining of bilateral testicular swelling which is nothing new, he has a history of CHF, but claims that it is more swollen than usual. Patient denies any testicular or scrotal pain. Patient denies any chest pain, shortness of breath, abdominal pain, nausea, vomiting, urinary symptoms, fever or chills. Related Data Home Medications Medication Instructions Recorded Confirmed acetaminophen 325 mg capsule 325 mg PO Q6H PRN Pain 06/08/19 11/25/21 docusate sodium 100 mg tablet 100 mg PO DAILY PRN Constipation 06/17/19 11/25/21 fluticasone propionate 50 1 spray intranasal BID 02/14/21 11/25/21 mcg/actuation nasal spray,suspension (Flonase Allergy Relief) guaifenesin 600 mg tablet, 600 mg PO BID PRN Sinus Symptoms 02/14/21 11/25/21 extended release 12 hr (Mucinex) hydrocodone 5 mg-acetaminophen 325 1 tablet PO Q4H PRN pain 4-6 02/14/21 11/25/21 mg tablet furosemide 20 mg tablet 20 mg PO DAILY 11/25/21 11/25/21 galantamine 8 mg 24 hr 8 mg PO DAILY 11/25/21 11/25/21 capsule,extended release memantine 10 mg tablet 10 mg PO Q12H 11/25/21 11/25/21 Allergies Allergy/AdvReac Type Severity Reaction Status Date / Time Penicillins Allergy Unknown Rash Verified 12/18/21 01:43 Sulfa (Sulfonamide Allergy Unknown Rash Verified 12/18/21 01:43 Antibiotics) sulfathiazole Allergy Unknown Unknown Unverified 12/18/21 01:43 Review of Systems Review of Systems: All systems reviewed & are unremarkable except as noted in HPI and below Constitutional: Constitutional: Denies body ache(s), Denies chills, Denies excessive sweating, Denies fatigue, Denies fever(s), Denies headache(s), Denies lethargy, Denies malaise, Denies weakness and Denies weight loss Eyes: Eyes: Denies blurry vision, Denies change in vision and Denies loss of vision ENT: Denies dizziness, Denies ear discharge, Denies headache(s), Denies lip swelling, Denies epistaxis, Denies nasal congestion, Denies neck pain, Denies throat swelling and Denies tongue swelling Cardiovascular: Cardiovascular: Denies chest pain, Denies chest pain at rest, Denies chest pain with activity, Denies diaphoresis, Denies rapid heart rate, Denies edema, Denies irregular heart rhythm, Denies lightheadedness, Denies palpitations, Denies dyspnea and Denies dyspnea on exertion Respiratory: Respiratory: Denies chest congestion, Denies cough, Denies hemoptysis, Denies dyspnea and Denies dyspnea on exertion Gastrointestinal: Gastrointestinal: Denies abdominal pain, Denies melena, Denies hematochezia, Denies diarrhea, Denies nausea, Denies vomiting and Denies hematemesis Musculoskeletal: Musculoskeletal: Denies abnormal gait, Denies deformity, Denies joint swelling, Denies limited range of motion, Denies neck pain and Denies numbness Neurologic: Denies Abnormal speech present, Denies abnormal gait, Denies confusion, Denies dizziness, Denies headache(s), Denies focal weakness, Denies loss of vision, Denies numbness, Denies Other visual disturbances, Denies Sensory deficit (Neuro) and Denies weakness Psychiatric: Psychiatric: Denies confusion, Denies depression, Denies auditory hallucinations, Denies homicidal ideation and Denies suicidal ideation Endocrine: Endocrine: Denies cold intolerance, Denies excessive sweating, Denies fatigue, Denies heat intolerance and Denies palpitations Hematologic/Lymphatic: Hematologic/Lymphatic: Denies easy bleeding and Denies easy bruising Allergic/Immunologic: Allergic/Immunologic: Denies lip swelling, Denies throat swelling and Denies tongue swelling PMFSH
[2021-12-18] MEDS: LIDOCAINE HCL 2% GEL UROJET 10 ML PKG MUCOUS MEM (02:11)
[2021-12-18 02:32] LABS: Appearance Urine Clear (Clear); Bilirubin Urine Negative (Negative); Blood Urine Negative (Negative); Glucose Urine UA Negative (Negative); Ketones Urine Negative (Negative); Leukocyte Esterase Ur Negative LEU/UL (Negative); Nitrate Urine Negative (Negative); Protein Urine Negative (Negative); Urobilinogen Urine 0.2 mg/dL (<2.0); pH Urine 5.5 (5.0-9.0)
[2021-12-18 02:38] VITALS: BP 172/96; PULSE 103; RESP 22; O2SAT 98
[2021-12-18 02:41] LABS: Add Urine Microscopic? YES; Color Urine Dark Yellow (Yellow)
--- NOTE | 2021-12-18 03:38 | PC.NURSE ---
Verb received from Dr. Zamora that Toradol and Fluids are not needed.
[2021-12-18 04:02] VITALS: BP 110/60; PULSE 74; RESP 20; O2SAT 98
== END 2021-12-18 04:00 ==
PROVIDERS: Emergency Provider Emergency Medicine; PCP Family Medicine
DX: N40.1 Benign prostatic hyperplasia with lower urinary tract symptoms (principal); R33.8 Other retention of urine; I48.20 Chronic atrial fibrillation, unspecified; I13.0 Hypertensive heart and chronic kidney disease with heart failure and stage 1 through stage 4 chronic kidney disease, or unspecified chronic kidney disease; N18.30 Chronic kidney disease, stage 3 unspecified; I50.812 Chronic right heart failure; I87.2 Venous insufficiency (chronic) (peripheral); I25.10 Atherosclerotic heart disease of native coronary artery without angina pectoris; F03.90 Unspecified dementia, unspecified severity, without behavioral disturbance, psychotic disturbance, mood disturbance, and anxiety; E78.5 Hyperlipidemia, unspecified; M06.00 Rheumatoid arthritis without rheumatoid factor, unspecified site; M1A.9XX0 Chronic gout, unspecified, without tophus (tophi); K21.9 Gastro-esophageal reflux disease without esophagitis; Z87.01 Personal history of pneumonia (recurrent); Z98.49 Cataract extraction status, unspecified eye; Z87.891 Personal history of nicotine dependence
CPT/HCPCS: 51702; 81001; 99283

== ENCOUNTER 2021-12-19 16:56 | Inpatient (IN) | payer MEDICARE, SELFPAY ==
--- NOTE | ~2021-12-19 | US_ITS ---
US scrotum doppler INDICATION: Severe testicular edema. Possible hydrocele. TECHNIQUE: Testicular sonogram utilizing grayscale and color Doppler FINDINGS: The testicles are not visualized. There is severe scrotal wall edema. There is a left sided cyst measuring 5 cm, possibly epididymal. There are bilateral hydroceles, right greater than left. There is no varicocele. IMPRESSION: 1. Testicles not visualized, possibly atrophic or undescended. 2: Prominent bilateral hydroceles, right greater than left. 3: Diffuse scrotal wall edema/thickening measuring up to 2.8 cm thickness. Consider infection/inflamm atory process. 4: Large left-sided cyst, possibly epididymal measuring up to 5 cm Reviewed, dictated and finalized at location A. IMPRESSION: 1. Testicles not visualized, possibly atrophic or undescended. 2: Prominent bilateral hydroceles, right greater than left. 3: Diffuse scrotal wall edema/thickening measuring up to 2.8 cm thickness. Cons ider infection/inflammatory process. 4: Large left-sided cyst, possibly epididymal measuring up to 5 cm
--- NOTE | ~2021-12-19 | XR_ITS ---
EXAMINATION: XR chest 1V portable DATE: 12/19/2021 17:17 INDICATION: Shortness of breath TECHNIQUE: One view COMPARISON: Chest radiograph dated 11/28/2021 FINDINGS: Tiny minimally with pulmonary gastric congestion. Subtle groundglass opacity and increased interstiti al pattern in the right lower lung zone which could represent mild pulmonary edema, atelectasis or le ss likely pneumonia. No pleural effusion or pneumothorax. IMPRESSION: 1. Subtle opacities in the right lower lung zone most likely mild pulmonary edema related to congesti ve heart failure although differential would include atelectasis or pneumonia. 2. Cardiomegaly. Reviewed, dictated and finalized at location B. IMPRESSION: 1. Subtle opacities in the right lower lung zone most likely mild pulmonary beatriz ma related to congestive heart failure although differential would include atel ectasis or pneumonia. 2. Cardiomegaly.
[2021-12-19 17:05] VITALS: BP 123/63; PULSE 53; RESP 14; TEMP 36.7; O2SAT 98
--- NOTE | 2021-12-19 17:07 | ECG_ITS ---
Measurements Intervals [place] Rate: 56 P: NM: 0 QRS: 11 QRSD: 77 T: 245 QT: 418 QTc: 404 Interpretive Statements ATRIAL FLUTTER/TACHYCARDIA WITH SLOW VENTRICULAR RESPONSE LOW QRS VOLTAGE IN PRECORDIAL LEADS ANTEROSEPTAL INFARCT, AGE INDETERMINATE BORDERLINE ST-T WAVE ABNORMALITY- DIFFUSE LEADS BASELINE ARTIFACT- I, II, III, V2-V4 ABNORMAL ECG Electronically Signed On 12-19-2021 20:37:08 CDT by Federico Guardado D.O.
[2021-12-19 17:23] LABS: Appearance Urine Clear (Clear); Bilirubin Urine Negative (Negative); Blood Urine 2+ (Negative); Color Urine Yellow (Yellow); Glucose Urine UA Negative (Negative); Ketones Urine Negative (Negative); Leukocyte Esterase Ur 1+ LEU/UL (Negative); Nitrate Urine Negative (Negative); Protein Urine Negative (Negative); Specific Grav Ur 1.015 (1.001-1.035); Urobilinogen Urine 0.2 mg/dL (<2.0); pH Urine 5.5 (5.0-9.0)
[2021-12-19 17:28] LABS: Amorphous Sediment Urine Few; Bacteria Urine Trace /hpf; Mucus Urine Rare /lpf; RBC Urine >75 /hpf (0-2); Squamous Epithelial Cell Urine Rare /hpf (Few)
[2021-12-19 17:31] LABS: Add Urine Microscopic? YES
[2021-12-19 17:38] LABS: Basophils Absolute Auto 0.1 K/mm3 (0.0-0.1); Basophils Percent Auto 0.6 % (0.2-1.2); Eosinophils Absolute Auto 0.3 K/mm3 (0-0.3); Eosinophils Percent Auto 3.1 % (0-4.4); Hematocrit 42.1 % (42.0-52.0); Hemoglobin 12.4 g/dL (14.0-18.0); Immature Granulocyte Absolute 0.07 K/mm3 (0.00-0.031); Immature Granulocyte Percent A 0.9 % (0-0.5); Lymphocytes Absolute Auto 0.61 K/mm3 (0.9-3.2); Lymphocytes Percent Auto 7.6 % (18.3-44.2); Mean Corpuscular HGB Conc 29.5 g/dl (32-36); Mean Corpuscular Hemoglobin 23.4 pg (26-34); Mean Corpuscular Volume 79.4 fl (80-100); Mean Platelet Volume 9.8 fl (7.4-10.4); Monocytes Absolute Auto 0.7 K/mm3 (0.1-0.6); Monocytes Percent Auto 8.7 % (2.6-8.5); Neutrophils Absolute Auto 6.4 K/mm3 (1.3-6.7); Neutrophils Percent Auto 79.1 % (45.5-73.1); Platelet Count Result 216 k/mm3 (150-375); Red Cell Distribution Width 19.6 % (11.5-14.5); White Blood Count 8.1 K/mm3 (4.5-10.0)
--- NOTE | 2021-12-19 17:47 | ED.SOB ---
HPI - SOB/Dyspnea General Chief Complaint: Shortness of Breath/Dyspnea Stated Complaint: CHF exacerbation Time Seen by Provider: 12/19/21 17:31 History of Present Illness HPI Narrative: Patient is an 81-year-old male with a history of CHF complaining of shortness of breath, worse with exertion and increasing bilateral lower extremity edema that started yesterday. Patient denies any cough, congestion, chest pain, abdominal pain, abdominal distention, diaphoresis, fever or chills. Related Data Home Medications Medication Instructions Recorded Confirmed acetaminophen 325 mg capsule 325 mg PO Q6H PRN Pain 06/08/19 11/25/21 docusate sodium 100 mg tablet 100 mg PO DAILY PRN Constipation 06/17/19 11/25/21 fluticasone propionate 50 1 spray intranasal BID 02/14/21 11/25/21 mcg/actuation nasal spray,suspension (Flonase Allergy Relief) guaifenesin 600 mg tablet, 600 mg PO BID PRN Sinus Symptoms 02/14/21 11/25/21 extended release 12 hr (Mucinex) hydrocodone 5 mg-acetaminophen 325 1 tablet PO Q4H PRN pain 4-6 02/14/21 11/25/21 mg tablet furosemide 20 mg tablet 20 mg PO DAILY 11/25/21 11/25/21 memantine 10 mg tablet 10 mg PO Q12H 11/25/21 11/25/21 Allergies Allergy/AdvReac Type Severity Reaction Status Date / Time Penicillins Allergy Unknown Rash Verified 12/18/21 01:43 Sulfa (Sulfonamide Allergy Unknown Rash Verified 12/18/21 01:43 Antibiotics) sulfathiazole Allergy Unknown Unknown Verified 12/19/21 18:10 Review of Systems Review of Systems: All systems reviewed & are unremarkable except as noted in HPI and below Constitutional: Constitutional: Denies body ache(s), Denies chills, Denies excessive sweating, Denies fatigue, Denies fever(s), Denies headache(s), Denies lethargy, Denies malaise, Denies weakness and Denies weight loss Eyes: Eyes: Denies blurry vision, Denies change in vision and Denies loss of vision ENT: Denies dizziness, Denies ear discharge, Denies headache(s), Denies lip swelling, Denies epistaxis, Denies nasal congestion, Denies neck pain, Denies throat swelling and Denies tongue swelling Cardiovascular: Cardiovascular: Denies chest pain, Denies chest pain at rest, Denies chest pain with activity, Denies diaphoresis, Denies rapid heart rate, Denies edema, Denies irregular heart rhythm, Denies lightheadedness and Denies palpitations Respiratory: Respiratory: Denies chest congestion, Denies cough and Denies hemoptysis Gastrointestinal: Gastrointestinal: Denies abdominal pain, Denies melena, Denies hematochezia, Denies diarrhea, Denies nausea, Denies vomiting and Denies hematemesis Musculoskeletal: Musculoskeletal: Denies abnormal gait, Denies deformity, Denies joint swelling, Denies limited range of motion, Denies neck pain and Denies numbness Neurologic: Denies Abnormal speech present, Denies abnormal gait, Denies confusion, Denies dizziness, Denies headache(s), Denies focal weakness, Denies loss of vision, Denies numbness, Denies Other visual disturbances, Denies Sensory deficit (Neuro) and Denies weakness Psychiatric: Psychiatric: Denies confusion, Denies depression, Denies auditory hallucinations, Denies homicidal ideation and Denies suicidal ideation Endocrine: Endocrine: Denies cold intolerance, Denies excessive sweating, Denies fatigue, Denies heat intolerance and Denies palpitations Hematologic/Lymphatic: Hematologic/Lymphatic: Denies easy bleeding and Denies easy bruising Allergic/Immunologic: Allergic/Immunologic: Denies lip swelling, Denies throat swelling and Denies tongue swelling PMFSH Past Medical History Medical History Blood blister BPH (benign prostatic hyperplasia) Chronic a-fib Chronic atrial flutter Chronic gout without tophus Chronic kidney disease, stage 3 unspecified Chronic right-sided heart failure Echocardiogram November 2019: Normal left ventricular systolic function with EF of 78%, severe enlargement of right ventricle with
[2021-12-19 17:48] LABS: Alanine Aminotransferase 17 U/L (6-50); Albumin Level 2.6 g/dL (3.5-5.1); Alkaline Phosphatase 119 U/L (38-126); Anion Gap 3 mmol/L (8-16); Aspartate Amino Transferase 32 U/L (17-59); Bilirubin,Total 0.5 mg/dL (0.2-1.3); Blood Urea Nitrogen 37 mg/dL (9-20); Calcium 8.2 mg/dL (8.4-10.2); Carbon Dioxide 26 mmol/L (22-30); Chloride 109 mmol/L (98-107); Estimated Glomerular Filt Rate 42; Glucose 93 mg/dL (65-110); Potassium 3.8 mmol/L (3.4-5.0); Sodium 138 mmol/L (137-145)
[2021-12-19 17:55] LABS: Hypochromasia 1+ (NORMAL); Ovalocytes 1+ (NORMAL); Platelet Estimate Adequate (Adequate)
[2021-12-19 17:58] LABS: INR 1.5; Prothrombin Time 17.8 Seconds (11.1-14.7)
[2021-12-19 18:00] VITALS: PULSE 55; PULSE 56; RESP 12; O2SAT 98
[2021-12-19 18:06] LABS: NT Pro B Type Natriuretic Pept 4380 pg/mL (5-100); Troponin I 0.069 ng/mL (0.000-0.034)
[2021-12-19] MEDS: FUROSEMIDE INJ 40 MG/4 ML VIAL 20 MG IV PUSH (18:11)
[2021-12-19 20:00] VITALS: BP 138/66; PULSE 54; RESP 12; O2SAT 98
[2021-12-19 21:38] LABS: SARS-CoV-2 RNA PCR Negative
[2021-12-19 21:50] VITALS: BP 141/58; PULSE 100; RESP 24; TEMP 36.1; O2SAT 100; BMI 35.7
[2021-12-19 22:12] VITALS: BMI 35.7
--- NOTE | 2021-12-19 22:45 | PM.IMHP ---
H&P: HPI History of Present Illness Date/Time: 12/19/21 22:45 Chief Complaint: shortness of breath Narrative: 81-year-old male with history of CHF (last echo from the chart showed an EF of 60-65% with normal diastolic function, no pulmonary hypertension, but there was noted right ventricular enlargement with severe hypokinesis, indicating cor pulmonale) presenting with shortness of breath and worsening lower extremity edema for the last few days. Of note, the patient recently had urinary retention requiring the placement of a Arnett. Urology was consulted from the ER. They will see patient in the morning. In the ER he had mildly elevated troponin but appears chronic. Chest x-ray showed some vascular congestion and pulmonary edema with an associated elevated BNP. He was started on Lasix 40 mg IV q.12 hours. Urinalysis was abnormal but not definitive UTI, urine sent for culture. patient denied any chest pain or shortness of breath. He states he feels much better than when he 1st came in. He denies nausea vomiting or diarrhea. He states he has had multiple episodes of heart failure requiring diuresis and thinks that is all that this was. After urinating with a Arnett, he states his symptoms are essentially resolved and would like to go home tomorrow. No fevers or chills. Review of Systems Review of Systems: Twelve point review of systems was done and is negative except as noted in HPI [facility] Past Medical History Medical History Blood blister BPH (benign prostatic hyperplasia) Chronic a-fib Chronic atrial flutter Chronic gout without tophus Chronic kidney disease, stage 3 unspecified Chronic right-sided heart failure Echocardiogram November 2019: Normal left ventricular systolic function with EF of 78%, severe enlargement of right ventricle with severe right ventricular hypokinesis, severe enlargement of the right atrium Chronic venous stasis dermatitis Coronary artery disease Dementia Dyslipidemia Gastrointestinal ulcer GERD (gastroesophageal reflux disease) HTN (hypertension) Inguinal hernia Pneumonia Rheumatoid arthritis Seizures 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) Surgical History Surgical History Hx of cardiac catheterization and 2009 Hx of cataract surgery Hx of inguinal hernia repair right Status post open reduction with internal fixation of fracture (~08/2020) left tibial fracture with interosseous pinning Family History Family History Father , at age 54 Parkinsons disease Cerebrovascular accident Mother , in her 80s Hypertension Cerebrovascular accident Essential hypertension Hypothyroidism Heart disease Sibling Coronary artery disease Social History Social History Social History: He is single and has never been . He is currently living at [facility]. He had previously been in the skilled facility for rehab following a left leg fracture August 2020. He smoked a pipe up until 1979. 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 primary care physician: Dr. Carlos Manuel Vasquez Code status: Full code Healthcare power of regulatory attorney: Kellie Rico (cousins) Smoking status: Former smoker Tobacco type: cigars Alcohol intake: never Substance use: never Substance use type: does not use Gender identity (if verbalized by the patient): Male Spiritual care concerns: No Meds Home Medications and Allergies Home Medications Medication Instructions Recorded Confirmed Type acetaminophen 325 mg capsule 325 mg PO Q6H PRN Pain 06/08/19 12/19/21 History docusate sodium 100 mg tablet 100 mg PO DAILY PRN Cons
--- NOTE | 2021-12-19 23:16 | ADMGEN ---
This patient, Shaan Landis, was admitted to IMU Room 205-01. Patient/family oriented to hospital policies and general routines including ID bracelet, bed and alarms, visiting hours, pain management, procedures, bathroom and other care routines, personal items, smoking policy, room service/diet, and visiting hours. Information on how to activate the Rapid Response Team has been discussed. Patient/Family are encouraged to report perceived risks to care and to ask questions if they do not understand what they are told or what they should do.
[2021-12-20] VITALS (13 sets, daily range): BP systolic 111–158; BP diastolic 52–87; PULSE 43–81; RESP 16–20; TEMP 36.1–37.1; O2SAT 97–99
[2021-12-20 05:10] LABS: Basophils Absolute Auto 0.1 K/mm3 (0.0-0.1); Eosinophils Absolute Auto 0.2 K/mm3 (0-0.3); Eosinophils Percent Auto 3.6 % (0-4.4); Hematocrit 43.5 % (42.0-52.0); Hemoglobin 12.5 g/dL (14.0-18.0); Immature Granulocyte Absolute 0.07 K/mm3 (0.00-0.031); Lymphocytes Percent Auto 7.5 % (18.3-44.2); Mean Corpuscular HGB Conc 28.7 g/dl (32-36); Mean Corpuscular Hemoglobin 23.8 pg (26-34); Mean Corpuscular Volume 82.9 fl (80-100); Mean Platelet Volume 9.4 fl (7.4-10.4); Monocytes Absolute Auto 0.6 K/mm3 (0.1-0.6); Monocytes Percent Auto 8.8 % (2.6-8.5); Neutrophils Absolute Auto 5.2 K/mm3 (1.3-6.7); Neutrophils Percent Auto 78.1 % (45.5-73.1); Platelet Count Result 169 k/mm3 (150-375); Red Blood Count 5.25 M/mm3 (4.6-6.20); Red Cell Distribution Width 19.5 % (11.5-14.5); White Blood Count 6.7 K/mm3 (4.5-10.0)
[2021-12-20 05:17] LABS: Anion Gap 5 mmol/L (8-16); Blood Urea Nitrogen 35 mg/dL (9-20); Carbon Dioxide 21 mmol/L (22-30); Chloride 112 mmol/L (98-107); Estimated CRCL calculation 42 ml/min; Estimated Glomerular Filt Rate 49; Glucose 100 mg/dL (65-110); Potassium 3.5 mmol/L (3.4-5.0); Sodium 138 mmol/L (137-145)
[2021-12-20 05:28] LABS: Anisocytosis 2+ (NORMAL); Hypochromasia 1+ (NORMAL); Platelet Estimate Adequate (Adequate)
[2021-12-20] MEDS: FUROSEMIDE INJ 40 MG/4 ML VIAL IV PUSH ×2 (08:51→20:58)
--- NOTE | 2021-12-20 08:54 | PM.CNCAR ---
Assessment and Plan Assessment and plan (1) Acute exacerbation of congestive heart failure: Code(s): I50.9 - Heart failure, unspecified Status: Acute Plan This is an 81-year-old gentleman who appears to have recent diagnosis of right ventricular failure/RV dysfunction presenting to the hospital with increasing abdominal girth and shortness of breath. Really not much peripheral edema in the lower extremities. He normally takes warfarin for his atrial fibrillation and furosemide 40 mg q.12 hours for his edema. He is currently receiving the furosemide at this dosage intravenously and reporting improvement in his symptoms. I am going to try starting bit of STEFFANIE-inhibitor therapy with this given his recurrent volume overload despite the fact that his LV systolic function is normal. I will also in advance the dose of his warfarin to 3 mg daily since he is subtherapeutic assuming is receiving the home dosage since he is in an assisted living facility. I suppose it is possible that he is not receiving his medications since his INR is subtherapeutic and if that were to be the case that would explain recurrent volume overload as well. We will follow him with you. Hopefully with these medication allergy us mints he will improve and be able to be discharged. He may require a higher dose of furosemide when we transition him to oral prior to discharge Gregorio Lozano MD [facility] History of Present Illness History of Present Illness Consult date/time: 12/20/21 08:54 Reason For Visit: Acute CHF,acute urinary retention,elevate troponin Narrative: This is an 81-year-old gentleman who is known to me with a history of chronic atrial fibrillation being seen at the request of the hospitalist with assistance with evaluation and management of volume overload and some shortness of breath. The patient has been seeing me in the office for a number of years with atrial fibrillation which is chronic and he has evidence of AV node dysfunction as he requires no medication of any kind for rate control. He has simply been managed with anticoagulation with Coumadin and has been stable for quite a while. He recently came to the hospital with symptoms of lower extremity edema and volume overload in the early part of this month. He was found on echocardiogram to have normal left ventricular size and contractility, no significant valvular disease but he does have evidence of right ventricular dysfunction and some echocardiographic stigmata to suggest that he probably has pulmonary hypertension due to flattening of the septum. The echocardiogram did not allow other more accurate determination of estimated pulmonary artery pressure. Because of his advanced age and frail condition no other specific workup of this was recommended he was started on furosemide with improvement and he was discharged. He is in a assisted living facility at [facility] at this time. He was sent back to the hospital yesterday afternoon because of increasing abdominal girth and shortness of breath. He states this began about 5-7 days prior to coming into the hospital. He noticed that his abdominal size was increasing in he was having some respiratory difficulty. He is not noticing increasing lower extremity edema and otherwise has no complaints. Upon arrival to the hospital he was evaluated he placed on some IV furosemide yesterday he says that he feels considerably better this morning and offers no other complaints he is eating his breakfast tray when I came in the room to see him. Of note on his laboratory data his INR is subtherapeutic. His chest x-ray demonstrates a large cardiac silhouette no significant pulmonary congestion and is in my view not significantly changed from x-rays done several weeks ago when he was here last time. Review of Systems Constitutional: Constitutional: Reports no additional constitutional complaints Eyes: Eyes: Reports no additional eye complaints ENT: Rep
[2021-12-20] MEDS: FLUTICASONE PROPIONATE 0.05% NA SPR 16 GM BTL (*BKC) 1 SPRAY NASAL ×2 (09:46→20:58)
[2021-12-20] MEDS: FOLIC ACID 1 MG TABLET PO (09:46)
[2021-12-20] MEDS: guaiFENesin 12 HR 600 MG TABCR PO (09:46)
[2021-12-20] MEDS: MEMANTINE 10 MG TABLET PO ×2 (09:47→20:58)
[2021-12-20] MEDS: FEBUXOSTAT 40 MG TABLET 80 MG PO (09:47)
[2021-12-20] MEDS: PANTOPRAZOLE 40 MG TABLET PO ×2 (09:47→20:58)
[2021-12-20] MEDS: TAMSULOSIN HCL 0.4 MG CAPSULE PO (09:47)
--- NOTE | 2021-12-20 12:21 | WPDURCON ---
Assessment and Plan Assessment and plan (1) Acute kidney injury superimposed on chronic kidney disease: Code(s): N17.9 - Acute kidney failure, unspecified; N18.9 - Chronic kidney disease, unspecified Status: Acute Assessment and Plan: Creatinine appears to have improved s/p catheter insertion. (2) Anasarca: Code(s): R60.1 - Generalized edema Status: Acute Assessment and Plan: Cardiology is following. (3) Acute urinary retention: Code(s): R33.8 - Other retention of urine Status: Acute Assessment and Plan: Continue Tamsulosin, will start Finasteride and keep pereira in for 7-10 days and then follow up in the office for a voiding trial. (4) BPH (benign prostatic hyperplasia): Code(s): N40.0 - Benign prostatic hyperplasia without lower urinary tract symptoms Status: Acute (5) Hydrocele: Code(s): N43.3 - Hydrocele, unspecified Status: Acute Assessment and Plan: This is a chronic problem secondary to CHF and dependent edema. Place a scrotal support to help decrease edema and pain or use a rolled towel/wash cloth. We will plan to order a scrotal US as he has not had one done in the office for several years to re-assess. NO further plans to intervene at this time. Urology Consult Note HPI Date Seen: 12/20/21 Requesting Physician: Candie Brink DO Primary Care Provider: Carlos Manuel Vasquez MD Consult Narrative Narrative: Shaan Landis is a 81 year old male who presented to the ER initially for CHF exacerbation on 12/18/21 and was found incidentally to be in retention, with 800cc of urine drained upon catheter insertion in the ER. He was then sent home to f/u. His breathing became more difficult and he then proceeded back to the ER where he was admitted. He is on Tamsulosin normally and usually has no complaints with urination. He has a history of a hydrocele in which he see's DR. Willams for that was being treated conservatively with scrotal elevation and NSAID's for pain PRN. He does c/o scrotal edema that is worse since his CHF exacerbation. He is currently afebrile, WBC is 6.7< creatinine is 1.40, which appears to be around baseline for him compared to previous creatinine levels. Review of Systems Cardiovascular: Comments: Denies chest pain. Respiratory: Comments: SOB Gastrointestinal: Comments: Denies abdominal pain. Genitourinary: Comments: Denies hematuria, states he had some hesitancy recently, but prior to that no straining, frequency or urgency. [facility] Past Medical History Medical History Blood blister BPH (benign prostatic hyperplasia) Chronic a-fib Chronic atrial flutter Chronic gout without tophus Chronic kidney disease, stage 3 unspecified Chronic right-sided heart failure Echocardiogram November 2019: Normal left ventricular systolic function with EF of 78%, severe enlargement of right ventricle with severe right ventricular hypokinesis, severe enlargement of the right atrium Chronic venous stasis dermatitis Coronary artery disease Dementia Dyslipidemia Gastrointestinal ulcer GERD (gastroesophageal reflux disease) HTN (hypertension) Inguinal hernia Pneumonia Rheumatoid arthritis Seizures 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) Surgical History Surgical History Hx of cardiac catheterization and 2009 Hx of cataract surgery Hx of inguinal hernia repair right Status post open reduction with internal fixation of fracture (~08/2020) left tibial fracture with interosseous pinning Family History Family History Father , at age 54 Parkinsons disease Cerebrovascular accident Mother , in her 80s Hypertension Cerebrovascular accident Essential hypert
[2021-12-20] MEDS: FINASTERIDE 5 MG TABLET PO (13:46)
--- NOTE | 2021-12-20 15:05 | PC.NURSE ---
This patient, Shaan Landis, was transferred to [facility] on 12/20/21 at 1505. Personal belongings sent with patient. Report given to Carmella. Appropriate documentation sent with patient.
--- NOTE | 2021-12-20 15:15 | PC.NURSE ---
This patient, Shaan Landis, was received from [[id number] ] on 12/20/21 at 1515. Patient/family oriented to unit policies and routines
--- NOTE | 2021-12-20 15:51 | PM.IMPN ---
Progress Note: A&P Assessment and Plan (1) Acute exacerbation of CHF (congestive heart failure): Code(s): I50.9 - Heart failure, unspecified Status: Acute Assessment and Plan: appears to be right-sided heart failure, strict I&Os, daily weights, diurese with Lasix 40 mg IV q.12, consult Cardiology 12/20/2021 interval history: patient is 81-year-old male presented with shortness of breast and edema around his abdominal girth patient also has history of hydrocele and this is made worse because of exacerbation of CHF patient is seen by Urology recommending conservative management with elevation of scrotum, patient also seen by detector car operator for acute exacerbation of congestive heart failure and suspect the patient may not have been receiving home medication of Lasix currently being treated with Lasix 40 mg b.i.d. IV, and also added ramipril 2.5 mg q.day, also patient with history of atrial fibrillation for which patient is taking warfarin however INR is subtherapeutic and supposed to be taking 2.5 mg qd cardiology increase to 3 mg q.day will monitor, will have a PT OT evaluate the patient will benefit with acute rehab (2) Elevated troponin: Code(s): R77.8 - Other specified abnormalities of plasma proteins Status: Acute Assessment and Plan: suspect this is chronic, not acute, monitor (3) Acute urinary retention: Code(s): R33.8 - Other retention of urine Status: Acute Assessment and Plan: consult Urology, maintain Arnett for now, likely the precipitant to his acute heart failure exacerbation at this time (4) Abnormal finding on urinalysis: Code(s): R82.90 - Unspecified abnormal findings in urine Status: Acute Assessment and Plan: unsure if this is indicative of a UTI, follow-up urine culture, hold off on antibiotics for now (5) Chronic kidney disease, stage 3 unspecified: Code(s): N18.30 - Chronic kidney disease, stage 3 unspecified Status: Acute Assessment and Plan: appears to be at baseline with a creatinine of 1.6 Subjective Date/time seen: 12/20/21 15:51 HPI: 81-year-old male with history of CHF (last echo from the chart showed an EF of 60-65% with normal diastolic function,? no pulmonary hypertension, but there was noted right ventricular enlargement with severe hypokinesis, indicating cor pulmonale) presenting with shortness of breath and worsening lower extremity edema for the last few days.? Of note, the patient recently had urinary retention requiring the placement of a Arnett.? Urology was consulted from the ER.? They will see patient in the morning. ? In the ER he had mildly elevated troponin but appears chronic.? Chest x-ray showed some vascular congestion and pulmonary edema with an associated elevated BNP. ? He was started on Lasix 40 mg IV q.12 hours. ? Urinalysis was abnormal but not definitive UTI, urine sent for culture. ?patient denied any chest pain or shortness of breath.? He states he feels much better than when he 1st came in.? He denies nausea vomiting or diarrhea.? He states he has had multiple episodes of heart failure requiring diuresis and thinks that is all that this was.? After urinating with a Arnett, he states his symptoms are essentially resolved and would like to go home tomorrow.? No fevers or chills. 12/20/2021 interval history: patient is 81-year-old male presented with shortness of breast and edema around his abdominal girth patient also has history of hydrocele and this is made worse because of exacerbation of CHF patient is seen by Urology recommending conservative management with elevation of scrotum, patient also seen by detector car operator for acute exacerbation of congestive heart failure and suspect the patient may not have been receiving home medication of Lasix currently being treated with Lasix 40 mg b.i.d. IV, and also added ramipril 2.5 mg q.day, also patient with history of atrial fibrillation for which patient is
[2021-12-20] MEDS: WARFARIN (*PBKC) 3 MG TABLET PO (16:43)
[2021-12-21] VITALS (10 sets, daily range): BP systolic 109–154; BP diastolic 45–98; PULSE 46–96; RESP 16–20; TEMP 35.8–36.8; O2SAT 97–100
[2021-12-21 06:07] LABS: Hematocrit 45.9 % (42.0-52.0); Hemoglobin 13.4 g/dL (14.0-18.0); Mean Corpuscular HGB Conc 29.2 g/dl (32-36); Mean Corpuscular Hemoglobin 23.3 pg (26-34); Mean Corpuscular Volume 79.8 fl (80-100); Mean Platelet Volume 9.5 fl (7.4-10.4); Platelet Count Result 196 k/mm3 (150-375); Red Blood Count 5.75 M/mm3 (4.6-6.20); Red Cell Distribution Width 19.9 % (11.5-14.5); White Blood Count 7.5 K/mm3 (4.5-10.0)
[2021-12-21 06:15] LABS: Anion Gap 5 mmol/L (8-16); Blood Urea Nitrogen 32 mg/dL (9-20); Calcium 7.9 mg/dL (8.4-10.2); Carbon Dioxide 21 mmol/L (22-30); Chloride 110 mmol/L (98-107); Estimated CRCL calculation 42 ml/min; Estimated Glomerular Filt Rate 49; Glucose 88 mg/dL (65-110); Magnesium 2.5 mg/dL (1.6-2.3); Potassium 3.7 mmol/L (3.4-5.0); Sodium 136 mmol/L (137-145)
[2021-12-21 06:16] LABS: INR 1.7; Prothrombin Time 19.3 Seconds (11.1-14.7)
[2021-12-21] MEDS: FEBUXOSTAT 40 MG TABLET 80 MG PO (08:12)
[2021-12-21] MEDS: FINASTERIDE 5 MG TABLET PO (08:13)
[2021-12-21] MEDS: PANTOPRAZOLE 40 MG TABLET PO ×2 (08:13→21:39)
[2021-12-21] MEDS: TAMSULOSIN HCL 0.4 MG CAPSULE PO (08:13)
[2021-12-21] MEDS: MEMANTINE 10 MG TABLET PO ×2 (08:13→21:39)
[2021-12-21] MEDS: FOLIC ACID 1 MG TABLET PO (08:13)
[2021-12-21] MEDS: FUROSEMIDE INJ 40 MG/4 ML VIAL IV PUSH ×2 (08:13→21:39)
[2021-12-21] MEDS: FLUTICASONE PROPIONATE 0.05% NA SPR 16 GM BTL (*BKC) 1 SPRAY NASAL ×2 (10:00→21:39)
--- NOTE | 2021-12-21 11:28 | PM.IMPN ---
Progress Note: A&P Assessment and Plan (1) Acute exacerbation of CHF (congestive heart failure): Code(s): I50.9 - Heart failure, unspecified Status: Acute Assessment and Plan: appears to be right-sided heart failure, strict I&Os, daily weights, diurese with Lasix 40 mg IV q.12, consult Cardiology 12/20/2021 interval history: patient is 81-year-old male presented with shortness of breast and edema around his abdominal girth patient also has history of hydrocele and this is made worse because of exacerbation of CHF patient is seen by Urology recommending conservative management with elevation of scrotum, patient also seen by highway inspector for acute exacerbation of congestive heart failure and suspect the patient may not have been receiving home medication of Lasix currently being treated with Lasix 40 mg b.i.d. IV, and also added ramipril 2.5 mg q.day, also patient with history of atrial fibrillation for which patient is taking warfarin however INR is subtherapeutic and supposed to be taking 2.5 mg qd cardiology increase to 3 mg q.day will monitor, will have a PT OT evaluate the patient will benefit with acute rehab (2) Elevated troponin: Code(s): R77.8 - Other specified abnormalities of plasma proteins Status: Acute Assessment and Plan: suspect this is chronic, not acute, monitor (3) Acute urinary retention: Code(s): R33.8 - Other retention of urine Status: Acute Assessment and Plan: consult Urology, maintain Arnett for now, likely the precipitant to his acute heart failure exacerbation at this time (4) Abnormal finding on urinalysis: Code(s): R82.90 - Unspecified abnormal findings in urine Status: Acute Assessment and Plan: unsure if this is indicative of a UTI, follow-up urine culture, hold off on antibiotics for now (5) Chronic kidney disease, stage 3 unspecified: Code(s): N18.30 - Chronic kidney disease, stage 3 unspecified Status: Acute Assessment and Plan: appears to be at baseline with a creatinine of 1.6 Additional Plan 12/21/2021 patient is clinically improving. Will continue current treatment. Start p.o. doxycycline. If stays okay possible discharge in the morning. Subjective Date/time seen: 12/21/21 11:28 Patient was seen during the morning rounds today. Patient is feeling much better. Decreased shortness of breath, no chest pain. Testicular swelling is better. Review of Systems Review of Systems: All systems reviewed & are unremarkable except as noted in HPI and below ( The history and physical examination.) Exam Narrative: morbidly obese Patient is comfortable, NAD HEENT: eyes are clear and none icteric LUNGS: normal respiratory effort ABD: distended mild scrotal swelling Lower extremities: no edema SKIN: nonjaundiced Neuro: grossly intact. Objective Data Vital Signs Vital Signs: Vital Signs - 24 hr 12/20/21 11:50 12/20/21 12:00 12/20/21 12:00 Temperature 36.2 C L Pulse Rate 52 L 81 Respiratory Rate 20 Blood Pressure 158/87 H Pulse Oximetry 99 Oxygen Delivery Room Air 12/20/21 12:00 12/20/21 14:00 12/20/21 15:15 Temperature 36.1 C L Pulse Rate 81 52 L 57 L Respiratory Rate 18 Blood Pressure 127/62 Pulse Oximetry 97 Oxygen Delivery Room Air 12/20/21 16:00 12/20/21 20:00 12/20/21 20:00 Temperature 37.1 C Pulse Rate 46 L 52 L Respiratory Rate 18 Blood Pressure 111/52 L Pulse Oximetry 98 Oxygen Delivery Room Air 12/20/21 23:34 12/21/21 00:00 12/21/21 03:53 Temperature 36.6 C 36.5 C Pulse Rate 51 L 59 L 51 L Respiratory Rate 18 20 Blood Pressure 114/55 L 114/50 L Pulse Oximetry 99 100 Oxygen Delivery 12/21/21 04:00 12/21/21 08:00 12/21/21 08:40 Temperature 35.8 C L Pulse Rate 46 L 86 Respiratory Rate 18 Blood Pressure 154/98 H Pulse Oximetry 99 Oxygen Delivery Room Air 12/21/21 08:00 Temperat
--- NOTE | 2021-12-21 14:36 | PM.PNCARD ---
Progress Note: A&P Assessment and Plan (1) Acute exacerbation of congestive heart failure: Qualifiers: Heart failure type: right-sided Qualified Code(s): I50.813 - Acute on chronic right heart failure Code(s): I50.9 - Heart failure, unspecified Status: Acute Assessment and Plan: Acute predominant right heart failure with RV hypokinesis. Continue IV diuresis responding thus far Lasix 40 mg IV q.12 hours. Accurate input and output, daily weight. Arnett catheter in place for accurate fluid management. (2) HTN (hypertension): Code(s): I10 - Essential (primary) hypertension Status: Acute Assessment and Plan: Fair control, continue ramipril. Monitor BP and renal function. Avoid symptomatic hypotension. (3) Chronic atrial flutter: Code(s): I48.92 - Unspecified atrial flutter Status: Acute Assessment and Plan: Persistent, controlled ventricular response. Subtherapeutic INR 1.7. Continue warfarin check INR in a.m.. If remains subtherapeutic will increase warfarin as INR was 1.5 12/19/2021. (4) Chronic kidney disease, stage 3 unspecified: Code(s): N18.30 - Chronic kidney disease, stage 3 unspecified Status: Acute Assessment and Plan: Stable. Monitor BMP. (5) Chronic anticoagulation: Code(s): Z79.01 - [facility] (current) use of anticoagulants Status: Acute Assessment and Plan: As above, subtherapeutic goal INR 2-3. 1.7 today. Check in a.m.. Adjustments to follow. Subjective Date/time seen: Date of service: 12/21/21 14:36 Follow-up for CHF Patient feeling better, less short of breath. Still notes abdominal fullness but is improving. Edema improving but persists. States he is making a lot of urine. Venous, chest pain. No new issues overnight. Review of Systems Review of Systems: All systems negative other than reported in HPI. Constitutional: Constitutional: Reports no additional constitutional complaints Eyes: Eyes: Reports no additional eye complaints ENT: Reports system reviewed and no additional complaints, except as documented Cardiovascular: Cardiovascular: Reports as per HPI and Reports dyspnea Respiratory: Respiratory: Reports dyspnea Gastrointestinal: Gastrointestinal: Reports no additional gastrointestinal complaints Musculoskeletal: Musculoskeletal: Reports no additional musculoskeletal complaints Integumentary/Breasts: Skin/Breast: Reports system reviewed and no additional complaints, except as docu Neurologic: Reports system reviewed and no additional complaints, except as documented Endocrine: Endocrine: Reports no additional endocrine complaints Hematologic/Lymphatic: Hematologic/Lymphatic: Reports no additional hematologic/lymphatic complaints Allergic/Immunologic: Allergic/Immunologic: Reports no additional allergic/immunologic complaints Exam Const: General: comfortable and no acute distress Other: Elderly gentleman enjoying breakfast tray does not appear to have any complaints today HENMT: Mouth: Yes moist mucous membranes Eyes: Sclera: sclerae normal Neck: Neck: supple Other: Mild JVD Resp: Effort & Inspection: normal respiratory effort Auscultation: diminished lung sounds Other: Diminished breath sounds diffusely No rales no wheezing Cardio: Rate: regular rate and bradycardic Rhythm: regular rhythm GI: Auscultation: normal bowel sounds Other: Abdominal distension nontender Skin: General skin exam: normal color Neuro: Other: Normal cognition no focal deficits Extrem: Other: 2 to 3+ bilateral equal pitting lower extremity edema with Extremities with changes of chronic venous insufficiency and francoise skin but no significant edema at this time Psych: Other: Common appropriate Objective Data Vital Signs Vital Signs: Vital Signs - 24 hr 12/20/21 15:15 12/20/21 16:00 12/20/21 20:00 Temperature 36.1 C L 37.1 C Pulse Rate 57 L 46 L 52 L Resp
[2021-12-21] MEDS: WARFARIN (*PBKC) 3 MG TABLET PO (17:03)
[2021-12-21] MEDS: DOXYCYCLINE HYCLATE 100 MG TABLET PO (21:39)
[2021-12-22] VITALS (9 sets, daily range): BP systolic 97–124; BP diastolic 48–55; PULSE 46–63; RESP 16–18; TEMP 36.2–36.7; O2SAT 96–99
[2021-12-22 06:38] LABS: INR 1.8; Prothrombin Time 20.3 Seconds (11.1-14.7)
[2021-12-22] MEDS: FEBUXOSTAT 40 MG TABLET 80 MG PO (08:28)
[2021-12-22] MEDS: FLUTICASONE PROPIONATE 0.05% NA SPR 16 GM BTL (*BKC) 1 SPRAY NASAL ×2 (08:28→20:21)
[2021-12-22] MEDS: TAMSULOSIN HCL 0.4 MG CAPSULE PO (08:28)
[2021-12-22] MEDS: FUROSEMIDE INJ 40 MG/4 ML VIAL IV PUSH ×3 (08:29→20:22)
[2021-12-22] MEDS: FOLIC ACID 1 MG TABLET PO (08:29)
[2021-12-22] MEDS: DOXYCYCLINE HYCLATE 100 MG TABLET PO ×2 (08:29→20:22)
[2021-12-22] MEDS: PANTOPRAZOLE 40 MG TABLET PO ×2 (08:29→20:22)
[2021-12-22] MEDS: FINASTERIDE 5 MG TABLET PO (08:29)
[2021-12-22] MEDS: MEMANTINE 10 MG TABLET PO ×2 (08:29→20:22)
--- NOTE | 2021-12-22 09:24 | PM.IMPN ---
Progress Note: A&P Assessment and Plan (1) Acute exacerbation of CHF (congestive heart failure): Code(s): I50.9 - Heart failure, unspecified Status: Acute Assessment and Plan: appears to be right-sided heart failure, strict I&Os, daily weights, diurese with Lasix 40 mg IV q.12, consult Cardiology 12/20/2021 interval history: patient is 81-year-old male presented with shortness of breast and edema around his abdominal girth patient also has history of hydrocele and this is made worse because of exacerbation of CHF patient is seen by Urology recommending conservative management with elevation of scrotum, patient also seen by it analyst for acute exacerbation of congestive heart failure and suspect the patient may not have been receiving home medication of Lasix currently being treated with Lasix 40 mg b.i.d. IV, and also added ramipril 2.5 mg q.day, also patient with history of atrial fibrillation for which patient is taking warfarin however INR is subtherapeutic and supposed to be taking 2.5 mg qd cardiology increase to 3 mg q.day will monitor, will have a PT OT evaluate the patient will benefit with acute rehab (2) Elevated troponin: Code(s): R77.8 - Other specified abnormalities of plasma proteins Status: Acute Assessment and Plan: suspect this is chronic, not acute, monitor (3) Acute urinary retention: Code(s): R33.8 - Other retention of urine Status: Acute Assessment and Plan: consult Urology, maintain Arnett for now, likely the precipitant to his acute heart failure exacerbation at this time (4) Abnormal finding on urinalysis: Code(s): R82.90 - Unspecified abnormal findings in urine Status: Acute Assessment and Plan: unsure if this is indicative of a UTI, follow-up urine culture, hold off on antibiotics for now (5) Chronic kidney disease, stage 3 unspecified: Code(s): N18.30 - Chronic kidney disease, stage 3 unspecified Status: Acute Assessment and Plan: appears to be at baseline with a creatinine of 1.6 Additional Plan 12/21/2021 patient is clinically improving. Will continue current treatment. Start p.o. doxycycline. If stays okay possible discharge in the morning. 12/22/2021 Plan is to continue current treatment. Patient is improving gradually. Possible discharge home in the morning. Subjective Date/time seen: 12/22/21 09:24 Patient was seen during the morning rounds today. Patient is feeling much better. Decreased shortness of breath. No chest pain. Mood stable. Review of Systems Review of Systems: All systems reviewed & are unremarkable except as noted in HPI and below ( The history and physical examination.) Exam Narrative: morbidly obese Patient is comfortable, NAD HEENT: eyes are clear and none icteric LUNGS: normal respiratory effort ABD: distended mild scrotal swelling Lower extremities: no edema SKIN: nonjaundiced Neuro: grossly intact. Objective Data Vital Signs Vital Signs: Vital Signs - 24 hr 12/21/21 14:00 12/21/21 12:00 12/21/21 16:00 Temperature 35.9 C L Pulse Rate 96 64 46 L Respiratory Rate 16 Blood Pressure 140/68 Pulse Oximetry 98 Oxygen Delivery 12/21/21 21:50 12/21/21 20:00 12/21/21 20:00 Temperature 36.8 C Pulse Rate 56 L 55 L Respiratory Rate 17 Blood Pressure 109/45 L Pulse Oximetry 98 Oxygen Delivery Room Air 12/21/21 23:54 12/22/21 00:00 12/22/21 04:00 Temperature Pulse Rate 50 L 52 L Respiratory Rate Blood Pressure Pulse Oximetry 97 Oxygen Delivery Room Air 12/22/21 05:51 12/22/21 08:45 12/22/21 08:00 Temperature 36.7 C Pulse Rate 63 61 Respiratory Rate 18 Blood Pressure 124/55 L Pulse Oximetry 98 Oxygen Delivery Room Air Intake/Output Intake/Output: Intake & Output 12/19/21 12/20/21 12/21/21 12/22/21 23:59 23:59 23:59 23:59 Intake Total 1100 838 200 Output Total 1900 1
[2021-12-22 09:49] LABS: Anion Gap 5 mmol/L (8-16); Blood Urea Nitrogen 38 mg/dL (9-20); Calcium 8.1 mg/dL (8.4-10.2); Carbon Dioxide 26 mmol/L (22-30); Chloride 106 mmol/L (98-107); Estimated CRCL calculation 40 ml/min; Estimated Glomerular Filt Rate 45; Glucose 162 mg/dL (65-110); Magnesium 2.1 mg/dL (1.6-2.3); Sodium 137 mmol/L (137-145)
[2021-12-22 09:56] LABS: NT Pro B Type Natriuretic Pept 2500 pg/mL (5-100)
--- NOTE | 2021-12-22 13:30 | PM.PNCARD ---
Progress Note: A&P Assessment and Plan (1) Acute exacerbation of congestive heart failure: Qualifiers: Heart failure type: right-sided Qualified Code(s): I50.813 - Acute on chronic right heart failure Code(s): I50.9 - Heart failure, unspecified Status: Acute Assessment and Plan: Acute predominant right heart failure with RV hypokinesis. Continue IV diuresis urine output marginal overnight. Give additional IV Lasix 40 mg IV x1 and monitor response. Ideally I feel escalation in diuretic likely be needed, however, the to monitor renal function electrolytes closely. BUN and creatinine slightly increased. Monitor electrolytes. Input and output, daily weight. Arnett catheter in place for accurate fluid management. (2) HTN (hypertension): Code(s): I10 - Essential (primary) hypertension Status: Acute Assessment and Plan: Fair control, continue ramipril. Monitor BP and renal function. Avoid symptomatic hypotension. (3) Chronic atrial flutter: Code(s): I48.92 - Unspecified atrial flutter Status: Acute Assessment and Plan: Persistent, controlled ventricular response. Subtherapeutic INR 1.8. Continue warfarin check INR in a.m.. Increase warfarin to 4 mg this evening and change to 3mg alternating with 4mg q48hr. (4) Chronic kidney disease, stage 3 unspecified: Code(s): N18.30 - Chronic kidney disease, stage 3 unspecified Status: Acute Assessment and Plan: Stable. Monitor BMP. (5) Chronic anticoagulation: Code(s): Z79.01 - [facility] (current) use of anticoagulants Status: Acute Assessment and Plan: As above, subtherapeutic goal INR 2-3. 1.7 today. Check in a.m.. Adjustments to follow. Subjective Date/time seen: Date of service: 12/22/21 13:30 Follow-up for right heart failure/CHF Patient states he feels a little better slightly less short of breath. Abdomen less full, lower extremity edema persists yet admits he is sitting in a dependent position with his legs hanging down most of the day. Arnett catheter in place. No chest pain, dizziness or palpitations. No new issues overnight. Review of Systems Constitutional: Constitutional: Reports no additional constitutional complaints Eyes: Eyes: Reports no additional eye complaints ENT: Reports system reviewed and no additional complaints, except as documented Cardiovascular: Cardiovascular: Reports as per HPI and Reports dyspnea Respiratory: Respiratory: Reports dyspnea Gastrointestinal: Gastrointestinal: Reports no additional gastrointestinal complaints Musculoskeletal: Musculoskeletal: Reports no additional musculoskeletal complaints Integumentary/Breasts: Skin/Breast: Reports system reviewed and no additional complaints, except as docu Neurologic: Reports system reviewed and no additional complaints, except as documented Endocrine: Endocrine: Reports no additional endocrine complaints Hematologic/Lymphatic: Hematologic/Lymphatic: Reports no additional hematologic/lymphatic complaints Allergic/Immunologic: Allergic/Immunologic: Reports no additional allergic/immunologic complaints Exam Const: General: comfortable and no acute distress Other: Elderly gentleman enjoying breakfast tray does not appear to have any complaints today HENMT: Mouth: Yes moist mucous membranes Eyes: Sclera: sclerae normal Neck: Neck: supple Other: Mild JVD Resp: Effort & Inspection: normal respiratory effort Auscultation: clear to auscultation bilaterally and diminished lung sounds Other: Diminished breath sounds diffusely No rales no wheezing Cardio: Rate: regular rate and bradycardic Rhythm: regular rhythm GI: Auscultation: normal bowel sounds Other: Abdominal distension nontender Skin: General skin exam: normal color Neuro: Other: Normal cognition no focal deficits Extrem: Other: 2 to 3+ bilateral equal pitting lower extremity edema with Extremities wi
[2021-12-22] MEDS: WARFARIN (*PBKC) 4 MG TABLET PO (17:18)
[2021-12-23] VITALS (11 sets, daily range): BP systolic 113–124; BP diastolic 52–64; PULSE 48–70; RESP 16–18; TEMP 36.1–36.4; O2SAT 97–100
[2021-12-23 06:06] LABS: Prothrombin Time 21.7 Seconds (11.1-14.7)
[2021-12-23] MEDS: TAMSULOSIN HCL 0.4 MG CAPSULE PO (08:23)
[2021-12-23] MEDS: guaiFENesin 12 HR 600 MG TABCR PO (08:23)
[2021-12-23] MEDS: FOLIC ACID 1 MG TABLET PO (08:23)
[2021-12-23] MEDS: FEBUXOSTAT 40 MG TABLET 80 MG PO (08:23)
[2021-12-23] MEDS: PANTOPRAZOLE 40 MG TABLET PO ×2 (08:23→20:52)
[2021-12-23] MEDS: FLUTICASONE PROPIONATE 0.05% NA SPR 16 GM BTL (*BKC) 1 SPRAY NASAL ×2 (08:23→20:52)
[2021-12-23] MEDS: ERGOCALCIFEROL 50,000 UNIT CAPSULE 50000 UNITS PO (08:23)
[2021-12-23] MEDS: FINASTERIDE 5 MG TABLET PO (08:24)
[2021-12-23] MEDS: MEMANTINE 10 MG TABLET PO ×2 (08:24→20:52)
[2021-12-23] MEDS: FUROSEMIDE INJ 40 MG/4 ML VIAL IV PUSH (08:24)
[2021-12-23] MEDS: DOXYCYCLINE HYCLATE 100 MG TABLET PO ×2 (08:24→20:52)
--- NOTE | 2021-12-23 09:33 | PM.IMPN ---
Progress Note: A&P Assessment and Plan (1) Acute exacerbation of CHF (congestive heart failure): Code(s): I50.9 - Heart failure, unspecified Status: Acute Assessment and Plan: appears to be right-sided heart failure, strict I&Os, daily weights, diurese with Lasix 40 mg IV q.12, consult Cardiology 12/20/2021 interval history: patient is 81-year-old male presented with shortness of breast and edema around his abdominal girth patient also has history of hydrocele and this is made worse because of exacerbation of CHF patient is seen by Urology recommending conservative management with elevation of scrotum, 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 IV, and also added ramipril 2.5 mg q.day, also patient with history of atrial fibrillation for which patient is taking warfarin however INR is subtherapeutic and supposed to be taking 2.5 mg qd cardiology increase to 3 mg q.day will monitor, will have a PT OT evaluate the patient will benefit with acute rehab (2) Elevated troponin: Code(s): R77.8 - Other specified abnormalities of plasma proteins Status: Acute Assessment and Plan: suspect this is chronic, not acute, monitor (3) Acute urinary retention: Code(s): R33.8 - Other retention of urine Status: Acute Assessment and Plan: consult Urology, maintain Arnett for now, likely the precipitant to his acute heart failure exacerbation at this time (4) Abnormal finding on urinalysis: Code(s): R82.90 - Unspecified abnormal findings in urine Status: Acute Assessment and Plan: unsure if this is indicative of a UTI, follow-up urine culture, hold off on antibiotics for now (5) Chronic kidney disease, stage 3 unspecified: Code(s): N18.30 - Chronic kidney disease, stage 3 unspecified Status: Acute Assessment and Plan: appears to be at baseline with a creatinine of 1.6 Additional Plan 12/21/2021 patient is clinically improving. Will continue current treatment. Start p.o. doxycycline. If stays okay possible discharge in the morning. 12/22/2021 Plan is to continue current treatment. Patient is improving gradually. Possible discharge home in the morning. 12/23/2021 Plan is to continue current treatment. Increase activity and possible dc in am. Subjective Date/time seen: 12/23/21 09:33 Patient was seen during the morning rounds today. SOB is better. No Chest pain. No abdominal pain or nausea. Mood stable. Review of Systems Review of Systems: All systems reviewed & are unremarkable except as noted in HPI and below ( The history and physical examination.) Exam Narrative: morbidly obese Patient is comfortable, NAD HEENT: eyes are clear and none icteric LUNGS: normal respiratory effort ABD: distended mild scrotal swelling Lower extremities: no edema SKIN: nonjaundiced Neuro: grossly intact. Objective Data Vital Signs Vital Signs: Vital Signs - 24 hr 12/22/21 12:00 12/22/21 14:00 12/22/21 16:00 Temperature 36.2 C L Pulse Rate 61 52 L 47 L Respiratory Rate 18 Blood Pressure 116/48 L Pulse Oximetry 99 Oxygen Delivery 12/22/21 19:31 12/22/21 22:00 12/22/21 20:00 Temperature 36.7 C Pulse Rate 49 L 46 L Respiratory Rate 16 Blood Pressure 97/52 L Pulse Oximetry 96 Oxygen Delivery Room Air 12/23/21 00:00 12/23/21 04:00 12/23/21 06:00 Temperature 36.4 C Pulse Rate 53 L 54 L 55 L Respiratory Rate 18 Blood Pressure 124/64 Pulse Oximetry 100 Oxygen Delivery Intake/Output Intake/Output: Intake & Output 12/20/21 12/21/21 12/22/21 12/23/21 23:59 23:59 23:59 23:59 Intake Total 1100 838 872 450 Output Total 1900 1450 825 725 [facility] [phone] Meds/Results Medications: Active Medications Gener
[2021-12-23 12:27] LABS: Anion Gap 4 mmol/L (8-16); Blood Urea Nitrogen 41 mg/dL (9-20); Carbon Dioxide 25 mmol/L (22-30); Chloride 107 mmol/L (98-107); Estimated CRCL calculation 37 ml/min; Estimated Glomerular Filt Rate 42; Glucose 105 mg/dL (65-110); Magnesium 2.2 mg/dL (1.6-2.3); Potassium 3.9 mmol/L (3.4-5.0); Sodium 136 mmol/L (137-145)
--- NOTE | 2021-12-23 15:03 | PM.PNCARD ---
Progress Note: A&P Assessment and Plan (1) Acute exacerbation of congestive heart failure: Qualifiers: Heart failure type: right-sided Qualified Code(s): I50.813 - Acute on chronic right heart failure Code(s): I50.9 - Heart failure, unspecified Status: Acute Assessment and Plan: Acute predominant right heart failure with RV hypokinesis. Continue IV diuresis urine output marginal overnight. No significant response with additional IV Lasix 40 mg IV x1 yesterday. Increase Lasix to 60 mg IV q.12 hour. Add metolazone 2.5 mg daily. Ideally I feel escalation in diuretic likely be needed, however, the to monitor renal function electrolytes closely as well as intermittent relative hypotension. Input and output, daily weight. Arnett catheter in place for accurate fluid assessment. (2) HTN (hypertension): Code(s): I10 - Essential (primary) hypertension Status: Acute Assessment and Plan: Fair control, relatively hypotensive will hold ramipril tomorrow morning and observe Monitor BP and renal function. Avoid symptomatic hypotension. (3) Chronic atrial flutter: Code(s): I48.92 - Unspecified atrial flutter Status: Acute Assessment and Plan: Persistent, controlled ventricular response. INR 2.0. Check INR in a.m. after increase in warfarin to 4 mg/3mg alternating q48hr. (4) Chronic kidney disease, stage 3 unspecified: Code(s): N18.30 - Chronic kidney disease, stage 3 unspecified Status: Acute Assessment and Plan: Slight increase but overall Stable. Monitor BMP. 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 Subjective Date/time seen: Date of service: 12/23/21 15:03 Follow-up for right heart failure Patient feels about the same. No new issues overnight. Still notes some shortness of breath, edema. Urine output seems to be declining. Labs not available this morning. Review of Systems Constitutional: Constitutional: Reports no additional constitutional complaints Eyes: Eyes: Reports no additional eye complaints ENT: Reports system reviewed and no additional complaints, except as documented Cardiovascular: Cardiovascular: Reports as per HPI and Reports dyspnea Respiratory: Respiratory: Reports dyspnea Gastrointestinal: Gastrointestinal: Reports no additional gastrointestinal complaints Musculoskeletal: Musculoskeletal: Reports no additional musculoskeletal complaints Integumentary/Breasts: Skin/Breast: Reports system reviewed and no additional complaints, except as docu Neurologic: Reports system reviewed and no additional complaints, except as documented Endocrine: Endocrine: Reports no additional endocrine complaints Hematologic/Lymphatic: Hematologic/Lymphatic: Reports no additional hematologic/lymphatic complaints Allergic/Immunologic: Allergic/Immunologic: Reports no additional allergic/immunologic complaints Exam Const: General: comfortable and no acute distress Other: Elderly gentleman enjoying breakfast tray does not appear to have any complaints today HENMT: Mouth: Yes moist mucous membranes Eyes: Sclera: sclerae normal Neck: Neck: supple Other: Mild JVD Resp: Effort & Inspection: normal respiratory effort Auscultation: clear to auscultation bilaterally and diminished lung sounds Other: Diminished breath sounds diffusely No rales no wheezing Cardio: Rate: regular rate and bradycardic Rhythm: regular rhythm GI: Auscultation: normal bowel sounds Other: Abdominal distension nontender Skin: General skin exam: normal color Neuro: Other: Normal cognition no focal deficits Extrem: Other: 2 to 3+ bilateral equal pitting lower extremity edema with Extremities with changes of chronic venous insufficiency and francoise skin but no significant edema at this time Psych: Other: Common appropriate
[2021-12-23] MEDS: EUCERIN CREAM 120 GM JAR 1 APPLIC TOPICAL ×2 (15:23→20:52)
[2021-12-23] MEDS: WARFARIN (*PBKC) 3 MG TABLET PO (16:56)
[2021-12-23] MEDS: FUROSEMIDE INJ 100 MG/10 ML VIAL 60 MG IV PUSH (20:53)
[2021-12-24] VITALS (8 sets, daily range): BP systolic 126–132; BP diastolic 57–60; PULSE 44–62; RESP 16–18; TEMP 36.2–36.6; O2SAT 96–100
[2021-12-24 07:04] LABS: Hematocrit 40.6 % (42.0-52.0); Hemoglobin 12.5 g/dL (14.0-18.0); Mean Corpuscular HGB Conc 30.8 g/dl (32-36); Mean Corpuscular Hemoglobin 23.5 pg (26-34); Mean Corpuscular Volume 76.5 fl (80-100); Mean Platelet Volume 9.6 fl (7.4-10.4); Platelet Count Result 187 k/mm3 (150-375); Red Blood Count 5.31 M/mm3 (4.6-6.20); Red Cell Distribution Width 19.9 % (11.5-14.5); White Blood Count 8.5 K/mm3 (4.5-10.0)
[2021-12-24 07:19] LABS: Alanine Aminotransferase 15 U/L (6-50); Albumin Level 2.5 g/dL (3.5-5.1); Alkaline Phosphatase 89 U/L (38-126); Anion Gap 3 mmol/L (8-16); Aspartate Amino Transferase 35 U/L (17-59); Bilirubin,Total 0.7 mg/dL (0.2-1.3); Blood Urea Nitrogen 40 mg/dL (9-20); Calcium 7.9 mg/dL (8.4-10.2); Carbon Dioxide 22 mmol/L (22-30); Chloride 106 mmol/L (98-107); Estimated CRCL calculation 43 ml/min; Estimated Glomerular Filt Rate 49; Glucose 97 mg/dL (65-110); Potassium 3.8 mmol/L (3.4-5.0); Sodium 131 mmol/L (137-145)
[2021-12-24] MEDS: TAMSULOSIN HCL 0.4 MG CAPSULE PO (08:47)
[2021-12-24] MEDS: PANTOPRAZOLE 40 MG TABLET PO ×2 (08:47→21:11)
[2021-12-24] MEDS: MEMANTINE 10 MG TABLET PO ×2 (08:47→21:11)
[2021-12-24] MEDS: DOXYCYCLINE HYCLATE 100 MG TABLET PO ×2 (08:47→21:11)
[2021-12-24] MEDS: EUCERIN CREAM 120 GM JAR 1 APPLIC TOPICAL ×2 (08:47→21:12)
[2021-12-24] MEDS: guaiFENesin 12 HR 600 MG TABCR PO (08:48)
[2021-12-24] MEDS: FOLIC ACID 1 MG TABLET PO (08:48)
[2021-12-24] MEDS: FLUTICASONE PROPIONATE 0.05% NA SPR 16 GM BTL (*BKC) 1 SPRAY NASAL ×2 (08:48→21:11)
[2021-12-24] MEDS: FINASTERIDE 5 MG TABLET PO (08:48)
[2021-12-24] MEDS: FEBUXOSTAT 40 MG TABLET 80 MG PO (08:48)
[2021-12-24] MEDS: metOLazone 2.5 MG TABLET PO (08:49)
[2021-12-24 10:21] LABS: INR 2.1; Prothrombin Time 23.1 Seconds (11.1-14.7)
[2021-12-24] MEDS: FUROSEMIDE INJ 100 MG/10 ML VIAL 60 MG IV PUSH ×2 (10:53→21:11)
--- NOTE | 2021-12-24 14:59 | PM.IMPN ---
Progress Note: A&P Assessment and Plan (1) Acute exacerbation of CHF (congestive heart failure): Code(s): I50.9 - Heart failure, unspecified Status: Acute Assessment and Plan: appears to be right-sided heart failure, strict I&Os, daily weights, diurese with Lasix 40 mg IV q.12, consult Cardiology 12/20/2021 interval history: patient is 81-year-old male presented with shortness of breast and edema around his abdominal girth patient also has history of hydrocele and this is made worse because of exacerbation of CHF patient is seen by Urology recommending conservative management with elevation of scrotum, 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 IV, and also added ramipril 2.5 mg q.day, also patient with history of atrial fibrillation for which patient is taking warfarin however INR is subtherapeutic and supposed to be taking 2.5 mg qd cardiology increase to 3 mg q.day will monitor, will have a PT OT evaluate the patient will benefit with acute rehab. (2) Elevated troponin: Code(s): R77.8 - Other specified abnormalities of plasma proteins Status: Acute Assessment and Plan: suspect this is chronic, not acute, monitor (3) Acute urinary retention: Code(s): R33.8 - Other retention of urine Status: Acute Assessment and Plan: consult Urology, maintain Arnett for now, likely the precipitant to his acute heart failure exacerbation at this time (4) Abnormal finding on urinalysis: Code(s): R82.90 - Unspecified abnormal findings in urine Status: Acute Assessment and Plan: unsure if this is indicative of a UTI, follow-up urine culture, hold off on antibiotics for now (5) Chronic kidney disease, stage 3 unspecified: Code(s): N18.30 - Chronic kidney disease, stage 3 unspecified Status: Acute Assessment and Plan: appears to be at baseline with a creatinine of 1.6 Additional Plan 12/21/2021 patient is clinically improving. Will continue current treatment. Start p.o. doxycycline. If stays okay possible discharge in the morning. 12/22/2021 Plan is to continue current treatment. Patient is improving gradually. Possible discharge home in the morning. 12/23/2021 Plan is to continue current treatment. Increase activity and possible dc in am. 12/24/2021 interval history: patient is 81-year-old male presented with shortness of breast and edema around his abdominal girth patient also has history of hydrocele and this is made worse because of exacerbation of CHF patient is seen by Urology recommending conservative management with elevation of scrotum, patient also seen by roofer apprentice for acute exacerbation of congestive heart failure with right heart failure and suspect the patient may not have been receiving home medication of Lasix, patient was treated with Lasix 40 mg b.i.d. IV, and also added ramipril 2.5 mg q.day, there was no significant improvement and on 12/23 cardiology increase Lasix 60 mg b.i.d., also patient with history of atrial fibrillation for which patient is taking warfarin however INR is subtherapeutic and supposed to be taking 2.5 mg qd cardiology increase to 3 mg q.day today patient's INR is therapeutic 2.1, today patient states is feeling much better compared to when he arrived not as swollen, and breathing better, will monitor, will have a PT OT evaluate the patient will benefit with acute rehab Subjective Date/time seen: 12/24/21 14:59 12/24/2021 interval history: patient is 81-year-old male presented with shortness of breast and edema around his abdominal girth patient also has history of hydrocele and this is made worse because of exacerbation of CHF patient is seen by Urology recommending conservative management with elevation of scrotum, patient also seen by cardiologi
--- NOTE | 2021-12-24 16:30 | PM.PNCARD ---
Progress Note: A&P Assessment and Plan (1) Acute exacerbation of congestive heart failure: Qualifiers: Heart failure type: right-sided Qualified Code(s): I50.813 - Acute on chronic right heart failure <REKHA Walker - Last Filed: 12/24/21 16:36> Code(s): I50.9 - Heart failure, unspecified <REKHA Walker - Last Filed: 12/24/21 16:36> Status: Acute <REKHA Walker - Last Filed: 12/24/21 16:36> Assessment and Plan: Acute predominant right heart failure with RV hypokinesis. Continue IV diuresis, furosemide has been increased to 60mg IV b.i.d. and metolazone added with no significant response, he is slightly fluid balance positive today. monitor renal function electrolytes closely as well as intermittent relative hypotension. Caution to avoid intravascular volume depletion as he is preload dependent Input and output daily weight. Arnett catheter in place for accurate fluid assessment. Can consider addition of spironolactone, SGLT2 inhibitor <REKHA Walker - Last Filed: 12/24/21 16:36> (2) HTN (hypertension): Code(s): I10 - Essential (primary) hypertension <REKHA Walker - Last Filed: 12/24/21 16:36> Status: Acute <REKHA Walker - Last Filed: 12/24/21 16:36> Assessment and Plan: Fair control, relatively hypotensive will hold ramipril tomorrow morning and observe Monitor BP and renal function. Avoid symptomatic hypotension. <REKHA Walker - Last Filed: 12/24/21 16:36> (3) Chronic atrial flutter: Code(s): I48.92 - Unspecified atrial flutter <REKHA Walker - Last Filed: 12/24/21 16:36> Status: Acute <REKHA Walker - Last Filed: 12/24/21 16:36> Assessment and Plan: Persistent, controlled ventricular response. INR 2.1 today. <REKHA Walker - Last Filed: 12/24/21 16:36> (4) Chronic kidney disease, stage 3 unspecified: Code(s): N18.30 - Chronic kidney disease, stage 3 unspecified <REKHA Walker - Last Filed: 12/24/21 16:36> Status: Acute <REKHA Walker - Last Filed: 12/24/21 16:36> Assessment and Plan: Overall Stable. Monitor BMP. 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 <REKHA Walker - Last Filed: 12/24/21 16:36> Additional Plan Attending addendum: I agree with the above documentation and plan of care as outlined. At this time do not feel he will tolerate spironolactone or Jardiance nausea clear indication for benefit with regards to Jardiance and predominant right heart failure. <Todd Stone MD - Last Filed: 12/24/21 17:21> Subjective Date/time seen: 12/24/21 16:30 <REKHA Walker - Last Filed: 12/24/21 16:36> Review of Systems Constitutional: Constitutional: Reports no additional constitutional complaints <REKHA Walker - Last Filed: 12/24/21 16:36> Eyes: Eyes: Reports no additional eye complaints <REKHA Walker - Last Filed: 12/24/21 16:36> ENT: Reports system reviewed and no additional complaints, except as documented <REKHA Walker - Last Filed: 12/24/21 16:36> Cardiovascular: Cardiovascular: Reports as per HPI and Reports dyspnea <REKHA Walker - Last Filed: 12/24/21 16:36> Respiratory: Respiratory: Reports dyspnea <REKHA Walker - Last Filed: 12/24/21 16:36> Gastrointestinal: Gastrointestinal: Reports no additional gastrointestinal complaints <REKHA Walker - Last Filed: 12/24/21 16:36> Musculoskeletal: Musculoskeletal: Reports no additional musculoskeletal complaints <REKHA Walker - Last Filed: 0
[2021-12-24] MEDS: WARFARIN (*PBKC) 4 MG TABLET PO (17:37)
[2021-12-25] VITALS (10 sets, daily range): BP systolic 118–123; BP diastolic 55–57; PULSE 47–59; RESP 14–18; TEMP 35.9–36.7; O2SAT 90–99
[2021-12-25 08:12] LABS: Hematocrit 45.4 % (42.0-52.0); Hemoglobin 13.4 g/dL (14.0-18.0); Mean Corpuscular HGB Conc 29.5 g/dl (32-36); Mean Corpuscular Hemoglobin 23.4 pg (26-34); Mean Corpuscular Volume 79.2 fl (80-100); Mean Platelet Volume 9.4 fl (7.4-10.4); Platelet Count Result 203 k/mm3 (150-375); Red Blood Count 5.73 M/mm3 (4.6-6.20); Red Cell Distribution Width 19.9 % (11.5-14.5); White Blood Count 8.1 K/mm3 (4.5-10.0)
[2021-12-25] MEDS: metOLazone 2.5 MG TABLET PO (08:21)
[2021-12-25] MEDS: FLUTICASONE PROPIONATE 0.05% NA SPR 16 GM BTL (*BKC) 1 SPRAY NASAL ×2 (08:21→20:52)
[2021-12-25] MEDS: FUROSEMIDE INJ 100 MG/10 ML VIAL 60 MG IV PUSH ×2 (08:22→20:52)
[2021-12-25] MEDS: TAMSULOSIN HCL 0.4 MG CAPSULE PO (08:22)
[2021-12-25] MEDS: guaiFENesin 12 HR 600 MG TABCR PO (08:22)
[2021-12-25] MEDS: DOXYCYCLINE HYCLATE 100 MG TABLET PO ×2 (08:22→20:52)
[2021-12-25] MEDS: FOLIC ACID 1 MG TABLET PO (08:22)
[2021-12-25] MEDS: FINASTERIDE 5 MG TABLET PO (08:22)
[2021-12-25] MEDS: MEMANTINE 10 MG TABLET PO ×2 (08:22→20:52)
[2021-12-25] MEDS: FEBUXOSTAT 40 MG TABLET 80 MG PO (08:22)
[2021-12-25] MEDS: PANTOPRAZOLE 40 MG TABLET PO ×2 (08:22→20:52)
[2021-12-25 08:23] LABS: INR 2.6; Prothrombin Time 27.1 Seconds (11.1-14.7)
[2021-12-25] MEDS: EUCERIN CREAM 120 GM JAR 1 APPLIC TOPICAL ×2 (08:25→20:53)
[2021-12-25 08:27] LABS: Anion Gap 5 mmol/L (8-16); Blood Urea Nitrogen 39 mg/dL (9-20); Calcium 8.2 mg/dL (8.4-10.2); Carbon Dioxide 23 mmol/L (22-30); Chloride 104 mmol/L (98-107); Estimated CRCL calculation 46 ml/min; Estimated Glomerular Filt Rate 53; Glucose 89 mg/dL (65-110); Magnesium 2.3 mg/dL (1.6-2.3); Potassium 3.6 mmol/L (3.4-5.0); Sodium 132 mmol/L (137-145)
--- NOTE | 2021-12-25 11:05 | PM.PNCARD ---
Progress Note: A&P Assessment and Plan (1) Acute exacerbation of congestive heart failure: Qualifiers: Heart failure type: right-sided Qualified Code(s): I50.813 - Acute on chronic right heart failure Code(s): I50.9 - Heart failure, unspecified Status: Acute Assessment and Plan: Acute predominant right heart failure with RV hypokinesis. He remains volume overloaded. Continue IV diuresis with Lasix 60mg IV b.i.d. and metolazone 2.5mg daily improving once again. monitor renal function electrolytes closely as well as intermittent relative hypotension. Caution to avoid intravascular volume depletion as he is preload dependent Input and output daily weight. Arnett catheter in place for accurate fluid assessment. Urine output improving with increasing Lasix and addition of metolazone. Potassium 3.6, creatinine 1.3, stable. Give potassium chloride 20 mg p.o. x1 if further decline. (2) HTN (hypertension): Code(s): I10 - Essential (primary) hypertension Status: Acute Assessment and Plan: Fair control, relatively hypotensive will hold ramipril tomorrow morning and observe Monitor BP and renal function. Avoid symptomatic hypotension. (3) Chronic atrial flutter: Code(s): I48.92 - Unspecified atrial flutter Status: Acute Assessment and Plan: Persistent, controlled ventricular response without AV iram blocking agents indicative of a degree of conduction system disease. INR 2.1 today. (4) Chronic kidney disease, stage 3 unspecified: Code(s): N18.30 - Chronic kidney disease, stage 3 unspecified Status: Acute Assessment and Plan: Overall Stable. Monitor BMP/electrolytes. (5) Chronic anticoagulation: Code(s): Z79.01 - snf (current) use of anticoagulants Status: Acute Assessment and Plan: As above. INR 2.6 today. Reduce warfarin back to 3 mg daily. Additional Plan Attending addendum: I agree with the above documentation and plan of care as outlined. At this time do not feel he will tolerate spironolactone or Jardiance nausea clear indication for benefit with regards to Jardiance and predominant right heart failure. Subjective Date/time seen: Date of service: 12/25/21 11:05 Follow-up for CHF, AFib Patient feels little better today. Edema has finally began to resolve shortness of breath improved. Urine output has picked up significantly overnight. No chest pain or palpitations. Difficulty drawing blood he states. No fevers or chills. Review of Systems Constitutional: Constitutional: Reports no additional constitutional complaints Eyes: Eyes: Reports no additional eye complaints ENT: Reports system reviewed and no additional complaints, except as documented Cardiovascular: Cardiovascular: Reports as per HPI and Reports dyspnea Respiratory: Respiratory: Reports dyspnea Gastrointestinal: Gastrointestinal: Reports no additional gastrointestinal complaints Musculoskeletal: Musculoskeletal: Reports no additional musculoskeletal complaints Integumentary/Breasts: Skin/Breast: Reports system reviewed and no additional complaints, except as docu Neurologic: Reports system reviewed and no additional complaints, except as documented Endocrine: Endocrine: Reports no additional endocrine complaints Hematologic/Lymphatic: Hematologic/Lymphatic: Reports no additional hematologic/lymphatic complaints Allergic/Immunologic: Allergic/Immunologic: Reports no additional allergic/immunologic complaints Exam Const: General: comfortable, no acute distress, alert, awake and Physically active Orientation/consciousness: patient oriented x3 Other: Elderly gentleman lying supine in bed breathing comfortably speaking full sentences HENMT: Head: normal to inspection Mouth: Yes moist mucous membranes Eyes: General: appearance normal, both eyes and all related structures Sclera: sclerae normal Pupils: Equal, round a
--- NOTE | 2021-12-25 12:17 | PM.IMPN ---
Progress Note: A&P Assessment and Plan (1) Acute exacerbation of CHF (congestive heart failure): Code(s): I50.9 - Heart failure, unspecified Status: Acute Assessment and Plan: appears to be right-sided heart failure, strict I&Os, daily weights, diurese per Cardiology (2) Elevated troponin: Code(s): R77.8 - Other specified abnormalities of plasma proteins Status: Acute Assessment and Plan: suspect this is chronic, not acute, monitor (3) Acute urinary retention: Code(s): R33.8 - Other retention of urine Status: Acute Assessment and Plan: consult Urology, maintain Arnett for now, likely the precipitant to his acute heart failure exacerbation at this time (4) Abnormal finding on urinalysis: Code(s): R82.90 - Unspecified abnormal findings in urine Status: Acute Assessment and Plan: unsure if this is indicative of a UTI, follow-up urine culture (5) Chronic kidney disease, stage 3 unspecified: Code(s): N18.30 - Chronic kidney disease, stage 3 unspecified Status: Acute Assessment and Plan: creatinine at baseline Subjective Date/time seen: 12/25/21 12:17 breathing better, no new complaints. Edema is improving Exam Narrative: morbidly obese Patient is comfortable, NAD HEENT: eyes are clear and none icteric LUNGS: normal respiratory effort ABD: distended mild scrotal swelling Lower extremities: no edema SKIN: nonjaundiced Neuro: grossly intact. Objective Data Vital Signs Vital Signs: Vital Signs - 24 hr 12/24/21 16:00 12/24/21 16:00 12/24/21 20:59 Temperature 97.8 F Pulse Rate 54 L 49 L Respiratory Rate 18 Blood Pressure 126/60 Pulse Oximetry 100 96 Oxygen Delivery Room Air 12/24/21 23:28 12/24/21 20:00 12/24/21 20:00 Temperature 97.2 F L Pulse Rate 59 L 52 L Respiratory Rate 16 Blood Pressure 132/57 L Pulse Oximetry 97 Oxygen Delivery Room Air 12/25/21 00:00 12/25/21 04:00 12/25/21 09:18 Temperature Pulse Rate 53 L 48 L Respiratory Rate Blood Pressure Pulse Oximetry 97 Oxygen Delivery Room Air Intake/Output Intake/Output: Intake & Output 12/22/21 12/23/21 12/24/21 12/25/21 23:59 23:59 23:59 23:59 Intake Total 872 1046 2470 990 Output Total 822 8771 5238 2100 Balance 87 -952 -852 -3326 Meds/Results Medications: Active Medications Generic Name Dose Route Start Last Admin Trade Name Freq PRN Reason Stop Dose Admin Acetaminophen 325 mg 12/20/21 08:51 Acetaminophen 325 Mg Tablet PO Q6H PRN Pain 1-3 Hydrocodone Bitart/Acetaminophen 1 tab 12/20/21 08:51 Hydrocodone/Acetaminophen (*Crx) 5-325 Mg Tablet PO Q4H PRN pain 4-6 Albuterol 2 puff 12/20/21 08:51 Albuterol Sulfate (*Sp) Aerosol 1 Puff INHALATION Q8HRT PRN shortness of breath or wheezing Docusate Sodium 100 mg 12/20/21 08:51 Docusate Sodium 100 Mg Capsule PO DAILY PRN Constipation Doxycycline Hyclate 100 mg 12/21/21 21:00 12/25/21 08:22 Doxycycline Hyclate 100 Mg Tablet PO 01/03/22 06:00 100 mg Q12HR SANAM Administration Ergocalciferol 50,000 unit 12/23/21 09:00 12/23/21 08:23 Ergocalciferol 50,000 Unit Capsule PO 50,000 unit Mo@0900 SANAM Administration Febuxostat 80 mg 12/20/21 09:00 12/25/21 08:22 Febuxostat 40 Mg Tablet PO 01/19/22 08:59 80 mg DAILY SANAM Administration Finasteride 5 mg 12/20/21 13:00 12/25/21 08:22 Finasteride 5 Mg Tablet PO 5 mg QAM SANAM Administration Fluticasone Propionate 1 spray 12/20/21 09:00 12/25/21 08:21 Fluticasone Propionate 0.05% Na Spr 16 Gm Btl (*Bkc) NASAL 1 spray Q12HR SANAM Administration Folic Acid 1 mg 12/20/21 09:00 12/25/21 08:22 Folic Acid 1 Mg Tablet PO 1 mg DAILY SANAM Administration Furosemide 60 mg 12/23/21 21:00 12/25/21 08:22 Furosemide Inj 100 Mg/10 Ml Vial IV PUSH 60 mg Q12HR SANAM Admini
[2021-12-25] MEDS: WARFARIN (*PBKC) 3 MG TABLET PO (16:45)
[2021-12-26] VITALS (9 sets, daily range): BP systolic 118–138; BP diastolic 51–55; PULSE 43–67; RESP 16–18; TEMP 36.4; O2SAT 95–100
[2021-12-26 07:00] LABS: Hematocrit 47.1 % (42.0-52.0); Hemoglobin 13.6 g/dL (14.0-18.0); Mean Corpuscular HGB Conc 28.9 g/dl (32-36); Mean Corpuscular Hemoglobin 23.7 pg (26-34); Mean Corpuscular Volume 82.1 fl (80-100); Mean Platelet Volume 10.1 fl (7.4-10.4); Platelet Count Result 207 k/mm3 (150-375); Red Blood Count 5.74 M/mm3 (4.6-6.20); Red Cell Distribution Width 19.9 % (11.5-14.5)
[2021-12-26 08:35] LABS: INR 2.7; Prothrombin Time 27.5 Seconds (11.1-14.7)
[2021-12-26 08:45] LABS: Anion Gap 5 mmol/L (8-16); Blood Urea Nitrogen 41 mg/dL (9-20); Calcium 8.6 mg/dL (8.4-10.2); Carbon Dioxide 24 mmol/L (22-30); Chloride 101 mmol/L (98-107); Estimated CRCL calculation 41 ml/min; Estimated Glomerular Filt Rate 49; Glucose 84 mg/dL (65-110); Magnesium 2.2 mg/dL (1.6-2.3); Potassium 3.7 mmol/L (3.4-5.0); Sodium 130 mmol/L (137-145)
--- NOTE | 2021-12-26 09:49 | PCCCNOTE ---
On 12/26/21, the student, [Bella Gao], provided care and completed [facility] documentation on this patient. I have reviewed the student's documentation and agree with the findings.
[2021-12-26] MEDS: FUROSEMIDE INJ 100 MG/10 ML VIAL 60 MG IV PUSH ×2 (09:54→20:52)
[2021-12-26] MEDS: FINASTERIDE 5 MG TABLET PO (09:54)
[2021-12-26] MEDS: FOLIC ACID 1 MG TABLET PO (09:54)
[2021-12-26] MEDS: DOXYCYCLINE HYCLATE 100 MG TABLET PO ×2 (09:55→20:52)
[2021-12-26] MEDS: PANTOPRAZOLE 40 MG TABLET PO ×2 (09:55→20:52)
[2021-12-26] MEDS: MEMANTINE 10 MG TABLET PO ×2 (09:55→20:52)
[2021-12-26] MEDS: TAMSULOSIN HCL 0.4 MG CAPSULE PO (09:55)
[2021-12-26] MEDS: metOLazone 2.5 MG TABLET PO (09:55)
[2021-12-26] MEDS: FEBUXOSTAT 40 MG TABLET 80 MG PO (09:55)
[2021-12-26] MEDS: EUCERIN CREAM 120 GM JAR 1 APPLIC TOPICAL ×2 (09:56→20:53)
[2021-12-26] MEDS: FLUTICASONE PROPIONATE 0.05% NA SPR 16 GM BTL (*BKC) 1 SPRAY NASAL ×2 (09:56→20:52)
--- NOTE | 2021-12-26 11:36 | PM.DS ---
DS: Admitting Diagnosis Discharge Date December 26, 2021 Admitting Diagnosis Right heart failure DS: Discharge Diagnosis Discharge Diagnosis (1) Acute exacerbation of CHF (congestive heart failure): Code(s): I50.9 - Heart failure, unspecified Status: Acute Assessment and Plan: appears to be right-sided heart failure, increased diuretic therapy discharge. Follow Cardiology 2 weeks. Also added ramipril (2) Elevated troponin: Code(s): R77.8 - Other specified abnormalities of plasma proteins Status: Acute Assessment and Plan: suspect this is chronic, not acute, monitor (3) Acute urinary retention: Code(s): R33.8 - Other retention of urine Status: Acute Assessment and Plan: Monitor as an outpatient (4) Abnormal finding on urinalysis: Code(s): R82.90 - Unspecified abnormal findings in urine Status: Acute Assessment and Plan: Repeat culture negative (5) Chronic kidney disease, stage 3 unspecified: Code(s): N18.30 - Chronic kidney disease, stage 3 unspecified Status: Acute Assessment and Plan: creatinine at baseline DS: Summary Hospital Course Hospital Course: See plan diagnoses Time Spent with Patient Time attestation: Total time spent providing and/or coordinating discharge services: Exam Narrative: morbidly obese Patient is comfortable, NAD HEENT: eyes are clear and none icteric LUNGS: normal respiratory effort ABD: distended mild scrotal swelling Lower extremities: no edema SKIN: nonjaundiced Neuro: grossly intact. DS: Data Data Completed and Pending Labs on day of discharge: Labs from last 24 hours 12/26/21 12/26/21 12/26/21 07:50 07:50 06:13 WBC 8.0 RBC 5.74 Hgb 13.6 L Hct 47.1 MCV 82.1 MCH 23.7 L MCHC 28.9 L RDW 19.9 H Plt Count 207 MPV 10.1 PT 27.5 H INR 2.7 Sodium 130 L Potassium 3.7 Chloride 101 Carbon Dioxide 24 Anion Gap 5 L BUN 41 H Creatinine 1.40 H Estim Creat Clear Calc 41 Estimated GFR 49 L Glucose 84 Calcium 8.6 Magnesium 2.2 Discharge Plan Discharge Attending physician on discharge: Gregorio Nam Consulting providers: Norma Pollard ; Louise Willams Discharging Clinician: Gregorio Nam Patient Disposition: Home, Self-Care Activity: no preference Diet: as tolerated Discharge Instructions: Urology Instructions: Follow up for your voiding trial in our office on 12/30/2021 at 1:15 with Marilin ROSENTHAL. Call the office or go to the ER if you develop a fever, blood in your urine, clots in the tubing of the catheter or your catheter stops draining. Continue Finasteride and Tamsulosin. Patient Instructions: Antibiotic Form, Warfarin (By mouth), Heart Failure (DC), Urinary Retention in Men (GEN), Arnett Catheter Placement and Care (DC) Stand Alone Forms: General Discharge Information Follow-up/Referrals: Marilin Espinosa APRN [Advanced Practice Nurse] - Louise Willams MD [Physician] - Discharge Medications: New finasteride [Proscar] 5 mg Tablet 5 mg PO QAM Qty: 30 6RF metolazone 2.5 mg Tablet 2.5 mg PO QAM 30 Days Qty: 30 0RF ramipril [Altace] 1.25 mg Capsule 2.5 mg PO QAM 30 Days Qty: 60 0RF Continued docusate sodium 100 mg Tablet 100 mg PO DAILY PRN (Reason: Constipation) acetaminophen 325 mg capsule 325 mg PO Q6H PRN (Reason: Pain) memantine 10 mg tablet 10 mg PO Q12H warfarin 2.5 mg tablet 2.5 mg PO DAILY Qty: 30 0RF Rx Instructions: Do not start taking Coumadin and untill INR is resulted under provider called you by tomorrow Call your primary care physician INR is planned to be done tomorrow hydrocodone-acetaminophen 5-325 mg Tablet 1 tablet PO Q4H PRN (Reason: pain 4-6) fluticasone propionate [Flonase Allergy Relief] 50 mcg/actuation [place],Suspension 1 spray INTRANASA
--- NOTE | 2021-12-26 13:12 | PC.NURSE ---
Spoke with Teresa Pollard with cardiology regarding possible discharge. Per cardiology, patient is not ready for discharge at this time due to edema and high dose of diuretics.
--- NOTE | 2021-12-26 13:22 | PM.PNCARD ---
Progress Note: A&P Assessment and Plan (1) Acute exacerbation of congestive heart failure: Qualifiers: Heart failure type: right-sided Qualified Code(s): I50.813 - Acute on chronic right heart failure <REKHA Walker - Last Filed: 12/26/21 13:37> Code(s): I50.9 - Heart failure, unspecified <REKHA Walker - Last Filed: 12/26/21 13:37> Status: Acute <REKHA Walker - Last Filed: 12/26/21 13:37> Assessment and Plan: Acute predominant right heart failure with RV hypokinesis. He remains volume overloaded. Continue IV diuresis with Lasix 60mg IV b.i.d. and metolazone 2.5mg daily. monitor renal function electrolytes closely as well as intermittent relative hypotension. Caution to avoid intravascular volume depletion as he is preload dependent Input and output daily weight. Arnett catheter in place for accurate fluid assessment. Urine output improving with increasing Lasix and addition of metolazone Perhaps shift to oral diuretics tomorrow <REKHA Walker - Last Filed: 12/26/21 13:37> (2) HTN (hypertension): Code(s): I10 - Essential (primary) hypertension <REKHA Walker - Last Filed: 12/26/21 13:37> Status: Acute <REKHA Walker - Last Filed: 12/26/21 13:37> Assessment and Plan: Fair control, relatively hypotensive will hold ramipril tomorrow morning and observe Monitor BP and renal function. Avoid symptomatic hypotension. <REKHA Walker - Last Filed: 12/26/21 13:37> (3) Chronic atrial flutter: Code(s): I48.92 - Unspecified atrial flutter <REKHA Walker - Last Filed: 12/26/21 13:37> Status: Acute <REKHA Walker - Last Filed: 12/26/21 13:37> Assessment and Plan: Persistent, controlled ventricular response without AV iram blocking agents indicative of a degree of conduction system disease. INR 2.1 today. <REKHA Walker - Last Filed: 12/26/21 13:37> (4) Chronic kidney disease, stage 3 unspecified: Code(s): N18.30 - Chronic kidney disease, stage 3 unspecified <REKHA Walker - Last Filed: 12/26/21 13:37> Status: Acute <REKHA Walker - Last Filed: 12/26/21 13:37> Assessment and Plan: Overall Stable. Monitor BMP/electrolytes. 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 INR 2.6 today. Reduce warfarin back to 3 mg daily. <REKHA Walker - Last Filed: 12/26/21 13:37> Additional Plan Attending addendum: I agree with the above documentation and plan of care as outlined. At this time do not feel he will tolerate spironolactone or Jardiance nausea clear indication for benefit with regards to Jardiance and predominant right heart failure. <REKHA Walker - Last Filed: 12/26/21 13:37> Attending addendum: I agree with the above documentation and plan of care as outlined. Recommend further observation overnight on IV diuresis. Possible transition to oral regimen tomorrow as tolerated. <Todd Stone MD - Last Filed: 12/26/21 17:09> Subjective Date/time seen: 12/26/21 13:22 Cardiology follow up for CHF Patient states he is feeling much better today. Breathing is better. He still has significant bilateral LE edema extending to thighs. Urine output improved. <REKHA Walker - Last Filed: 12/26/21 13:37> Review of Systems Constitutional: Constitutional: Reports no additional constitutional complaints <REKHA Walker - Last Filed: 12/26/21 13:37> Eyes: Eyes: Reports no additional eye complaints <REKHA Walker - Last Filed: 12/26/21 13:37> ENT: Reports system re
[2021-12-26] MEDS: WARFARIN (*PBKC) 3 MG TABLET PO (17:08)
[2021-12-27] VITALS (8 sets, daily range): BP systolic 111–119; BP diastolic 47–55; PULSE 47–86; RESP 16–22; TEMP 36.2–36.6; O2SAT 97–98
[2021-12-27] MEDS: HYDROcodone/acetaminophen (*CRX) 5-325 MG TABLET 1 TAB PO (03:09)
[2021-12-27 06:10] LABS: Hematocrit 39.6 % (42.0-52.0); Hemoglobin 12.4 g/dL (14.0-18.0); Mean Corpuscular HGB Conc 31.3 g/dl (32-36); Mean Corpuscular Hemoglobin 23.6 pg (26-34); Mean Corpuscular Volume 75.3 fl (80-100); Mean Platelet Volume 9.4 fl (7.4-10.4); Platelet Count Result 226 k/mm3 (150-375); Red Blood Count 5.26 M/mm3 (4.6-6.20); Red Cell Distribution Width 19.1 % (11.5-14.5); White Blood Count 8.2 K/mm3 (4.5-10.0)
[2021-12-27 06:16] LABS: INR 2.6; Prothrombin Time 27.2 Seconds (11.1-14.7)
[2021-12-27 06:26] LABS: Anion Gap 3 mmol/L (8-16); Blood Urea Nitrogen 43 mg/dL (9-20); Calcium 8.3 mg/dL (8.4-10.2); Carbon Dioxide 28 mmol/L (22-30); Chloride 97 mmol/L (98-107); Estimated CRCL calculation 38 ml/min; Estimated Glomerular Filt Rate 45; Glucose 102 mg/dL (65-110); Magnesium 1.8 mg/dL (1.6-2.3); Potassium 3.1 mmol/L (3.4-5.0); Sodium 128 mmol/L (137-145)
[2021-12-27] MEDS: POTASSIUM CHLORIDE 20 MEQ TABLET 40 MEQ PO (08:37)
[2021-12-27] MEDS: FINASTERIDE 5 MG TABLET PO (08:38)
[2021-12-27] MEDS: FEBUXOSTAT 40 MG TABLET 80 MG PO (08:38)
[2021-12-27] MEDS: PANTOPRAZOLE 40 MG TABLET PO ×2 (08:38→21:15)
[2021-12-27] MEDS: MEMANTINE 10 MG TABLET PO ×2 (08:38→21:15)
[2021-12-27] MEDS: FOLIC ACID 1 MG TABLET PO (08:38)
[2021-12-27] MEDS: metOLazone 2.5 MG TABLET PO (08:38)
[2021-12-27] MEDS: FUROSEMIDE INJ 100 MG/10 ML VIAL 60 MG IV PUSH (08:38)
[2021-12-27] MEDS: EUCERIN CREAM 120 GM JAR 1 APPLIC TOPICAL ×2 (08:39→21:16)
[2021-12-27] MEDS: TAMSULOSIN HCL 0.4 MG CAPSULE PO (08:39)
[2021-12-27] MEDS: FLUTICASONE PROPIONATE 0.05% NA SPR 16 GM BTL (*BKC) 1 SPRAY NASAL ×2 (08:39→21:16)
[2021-12-27] MEDS: DOXYCYCLINE HYCLATE 100 MG TABLET PO (08:39)
--- NOTE | 2021-12-27 10:33 | PM.PNCARD ---
Progress Note: A&P Assessment and Plan (1) Acute exacerbation of congestive heart failure: Qualifiers: Heart failure type: right-sided Qualified Code(s): I50.813 - Acute on chronic right heart failure <REKHA Walker - Last Filed: 12/27/21 12:58> Code(s): I50.9 - Heart failure, unspecified <REKHA Walker - Last Filed: 12/27/21 12:58> Status: Acute <REKHA Walker - Last Filed: 12/27/21 12:58> Assessment and Plan: Acute predominant right heart failure with RV hypokinesis. He remains volume overloaded but has improved. Shift diuretic to furosemide 80mg p.o. b.i.d. and continue metolazone 2.5mg daily. monitor renal function electrolytes closely as well as intermittent relative hypotension. Caution to avoid intravascular volume depletion as he is preload dependent Input and output daily weight. Arnett catheter in place for accurate fluid assessment Perhaps discharge in next 1-2 days? <REKHA Walker - Last Filed: 12/27/21 12:58> (2) HTN (hypertension): Code(s): I10 - Essential (primary) hypertension <REKHA Walker - Last Filed: 12/27/21 12:58> Status: Acute <REKHA Walker - Last Filed: 12/27/21 12:58> Assessment and Plan: Fair control, relatively hypotensive. Holding ramipril. <REKHA Walker - Last Filed: 12/27/21 12:58> (3) Chronic atrial flutter: Code(s): I48.92 - Unspecified atrial flutter <REKHA Walker - Last Filed: 12/27/21 12:58> Status: Acute <REKHA Walker - Last Filed: 12/27/21 12:58> Assessment and Plan: Persistent, controlled ventricular response without AV iram blocking agents indicative of a degree of conduction system disease. INR 2.1 today. <REKHA Walker - Last Filed: 12/27/21 12:58> (4) Chronic kidney disease, stage 3 unspecified: Code(s): N18.30 - Chronic kidney disease, stage 3 unspecified <REKHA Walker - Last Filed: 12/27/21 12:58> Status: Acute <REKHA Walker - Last Filed: 12/27/21 12:58> Assessment and Plan: Overall Stable. Monitor BMP/electrolytes. <REKHA Walker - Last Filed: 12/27/21 12:58> (5) Chronic anticoagulation: Code(s): Z79.01 - assisted (current) use of anticoagulants <REKHA Walker - Last Filed: 12/27/21 12:58> Status: Acute <REKHA Walker - Last Filed: 12/27/21 12:58> Assessment and Plan: As above. INR 2.6 today. Continue daily INR. <REKHA Walker - Last Filed: 12/27/21 12:58> Additional Plan Attending addendum: I agree with the above documentation and plan of care as outlined. <Todd Stone MD - Last Filed: 12/27/21 16:44> Subjective Date/time seen: 12/27/21 10:33 Continues to diurese well. Feeling more energetic today and has noticed improved appetite. Less shortness of breath with ambulation to the bathroom. <REKHA Walker - Last Filed: 12/27/21 12:58> Review of Systems Constitutional: Constitutional: Reports no additional constitutional complaints <REKHA Walker - Last Filed: 12/27/21 12:58> Eyes: Eyes: Reports no additional eye complaints <REKHA Walker - Last Filed: 12/27/21 12:58> ENT: Reports system reviewed and no additional complaints, except as documented <REKHA Walker - Last Filed: 12/27/21 12:58> Cardiovascular: Cardiovascular: Reports as per HPI and Reports dyspnea <REKHA Walker - Last Filed: 12/27/21 12:58> Respiratory: Respiratory: Reports dyspnea <REKHA Walker - Last Filed: 12/27/21 12:58> Gastrointestinal: Gastrointestinal: Reports no additional gastrointestinal complaints <REKHA Walker - Last Filed: 12/27/21 12:58> Musculoskeletal: Musculoskeletal: Reports no additional musculoskeletal complaints <REKHA Walker - Last Filed: 12/27/21 12:58> Integument
--- NOTE | 2021-12-27 10:53 | PM.IMPN ---
Progress Note: A&P Assessment and Plan (1) Acute exacerbation of CHF (congestive heart failure): Code(s): I50.9 - Heart failure, unspecified Status: Acute Assessment and Plan: appears to be right-sided heart failure, increased diuretic therapy discharge. continue diuresis per Cardiology. (2) Elevated troponin: Code(s): R77.8 - Other specified abnormalities of plasma proteins Status: Acute Assessment and Plan: suspect this is chronic, not acute, monitor (3) Acute urinary retention: Code(s): R33.8 - Other retention of urine Status: Acute Assessment and Plan: Monitor as an outpatient (4) Abnormal finding on urinalysis: Code(s): R82.90 - Unspecified abnormal findings in urine Status: Acute Assessment and Plan: Repeat culture negative (5) Chronic kidney disease, stage 3 unspecified: Code(s): N18.30 - Chronic kidney disease, stage 3 unspecified Status: Acute Assessment and Plan: creatinine at baseline Subjective Date/time seen: 12/27/21 10:53 Shortness of breath continues to improve Review of Systems Review of Systems: All systems reviewed & are unremarkable except as noted in HPI and below ( The history and physical examination.) Exam Narrative: morbidly obese Patient is comfortable, NAD HEENT: eyes are clear and none icteric LUNGS: normal respiratory effort ABD: distended mild scrotal swelling Lower extremities: no edema SKIN: nonjaundiced Neuro: grossly intact. Objective Data Vital Signs Vital Signs: Vital Signs - 24 hr 12/26/21 12:00 12/26/21 14:15 12/26/21 16:00 Temperature 97.6 F Pulse Rate 62 58 L 58 L Respiratory Rate 16 Blood Pressure 138/51 L Pulse Oximetry 98 Oxygen Delivery 12/26/21 20:39 12/26/21 20:00 12/27/21 00:00 Temperature 97.2 F L Pulse Rate 67 47 L Respiratory Rate 16 Blood Pressure 117/47 L Pulse Oximetry 95 97 Oxygen Delivery Room Air 12/26/21 20:00 12/27/21 04:00 12/27/21 00:00 Temperature Pulse Rate 47 L 52 L 62 Respiratory Rate 16 Blood Pressure Pulse Oximetry 97 Oxygen Delivery Room Air 12/27/21 09:35 Temperature 97.8 F Pulse Rate 58 L Respiratory Rate 22 H Blood Pressure 119/55 L Pulse Oximetry 97 Oxygen Delivery Intake/Output Intake/Output: Intake & Output 12/24/21 12/25/21 12/26/21 12/27/21 23:59 23:59 23:59 23:59 Intake Total 2470 1900 1270 1110 Output Total 2950 3450 4400 2400 Balance -965 -9478 -1338 -4150 Meds/Results Medications: Active Medications Generic Name Dose Route Start Last Admin Trade Name Freq PRN Reason Stop Dose Admin Acetaminophen 325 mg 12/20/21 08:51 Acetaminophen 325 Mg Tablet PO Q6H PRN Pain 1-3 Hydrocodone Bitart/Acetaminophen 1 tab 12/20/21 08:51 12/27/21 03:09 Hydrocodone/Acetaminophen (*Crx) 5-325 Mg Tablet PO 1 tab Q4H PRN Administration pain 4-6 Albuterol 2 puff 12/20/21 08:51 Albuterol Sulfate (*Sp) Aerosol 1 Puff INHALATION Q8HRT PRN shortness of breath or wheezing Docusate Sodium 100 mg 12/20/21 08:51 Docusate Sodium 100 Mg Capsule PO DAILY PRN Constipation Doxycycline Hyclate 100 mg 12/21/21 21:00 12/27/21 08:39 Doxycycline Hyclate 100 Mg Tablet PO 01/03/22 06:00 100 mg Q12HR SANAM Administration Ergocalciferol 50,000 unit 12/23/21 09:00 12/23/21 08:23 Ergocalciferol 50,000 Unit Capsule PO 50,000 unit Mo@0900 SANAM Administration Febuxostat 80 mg 12/20/21 09:00 12/27/21 08:38 Febuxostat 40 Mg Tablet PO 01/19/22 08:59 80 mg DAILY SANAM Administration Finasteride 5 mg 12/20/21 13:00 12/27/21 08:38 Finasteride 5 Mg Tablet PO 5 mg QAM SANAM Administration Fluticasone Propionate 1 spray 12/20/21 09:00 12/27/21 08:39 Fluticasone Propionate 0.05% Na Spr 16 Gm Btl (*Bkc) NASAL 1 spray Q12HR SANAM Administration Folic Acid 1 mg 12/20/21 09:00
--- NOTE | 2021-12-27 11:06 | PCNWS ---
Weekly nutritional screen. Patient screened in for length of stay. Patient is tolerating current diet with adequate intake. No weight loss reported. No nutritional needs at this time. No nutritional interventions at this time. Will follow up in 7 days if pt has not been discharged.
[2021-12-27] MEDS: WARFARIN (*PBKC) 3 MG TABLET PO (17:51)
[2021-12-27] MEDS: FUROSEMIDE 80 MG TABLET PO (17:51)
--- NOTE | 2021-12-27 22:39 | PCCCNOTE ---
On 12/27/21, the student, Bella Gao, provided care and completed [facility] documentation on this patient. I have reviewed the student's documentation and agree with the findings.
[2021-12-28] VITALS (9 sets, daily range): BP systolic 114–124; BP diastolic 50–59; PULSE 53–88; RESP 16–20; TEMP 36–37.1; O2SAT 94–98
[2021-12-28 06:12] LABS: Hematocrit 41.4 % (42.0-52.0); Hemoglobin 12.4 g/dL (14.0-18.0); Mean Corpuscular Hemoglobin 23.1 pg (26-34); Mean Corpuscular Volume 77.2 fl (80-100); Mean Platelet Volume 10.1 fl (7.4-10.4); Platelet Count Result 218 k/mm3 (150-375); Red Blood Count 5.36 M/mm3 (4.6-6.20); Red Cell Distribution Width 19.3 % (11.5-14.5); White Blood Count 8.1 K/mm3 (4.5-10.0)
[2021-12-28 06:24] LABS: INR 2.7
[2021-12-28 06:29] LABS: Anion Gap 5 mmol/L (8-16); Blood Urea Nitrogen 48 mg/dL (9-20); Calcium 8.3 mg/dL (8.4-10.2); Carbon Dioxide 29 mmol/L (22-30); Chloride 96 mmol/L (98-107); Estimated CRCL calculation 36 ml/min; Estimated Glomerular Filt Rate 42; Glucose 103 mg/dL (65-110); Magnesium 1.8 mg/dL (1.6-2.3); Potassium 3.1 mmol/L (3.4-5.0); Sodium 130 mmol/L (137-145)
[2021-12-28] MEDS: FOLIC ACID 1 MG TABLET PO (09:20)
[2021-12-28] MEDS: FINASTERIDE 5 MG TABLET PO (09:20)
[2021-12-28] MEDS: MEMANTINE 10 MG TABLET PO ×2 (09:20→21:04)
[2021-12-28] MEDS: FEBUXOSTAT 40 MG TABLET 80 MG PO (09:20)
[2021-12-28] MEDS: FLUTICASONE PROPIONATE 0.05% NA SPR 16 GM BTL (*BKC) 1 SPRAY NASAL ×2 (09:20→21:04)
[2021-12-28] MEDS: POTASSIUM CHLORIDE 20 MEQ TABLET.ER PO (09:20)
[2021-12-28] MEDS: TAMSULOSIN HCL 0.4 MG CAPSULE PO (09:20)
[2021-12-28] MEDS: FUROSEMIDE 80 MG TABLET PO ×2 (09:20→17:02)
[2021-12-28] MEDS: PANTOPRAZOLE 40 MG TABLET PO ×2 (09:20→21:04)
[2021-12-28] MEDS: metOLazone 2.5 MG TABLET PO (09:20)
[2021-12-28] MEDS: EUCERIN CREAM 120 GM JAR 1 APPLIC TOPICAL ×2 (09:27→21:04)
--- NOTE | 2021-12-28 10:40 | PM.IMPN ---
Progress Note: A&P Assessment and Plan (1) Acute exacerbation of CHF (congestive heart failure): Code(s): I50.9 - Heart failure, unspecified Status: Acute Assessment and Plan: appears to be right-sided heart failure, increased diuretic therapy discharge. continue diuresis per Cardiology. (2) Elevated troponin: Code(s): R77.8 - Other specified abnormalities of plasma proteins Status: Acute Assessment and Plan: suspect this is chronic, not acute, monitor (3) Acute urinary retention: Code(s): R33.8 - Other retention of urine Status: Acute Assessment and Plan: Monitor as an outpatient (4) Abnormal finding on urinalysis: Code(s): R82.90 - Unspecified abnormal findings in urine Status: Acute Assessment and Plan: Repeat culture negative (5) Chronic kidney disease, stage 3 unspecified: Code(s): N18.30 - Chronic kidney disease, stage 3 unspecified Status: Acute Assessment and Plan: creatinine at baseline Additional Plan 12/21/2021 patient is clinically improving. Will continue current treatment. Start p.o. doxycycline. If stays okay possible discharge in the morning. 12/22/2021 Plan is to continue current treatment. Patient is improving gradually. Possible discharge home in the morning. 12/23/2021 Plan is to continue current treatment. Increase activity and possible dc in am. 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 IV, and also added ramipril 2.5 mg q.day, there was no significant improvement and on 12/23 cardiology increase Lasix 60 mg b.i.d., also patient with history of atrial fibrillation for which patient is taking warfarin however INR is subtherapeutic and supposed to be taking 2.5 mg qd cardiology increase to 3 mg q.day today patient's INR is therapeutic 2.1, today patient states is feeling much better compared to when he arrived not as swollen, and breathing better, will monitor, will have a PT OT evaluate the patient will benefit with acute rehab Subjective Date/time seen: 12/28/21 10:40 No new complaints Exam Narrative: morbidly obese Patient is comfortable, NAD HEENT: eyes are clear and none icteric LUNGS: normal respiratory effort ABD: distended mild scrotal swelling Lower extremities: no edema SKIN: nonjaundiced Neuro: grossly intact. Objective Data Vital Signs Vital Signs: Vital Signs - 24 hr 12/27/21 15:27 12/27/21 12:00 12/27/21 16:00 Temperature 97.8 F Pulse Rate 79 79 86 Respiratory Rate 16 Blood Pressure 111/51 L Pulse Oximetry 98 12/27/21 20:30 12/28/21 00:00 12/28/21 00:00 Temperature 97.8 F Pulse Rate 52 L 55 L 64 Respiratory Rate 16 Blood Pressure 114/50 L Pulse Oximetry 98 12/28/21 04:00 Temperature Pulse Rate 53 L Respiratory Rate Blood Pressure Pulse Oximetry Intake/Output Intake/Output: Intake & Output 12/25/21 12/26/21 12/27/21 12/28/21 23:59 23:59 23:59 23:59 Intake Total 1900 1270 1840 990 Output Total 3450 4400 4050 1700 Balance -1550 -3130 -2210 -710 Meds/Results Medications: Active Medications Generic Name Dose Route Start Last Admin Trade Name Freq PRN Reason Stop Dose Admin Acetaminophen 325 mg 12/20/21 08:51 Acetaminophen 325 Mg Tablet PO Q6H PRN Pain 1-3 Hydrocodone Bitart/Acetaminophen 1 tab 12/20/21 08:51 12/27/21 03:09 Hydrocodone/Acetaminophen (*Crx) 5-325 Mg Tablet PO 1 tab Q4H P
[2021-12-28] MEDS: POTASSIUM CHLORIDE 20 MEQ TABLET 40 MEQ PO (11:45)
--- NOTE | 2021-12-28 13:47 | PM.PNCARD ---
Progress Note: A&P Assessment and Plan (1) Acute exacerbation of congestive heart failure: Qualifiers: Heart failure type: right-sided Qualified Code(s): I50.813 - Acute on chronic right heart failure Code(s): I50.9 - Heart failure, unspecified Status: Acute Assessment and Plan: Acute predominant right heart failure with RV hypokinesis. He remains volume overloaded but has improved. Shifted diuretics to furosemide 80mg p.o. b.i.d. and continue metolazone 2.5mg daily 12/27/2021 Continues to diurese with oral diuretics. monitor renal function electrolytes closely as well as intermittent relative hypotension. Caution to avoid intravascular volume depletion as he is preload dependent Input and output daily weight. Perhaps discharge Thursday? (2) HTN (hypertension): Code(s): I10 - Essential (primary) hypertension Status: Acute Assessment and Plan: Fair control, relatively hypotensive. Holding ramipril. (3) Chronic atrial flutter: Code(s): I48.92 - Unspecified atrial flutter Status: Acute Assessment and Plan: Persistent, controlled ventricular response without AV iram blocking agents indicative of a degree of conduction system disease. INR 2.7 today. (4) Chronic kidney disease, stage 3 unspecified: Code(s): N18.30 - Chronic kidney disease, stage 3 unspecified Status: Acute Assessment and Plan: BUN and creatinine have increased slightly. Continue to Monitor BMP/electrolytes, but cont same. 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 Continue daily INR. Subjective Date/time seen: 12/27/2021: Continues to diurese well.? Feeling more energetic today and has noticed improved appetite.? Less shortness of breath with ambulation to the bathroom.? Changed to furosemide 80 mg p.o. b.i.d. and metolazone 2.5 mg daily. 12/28/21 13:47 walk with physical therapy down the [address], no shortness of breath. Continues to diurese well. On room air. Potassium a little low this morning at 3.1, supplemented. BUN and creatinine have risen slightly. Review of Systems Constitutional: Constitutional: Reports difficulty sleeping (Feet hurt due to arthritis) Eyes: Eyes: Reports no additional eye complaints ENT: Denies epistaxis Cardiovascular: Cardiovascular: Denies chest pain, Reports pedal edema, Reports leg edema and Denies lightheadedness Respiratory: Respiratory: Denies chest congestion and Denies dyspnea on exertion Gastrointestinal: Gastrointestinal: Denies abdominal pain Musculoskeletal: Musculoskeletal: Reports arthralgias Integumentary/Breasts: Skin/Breast: Reports rash (Thickening and discoloration of the skin on his legs) Neurologic: Denies confusion Psychiatric: Psychiatric: Reports no additional psychiatric complaints Exam Const: General: comfortable and in distress Other: Alert and pleasant, watching TV HENMT: Mouth: Yes moist mucous membranes Eyes: EOM: EOMs intact bilaterally Neck: Neck: supple Resp: Effort & Inspection: normal respiratory effort Auscultation: clear to auscultation bilaterally Cardio: Rate: regular rate Rhythm: abnormal rhythm irregularly irregular Heart sounds: no murmurs GI: Inspection: distended GI Palp: No Tenderness to palpation present (GI) Skin: General skin exam: No normal color Other: Thickening and discoloration of the skin on his legs Neuro: Speech: normal speech Motor exam (neuro): 5/5 motor strength present throughout Extrem: General: edema (severe edema below the knee, mild to moderate edema of the hips and thighs) Psych: Mental Status: mental status grossly normal Affect: normal affect Objective Data Vital Signs Vital Signs: Vital Signs - 24 hr 12/27/21 15:27 12/27/21 16:00 12/27/21 20:30 Temperature 97.8 F Pulse Rate 79 86 5
[2021-12-28] MEDS: WARFARIN (*PBKC) 3 MG TABLET PO (17:03)
[2021-12-29] VITALS: PULSE 55
[2021-12-29 04:00] VITALS: PULSE 61
[2021-12-29 06:00] VITALS: BP 126/47; PULSE 50; RESP 20; TEMP 36.6; O2SAT 96
[2021-12-29 07:10] LABS: Hemoglobin 12.2 g/dL (14.0-18.0); Mean Corpuscular HGB Conc 31.3 g/dl (32-36); Mean Corpuscular Hemoglobin 23.4 pg (26-34); Mean Corpuscular Volume 74.9 fl (80-100); Mean Platelet Volume 9.9 fl (7.4-10.4); Platelet Count Result 225 k/mm3 (150-375); Red Blood Count 5.21 M/mm3 (4.6-6.20); Red Cell Distribution Width 19.3 % (11.5-14.5); White Blood Count 7.6 K/mm3 (4.5-10.0)
[2021-12-29 07:20] LABS: INR 2.7; Prothrombin Time 27.9 Seconds (11.1-14.7)
[2021-12-29 07:21] LABS: Anion Gap 4 mmol/L (8-16); Blood Urea Nitrogen 50 mg/dL (9-20); Calcium 8.3 mg/dL (8.4-10.2); Carbon Dioxide 30 mmol/L (22-30); Chloride 96 mmol/L (98-107); Estimated CRCL calculation 35 ml/min; Estimated Glomerular Filt Rate 42; Glucose 104 mg/dL (65-110); Magnesium 1.9 mg/dL (1.6-2.3); Potassium 3.1 mmol/L (3.4-5.0); Sodium 130 mmol/L (137-145)
[2021-12-29 08:00] VITALS: PULSE 66
[2021-12-29] MEDS: POTASSIUM CHLORIDE 20 MEQ TABLET.ER PO (08:47)
[2021-12-29] MEDS: FOLIC ACID 1 MG TABLET PO (08:47)
[2021-12-29] MEDS: FINASTERIDE 5 MG TABLET PO (08:47)
[2021-12-29] MEDS: FLUTICASONE PROPIONATE 0.05% NA SPR 16 GM BTL (*BKC) 1 SPRAY NASAL (08:48)
[2021-12-29] MEDS: EUCERIN CREAM 120 GM JAR 1 APPLIC TOPICAL (08:48)
[2021-12-29] MEDS: metOLazone 2.5 MG TABLET PO (08:48)
[2021-12-29] MEDS: FUROSEMIDE 80 MG TABLET PO (08:48)
[2021-12-29] MEDS: MEMANTINE 10 MG TABLET PO (08:48)
[2021-12-29] MEDS: TAMSULOSIN HCL 0.4 MG CAPSULE PO (08:48)
[2021-12-29] MEDS: FEBUXOSTAT 40 MG TABLET 80 MG PO (08:48)
[2021-12-29] MEDS: PANTOPRAZOLE 40 MG TABLET PO (08:48)
--- NOTE | 2021-12-29 10:44 | PM.PNCARD ---
Progress Note: A&P Assessment and Plan (1) Acute exacerbation of congestive heart failure: Qualifiers: Heart failure type: right-sided Qualified Code(s): I50.813 - Acute on chronic right heart failure Code(s): I50.9 - Heart failure, unspecified Status: Acute Assessment and Plan: Acute predominant right heart failure with RV hypokinesis. He remains volume overloaded but has improved. Reduce diuretics to furosemide 40mg p.o. b.i.d. and continue metolazone 2.5mg daily OK for discharge; will arrange OPT FU in near future. Ordered a BMP for 1 week ADELA Arnett (2) HTN (hypertension): Code(s): I10 - Essential (primary) hypertension Status: Acute Assessment and Plan: Fair control, relatively hypotensive. Holding ramipril. (3) Chronic atrial flutter: Code(s): I48.92 - Unspecified atrial flutter Status: Acute Assessment and Plan: Persistent, controlled ventricular response without AV iram blocking agents indicative of a degree of conduction system disease. INR 2.7 today, therapeutic.. (4) Chronic kidney disease, stage 3 unspecified: Code(s): N18.30 - Chronic kidney disease, stage 3 unspecified Status: Acute Assessment and Plan: BUN and creatinine have increased slightly. Continue to Monitor BMP/electrolytes, reduced furosemide dose (5) Chronic anticoagulation: Code(s): Z79.01 - senior care (current) use of anticoagulants Status: Acute Assessment and Plan: As above. FU as OPT. Subjective Date/time seen: 12/27/2021:? Continues to diurese well.? Feeling more energetic today and has noticed improved appetite.? Less shortness of breath with ambulation to the bathroom.? Changed to furosemide 80 mg p.o.? b.i.d. and metolazone 2.5 mg daily. 12/28/21? 13:47 walked with physical therapy down the [address], no shortness of breath.? Continues to diurese well.? On room air.? Potassium a little low this morning at 3.1, supplemented.? BUN and creatinine have risen slightly. 12/29/21 10:44 Up in rooom with no PRASAD or dizziness. Has Hope. STill diuresing w/ po Lasix. BUN up slightly to 50. Had 11 beats VT yesterday, and K+ still low despite 60 Meq Kcl yesterday. Review of Systems Constitutional: Constitutional: Reports difficulty sleeping (Feet hurt due to arthritis) Eyes: Eyes: Reports no additional eye complaints ENT: Denies epistaxis Cardiovascular: Cardiovascular: Denies chest pain, Reports pedal edema, Reports leg edema, Denies lightheadedness and Denies dyspnea on exertion Respiratory: Respiratory: Denies chest congestion and Denies dyspnea on exertion Gastrointestinal: Gastrointestinal: Denies abdominal pain Musculoskeletal: Musculoskeletal: Reports arthralgias Integumentary/Breasts: Skin/Breast: Reports rash (Thickening and discoloration of the skin on his legs) Neurologic: Denies confusion Psychiatric: Psychiatric: Reports no additional psychiatric complaints and Denies confusion Exam Const: General: comfortable and in distress; No confusion Orientation/consciousness: No confusion Other: Alert and pleasant, watching TV HENMT: Mouth: Yes moist mucous membranes Eyes: EOM: EOMs intact bilaterally Neck: Neck: supple Resp: Effort & Inspection: normal respiratory effort Auscultation: clear to auscultation bilaterally Cardio: Rate: regular rate Rhythm: abnormal rhythm irregularly irregular Heart sounds: no murmurs GI: Inspection: distended : Other: Arnett present; pt says testicles used to be huge. Still some swelling but not bad. Some crusting around catheter/penis. Urinary Catheter: Urinary Catheter: patent and draining and urine clear Skin: General skin exam: No normal color Other: Thickening and discoloration of the skin on his legs Neuro: General: No confusion Speech: normal speech Motor exam (neuro): 5/5 motor strength present throughout Extrem: General: edema (severe ed
--- NOTE | 2021-12-29 11:35 | PM.DS ---
DS: Admitting Diagnosis Discharge Date December 29, 2021 Admitting Diagnosis CHF, right heart failure DS: Discharge Diagnosis Discharge Diagnosis (1) Acute exacerbation of CHF (congestive heart failure): Code(s): I50.9 - Heart failure, unspecified Status: Acute Assessment and Plan: appears to be right-sided heart failure, increased diuretic therapy discharge. continue diuresis per Cardiology. (2) Elevated troponin: Code(s): R77.8 - Other specified abnormalities of plasma proteins Status: Acute Assessment and Plan: suspect this is chronic, not acute, monitor (3) Acute urinary retention: Code(s): R33.8 - Other retention of urine Status: Acute Assessment and Plan: Monitor as an outpatient (4) Abnormal finding on urinalysis: Code(s): R82.90 - Unspecified abnormal findings in urine Status: Acute Assessment and Plan: Repeat culture negative (5) Chronic kidney disease, stage 3 unspecified: Code(s): N18.30 - Chronic kidney disease, stage 3 unspecified Status: Acute Assessment and Plan: creatinine at baseline DS: Summary Hospital Course Hospital Course: Patient was admitted for worsening edema and shortness of breath. Patient has history of right heart failure. Diuretics were adjusted on this hospitalization. Otherwise he can be discharged home. Time Spent with Patient Time attestation: Total time spent providing and/or coordinating discharge services: Exam Narrative: morbidly obese Patient is comfortable, NAD HEENT: eyes are clear and none icteric LUNGS: normal respiratory effort ABD: distended mild scrotal swelling Lower extremities: no edema SKIN: nonjaundiced Neuro: grossly intact. DS: Data Data Completed and Pending Labs on day of discharge: Labs from last 24 hours 12/29/21 12/29/21 12/29/21 06:39 06:39 06:39 WBC 7.6 RBC 5.21 Hgb 12.2 L Hct 39.0 L MCV 74.9 L MCH 23.4 L MCHC 31.3 L RDW 19.3 H Plt Count 225 MPV 9.9 PT 27.9 H INR 2.7 Sodium 130 L Potassium 3.1 L Chloride 96 L Carbon Dioxide 30 Anion Gap 4 L BUN 50 H Creatinine 1.60 H Estim Creat Clear Calc 35 Estimated GFR 42 L Glucose 104 Calcium 8.3 L Magnesium 1.9 Discharge Plan Discharge Attending physician on discharge: Gregorio Nam Consulting providers: Norma Pollard ; Louise Willams Discharging Clinician: Gregorio Nam Patient Disposition: Home Health Service Activity: no preference Diet: as tolerated Discharge Instructions: Per Care Coordination: [facility] to [facility] services for RN/PT/OT [place] and [place] [phone]. They will contact pt. to schedule first visit. Urology Instructions: Follow up for your voiding trial in our office on 12/30/2021 at 1:15 with Marilin ROSENTHAL. Call the office or go to the ER if you develop a fever, blood in your urine, clots in the tubing of the catheter or your catheter stops draining. Continue Finasteride and Tamsulosin. Patient Instructions: Antibiotic Form, Warfarin (By mouth), Heart Failure (DC), Urinary Retention in Men (GEN), Arnett Catheter Placement and Care (DC) Stand Alone Forms: General Discharge Information Follow-up/Referrals: Marilin Espinosa APRN [Advanced Practice Nurse] - Louise Willams MD [Physician] - Discharge Medications: New finasteride [Proscar] 5 mg Tablet 5 mg PO QAM Qty: 30 6RF metolazone 2.5 mg Tablet 2.5 mg PO QAM 30 Days Qty: 30 0RF potassium chloride [K-Tab] 20 mEq Tablet Extended Release 20 meq PO DAILY@0800 30 Days Qty: 30 0RF ramipril [Altace] 1.25 mg Capsule 2.5 mg PO QAM 30 Days Qty: 60 0RF Continued docusate sodium 100 mg Tablet 100 mg PO DAILY PRN (Reason: Constipation) acetaminophen 325 mg capsule 325 mg PO Q6H PRN (Reason: Pain) memantine 10 mg tablet 10 mg PO Q12H
[2021-12-29 14:00] VITALS: BP 138/59; PULSE 85; RESP 20; TEMP 35.8; O2SAT 99
[2021-12-29] MEDS: WARFARIN (*PBKC) 3 MG TABLET PO (17:13)
== END 2021-12-29 17:55 | disposition home health service (06) | DRG 292 ==
LOC: ANHED 18:57 → ANHIMU 20:34 → ANH3MEDSUR 12-20 15:00
PROVIDERS: Family Medicine; Internal Medicine; Internal Medicine Cardiovascular Disease; Specialist; Admitting Provider Student in an Organized Health Care Education/Training Program; Emergency Provider Emergency Medicine; PCP Family Medicine; Visit Provider Chiropractor
DX: I13.0 Hypertensive heart and chronic kidney disease with heart failure and stage 1 through stage 4 chronic kidney disease, or unspecified chronic kidney disease (principal); I48.20 Chronic atrial fibrillation, unspecified; I48.92 Unspecified atrial flutter; I50.813 Acute on chronic right heart failure; Z20.822 Contact with and (suspected) exposure to COVID-19; R77.8 Other specified abnormalities of plasma proteins; N40.1 Benign prostatic hyperplasia with lower urinary tract symptoms; R33.8 Other retention of urine; N43.3 Hydrocele, unspecified; R82.90 Unspecified abnormal findings in urine; N18.30 Chronic kidney disease, stage 3 unspecified; M1A.9XX0 Chronic gout, unspecified, without tophus (tophi); I87.2 Venous insufficiency (chronic) (peripheral); I25.10 Atherosclerotic heart disease of native coronary artery without angina pectoris; F03.90 Unspecified dementia, unspecified severity, without behavioral disturbance, psychotic disturbance, mood disturbance, and anxiety; E78.5 Hyperlipidemia, unspecified; K21.9 Gastro-esophageal reflux disease without esophagitis; M06.00 Rheumatoid arthritis without rheumatoid factor, unspecified site; Z87.891 Personal history of nicotine dependence; Z79.01 Long term (current) use of anticoagulants; Z79.899 Other long term (current) drug therapy; Z88.0 Allergy status to penicillin; Z88.2 Allergy status to sulfonamides; Z97.8 Presence of other specified devices
CPT/HCPCS: 36415; 51702; 71045; 76870; 80048; 80053; 81001; 83735; 83880; 84484; 85025; 85027; 85610; 85730; 87086; 87088; 93005; 93976; 96374; 97110; 97116; 97161; 97530; 99285; A9270; C9803; G0378; J1940; U0003; U0005

== ENCOUNTER 2022-01-14 14:24 | Inpatient (IN) | payer MEDICARE, SELFPAY ==
[2022-01-14] VITALS (10 sets, daily range): BP systolic 101–129; BP diastolic 56–72; PULSE 53–62; RESP 12–20; TEMP 36.1–36.7; O2SAT 97–100; BMI 34.7
--- NOTE | ~2022-01-14 | XR_ITS ---
EXAMINATION: XR chest 1V portable Exam Date/Time: 01/14/2022 14:40 CDT HISTORY: dyspnea Comparison: 12/19/21. RESULT: Lines, tubes, and devices: None. Lungs and pleura: Senescent change. Right midlung micronodules and reticular opacities. Cardiomediastinal silhouette: Stable cardiomediastinal silhouette. Other: No acute osseous or upper abdominal finding. IMPRESSION: Right midlung reticulonodular opacities, may represent atypical infection in the appropriate clinical context. Reviewed, dictated and finalized at location K. IMPRESSION: Right midlung reticulonodular opacities, may represent atypical infection in th e appropriate clinical context.
--- NOTE | 2022-01-14 14:27 | ECG_ITS ---
Measurements Intervals [place] Rate: 58 P: CO: 0 QRS: 0 QRSD: 103 T: 218 QT: 456 QTc: 451 Interpretive Statements ATRIAL FIBRILLATION WITH SLOW VENTRICULAR RESPONSE ANTEROSEPTAL INFARCTION, AGE INDETERMINATE LOW-VOLTAGE QRS IN PRECORDIAL LEADS NONSPECIFIC ST AND T-WAVE ABNORMALITY ABNORMAL ECG COMPARED TO ECG 12/19/2021 17:05:47 NO SIGNIFICANT CHANGE Electronically Signed On 01-15-2022 12:07:24 CDT by Todd Stone M.D.
--- NOTE | 2022-01-14 14:29 | ED.SOB ---
HPI - SOB/Dyspnea General Chief Complaint: Urogenital-Male Stated Complaint: urinary retention History of Present Illness HPI Narrative: Pt presents with SOB and urinary retention for a few days. Pt says he has been swelling in ihis abdomen and legs. Pt denies CP. Any exertion worsens SOB and rest improves. Pt has Hx of CHF. Related Data Home Medications Medication Instructions Recorded Confirmed acetaminophen 325 mg capsule 650 mg PO Q6H PRN Pain (Scale 06/08/19 01/14/22 Score 1-3) docusate sodium 100 mg tablet 100 mg PO DAILY PRN Constipation 06/17/19 01/14/22 fluticasone propionate 50 1 spray intranasal DAILY 02/14/21 01/14/22 mcg/actuation nasal spray,suspension (Flonase Allergy Relief) guaifenesin 600 mg tablet, 600 mg PO BID PRN Sinus Symptoms 02/14/21 01/14/22 extended release 12 hr (Mucinex) hydrocodone 5 mg-acetaminophen 325 1 tablet PO Q4H PRN pain 4-6 02/14/21 01/14/22 mg tablet memantine 10 mg tablet 10 mg PO Q12H 11/25/21 01/14/22 galantamine 8 mg 24 hr 8 mg PO DAILY 01/14/22 01/14/22 capsule,extended release potassium chloride 20 mEq 40 meq PO DAILY 01/14/22 01/14/22 tablet,extended release (K-Tab) warfarin 2.5 mg tablet 2 mg PO DAILY 01/14/22 01/14/22 Allergies Allergy/AdvReac Type Severity Reaction Status Date / Time Penicillins Allergy Unknown Rash Verified 12/18/21 01:43 Sulfa (Sulfonamide Allergy Unknown Rash Verified 12/18/21 01:43 Antibiotics) sulfathiazole Allergy Unknown Unknown Verified 12/19/21 18:10 Review of Systems Review of Systems: All systems reviewed & are unremarkable except as noted in HPI and below PMFSH Past Medical History Medical History Blood blister BPH (benign prostatic hyperplasia) Chronic a-fib Chronic atrial flutter Chronic gout without tophus Chronic kidney disease, stage 3 unspecified Chronic right-sided heart failure Echocardiogram November 2019: Normal left ventricular systolic function with EF of 78%, severe enlargement of right ventricle with severe right ventricular hypokinesis, severe enlargement of the right atrium Chronic venous stasis dermatitis Coronary artery disease Dementia Dyslipidemia Gastrointestinal ulcer GERD (gastroesophageal reflux disease) HTN (hypertension) Inguinal hernia Pneumonia Rheumatoid arthritis Seizures 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) Surgical History Surgical History Hx of cardiac catheterization and 2009 Hx of cataract surgery Hx of inguinal hernia repair right Status post open reduction with internal fixation of fracture (~08/2020) left tibial fracture with interosseous pinning Family History Family History Father , at age 54 Parkinsons disease Cerebrovascular accident Mother , in her 80s Hypertension Cerebrovascular accident Essential hypertension Hypothyroidism Heart disease Sibling Coronary artery disease Social History Social History Social History: He is single and has never been . He is currently living at [facility]. He had previously been in the skilled facility for rehab following a left leg fracture August 2020. He smoked a pipe up until 1979. 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 primary care physician: Dr. Carlos Manuel Vasquez Code status: Full code [facility] power of chief human resources officer: Kellie Rico (cousins) Smoking status: Former smoker Tobacco type: pipe Alcohol intake: never Substance use: never Substance use type: does not use Gender identity (if verbalized by the patient): Male Spiritual care concerns: No Exam Const: General: cooperative and leana
[2022-01-14 14:58] LABS: Basophils Absolute Auto 0.1 K/mm3 (0.0-0.1); Basophils Percent Auto 0.7 % (0.2-1.2); Eosinophils Absolute Auto 0.1 K/mm3 (0-0.3); Eosinophils Percent Auto 1.5 % (0-4.4); Hematocrit 39.8 % (42.0-52.0); Immature Granulocyte Absolute 0.09 K/mm3 (0.00-0.031); Immature Granulocyte Percent A 0.9 % (0-0.5); Lymphocytes Absolute Auto 0.58 K/mm3 (0.9-3.2); Lymphocytes Percent Auto 6.1 % (18.3-44.2); Mean Corpuscular HGB Conc 30.2 g/dl (32-36); Mean Corpuscular Hemoglobin 23.4 pg (26-34); Mean Corpuscular Volume 77.7 fl (80-100); Mean Platelet Volume 9.2 fl (7.4-10.4); Monocytes Absolute Auto 0.7 K/mm3 (0.1-0.6); Monocytes Percent Auto 7.6 % (2.6-8.5); Neutrophils Percent Auto 83.2 % (45.5-73.1); Platelet Count Result 227 k/mm3 (150-375); Red Blood Count 5.12 M/mm3 (4.6-6.20); White Blood Count 9.6 K/mm3 (4.5-10.0)
[2022-01-14 15:07] LABS: INR 1.9; Prothrombin Time 21.3 Seconds (11.1-14.7)
[2022-01-14 15:08] LABS: Partial Thromboplastin Time 33.4 SECONDS (22.3-36.8)
[2022-01-14 15:24] LABS: Alanine Aminotransferase 18 U/L (6-50); Albumin Level 2.5 g/dL (3.5-5.1); Alkaline Phosphatase 92 U/L (38-126); Anion Gap 5 mmol/L (8-16); Aspartate Amino Transferase 29 U/L (17-59); Bilirubin,Total 0.6 mg/dL (0.2-1.3); Blood Urea Nitrogen 50 mg/dL (9-20); Carbon Dioxide 25 mmol/L (22-30); Chloride 104 mmol/L (98-107); Estimated Glomerular Filt Rate 45; Glucose 110 mg/dL (65-110); NT Pro B Type Natriuretic Pept 4230 pg/mL (5-100); Potassium 4.1 mmol/L (3.4-5.0); Sodium 134 mmol/L (137-145)
[2022-01-14 15:30] LABS: Magnesium 1.9 mg/dL (1.6-2.3)
[2022-01-14 15:51] LABS: Troponin I 0.067 ng/mL (0.000-0.034)
--- NOTE | 2022-01-14 16:02 | PC.NURSE ---
Unable to catheterize patient due to significant swelling of their penis. ERP aware. Bladder scan showed 300ml in bladder.
--- NOTE | 2022-01-14 16:37 | WPDURCON ---
Assessment and Plan Assessment and plan (1) BPH (benign prostatic hyperplasia): Code(s): N40.0 - Benign prostatic hyperplasia without lower urinary tract symptoms Status: Acute Assessment and Plan: Continue Flomax and Finasteride as he is doing well. His output was only 200cc upon catheter insertion. He states he feels better now that the catheter is in place. (2) Acute urinary retention: Code(s): R33.8 - Other retention of urine Status: Acute Assessment and Plan: Not noted at this time, keep pereira in place for I&O purposes at this time, ok to remove pereira prior to discharge. No further evaluation needed. Follow up in the office as planned. (3) Scrotal edema: Code(s): N50.89 - Other specified disorders of the male genital organs Status: Acute Assessment and Plan: Improved from last month. Secondary to exacerbation of CHF and dependent fluid. Keep scrotum elevated, ok to apply ice to the area for discomfort. Will take months to resolve completely. No further workup needed. Urology Consult Note HPI Date Seen: 01/14/22 Time Seen: 16:37 Primary Care Provider: Carlos Manuel Vasquez MD Consult Narrative Reason for consult: Difficult Catheter Insertion Narrative: Shaan Landis is a 81 year old male who presents to the ER today with c/o worsening lower extremity edema, urinary retention and abdominal edema. He is a known patient of ours that we saw during his last hospitalization at [facility] on 12/20/21 for retention and scrotal edema. He had a pereira placed at that time which was difficult d/t his severe penile and scrotal edema. He was started on Finasteride and Flomax at that time and the catheter was kept in place until 12/29/21 when it was removed prior to discharge. He then followed up in the office the next day and had a bladder scan of 6cc. He was emptying well on Tamsulosin and Finasteride. He started having difficulty urinating again yesterday. He is afebrile, has a creatinine of 1.50 and WBC of 9.6. The ER tried to place a pereira, but was unable to do so and consulted us to come and place the pereira for retention. He continues to c/o scrotal edema as well. His scrotal US last month showed Testicles not visualized, possibly atrophic or undescended. Prominent bilateral hydroceles, right greater than left. Diffuse scrotal wall edema/thickening measuring up to 2.8 cm thickness. Consider infection/inflammatory process and a large left-sided cyst, possibly epididymal measuring up to 5 cm. Review of Systems Cardiovascular: Cardiovascular: Denies chest pain Respiratory: Respiratory: Reports dyspnea Gastrointestinal: Gastrointestinal: Denies abdominal pain, Denies nausea and Denies vomiting Genitourinary: Genitourinary: Denies hematuria, Denies dysuria, Denies flank pain, Denies urinary frequency, Reports urinary hesitancy and Denies urinary incontinence [facility] Past Medical History Medical History Blood blister BPH (benign prostatic hyperplasia) Chronic a-fib Chronic atrial flutter Chronic gout without tophus Chronic kidney disease, stage 3 unspecified Chronic right-sided heart failure Echocardiogram November 2019: Normal left ventricular systolic function with EF of 78%, severe enlargement of right ventricle with severe right ventricular hypokinesis, severe enlargement of the right atrium Chronic venous stasis dermatitis Coronary artery disease Dementia Dyslipidemia Gastrointestinal ulcer GERD (gastroesophageal reflux disease) HTN (hypertension) Inguinal hernia Pneumonia Rheumatoid arthritis Seizures 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) Surgical History Surgical History Hx of cardiac catheterization and 2009 Hx of cataract surgery Hx of inguinal hernia repair right Status post open reduction with internal fi
[2022-01-14] MEDS: FUROSEMIDE INJ 40 MG/4 ML VIAL IV PUSH (16:50)
--- NOTE | 2022-01-14 19:11 | PC.NURSE ---
This nurse attempted to call to give report, but was noted to call back since the nurse was still giving report.
--- NOTE | 2022-01-14 19:33 | PC.NURSE ---
This nurse attempted to give report to the floor nurse receiving the pt (pt new room assignment is 205-2 per [facility] RN) but was told to call back. This nurse asked to speak to hot metal mixer operator for report and was told she was not available at this time. This rn to call back in 5-10 minutes.
--- NOTE | 2022-01-14 20:30 | ADMGEN ---
This patient, Shaan Landis, was admitted to IMU Room 205-02. Patient/family oriented to hospital policies and general routines including ID bracelet, bed and alarms, visiting hours, pain management, procedures, bathroom and other care routines, personal items, smoking policy, room service/diet, and visiting hours. Information on how to activate the Rapid Response Team has been discussed. Patient/Family are encouraged to report perceived risks to care and to ask questions if they do not understand what they are told or what they should do.
[2022-01-14 21:14] LABS: Troponin I 0.072 ng/mL (0.000-0.034)
[2022-01-15] VITALS (13 sets, daily range): BP systolic 119–130; BP diastolic 52–66; PULSE 54–72; RESP 16–20; TEMP 36.1–37; O2SAT 97–99
--- NOTE | 2022-01-15 00:03 | PM.IMHP ---
H&P: HPI History of Present Illness Date/Time: Patient was placed observation status for expected length of stay less than 23 hours for management, will plan to re-evaluate tomorrow for improvement. 01/14/22 1700 Chief Complaint: Edema Narrative: Mr. Landis is an 81-year-old gentleman who presented emergency room with complaints of increasing edema and shortness of breath. Patient states that he noticed that he was retaining fluid starting yesterday. Patient states that he feels like his abdomen is very full of fluid and he noticed that he was short of breath yesterday. Patient states he would urinate in very small amounts but felt like he could not empty his bladder. Patient states he has been taking all medications without any difficulty. Patient denies any chest pain. Patient states that he does not feel like he has a large amount of edema to bilateral lower extremities. Patient states he feels like all of his swelling is to his chest and abdomen area. Patient states he has had issues with urinary retention in the past. Upon evaluation in emergency room patient was noted to have a mild elevation in his BNP above baseline as well as an elevation in troponins. Patient also has a known history of atrial fibrillation for which he takes Coumadin. Patient denies any dysuria, hematuria, frequency, or urgency. Patient has a known history of chronic kidney disease, atrial fibrillation/flutter, hypertension, CAD, seizure disorder, and dementia. Patient had an echo performed on 11/26/2021 that shows ejection fraction of 65-70%. Patient was noted to have left ventricular diastolic dysfunction with severely enlarged right ventricle. Patient states that he does follow with Cardiology routine basis for his edema and heart failure. Review of Systems Review of Systems: A 12 point review of systems was completed patient all pertinent positive and negative per HPI the remainder are unremarkable. [facility] Past Medical History Medical History Blood blister BPH (benign prostatic hyperplasia) Chronic a-fib Chronic atrial flutter Chronic gout without tophus Chronic kidney disease, stage 3 unspecified Chronic right-sided heart failure Echocardiogram November 2019: Normal left ventricular systolic function with EF of 78%, severe enlargement of right ventricle with severe right ventricular hypokinesis, severe enlargement of the right atrium Chronic venous stasis dermatitis Coronary artery disease Dementia Dyslipidemia Gastrointestinal ulcer GERD (gastroesophageal reflux disease) HTN (hypertension) Inguinal hernia Pneumonia Rheumatoid arthritis Seizures 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) Surgical History Surgical History Hx of cardiac catheterization and 2009 Hx of cataract surgery Hx of inguinal hernia repair right Status post open reduction with internal fixation of fracture (~08/2020) left tibial fracture with interosseous pinning Family History Family History Father , at age 54 Parkinsons disease Cerebrovascular accident Mother , in her 80s Hypertension Cerebrovascular accident Essential hypertension Hypothyroidism Heart disease Sibling Coronary artery disease Social History Social History Social History: He is single and has never been . He is currently living at [facility]. He had previously been in the skilled facility for rehab following a left leg fracture August 2020. He smoked a pipe up until 1979. 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 primary care physician: Dr. Carlos Manuel Vasquez Code status: Full code [facility] power of employment law attorney: Braden
[2022-01-15] MEDS: HYDROcodone/acetaminophen (*CRX) 5-325 MG TABLET 1 TAB PO (01:17)
[2022-01-15 05:06] LABS: Basophils Absolute Auto 0.1 K/mm3 (0.0-0.1); Basophils Percent Auto 0.9 % (0.2-1.2); Eosinophils Absolute Auto 0.2 K/mm3 (0-0.3); Eosinophils Percent Auto 2.3 % (0-4.4); Hematocrit 38.3 % (42.0-52.0); Immature Granulocyte Absolute 0.08 K/mm3 (0.00-0.031); Immature Granulocyte Percent A 0.9 % (0-0.5); Lymphocytes Percent Auto 7.7 % (18.3-44.2); Mean Corpuscular HGB Conc 31.3 g/dl (32-36); Mean Corpuscular Hemoglobin 23.7 pg (26-34); Mean Corpuscular Volume 75.5 fl (80-100); Mean Platelet Volume 9.6 fl (7.4-10.4); Monocytes Absolute Auto 0.7 K/mm3 (0.1-0.6); Neutrophils Absolute Auto 7.3 K/mm3 (1.3-6.7); Neutrophils Percent Auto 80.2 % (45.5-73.1); Platelet Count Result 208 k/mm3 (150-375); Red Blood Count 5.07 M/mm3 (4.6-6.20); Red Cell Distribution Width 20.1 % (11.5-14.5); White Blood Count 9.1 K/mm3 (4.5-10.0)
[2022-01-15 05:18] LABS: INR 1.7; Prothrombin Time 19.3 Seconds (11.1-14.7)
[2022-01-15 05:19] LABS: Alanine Aminotransferase 16 U/L (6-50); Albumin Level 2.4 g/dL (3.5-5.1); Alkaline Phosphatase 83 U/L (38-126); Anion Gap 3 mmol/L (8-16); Aspartate Amino Transferase 37 U/L (17-59); Bilirubin,Total 0.6 mg/dL (0.2-1.3); Blood Urea Nitrogen 49 mg/dL (9-20); Carbon Dioxide 26 mmol/L (22-30); Chloride 105 mmol/L (98-107); Estimated CRCL calculation 37 ml/min; Estimated Glomerular Filt Rate 45; Glucose 106 mg/dL (65-110); Sodium 134 mmol/L (137-145)
[2022-01-15] MEDS: POTASSIUM CHLORIDE 20 MEQ TABLET.ER 40 MEQ PO (08:55)
[2022-01-15] MEDS: metOLazone 2.5 MG TABLET PO (08:55)
[2022-01-15] MEDS: FEBUXOSTAT 40 MG TABLET 80 MG PO (08:55)
[2022-01-15] MEDS: MEMANTINE 10 MG TABLET PO ×2 (08:56→20:13)
[2022-01-15] MEDS: FOLIC ACID 1 MG TABLET PO (08:56)
[2022-01-15] MEDS: FLUTICASONE PROPIONATE 0.05% NA SPR 16 GM BTL (*BKC) 1 SPRAY NASAL (08:56)
[2022-01-15] MEDS: PANTOPRAZOLE 40 MG TABLET PO (08:56)
[2022-01-15] MEDS: TAMSULOSIN HCL 0.4 MG CAPSULE PO (08:56)
[2022-01-15] MEDS: FUROSEMIDE INJ 100 MG/10 ML VIAL 60 MG IV PUSH ×2 (08:56→16:56)
[2022-01-15] MEDS: FINASTERIDE 5 MG TABLET PO (08:56)
--- NOTE | 2022-01-15 13:06 | PM.CNCAR ---
Assessment and Plan Assessment and plan (1) CHF (congestive heart failure): Code(s): I50.9 - Heart failure, unspecified Status: Acute Plan This is an elderly man with chronic atrial fibrillation, AV node dysfunction requiring no rate controlling medication he is anticoagulated with warfarin because of this. He has developed significant right ventricular failure I recently and has had several recent admissions with edema/volume overload. He is readmitted with the same complaints once again. On physical exam I am not impressed at all that the edema is any substantially worse than it was the last time he was discharged. Since he is back in the hospital I would favor the decision to advance his diuretics which already has been done. It is tempting to place him on an STEFFANIE-inhibitor but I tried to do this the last admission with a very gentle dose of ramipril and it was discontinued after several days because of relative hypotension. We will follow him with you as he diuresis once again but at this point I do not believe there is anything else to recommend/suggest regarding his cardiac status. Gregorio Lozano MD [facility] History of Present Illness History of Present Illness Consult date/time: 01/15/22 13:06 Reason For Visit: chf Narrative: This is an 81-year-old man who was admitted to the hospital yesterday because of complaints of increasing lower extremity edema, abdominal girth and some shortness of breath. The patient is well known to me and has been hospitalized here at [facility] frequently recently because of these same problems/issues. He is a gentleman that I have been following for a number of years in my office because of chronic atrial fibrillation. He has been managed over the years with rate control and anticoagulation and has been stable. As he has aged she no longer requires any rate-controlling medication he is simply anticoagulated with warfarin. The patient recently has begun to experience complaints of increasing lower extremity edema and some abdominal girth he was found on echocardiogram recently to have significant right ventricular dysfunction, normal left ventricular function and no significant left-sided valve disease. He has been treated several times with diuretics with improvement and discharged back to the skilled care facility where he resides. He was sent back to the hospital yesterday because he was apparently complaining of increasing edema once again and it was evaluated and admitted back to the hospital. Comparing the admission weight during this admission versus the discharge weight about 3 weeks ago he has gained about 6 lb. During the last admission even though he has normal left ventricular function I made an attempt at starting him on some STEFFANIE-inhibitor therapy to attempt to prevent this cycle of frequent readmission. He tolerated the STEFFANIE-inhibitor poorly with relative hypotension and it was stopped. This was a modest dose of ramipril. He was sleeping flat in bed when I entered the room to see him breathing room air and states he feels somewhat better than when he was discharged several weeks ago but otherwise offers no complaints. Review of Systems Constitutional: Constitutional: Reports lethargy Eyes: Eyes: Reports no additional eye complaints ENT: Reports system reviewed and no additional complaints, except as documented Cardiovascular: Cardiovascular: Reports as per HPI and Reports leg edema Respiratory: Respiratory: Reports dyspnea Gastrointestinal: Gastrointestinal: Reports no additional gastrointestinal complaints Musculoskeletal: Musculoskeletal: Reports no additional musculoskeletal complaints Integumentary/Breasts: Skin/Breast: Reports system reviewed and no additional complaints, except as docu Neurologic: Reports system reviewed and no additional complaints, except as documented Endocrine: Endocrine: Reports no additional endocrine complaints Hematologic/Lymphatic:
[2022-01-15] MEDS: WARFARIN (*PBKC) 2 MG TABLET PO (16:56)
--- NOTE | 2022-01-15 17:41 | PM.IMPN ---
Progress Note: A&P Assessment and Plan (1) CHF (congestive heart failure): Code(s): I50.9 - Heart failure, unspecified Status: Acute Assessment and Plan: Patient's is in acute on chronic diastolic heart failure. Will place patient on Lasix 60 mg IV b.i.d. and continue home medications. Patient is on metolazone at home and this needs to be given at least to half are prior to Lasix. Will monitor intake and output very closely. Will place patient on daily weights. Will place patient on a fluid restriction of 2 L per day. Will consult Cardiology and do appreciate further recommendations regarding diuresis. (2) HTN (hypertension): Code(s): I10 - Essential (primary) hypertension Status: Acute Assessment and Plan: Will resume patient's home medications once verified home medication list and adjust medications accordingly for optimal blood pressure control. (3) Chronic anticoagulation: Code(s): Z79.01 - long term care phlebotomist (current) use of anticoagulants Status: Acute Assessment and Plan: Patient is on Coumadin at home. INR upon arrival to emergency room was 1.9. Will continue with home dose of Coumadin and monitor INR closely. (4) Atrial flutter: Code(s): I48.92 - Unspecified atrial flutter Status: Acute Assessment and Plan: Patient remains in atrial fib/flutter with a controlled ventricular rate. Will continue with home medications and continue with home dose of Coumadin. Will monitor INR. Subjective Date/time seen: 01/15/22 17:41 Interval history: Patient resting comfortably in bed. He states he feels much better than when he came in. No fevers chills or overnight events. No chest pain or shortness of breath. Review of Systems Review of Systems: Twelve point review of systems was reviewed and is negative except as noted in the HPI Exam Narrative: Constitutional: Patient is well-nourished in no acute distress. Patient is alert and oriented x3 HEENT: Moist mucous membranes. No scleral icterus. No lymphadenopathy. Neck: No carotid bruits noted no JVD noted Lungs: Lung sounds are decreasedto auscultation bilaterally. No accessory muscle use. No rhonchi, rales, or wheezes noted. Cardiovascular: Apical pulse is irregularly irregular, S1 variable S2, no S3 or S4. No gallops, murmurs, or rubs noted. Abdomen: Abdomen is distended and does appear edematous upon palpation. No palpable masses. Extremities: 2+ edema noted bilateral lower extremities Skin: No rashes or lesions. Warm and dry. Skin is intact. Neurological: No focal neurological deficits. Cranial nerves II-XII grossly intact. Psychiatric: Cooperative, appropriate mood, and affect Objective Data Vital Signs Vital Signs: Vital Signs - 24 hr 01/14/22 18:56 01/14/22 19:09 01/14/22 20:15 Temperature 97.5 F L Pulse Rate 53 L 58 L 61 Respiratory Rate 12 19 16 Blood Pressure 101/56 L 121/72 Pulse Oximetry 98 99 98 Oxygen Delivery 01/14/22 20:00 01/14/22 20:00 01/14/22 22:00 Temperature Pulse Rate 58 L 58 L 62 Respiratory Rate 16 Blood Pressure Pulse Oximetry 98 Oxygen Delivery Room Air 01/14/22 23:53 01/15/22 00:00 01/15/22 00:00 Temperature 97 F L Pulse Rate 61 72 70 Respiratory Rate 16 16 Blood Pressure 123/63 Pulse Oximetry 97 97 Oxygen Delivery Room Air 01/15/22 02:00 01/15/22 04:00 01/15/22 04:00 Temperature Pulse Rate 70 64 64 Respiratory Rate 16 Blood Pressure Pulse Oximetry 97 Oxygen Delivery Room Air 01/15/22 04:00 01/15/22 06:00 01/15/22 08:00 Temperature 97 F L 98.5 F Pulse Rate 57 L 54 L 57 L Respiratory Rate 16 18 Blood Pressure 130/66 122/63 Pulse Oximetry 97 99 Oxygen Delivery 01/15/22 08:00 01/15/22 08:00 01/15/22 10:00 Temperature Pulse Rate 57 L 67 Respiratory Rate Blood Pressure Pulse Oximetry 99 Oxygen Delivery Room Air 01/15/22 12:00 01/15/22 15:44 01/15/22 16
--- NOTE | 2022-01-15 18:21 | PC.NURSE ---
This patient, Shaan Landis, was transferred to [[id number] ] on 01/15/22 at 1821. Personal belongings sent with patient. Report given to [NIRU Levy @ [phone] ]. Appropriate documentation sent with patient. Transfer delayed d/t patient receiving dinner tray and wanting to eat before moving. Receiving unit aware and ok with this.
--- NOTE | 2022-01-15 18:30 | PC.NURSE ---
This patient, Shaan Landis, was received from IMU on 01/15/22 at 1830. Patient/family oriented to unit policies and routines
[2022-01-16] VITALS: PULSE 60
[2022-01-16 04:00] VITALS: PULSE 57
[2022-01-16 05:41] VITALS: BP 115/65; PULSE 59; RESP 16; TEMP 36.4; O2SAT 97
[2022-01-16 06:31] LABS: INR 1.5; Prothrombin Time 17.1 Seconds (11.1-14.7)
[2022-01-16 08:00] VITALS: PULSE 57
[2022-01-16] MEDS: MEMANTINE 10 MG TABLET PO (08:56)
[2022-01-16] MEDS: FINASTERIDE 5 MG TABLET PO (08:56)
[2022-01-16] MEDS: guaiFENesin 12 HR 600 MG TABCR PO (08:56)
[2022-01-16] MEDS: PANTOPRAZOLE 40 MG TABLET PO (08:57)
[2022-01-16] MEDS: POTASSIUM CHLORIDE 20 MEQ TABLET.ER 40 MEQ PO (08:57)
[2022-01-16] MEDS: FOLIC ACID 1 MG TABLET PO (08:57)
[2022-01-16] MEDS: TAMSULOSIN HCL 0.4 MG CAPSULE PO (08:57)
[2022-01-16] MEDS: FEBUXOSTAT 40 MG TABLET 80 MG PO (08:57)
[2022-01-16] MEDS: metOLazone 2.5 MG TABLET PO (08:57)
[2022-01-16] MEDS: FUROSEMIDE INJ 100 MG/10 ML VIAL 60 MG IV PUSH (08:57)
[2022-01-16] MEDS: FLUTICASONE PROPIONATE 0.05% NA SPR 16 GM BTL (*BKC) 1 SPRAY NASAL (08:57)
[2022-01-16 09:18] LABS: Troponin I 0.065 ng/mL (0.000-0.034)
--- NOTE | 2022-01-16 11:48 | PM.DS ---
DS: Admitting Diagnosis Discharge Date January 16, 2022 Admitting Diagnosis Heart failure exacerbation DS: Discharge Diagnosis Discharge Diagnosis (1) CHF (congestive heart failure): Code(s): I50.9 - Heart failure, unspecified Status: Acute Assessment and Plan: Patient's is in acute on chronic diastolic heart failure. Will place patient on Lasix 60 mg IV b.i.d. and continue home medications. Patient is on metolazone at home and this needs to be given at least to half are prior to Lasix. Will monitor intake and output very closely. Will place patient on daily weights. Will place patient on a fluid restriction of 2 L per day. Will consult Cardiology and do appreciate further recommendations regarding diuresis. (2) HTN (hypertension): Code(s): I10 - Essential (primary) hypertension Status: Acute Assessment and Plan: Will resume patient's home medications once verified home medication list and adjust medications accordingly for optimal blood pressure control. (3) Chronic anticoagulation: Code(s): Z79.01 - long-term (current) use of anticoagulants Status: Acute Assessment and Plan: Patient is on Coumadin at home. INR upon arrival to emergency room was 1.9. Will continue with home dose of Coumadin and monitor INR closely. (4) Atrial flutter: Code(s): I48.92 - Unspecified atrial flutter Status: Acute Assessment and Plan: Patient remains in atrial fib/flutter with a controlled ventricular rate. Will continue with home medications and continue with home dose of Coumadin. Will monitor INR. DS: Summary Hospital Course Hospital Course: 81-year-old male with past medical history significant for kidney disease, AFib, hypertension, coronary artery disease, heart failure, seizure disorder and dementia presented with complaints of fluid retention. He was admitted with IV diuresis, Cardiology was consulted and stated patient appeared fairly close to his baseline despite having some edema. He seems to respond to the IV Lasix and reached his baseline fluid status. Therefore, he was discharged in good condition on his home medications with close outpatient follow-up with Family Medicine and Cardiology. Status at Discharge Overall status at discharge: patient is back to baseline Time Spent with Patient Time attestation: Total time spent providing and/or coordinating discharge services: Time spent: Greater than 30 minutes Exam Narrative: Constitutional: Patient is well-nourished in no acute distress. Patient is alert and oriented x3 HEENT: Moist mucous membranes. No scleral icterus. No lymphadenopathy. Neck: No carotid bruits noted no JVD noted Lungs: Lung sounds are decreasedto auscultation bilaterally. No accessory muscle use. No rhonchi, rales, or wheezes noted. Cardiovascular: Apical pulse is irregularly irregular, S1 variable S2, no S3 or S4. No gallops, murmurs, or rubs noted. Abdomen: Abdomen is distended and does appear edematous upon palpation. No palpable masses. Extremities: 2+ edema noted bilateral lower extremities Skin: No rashes or lesions. Warm and dry. Skin is intact. Neurological: No focal neurological deficits. Cranial nerves II-XII grossly intact. Psychiatric: Cooperative, appropriate mood, and affect DS: Data Data Completed and Pending Labs on day of discharge: Labs from last 24 hours 01/16/22 01/16/22 01/16/22 10:57 08:35 06:09 PT 17.1 H INR 1.5 Troponin I 0.065 H* SARS-CoV-2 IgG/IgM Ag?Rapid Pending Discharge Plan Discharge Attending physician on discharge: Candie Brink Consulting providers: Todd Stone Discharging Clinician: Candie Brink Patient Disposition: Home Health Service Activity: as tolerated Diet: as tolerated Patient Instructions: Antibiotic Form, Warfarin (By mouth), Heart Failure (DC) Stand Alone Forms: General Discharge Information Follow-up/Referral
[2022-01-16 11:56] LABS: EDCOVIDSCREEN Negative (Negative)
[2022-01-16 12:00] VITALS: PULSE 61
[2022-01-16 14:00] VITALS: BP 103/50; PULSE 56; RESP 18; TEMP 36.2; O2SAT 98
== END 2022-01-16 16:52 | disposition home health service (06) | DRG 291 ==
LOC: ANHED 17:59 → ANHIMU 18:23 → ANH2MED 01-15 18:15
PROVIDERS: Nurse Practitioner Adult Health; Admitting Provider Family Medicine; Emergency Provider Emergency Medicine; PCP Family Medicine; Visit Provider Student in an Organized Health Care Education/Training Program
DX: I13.0 Hypertensive heart and chronic kidney disease with heart failure and stage 1 through stage 4 chronic kidney disease, or unspecified chronic kidney disease (principal); I50.33 Acute on chronic diastolic (congestive) heart failure; I48.92 Unspecified atrial flutter; I48.20 Chronic atrial fibrillation, unspecified; N18.30 Chronic kidney disease, stage 3 unspecified; Z20.822 Contact with and (suspected) exposure to COVID-19; I25.10 Atherosclerotic heart disease of native coronary artery without angina pectoris; F03.90 Unspecified dementia, unspecified severity, without behavioral disturbance, psychotic disturbance, mood disturbance, and anxiety; G40.909 Epilepsy, unspecified, not intractable, without status epilepticus; N40.0 Benign prostatic hyperplasia without lower urinary tract symptoms; N50.89 Other specified disorders of the male genital organs; M06.00 Rheumatoid arthritis without rheumatoid factor, unspecified site; K21.9 Gastro-esophageal reflux disease without esophagitis; E78.5 Hyperlipidemia, unspecified; R33.8 Other retention of urine; Z79.01 Long term (current) use of anticoagulants; Z87.891 Personal history of nicotine dependence
CPT/HCPCS: 36415; 71045; 80053; 83735; 83880; 84484; 85025; 85610; 85730; 87426; 93005; 96374; 99285; A9270; C9803; G0378; J1940

== ENCOUNTER 2022-01-22 18:08 | Inpatient (IN) | payer MEDICARE, SELFPAY ==
[2022-01-22] VITALS (10 sets, daily range): BP systolic 110–127; BP diastolic 48–67; PULSE 57–74; RESP 10–18; TEMP 36.3–36.4; O2SAT 96–100
--- NOTE | ~2022-01-22 | XR_ITS ---
XR chest 1V portable DATE: 01/24/2022 05:55 INDICATION: Shortness of breath TECHNIQUE: Portable upright AP chest on 01/24/2022 at 0541 hours COMPARISON: 01/22/2022 AP and lateral chest 11/25/2021 PA and lateral chest 02/14/2021 AP and lateral chest FINDINGS: Globular enlarged cardiac silhouette which may be due to cardiomegaly and/or pericardial ef fusion. This is stable in appearance since 02/14/2021, favoring cardiomegaly. Aortic arch and great vessel calcification. Patchy infiltrate or atelectasis is suggested in the left retrocardiac lower lung zone. Right lung ap pears essentially clear. No pleural effusion or pulmonary vascular congestion or pneumothorax is dete cted. Osteopenia. IMPRESSION: Moderately enlarged cardiac silhouette suggesting cardiomegaly/cardiomyopathy Aortic and great vessel atherosclerosis Possible left lower lung infiltrate and/atelectasis Reviewed, dictated and finalized at location A. IMPRESSION: Moderately enlarged cardiac silhouette suggesting cardiomegaly/card iomyopathy Aortic and great vessel atherosclerosis Possible left lower lung infiltrate and/atelectasis
--- NOTE | ~2022-01-22 | XR_ITS ---
EXAMINATION: XR chest 2V Exam Date/Time: 01/22/2022 18:45 CDT HISTORY: c/o sob at rest and exertion, general edema. hx of CHF Comparison: 01/14/2022. RESULT: Lines, tubes, and devices: None. Lungs and pleura: Senescent change, similar right mid and lower lung reticulonodular opacities. Pers istent left hemidiaphragm elevation. Cardiomediastinal silhouette: Stable cardiomediastinal silhouette. Other: No acute osseous or upper abdominal finding. IMPRESSION: No overt pulmonary edema. Stable reticulonodular opacities in the right mid/lower lung may represent bronchiolitis, as can be seen with atypical infection, asthma, aspiration, and small airways disease. . Reviewed, dictated and finalized at location K. IMPRESSION: No overt pulmonary edema. Stable reticulonodular opacities in the right mid/low er lung may represent bronchiolitis, as can be seen with atypical infection, as thma, aspiration, and small airways disease..
--- NOTE | ~2022-01-22 | US_ITS ---
EXAMINATION: US renal BI DATE: 01/23/2022 16:57 INDICATION: Acute kidney injury TECHNIQUE: Multiple grayscale and Doppler ultrasound images of the kidneys were obtained. COMPARISON: None. FINDINGS: The right kidney measures 9.8 x 5.2 x 5.3 cm. The left kidney measures 9.5 x 5.4 x 6.1 cm. The kidneys demonstrate normal parenchymal echogenicity. There is no hydronephrosis. The bladder is d ecompressed by Arnett catheter. IMPRESSION: 1. Normal kidneys without hydronephrosis. Reviewed, dictated and finalized at location F.
--- NOTE | 2022-01-22 18:30 | ECG_ITS ---
Measurements Intervals [place] Rate: 61 P: NC: 0 QRS: 5 QRSD: 134 T: 60 QT: 452 QTc: 459 Interpretive Statements ATRIAL FIBRILLATION INTRAVENTRICULAR CONDUCTION DELAY [130+ ms QRS DURATION] ANTEROSEPTAL MYOCARDIAL INFARCTION , OF INDETERMINATE AGE [40+ ms Q WAVE IN V1-V4] COMPARED TO ECG 01/14/2022 14:36:05 INTRAVENTRICULAR CONDUCTION DELAY NOW PRESENT Electronically Signed On 01-22-2022 22:51:23 CDT by Vani Lara M.D.
--- NOTE | 2022-01-22 18:56 | ED.SOB ---
HPI - SOB/Dyspnea General Chief Complaint: Shortness of Breath/Dyspnea <Drea Begum PA-C - Last Filed: 01/22/22 23:30> Stated Complaint: pedal edema <ALMA Blackman Last Filed: 01/22/22 23:30> Time Seen by Provider: 01/22/22 18:45 <Drea Begum PA-C - Last Filed: 01/22/22 23:30> Source: patient <ALMA Blackman Last Filed: 01/22/22 23:30> Mode of arrival: EMS <ALMA Blackman Last Filed: 01/22/22 23:30> Limitations: no limitations <ALAM Blackman Last Filed: 01/22/22 23:30> History of Present Illness HPI Narrative: This is a 81-year-old male that presents to the emergency department for worsening shortness of breath. Ongoing over the last couple of days. Associated with generalized edema. Denies fever or chest pain. <ALMA Blackman Last Filed: 01/22/22 23:30> Related Data Home Medications: Home Medications Medication Instructions Recorded Confirmed acetaminophen 325 mg capsule 650 mg PO Q6H PRN Pain (Scale 06/08/19 01/30/22 Score 1-3) docusate sodium 100 mg tablet 100 mg PO DAILY PRN Constipation 06/17/19 01/30/22 fluticasone propionate 50 1 spray intranasal DAILY 02/14/21 01/30/22 mcg/actuation nasal spray,suspension (Flonase Allergy Relief) guaifenesin 600 mg tablet, 600 mg PO BID PRN Sinus Symptoms 02/14/21 01/30/22 extended release 12 hr (Mucinex) hydrocodone 5 mg-acetaminophen 325 1 tablet PO Q4H PRN pain 4-6 02/14/21 01/30/22 mg tablet memantine 10 mg tablet 10 mg PO Q12H 11/25/21 01/30/22 galantamine 8 mg 24 hr 8 mg PO DAILY 01/30/22 01/30/22 capsule,extended release <ALMA Blackman Last Filed: 01/22/22 23:30> Allergies/Adverse Reactions: Allergies Allergy/AdvReac Type Severity Reaction Status Date / Time Penicillins Allergy Unknown Rash Verified 01/30/22 15:14 Sulfa (Sulfonamide Allergy Unknown Rash Verified 01/30/22 15:14 Antibiotics) sulfathiazole Allergy Unknown Unknown Verified 01/30/22 15:14 <Drea Begum PA-C - Last Filed: 01/22/22 23:30> Review of Systems Review of Systems: CONSTITUTIONAL: Denies fever CARDIOVASCULAR: Reports edema. Denies chest pain RESPIRATORY: Reports dyspnea. Denies cough <Drea Begum PA-C - Last Filed: 01/22/22 23:30> All systems reviewed & are unremarkable except as noted in HPI and below <Drea Begum PA-C - Last Filed: 01/22/22 23:30> [facility] Past Medical History Medical History: Medical History (Updated 02/03/22 @ 17:49 by Toro Montano MD) Benign prostatic hyperplasia Chronic anticoagulation Chronic atrial fibrillation Chronic atrial flutter Chronic gout without tophus Chronic kidney disease, stage 3 unspecified Chronic right-sided heart failure Echocardiogram on 11/26/2021 showed normal left ventricular chamber size and function with an EF of 65 to 70%, abnormal diastolic function, severely enlarged right ventricular chamber, and reduced right ventricular systolic function. Chronic venous stasis dermatitis Coronary artery disease Dementia Dyslipidemia Gastroesophageal reflux disease Gastrointestinal ulcer Hypertension Pneumonia Rheumatoid arthritis Seizures 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) <Drea Begum PA-C - Last Filed: 01/22/22 23:30> Surgical History Surgical History: Surgical History (Updated 01/30/22 @ 14:07 by Malaika Pulido PA-C) History of cardiac catheterization History of cataract extraction History of right inguinal hernia repair Status post open reduction with internal fixation of fracture (08/2020) Left tibial fracture with interosseous pinning. <Drea Begum PA-C - Last Filed: 01/22/22 23:30> Family History Family History: Family History Father , at age 54 Parkinsons disease Cerebrovascular accident Mother
--- NOTE | 2022-01-22 19:16 | PC.NURSE ---
Assuming care of pt.
[2022-01-22 19:19] LABS: Basophils Absolute Auto 0.1 K/mm3 (0.0-0.1); Eosinophils Absolute Auto 0.1 K/mm3 (0-0.3); Eosinophils Percent Auto 1.6 % (0-4.4); Hematocrit 38.6 % (42.0-52.0); Hemoglobin 11.8 g/dL (14.0-18.0); Immature Granulocyte Absolute 0.08 K/mm3 (0.00-0.031); Lymphocytes Absolute Auto 0.56 K/mm3 (0.9-3.2); Lymphocytes Percent Auto 6.7 % (18.3-44.2); Mean Corpuscular HGB Conc 30.6 g/dl (32-36); Mean Corpuscular Hemoglobin 23.2 pg (26-34); Mean Platelet Volume 9.4 fl (7.4-10.4); Monocytes Absolute Auto 0.6 K/mm3 (0.1-0.6); Monocytes Percent Auto 7.3 % (2.6-8.5); Neutrophils Absolute Auto 6.9 K/mm3 (1.3-6.7); Neutrophils Percent Auto 82.4 % (45.5-73.1); Platelet Count Result 224 k/mm3 (150-375); Red Blood Count 5.08 M/mm3 (4.6-6.20); Red Cell Distribution Width 19.9 % (11.5-14.5); White Blood Count 8.4 K/mm3 (4.5-10.0)
[2022-01-22 19:44] LABS: NT Pro B Type Natriuretic Pept 4930 pg/mL (5-100)
[2022-01-22 19:46] LABS: Alanine Aminotransferase 21 U/L (6-50); Albumin Level 2.5 g/dL (3.5-5.1); Alkaline Phosphatase 95 U/L (38-126); Anion Gap 4 mmol/L (8-16); Aspartate Amino Transferase 33 U/L (17-59); Bilirubin,Total 0.5 mg/dL (0.2-1.3); Blood Urea Nitrogen 47 mg/dL (9-20); Calcium 8.1 mg/dL (8.4-10.2); Carbon Dioxide 28 mmol/L (22-30); Chloride 97 mmol/L (98-107); Estimated CRCL calculation 39 ml/min; Estimated Glomerular Filt Rate 45; Glucose 149 mg/dL (65-110); Potassium 2.8 mmol/L (3.4-5.0); Sodium 129 mmol/L (137-145)
--- NOTE | 2022-01-22 21:19 | PM.IMHP ---
H&P: HPI History of Present Illness Date/Time: 01/22/22 21:19 Chief Complaint: SWELLING Narrative: this is an 81-year-old male with past medical history significant for cor pulmonale, gastroesophageal reflux disease, chronic AFib aflutter, chronic kidney disease, chronic venous stasis dermatitis, coronary artery disease, rheumatoid arthritis,patient resides at assisted living facility. He is brought in today for evaluation due to generalized edema, shortness of breath with minimal activity, patient sleeps in a recliner, he has worsening bilateral lower extremity swelling, denies chest pain, palpitations, dizziness, syncope, or near syncope, this has been progressively getting worse over the course of the last 2 weeks or so denies any chills, rigors, fevers, nausea, vomiting, abdominal pain, or diarrhea. Preliminary workup was significant for chest x-ray with no overt pulmonary edema and stable reticular nodule are opacities, hemoglobin was 11 MCV 75, sodium 129, potassium 2.8. Review of Systems Review of Systems: shortness of breath Constitutional: Constitutional: Denies chills, Denies fever(s), Denies frequent falls, Denies malaise, Denies night sweats, Denies weakness and Reports weight gain Eyes: Eyes: Denies change in vision ENT: Denies dysphagia, Denies vertigo, Denies dizziness, Denies nasal congestion, Denies nasal discharge, Denies nasal obstruction and Denies odynophagia Cardiovascular: Cardiovascular: Denies chest pain, Denies syncope, Reports edema, Denies irregular heart rhythm, Denies lightheadedness, Denies radiating jaw, neck or arm pain, Denies palpitations, Reports dyspnea and Reports dyspnea on exertion Respiratory: Respiratory: Denies change in phlegm color, Denies chest congestion, Denies cough, Denies excessive phlegm production and Reports dyspnea Gastrointestinal: Gastrointestinal: Denies abdominal pain, Denies dyspepsia, Denies heartburn, Denies diarrhea and Denies nausea Genitourinary: Genitourinary: Denies dysuria Musculoskeletal: Musculoskeletal: Reports abnormal gait Integumentary/Breasts: Skin/Breast: Denies rash Neurologic: Denies vertigo, Denies dizziness, Denies focal weakness and Denies Sensory deficit (Neuro) Psychiatric: Psychiatric: Reports no additional psychiatric complaints and Reports as per HPI Endocrine: Endocrine: Denies cold intolerance, Denies fatigue, Denies flushing, Denies heat intolerance, Denies polyphagia, Denies polydipsia and Denies palpitations Hematologic/Lymphatic: Hematologic/Lymphatic: Reports no additional hematologic/lymphatic complaints and Reports as per HPI Allergic/Immunologic: Allergic/Immunologic: Reports no additional allergic/immunologic complaints and Reports as per HPI [facility] Past Medical History Medical History (Updated 01/23/22 @ 03:02 by Shirley Vazquez MD) Blood blister BPH (benign prostatic hyperplasia) Chronic a-fib Chronic atrial flutter Chronic gout without tophus Chronic kidney disease, stage 3 unspecified Chronic right-sided heart failure Echocardiogram November 2019: Normal left ventricular systolic function with EF of 78%, severe enlargement of right ventricle with severe right ventricular hypokinesis, severe enlargement of the right atrium Chronic venous stasis dermatitis Coronary artery disease Dementia Dyslipidemia Gastrointestinal ulcer GERD (gastroesophageal reflux disease) HTN (hypertension) Inguinal hernia Pneumonia Rheumatoid arthritis Seizures 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) Surgical History Surgical History Hx of cardiac catheterization and 2009 Hx of cataract surgery Hx of inguinal hernia repair right Status post open reduction with internal fixation of fracture (~08/2020) left tibial fracture with interosseous pinning Family History Family History (Reviewed 01/14/22 @ 16:43 by Marilin Espinosa, APR
[2022-01-22] MEDS: POTASSIUM CHLORIDE 20 MEQ TABLET 40 MEQ PO (21:20)
[2022-01-22] MEDS: FUROSEMIDE INJ 40 MG/4 ML VIAL IV PUSH (22:26)
[2022-01-22 22:46] LABS: SARS-CoV-2 RNA PCR Negative
[2022-01-23] VITALS (9 sets, daily range): BP systolic 107–139; BP diastolic 62–73; PULSE 54–77; RESP 16–18; TEMP 36.1–36.6; O2SAT 94–99; BMI 34.7
--- NOTE | 2022-01-23 00:02 | ADMGEN ---
This patient, Shaan Landis, was admitted to [facility] Surg Room 332-02. Patient/family oriented to hospital policies and general routines including ID bracelet, bed and alarms, visiting hours, pain management, procedures, bathroom and other care routines, personal items, smoking policy, room service/diet, and visiting hours. Information on how to activate the Rapid Response Team has been discussed. Patient/Family are encouraged to report perceived risks to care and to ask questions if they do not understand what they are told or what they should do.
[2022-01-23 02:32] LABS: INR 1.7; Prothrombin Time 19.5 Seconds (11.1-14.7)
[2022-01-23 02:59] LABS: Anion Gap 3 mmol/L (8-16); Blood Urea Nitrogen 48 mg/dL (9-20); Carbon Dioxide 30 mmol/L (22-30); Chloride 98 mmol/L (98-107); Estimated CRCL calculation 41 ml/min; Estimated Glomerular Filt Rate 49; Glucose 114 mg/dL (65-110); Potassium 2.8 mmol/L (3.4-5.0); Sodium 131 mmol/L (137-145)
[2022-01-23] MEDS: POTASSIUM CHLORIDE INJ 40 MEQ in SODIUM CHLORIDE 0.9% IV 500 ML 130 MEQ IVPB (05:20)
[2022-01-23] MEDS: metOLazone 2.5 MG TABLET PO (08:24)
[2022-01-23] MEDS: FLUTICASONE PROPIONATE 0.05% NA SPR 16 GM BTL (*BKC) 1 SPRAY NASAL (08:24)
[2022-01-23] MEDS: FEBUXOSTAT 40 MG TABLET 80 MG PO (08:25)
[2022-01-23] MEDS: MEMANTINE 10 MG TABLET PO ×2 (08:25→21:42)
[2022-01-23] MEDS: TAMSULOSIN HCL 0.4 MG CAPSULE PO (08:26)
[2022-01-23] MEDS: PANTOPRAZOLE 40 MG TABLET PO ×2 (08:26→17:17)
[2022-01-23] MEDS: FUROSEMIDE INJ 100 MG/10 ML VIAL 80 MG IV PUSH ×2 (08:26→17:16)
[2022-01-23] MEDS: POTASSIUM CHLORIDE 20 MEQ TABLET.ER 40 MEQ PO (08:26)
[2022-01-23] MEDS: FOLIC ACID 1 MG TABLET PO (08:26)
[2022-01-23] MEDS: FINASTERIDE 5 MG TABLET PO (08:26)
--- NOTE | 2022-01-23 13:09 | PM.IMPN ---
Progress Note: A&P Assessment and Plan (1) Acute exacerbation of CHF (congestive heart failure): Code(s): I50.9 - Heart failure, unspecified Status: Acute Assessment and Plan: Monitor vital signs, I&Os, BUN/creatinine, daily weights, neuro status and patient is a fall risk Monitor serum electrolytes, Keep serum Potassium>4 and serum Magnesium>2 and CBC Obtain an Echocardiogram Lasix 40 mg IV q12H Consult cardiology for further management, appreciate assistance and recommendations fluid restriction of 1500 cc daily Ranett catheter inserted (2) Acute hypokalemia: Code(s): E87.6 - Hypokalemia Status: Acute Assessment and Plan: replace as needed Patient has received a total of 80 mEq IVPB of potassium. As well as 40 mEq of Klor-Con. Repeat potassium at 1400. (3) Acute dyspnea: Code(s): R06.00 - Dyspnea, unspecified Status: Acute Assessment and Plan: likely secondary to fluid overload on room air continue to monitor - Slow improvement (4) Atrial flutter: Code(s): I48.92 - Unspecified atrial flutter Status: Acute Assessment and Plan: anticoagulated rate controlled (5) Anasarca: Code(s): R60.1 - Generalized edema Status: Acute Assessment and Plan: likely secondary to decompensated congestive heart failure continue to diurese fluid restriction (6) Acute kidney injury superimposed on chronic kidney disease: Code(s): N17.9 - Acute kidney failure, unspecified; N18.9 - Chronic kidney disease, unspecified Status: Acute Assessment and Plan: likely to be cardiorenal syndrome continue to monitor BUN and creatinine obtain renal ultrasound in a.m. Arnett catheter inserted nephrology consulted, appreciate assistance and recommendations (7) Chronic venous stasis dermatitis: Code(s): I87.2 - Venous insufficiency (chronic) (peripheral) Status: Acute Assessment and Plan: compression stockings (8) Rheumatoid arthritis: Code(s): M06.9 - Rheumatoid arthritis, unspecified Status: Acute Assessment and Plan: unchanged (9) GERD (gastroesophageal reflux disease): Code(s): K21.9 - Gastro-esophageal reflux disease without esophagitis Status: Acute Assessment and Plan: PPI Subjective Date/time seen: 01/23/22 13:09 Interval history: patient is alert and oriented x4. Patient denies any acute respiratory distress. Patient has received aggressive diuresis and has had good urine output. Patient does not require oxygen supplementation. Patient reports that he has been eating tv dinners- healthy choice. he does seem to know about his dietary intake. However a registered dietitian was consulted for further discussion about nutritional needs. Patient's potassium continues to be low at 2.8, he has received a total of 80 mEq IVPB and 40 mEq oral. Repeat potassium will be performed at 2:00 p.m.. At this time the patient denies any chest pain, additional shortness of breath, nausea, vomiting upset stomach or diarrhea. Review of Systems Review of Systems: All systems reviewed & are unremarkable except as noted in HPI and below Exam Narrative: General: No acute distress. Mental Status: Awake, alert and oriented to person, place, and time with clear speech. Skin: Skin in warm, dry and intact without rashes or lesions. Bilateral lower extremity venous stasis dermatitis Head: Normocephalic and atraumatic. Eyes: Conjunctivae are clear without exudates or hemorrhage. Sclera is non-icteric. EOM are intact, PERRLA. Ears: The external ear and canal are non-tender and without swelling or discharge. Nose: Nasal mucosa is pink and moist. Septum midline. Nares patent bilaterally. Throat: Oral mucosa pink and moist with good dentition. Tongue midline. Neck: The neck supple without adenopathy. Trachea midline. No JVD. Cardiac: S1 and S2 regular rate and
--- NOTE | 2022-01-23 13:44 | PM.CNCAR ---
Assessment and Plan Assessment and plan (1) CHF (congestive heart failure): Code(s): I50.9 - Heart failure, unspecified Status: Acute Plan This is an 81-year-old gentleman well known to all of us here at the hospital admitted yet again with symptoms of worsening dyspnea and increasing fluid volume. He says that he gained about 15 lb since his last admission which was obviously a problem. Tried to look at his discharge weight from the last admission but I was not able to find on his EMR. It is reasonable to a once a can advance his furosemide as has been done. His potassium is being supplemented by the primary team. He clearly has underlying dyspnea with and has relatively severe right ventricular dysfunction. As I mentioned in my previous notes with this being the case he he will always have some chronic lower extremity edema that I am sure we will not be able to resolve. There is no strong argument to repeatedly hospitalized him because of edema. We will follow him with you while he is in the hospital. It should be once again mention that despite his symptoms his chest x-ray looks relatively clear of fluid congestion at the time of this admission as it did a week or 2 ago as well. He does have a few crackles at the left base so he may benefit some from additional diuresis. Gregorio Lozano MD [facility] History of Present Illness History of Present Illness Consult date/time: 01/23/22 13:44 Consult reason: congestive heart failure Reason For Visit: Fluid overload, hypokalemia Narrative: This is an 81-year-old man admitted to the hospital with symptoms of shortness of breath and fluid retention. He is well known to me into the doctors in our practice with a history of chronic atrial fibrillation and right ventricular failure. The reader is directed to previous consultation notes. In summary this is an elderly man that I have been following for some time with atrial fibrillation. At his age he has not required any medication for rate control recently. He has been systemically anticoagulated with warfarin. He has had frequent hospitalizations here complaining of shortness of breath and worsening bipedal edema. Recent echocardiography has demonstrated preserved left ventricular systolic function, no significant aortic or mitral valve disease but he does have severe right ventricular dysfunction. At his advanced age in with DNR status I did not recommend or consider aggressive evaluation into his RV failure and further workup of that. Despite being treated in the hospital a number of times with diuresis he is repeatedly readmitted here recently with the same symptoms. He was discharged about 7 days before this admission. He says that he gained about 15 lb since the last discharge and felt poorly again and came back into the hospital yesterday. He has been placed on intravenous furosemide 80 mg q.12 hours which represents doubling of his baseline dosage and he is takes metolazone 2.5 mg daily as well. Of course of concern during this admission is he is now hypokalemic and that is being supplemented by the primary team. Coming in the room to see him this afternoon he is sitting in his bedside chair watching tennis on television says that he feels relatively well at this time. He lives in an assisted living facility as of late and because of the am observing respiratory distress and weakness he was sent back to the emergency room for readmission again yesterday. Review of Systems Constitutional: Constitutional: Reports weakness Eyes: Eyes: Reports no additional eye complaints ENT: Reports system reviewed and no additional complaints, except as documented Cardiovascular: Cardiovascular: Reports as per HPI and Reports leg edema Respiratory: Respiratory: Reports dyspnea on exertion Gastrointestinal: Gastrointestinal: Reports no additional gastrointestinal complaints Musculoskeletal: Musculoskeletal: Reports no additional musculo
[2022-01-23 14:27] LABS: Potassium 3.1 mmol/L (3.4-5.0)
--- NOTE | 2022-01-23 14:37 | PM.CNNEP ---
Assessment and Plan Assessment and plan (1) Chronic kidney disease, stage 3: Code(s): N18.30 - Chronic kidney disease, stage 3 unspecified Status: Chronic Assessment and Plan: creatinine has been running around 1.4 - 1.8mg/dl in the last year (causing him to fluctuate between CKD stage 3A - 3B) likely secondary to HTN, gout, vascular disease, age, and need for diuretics to maintain volume status follow trend of labs and UOP with diuresis (2) Acute exacerbation of CHF (congestive heart failure): Code(s): I50.9 - Heart failure, unspecified Status: Acute Assessment and Plan: apparently a recurrent problem given recent admission/hospitalization 1 - 2 weeks ago Cardiology recommendations noted follow I/Os, daily weights, and respiratory status suspect he likely always have some edema and dyspnea in general (3) Acute hypokalemia: Code(s): E87.6 - Hypokalemia Status: Acute Assessment and Plan: presumably due to ongoing diuresis magnesium okay replete as needed Will continue to follow. History of Present Illness Reason for Consult Consult date: 02/01/22 Reason for consult: chronic renal failure Chief Complaint Chief complaint: Fluid overload, hypokalemia History of Present Illness Narrative: The patient is an 81-year-old male with extensive past medical history is outlined below who presented to [facility] Emergency room for further evaluation of worsening swelling /edema and shortness of breath. From review his records, the patient has had recurrent admissions for the same issue/complaints and usually response to IV diuretic therapy and once his volume status is optimized, he is subsequently discharged to his nursing facility only to return several days later with the same issues/problems. His symptoms, generalized edema, shortness of breath, dyspnea on exertion, all seem to have been progressively getting worse over the last two weeks. He denies any other symptoms with regard to chest pain, palpitations, dizziness, lightheadedness, fevers, chills, nausea, or vomiting. The staff at his residential care facility noted the symptoms and his complaints and subsequently transferred him to the ER for further evaluation. Workup and evaluation emergency room demonstrated the patient to be hemodynamically stable with routine blood test demonstrated his chronic anemia and chronic kidney disease associated with a sodium of 129 and significant hypokalemia with a potassium of 2.8. His chest x-ray did not show any overt pulmonary edema but just showed some stable reticular nodular opacities. his symptoms and findings felt to be a exacerbation of his congestive heart failure and started on IV diuretic therapy with subsequent admission to the hospital. Renal consultation was requested due to his chronic kidney disease. From review his records, his baseline creatinine normally runs around 1.4-1.8 mg/dL placing him at chronic kidney disease stage 3A to 3B. Presumably, his CKD is secondary to hypertension, gout, vascular disease, age related disease, and the necessity of diuretic therapy to maintain his volume status. His renal function appears to be baseline and his fluctuations in the last year so are mainly due to his recurrent hospitalizations and need for IV diuretic therapy much as on this hospitalization/admission. Currently, at the time my visit, he seems to be doing somewhat better in general. Review of Systems Review of Systems: As per HPI. [facility] Past Medical History Medical History (Updated 01/30/22 @ 20:36 by Malaika Pulido PA-C) Benign prostatic hyperplasia Chronic anticoagulation Chronic atrial fibrillation Chronic atrial flutter Chronic gout without tophus Chronic kidney disease, stage 3 unspecified Chronic right-sided heart failure Echocardiogram on 11/26/2021 showed normal left ventricular chamber size and function with an EF of 65 to 7
--- NOTE | 2022-01-23 14:54 | PCNSR ---
On 01/23/22, the student, Solitario Dai, provided care and completed [facility] documentation on this patient. I have reviewed the student's documentation and agree with the findings.
--- NOTE | 2022-01-23 15:05 | PCCCNOTE ---
On 01/23/22, the student, [Bella Gao], provided care and completed [facility] documentation on this patient. I have reviewed the student's documentation and agree with the findings.
[2022-01-23] MEDS: POTASSIUM CHLORIDE 20 MEQ TABLET 40 MEQ PO (17:17)
[2022-01-23] MEDS: WARFARIN (*PBKC) 2 MG TABLET PO (17:17)
[2022-01-23] MEDS: ACETAMINOPHEN 325 MG TABLET 650 MG PO (21:42)
[2022-01-23] MEDS: MELATONIN 5 MG TABLET PO (21:42)
[2022-01-24] VITALS (9 sets, daily range): BP systolic 116–126; BP diastolic 52–87; PULSE 55–73; RESP 16–18; TEMP 36.1–37; O2SAT 95–96
[2022-01-24 06:19] LABS: Basophils Absolute Auto 0.1 K/mm3 (0.0-0.1); Basophils Percent Auto 0.9 % (0.2-1.2); Eosinophils Absolute Auto 0.1 K/mm3 (0-0.3); Eosinophils Percent Auto 1.2 % (0-4.4); Hemoglobin 12.1 g/dL (14.0-18.0); Immature Granulocyte Absolute 0.06 K/mm3 (0.00-0.031); Immature Granulocyte Percent A 0.7 % (0-0.5); Lymphocytes Absolute Auto 0.69 K/mm3 (0.9-3.2); Lymphocytes Percent Auto 8.4 % (18.3-44.2); Mean Corpuscular Hemoglobin 23.5 pg (26-34); Mean Corpuscular Volume 75.7 fl (80-100); Mean Platelet Volume 9.5 fl (7.4-10.4); Monocytes Absolute Auto 0.7 K/mm3 (0.1-0.6); Monocytes Percent Auto 8.8 % (2.6-8.5); Neutrophils Absolute Auto 6.6 K/mm3 (1.3-6.7); Platelet Count Result 238 k/mm3 (150-375); Red Blood Count 5.15 M/mm3 (4.6-6.20); White Blood Count 8.2 K/mm3 (4.5-10.0)
--- NOTE | 2022-01-24 06:44 | PM.IMPN ---
Progress Note: A&P Assessment and Plan (1) Acute exacerbation of CHF (congestive heart failure): Code(s): I50.9 - Heart failure, unspecified Status: Acute Assessment and Plan: Monitor vital signs, I&Os, BUN/creatinine, daily weights, neuro status and patient is a fall risk Monitor serum electrolytes, Keep serum Potassium>4 and serum Magnesium>2 and CBC Obtain an Echocardiogram Lasix 40 mg IV q12H Consulted cardiology for further management, appreciate assistance and recommendations fluid restriction of 1500 cc daily Arnett catheter inserted (2) Acute hypokalemia: Code(s): E87.6 - Hypokalemia Status: Acute Assessment and Plan: replace as needed Patient has received a total of 80 mEq IVPB of potassium. As well as 40 mEq of Klor-Con. Continue to monitor serum electrolytes (3) Acute dyspnea: Code(s): R06.00 - Dyspnea, unspecified Status: Acute Assessment and Plan: likely secondary to fluid overload on room air continue to monitor - improvement (4) Atrial flutter: Code(s): I48.92 - Unspecified atrial flutter Status: Acute Assessment and Plan: anticoagulated rate controlled (5) Anasarca: Code(s): R60.1 - Generalized edema Status: Acute Assessment and Plan: likely secondary to decompensated congestive heart failure continue to diurese fluid restriction (6) Acute kidney injury superimposed on chronic kidney disease: Code(s): N17.9 - Acute kidney failure, unspecified; N18.9 - Chronic kidney disease, unspecified Status: Acute Assessment and Plan: likely to be cardiorenal syndrome continue to monitor BUN and creatinine obtain renal ultrasound in a.m. Arnett catheter inserted nephrology consulted, appreciate assistance and recommendations (7) Chronic venous stasis dermatitis: Code(s): I87.2 - Venous insufficiency (chronic) (peripheral) Status: Acute Assessment and Plan: compression stockings (8) Rheumatoid arthritis: Code(s): M06.9 - Rheumatoid arthritis, unspecified Status: Acute Assessment and Plan: unchanged (9) GERD (gastroesophageal reflux disease): Code(s): K21.9 - Gastro-esophageal reflux disease without esophagitis Status: Acute Assessment and Plan: PPI Subjective Date/time seen: 01/24/22 06:44 Interval history: Patient is alert and oriented morning. He he continues to diurese. Lasix is decreased to 40 mg b.i.d.. Cards and nephrology following. Renal ultrasound revealed no significant abnormalities. Patient will stay for continued diuresis and potential discharge this weekend. Continued work with physical therapy and occupational therapy and discharged to skilled facility. Cardiology's and nephrology notes reviewed. Suggested the patient male with have lower extremity edema and dyspnea and general. Review of Systems Review of Systems: All systems reviewed & are unremarkable except as noted in HPI and below Exam Narrative: General: No acute distress. Mental Status: Awake, alert and oriented to person, place, and time with clear speech. Skin: Skin in warm, dry and intact without rashes or lesions. Bilateral lower extremity venous stasis dermatitis Head: Normocephalic and atraumatic. Eyes: Conjunctivae are clear without exudates or hemorrhage. Sclera is non-icteric. EOM are intact, PERRLA. Ears: The external ear and canal are non-tender and without swelling or discharge. Nose: Nasal mucosa is pink and moist. Septum midline. Nares patent bilaterally. Throat: Oral mucosa pink and moist with good dentition. Tongue midline. Neck: The neck supple without adenopathy. Trachea midline. No JVD. Cardiac: S1 and S2 regular rate and rhythm. No murmurs, gallops, or rubs auscultated. Respiratory: Chest wall symmetric, nontender and without deformity or trauma. Respirations even and unlabored. Lung sounds are diminis
[2022-01-24 06:59] LABS: INR 1.5; Prothrombin Time 17.6 Seconds (11.1-14.7)
[2022-01-24 08:01] LABS: Alanine Aminotransferase 18 U/L (6-50); Albumin Level 2.6 g/dL (3.5-5.1); Alkaline Phosphatase 84 U/L (38-126); Anion Gap 3 mmol/L (8-16); Aspartate Amino Transferase 31 U/L (17-59); Blood Urea Nitrogen 54 mg/dL (9-20); Calcium 8.3 mg/dL (8.4-10.2); Carbon Dioxide 29 mmol/L (22-30); Chloride 103 mmol/L (98-107); Estimated CRCL calculation 36 ml/min; Estimated Glomerular Filt Rate 42; Glucose 114 mg/dL (65-110); Potassium 3.5 mmol/L (3.4-5.0); Sodium 135 mmol/L (137-145)
[2022-01-24] MEDS: POTASSIUM CHLORIDE 20 MEQ TABLET.ER 40 MEQ PO (09:19)
[2022-01-24] MEDS: FEBUXOSTAT 40 MG TABLET 80 MG PO (09:20)
[2022-01-24] MEDS: PANTOPRAZOLE 40 MG TABLET PO ×2 (09:20→17:51)
[2022-01-24] MEDS: metOLazone 2.5 MG TABLET PO (09:20)
[2022-01-24] MEDS: FOLIC ACID 1 MG TABLET PO (09:20)
[2022-01-24] MEDS: TAMSULOSIN HCL 0.4 MG CAPSULE PO (09:20)
[2022-01-24] MEDS: MEMANTINE 10 MG TABLET PO ×2 (09:20→20:26)
[2022-01-24] MEDS: FINASTERIDE 5 MG TABLET PO (09:20)
[2022-01-24] MEDS: FLUTICASONE PROPIONATE 0.05% NA SPR 16 GM BTL (*BKC) 1 SPRAY NASAL (09:21)
[2022-01-24] MEDS: FUROSEMIDE INJ 40 MG/4 ML VIAL IV PUSH ×2 (09:21→17:51)
--- NOTE | 2022-01-24 12:04 | PM.PNCARD ---
Progress Note: A&P Assessment and Plan (1) CHF (congestive heart failure): Code(s): I50.9 - Heart failure, unspecified Status: Acute Assessment and Plan: Presents with rapid weight gain, dyspnea, and lower extremity swelling. Has severe RV dysfunction. As his chest sounds clear and edema is improving will shift him back to oral furosemide starting with tomorrow's a.m. dose. Continue metolazone. Anticipate discharge within the next 24-48 hours if he remains stable. Subjective Date/time seen: 01/24/22 12:04 Interval history: Doing well today. In good spirits but somewhat agitated that he wasn't able to sleep well because of his roommate. Feeling better overall, edema improving. Review of Systems Constitutional: Constitutional: Reports weakness Eyes: Eyes: Reports no additional eye complaints ENT: Reports system reviewed and no additional complaints, except as documented Cardiovascular: Cardiovascular: Reports as per HPI, Reports leg edema and Reports dyspnea on exertion Respiratory: Respiratory: Reports dyspnea on exertion Gastrointestinal: Gastrointestinal: Reports no additional gastrointestinal complaints Musculoskeletal: Musculoskeletal: Reports no additional musculoskeletal complaints Integumentary/Breasts: Skin/Breast: Reports system reviewed and no additional complaints, except as docu Neurologic: Reports system reviewed and no additional complaints, except as documented and Reports weakness Endocrine: Endocrine: Reports no additional endocrine complaints Hematologic/Lymphatic: Hematologic/Lymphatic: Reports no additional hematologic/lymphatic complaints Allergic/Immunologic: Allergic/Immunologic: Reports no additional allergic/immunologic complaints Exam Const: General: comfortable and no acute distress Other: Pleasant gentleman comfortable cooperative no distress HENMT: Mouth: Yes moist mucous membranes Eyes: Sclera: sclerae normal Neck: Neck: supple and JVD Resp: Effort & Inspection: normal respiratory effort Auscultation: clear to auscultation bilaterally Cardio: Rhythm: abnormal rhythm irregularly irregular GI: Auscultation: normal bowel sounds Skin: General skin exam: normal color Neuro: Other: Normal cognition Extrem: Other: Chronic venous stasis changes to bilateral LE Psych: Mental Status: mental status grossly normal Objective Data Vital Signs Vital Signs: Vital Signs - 24 hr 01/23/22 14:00 01/23/22 16:00 01/23/22 20:00 Temperature 36.6 C Pulse Rate 67 60 Respiratory Rate 16 Blood Pressure 122/62 Pulse Oximetry 98 Oxygen Delivery Room Air 01/23/22 22:00 01/23/22 20:00 01/24/22 00:00 Temperature 36.3 C L Pulse Rate 57 L 77 60 Respiratory Rate 18 Blood Pressure 107/62 Pulse Oximetry 95 Oxygen Delivery 01/24/22 04:00 01/23/22 22:35 01/24/22 06:00 Temperature 36.2 C L Pulse Rate 61 65 Respiratory Rate 18 Blood Pressure 126/62 Pulse Oximetry 94 96 Oxygen Delivery Room Air 01/24/22 11:14 Temperature Pulse Rate Respiratory Rate Blood Pressure Pulse Oximetry Oxygen Delivery Room Air Intake/Output Intake/Output: Intake & Output 01/21/22 01/22/22 01/23/22 01/24/22 23:59 23:59 23:59 23:59 Intake Total 1300 240 Output Total 2150 900 Balance -850 -660 Meds/Results Medications: Active Medications Generic Name Dose Route Start Last Admin Trade Name Freq PRN Reason Stop Dose Admin Acetaminophen 650 mg 01/23/22 01:04 01/23/22 21:42 Acetaminophen 325 Mg Tablet PO 650 mg Q6H PRN Administration Pain (Scale Score 1-3) Hydrocodone Bitart/Acetaminophen 1 tab 01/23/22 01:04 Hydrocodone/Acetaminophen (*Crx) 5-325 Mg Tablet PO Q4H PRN pain 4-6 Albuterol 2 puff 01/23/22 01:04 Albuterol Sulfate (*Sp) Aerosol 1 Puff INHALATION Q8H PRN shortness of breath or wheezing Docusate Sodium 100 mg 01/23/22 01:04 Docusate S
--- NOTE | 2022-01-24 12:05 | PM.PNCARD ---
Progress Note: A&P Assessment and Plan (1) CHF (congestive heart failure): Qualifiers: Heart failure chronicity: acute on chronic Heart failure type: right-sided Qualified Code(s): I50.813 - Acute on chronic right heart failure Code(s): I50.9 - Heart failure, unspecified Status: Acute (2) Atrial fibrillation, chronic: Code(s): I48.20 - Chronic atrial fibrillation, unspecified Status: Acute Plan 81-year-old man with: Chronic atrial fibrillation on chronic anticoagulation. He also has chronic right ventricular failure and significant edema. He has been hospitalized multiple times for this. His baseline Lasix regimen has been 40 mg p.o. q.12 hours. He is been placed back on 40 q.12 intravenously. He is improving from this. I suppose I would recommend consider at the time of discharge trying 80 mg once daily which might be more effective at promoting diuresis and keeping him in a state of volume balance. I would not discharge him on the same Lasix regimen since that clearly has not been successful in preventing these frequent readmissions. Gregorio Lozano MD [facility] Subjective Date/time seen: Date of service: 01/24/22 12:05 Interval history: Patient seated in the chair comfortable reports no shortness of breath today. Watching television. Exam Const: General: comfortable and no acute distress HENMT: Mouth: Yes moist mucous membranes Eyes: Sclera: sclerae normal Neck: Other: Mild amount of JVD noted appears to be improved carotid pulses are intact and without bruits. Resp: Effort & Inspection: normal respiratory effort Auscultation: clear to auscultation bilaterally Cardio: Rhythm: abnormal rhythm irregularly irregular GI: GI Palp: Yes Soft to palpation Auscultation: normal bowel sounds Skin: General skin exam: normal color Extrem: General: normal to inspection Other: Changes of chronic venous stasis noted. Edema is clearly improved. Objective Data Vital Signs Vital Signs: Vital Signs - 24 hr 01/23/22 14:00 01/23/22 16:00 01/23/22 20:00 Temperature 36.6 C Pulse Rate 67 60 Respiratory Rate 16 Blood Pressure 122/62 Pulse Oximetry 98 Oxygen Delivery Room Air 01/23/22 22:00 01/23/22 20:00 01/24/22 00:00 Temperature 36.3 C L Pulse Rate 57 L 77 60 Respiratory Rate 18 Blood Pressure 107/62 Pulse Oximetry 95 Oxygen Delivery 01/24/22 04:00 01/23/22 22:35 01/24/22 06:00 Temperature 36.2 C L Pulse Rate 61 65 Respiratory Rate 18 Blood Pressure 126/62 Pulse Oximetry 94 96 Oxygen Delivery Room Air 01/24/22 11:14 Temperature Pulse Rate Respiratory Rate Blood Pressure Pulse Oximetry Oxygen Delivery Room Air Intake/Output Intake/Output: Intake & Output 01/21/22 01/22/22 01/23/22 01/24/22 23:59 23:59 23:59 23:59 Intake Total 1300 240 Output Total 2150 900 Balance -850 -660 Meds/Results Medications: Active Medications Generic Name Dose Route Start Last Admin Trade Name Freq PRN Reason Stop Dose Admin Acetaminophen 650 mg 01/23/22 01:04 01/23/22 21:42 Acetaminophen 325 Mg Tablet PO 650 mg Q6H PRN Administration Pain (Scale Score 1-3) Hydrocodone Bitart/Acetaminophen 1 tab 01/23/22 01:04 Hydrocodone/Acetaminophen (*Crx) 5-325 Mg Tablet PO Q4H PRN pain 4-6 Albuterol 2 puff 01/23/22 01:04 Albuterol Sulfate (*Sp) Aerosol 1 Puff INHALATION Q8H PRN shortness of breath or wheezing Docusate Sodium 100 mg 01/23/22 01:04 Docusate Sodium 100 Mg Capsule PO DAILY PRN Constipation Ergocalciferol 50,000 unit 01/27/22 09:00 Ergocalciferol 50,000 Unit Capsule PO Mo SANAM Febuxostat 80 mg 01/23/22 09:00 01/24/22 09:20 Febuxostat 40 Mg Tablet PO 80 mg DAILY SANAM Administration Finasteride 5 mg 01/23/22 09:00 01/24/22 09:20 Finasteride 5 Mg Tablet PO 5 mg QAM SANAM Administration Fluticasone Propi
--- NOTE | 2022-01-24 12:51 | PM.PNNEP ---
Progress Note: A&P Assessment and Plan (1) Chronic kidney disease, stage 3: Code(s): N18.30 - Chronic kidney disease, stage 3 unspecified Status: Chronic Assessment and Plan: creatinine has been running around 1.4 - 1.8mg/dl in the last year likely secondary to HTN, gout, vascular disease, age, and need for diuretics to maintain volume status follow trend of labs and UOP with diuresis (2) Acute exacerbation of CHF (congestive heart failure): Code(s): I50.9 - Heart failure, unspecified Status: Acute Assessment and Plan: apparently a recurrent problem given recent admission/hospitalization 1 - 2 weeks ago Cardiology recommendations noted follow I/Os, daily weights, and respiratory status suspect he likely always have some edema and dyspnea in general (3) Acute hypokalemia: Code(s): E87.6 - Hypokalemia Status: Acute Assessment and Plan: presumably due to ongoing diuresis magnesium okay replete as needed Will continue to follow. Subjective Date/time seen: 01/24/22 12:51 Appears to be doing quite well at the time of my visit; swelling/edema as well as breathing/respiratory status seems to be improving in comparison to admission; did not sleep well last night (issues with his roommate apparently); no apparent distress noted. Exam Narrative: General: elderly male in NAD Heart: normal S1 and S2; no rub Lungs: clear to auscultation Abdomen: soft, nontender, nondistended, positive bowel sounds Extremities: no cyanosis or clubbing; improved edema Skin: chronic venous stasis changes noted Objective Data Vital Signs Vital Signs: Vital Signs Temp Pulse Resp BP Pulse Ox O2 Del Method 01/24/22 12:00 61 01/24/22 09:20 Room Air 01/24/22 09:20 66 01/24/22 11:14 Room Air 01/24/22 06:00 36.2 C L 65 18 126/62 96 01/23/22 22:35 94 Room Air 01/24/22 04:00 61 01/24/22 00:00 60 01/23/22 20:00 77 01/23/22 22:00 36.3 C L 57 L 18 107/62 95 01/23/22 20:00 Room Air Intake/Output Intake/Output: Intake & Output 06/28/22 01/22/22 01/23/22 01/24/22 23:59 23:59 23:59 23:59 Intake Total 1300 476 Output Total 0438 9329 Balance -850 -0524 Meds/Results Medications: Active Medications Generic Name Dose Route Start Last Admin Trade Name Freq PRN Reason Stop Dose Admin Acetaminophen 650 mg 01/23/22 01:04 01/23/22 21:42 Acetaminophen 325 Mg Tablet PO 650 mg Q6H PRN Administration Pain (Scale Score 1-3) Hydrocodone Bitart/Acetaminophen 1 tab 01/23/22 01:04 Hydrocodone/Acetaminophen (*Crx) 5-325 Mg Tablet PO Q4H PRN pain 4-6 Albuterol 2 puff 01/23/22 01:04 Albuterol Sulfate (*Sp) Aerosol 1 Puff INHALATION Q8H PRN shortness of breath or wheezing Docusate Sodium 100 mg 01/23/22 01:04 Docusate Sodium 100 Mg Capsule PO DAILY PRN Constipation Ergocalciferol 50,000 unit 01/27/22 09:00 Ergocalciferol 50,000 Unit Capsule PO Mo SANAM Febuxostat 80 mg 01/23/22 09:00 01/24/22 09:20 Febuxostat 40 Mg Tablet PO 80 mg DAILY SANAM Administration Finasteride 5 mg 01/23/22 09:00 01/24/22 09:20 Finasteride 5 Mg Tablet PO 5 mg QAM SANAM Administration Fluticasone Propionate 1 spray 01/23/22 09:00 01/24/22 09:21 Fluticasone Propionate 0.05% Na Spr 16 Gm Btl (*Bkc) NASAL 1 spray DAILY SANAM Administration Folic Acid 1 mg 01/23/22 09:00 01/24/22 09:20 Folic Acid 1 Mg Tablet PO 1 mg DAILY SANAM Administration Furosemide 40 mg 01/24/22 09:00 01/24/22 09:21 Furosemide Inj 40 Mg/4 Ml Vial IV PUSH 40 mg BID SANAM Administration Galantamine Hydrobromide 8 mg 01/23/22 09:00 01/24/22 09:21 Galantamine Er 8 Mg Cap BY MOUTH 8 mg QAM SANAM Administration Guaifenesin 600 mg 01/23/22 01:04 Guaifenesin 12 Hr 600 Mg Tabcr PO BID PRN Sinus Sym
--- NOTE | 2022-01-24 15:39 | PCCCNOTE ---
On 01/24/22, the student, [Bella Gao], provided care and completed [facility] documentation on this patient. I have reviewed the student's documentation and agree with the findings.
[2022-01-24] MEDS: WARFARIN (*PBKC) 2 MG TABLET PO (17:51)
[2022-01-24] MEDS: MELATONIN 5 MG TABLET PO (20:26)
[2022-01-25] VITALS: PULSE 60
[2022-01-25] MEDS: ACETAMINOPHEN 325 MG TABLET 650 MG PO (01:28)
[2022-01-25 04:00] VITALS: PULSE 46
[2022-01-25 06:00] VITALS: BP 133/71; PULSE 65; RESP 16; TEMP 36.1; O2SAT 93
[2022-01-25 06:02] LABS: Basophils Absolute Auto 0.1 K/mm3 (0.0-0.1); Basophils Percent Auto 0.9 % (0.2-1.2); Eosinophils Absolute Auto 0.1 K/mm3 (0-0.3); Eosinophils Percent Auto 1.6 % (0-4.4); Hemoglobin 11.6 g/dL (14.0-18.0); Immature Granulocyte Absolute 0.06 K/mm3 (0.00-0.031); Immature Granulocyte Percent A 0.7 % (0-0.5); Lymphocytes Absolute Auto 0.67 K/mm3 (0.9-3.2); Lymphocytes Percent Auto 8.2 % (18.3-44.2); Mean Corpuscular HGB Conc 30.5 g/dl (32-36); Mean Corpuscular Hemoglobin 23.1 pg (26-34); Mean Corpuscular Volume 75.7 fl (80-100); Mean Platelet Volume 9.7 fl (7.4-10.4); Monocytes Absolute Auto 0.7 K/mm3 (0.1-0.6); Monocytes Percent Auto 8.4 % (2.6-8.5); Neutrophils Absolute Auto 6.6 K/mm3 (1.3-6.7); Neutrophils Percent Auto 80.2 % (45.5-73.1); Platelet Count Result 225 k/mm3 (150-375); Red Blood Count 5.02 M/mm3 (4.6-6.20); Red Cell Distribution Width 20.3 % (11.5-14.5); White Blood Count 8.2 K/mm3 (4.5-10.0)
[2022-01-25 06:10] LABS: INR 1.6; Prothrombin Time 18.1 Seconds (11.1-14.7)
[2022-01-25 06:19] LABS: Alanine Aminotransferase 16 U/L (6-50); Albumin Level 2.5 g/dL (3.5-5.1); Alkaline Phosphatase 77 U/L (38-126); Anion Gap 1 mmol/L (8-16); Aspartate Amino Transferase 30 U/L (17-59); Bilirubin,Total 1.3 mg/dL (0.2-1.3); Blood Urea Nitrogen 55 mg/dL (9-20); Carbon Dioxide 30 mmol/L (22-30); Chloride 101 mmol/L (98-107); Estimated CRCL calculation 34 ml/min; Estimated Glomerular Filt Rate 39; Glucose 107 mg/dL (65-110); Potassium 3.1 mmol/L (3.4-5.0); Sodium 132 mmol/L (137-145)
--- NOTE | 2022-01-25 07:13 | PM.DS ---
DS: Admitting Diagnosis Discharge Date 01/25/22 Admitting Diagnosis Acute exacerbation of congestive heart failure DS: Discharge Diagnosis Discharge Diagnosis (1) Acute exacerbation of CHF (congestive heart failure): Code(s): I50.9 - Heart failure, unspecified Status: Acute Assessment and Plan: Monitor vital signs, I&Os, BUN/creatinine, daily weights, neuro status and patient is a fall risk Monitor serum electrolytes, Keep serum Potassium>4 and serum Magnesium>2 and CBC echocardiogram that was performed in November of 2021 revealed an LVEF of 65-70% with an abnormal diastolic dysfunction. Patient also had AD shaped septum in both systole and diastole consistent with right ventricular volume and pressure. Lasix 40 mg IV q12H , transitioned 80 mg Lasix daily Consulted cardiology for further management, appreciate assistance and recommendations fluid restriction of 1500 cc daily Arnett catheter inserted , voiding trial and removed prior to discharge (2) Acute hypokalemia: Code(s): E87.6 - Hypokalemia Status: Acute Assessment and Plan: replace as needed Patient has received a total of 80 mEq IVPB of potassium. As well as 40 mEq of Klor-Con. Continue to monitor serum electrolytes (3) Acute dyspnea: Code(s): R06.00 - Dyspnea, unspecified Status: Acute Assessment and Plan: likely secondary to fluid overload on room air continue to monitor - improvement (4) Atrial flutter: Code(s): I48.92 - Unspecified atrial flutter Status: Acute Assessment and Plan: anticoagulated rate controlled (5) Anasarca: Code(s): R60.1 - Generalized edema Status: Acute Assessment and Plan: likely secondary to decompensated congestive heart failure continue to diurese fluid restriction (6) Acute kidney injury superimposed on chronic kidney disease: Code(s): N17.9 - Acute kidney failure, unspecified; N18.9 - Chronic kidney disease, unspecified Status: Acute Assessment and Plan: likely to be cardiorenal syndrome continue to monitor BUN and creatinine obtain renal ultrasound in a.m. Arnett catheter inserted nephrology consulted, appreciate assistance and recommendations (7) Chronic venous stasis dermatitis: Code(s): I87.2 - Venous insufficiency (chronic) (peripheral) Status: Acute Assessment and Plan: compression stockings (8) Rheumatoid arthritis: Code(s): M06.9 - Rheumatoid arthritis, unspecified Status: Acute Assessment and Plan: unchanged (9) GERD (gastroesophageal reflux disease): Code(s): K21.9 - Gastro-esophageal reflux disease without esophagitis Status: Acute Assessment and Plan: PPI DS: Summary Hospital Course Reason for hospitalization: acute exacerbation of congestive heart failure, diastolic Acute respiratory distress Hypokalemia Hospital Course: patient is an 81-year-old male with a past medical history of significant cor pulmonale, GERD, chronic AFib, CKD, chronic venous stasis dermatitis, CAD, rheumatoid arthritis and shortness of breath. Patient presented from an assisted living facility a at the [facility] for further evaluation due to generalized edema, shortness of breath with minimal activity and worsening bilateral lower extremity swelling. Patient denied any chest pain, palpitations, dizziness, syncope or near syncopal episode. Patient reports that he has progressively become short of breath over the last 2 weeks. Upon further evaluation in the emergency department labs and imaging were obtained. Labs are significant for WBC of 8.4, hemoglobin 11.8, hematocrit 38.6 and platelets 224, sodium 129, potassium 2.8, chloride 97, creatinine 1.5 and BUN of 47. Normal LFTs. Subsequently hospitalist team was consulted for further admission to medical floor with telemetry and Cardiology was consulted for congestive hear
[2022-01-25 08:00] VITALS: PULSE 55
[2022-01-25] MEDS: POTASSIUM CHLORIDE 20 MEQ TABLET.ER 40 MEQ PO (08:21)
[2022-01-25] MEDS: FOLIC ACID 1 MG TABLET PO (08:21)
[2022-01-25] MEDS: FINASTERIDE 5 MG TABLET PO (08:22)
[2022-01-25] MEDS: MEMANTINE 10 MG TABLET PO (08:22)
[2022-01-25] MEDS: FEBUXOSTAT 40 MG TABLET 80 MG PO (08:22)
[2022-01-25] MEDS: TAMSULOSIN HCL 0.4 MG CAPSULE PO (08:22)
[2022-01-25] MEDS: PANTOPRAZOLE 40 MG TABLET PO (08:23)
[2022-01-25] MEDS: metOLazone 2.5 MG TABLET PO (08:24)
[2022-01-25] MEDS: FLUTICASONE PROPIONATE 0.05% NA SPR 16 GM BTL (*BKC) 1 SPRAY NASAL (08:26)
[2022-01-25] MEDS: FUROSEMIDE 40 MG TABLET PO (08:28)
[2022-01-25 14:00] VITALS: BP 125/84; PULSE 79; RESP 18; TEMP 36.3; O2SAT 97
[2022-01-25 14:12] LABS: EDCOVIDSCREEN Negative (Negative)
== END 2022-01-25 14:30 | disposition home health service (06) | DRG 291 ==
LOC: ANHED 18:45 → ANH3MEDSUR 23:07
PROVIDERS: Emergency Medicine; Physician Assistant; Admitting Provider Internal Medicine; Emergency Provider Emergency Medicine; PCP Family Medicine; Visit Provider Nurse Practitioner Family
DX: I13.0 Hypertensive heart and chronic kidney disease with heart failure and stage 1 through stage 4 chronic kidney disease, or unspecified chronic kidney disease (principal); I50.33 Acute on chronic diastolic (congestive) heart failure; N17.9 Acute kidney failure, unspecified; I48.20 Chronic atrial fibrillation, unspecified; I48.92 Unspecified atrial flutter; N18.30 Chronic kidney disease, stage 3 unspecified; Z20.822 Contact with and (suspected) exposure to COVID-19; K21.9 Gastro-esophageal reflux disease without esophagitis; M06.9 Rheumatoid arthritis, unspecified; M06.00 Rheumatoid arthritis without rheumatoid factor, unspecified site; E78.5 Hyperlipidemia, unspecified; F03.90 Unspecified dementia, unspecified severity, without behavioral disturbance, psychotic disturbance, mood disturbance, and anxiety; I25.10 Atherosclerotic heart disease of native coronary artery without angina pectoris; N40.0 Benign prostatic hyperplasia without lower urinary tract symptoms; E87.6 Hypokalemia; I87.2 Venous insufficiency (chronic) (peripheral); Z87.891 Personal history of nicotine dependence; Z66 Do not resuscitate
CPT/HCPCS: 36415; 71045; 71046; 76775; 80048; 80053; 83735; 83880; 84132; 84443; 85025; 85610; 87426; 93005; 94762; 96365; 96366; 96374; 96376; 97161; 97165; 99285; A9270; C9803; G0378; J1940; J3480; J7040; U0003; U0005

== ENCOUNTER 2022-01-30 10:27 | Inpatient (IN) | payer MEDICARE, SELFPAY ==
[2022-01-30] VITALS (24 sets, daily range): BP systolic 111–132; BP diastolic 53–87; PULSE 48–67; RESP 14–25; TEMP 36.1–36.6; O2SAT 96–100; BMI 35.0
--- NOTE | ~2022-01-30 | XR_ITS ---
XR chest 1V portable 01/30/2022 10:55 Indication: Dyspnea Procedure: AP portable chest Comparison: Comparison to multiple prior studies sequentially, with oldest reviewed study dated 12/19/2021. Findings: Moderate cardiomegaly with interstitial edema. No pleural effusion or pneumothorax. There i s atherosclerosis. No acute osseous abnormality. Impression: 1: Moderate cardiomegaly with mild interstitial edema. Reviewed, dictated and finalized at location A. Impression: 1: Moderate cardiomegaly with mild interstitial edema.
--- NOTE | 2022-01-30 10:31 | ECG_ITS ---
Measurements Intervals [place] Rate: 59 P: AL: 0 QRS: 6 QRSD: 122 T: 240 QT: 427 QTc: 423 Interpretive Statements ATRIAL FIBRILLATION WITH SLOW VENTRICULAR RESPONSE VENTRICULAR PREMATURE COMPLEX TYPE 3 BRUGADA PATTERN INTRAVENTRICULAR CONDUCTION DELAY BORDERLINE ST-T WAVE ABNORMALITY- DIFFUSE LEADS ABNORMAL ECG Electronically Signed On 01-30-2022 12:59:54 CDT by Federico Guardado D.O.
[2022-01-30] MEDS: FUROSEMIDE INJ 100 MG/10 ML VIAL 80 MG IV PUSH (10:41)
--- NOTE | 2022-01-30 10:48 | ED.GENADULT ---
HPI - General Adult General Chief complaint: Shortness of Breath/Dyspnea Stated complaint: sob (here last week same - admitted) History of Present Illness HPI narrative: 81-year-old male presents emergency room secondary to shortness of breath. Patient has underlying history of cardiomyopathy and congestive heart failure. Had recent hospitalization for an exacerbation of CHF. He states he is gotten progressively more short of breath over the last few days with a weight gain of about 5 pounds since yesterday. States he is getting more short of breath just with trying to get up and walk around at this point. Also is noted that he is having to sleep in a recliner for the last couple days. He states he been taking Lasix 80 mg per dose. Denies any chest pain. No cough or congestion. No chills or fever. When EMS arrived patient's O2 saturation noted to be 98% on room air. Related Data Home Medications Medication Instructions Recorded Confirmed acetaminophen 325 mg capsule 650 mg PO Q6H PRN Pain (Scale 06/08/19 01/23/22 Score 1-3) docusate sodium 100 mg tablet 100 mg PO DAILY PRN Constipation 06/17/19 01/23/22 fluticasone propionate 50 1 spray intranasal DAILY 02/14/21 01/23/22 mcg/actuation nasal spray,suspension (Flonase Allergy Relief) guaifenesin 600 mg tablet, 600 mg PO BID PRN Sinus Symptoms 02/14/21 01/23/22 extended release 12 hr (Mucinex) hydrocodone 5 mg-acetaminophen 325 1 tablet PO Q4H PRN pain 4-6 02/14/21 01/23/22 mg tablet memantine 10 mg tablet 10 mg PO Q12H 11/25/21 01/23/22 potassium chloride 20 mEq 40 meq PO DAILY 01/14/22 01/23/22 tablet,extended release (K-Tab) warfarin 2.5 mg tablet 2 mg PO DAILY 01/14/22 01/23/22 Allergies Allergy/AdvReac Type Severity Reaction Status Date / Time Penicillins Allergy Unknown Rash Verified 01/30/22 10:34 Sulfa (Sulfonamide Allergy Unknown Rash Verified 01/30/22 10:34 Antibiotics) sulfathiazole Allergy Unknown Unknown Verified 01/30/22 10:34 Review of Systems Review of Systems: CONSTITUTIONAL: Denies fever, chills, or sweats. EYES: Denies visual changes, redness, or discharge. ENT: Denies rhinorrhea, congestion, sore throat, or otalgia. CARDIOVASCULAR: Denies chest pain, palpitations, or edema. RESPIRATORY: Increasing shortness of breath GASTROINTESTINAL: Denies abdominal pain, nausea, vomiting, or diarrhea. GENITOURINARY: Denies dysuria or hematuria. SKIN: Denies rash or itching. MUSCULOSKELETAL: Denies back pain, joint pain, or myalgia. Increasing edema to the entire legs extending to the abdomen NEUROLOGIC: Denies headache, numbness, or weakness. PSYCHIATRIC: Denies anxiety or depression. [facility] Past Medical History Medical History (Updated 01/30/22 @ 13:42 by Silvio Gonzalez DO) Blood blister BPH (benign prostatic hyperplasia) Chronic a-fib Chronic atrial flutter Chronic gout without tophus Chronic kidney disease, stage 3 unspecified Chronic right-sided heart failure Echocardiogram November 2019: Normal left ventricular systolic function with EF of 78%, severe enlargement of right ventricle with severe right ventricular hypokinesis, severe enlargement of the right atrium Chronic venous stasis dermatitis Coronary artery disease Dementia Dyslipidemia Gastrointestinal ulcer GERD (gastroesophageal reflux disease) HTN (hypertension) Inguinal hernia Pneumonia Rheumatoid arthritis Seizures 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) Surgical History Surgical History Hx of cardiac catheterization and 2009 Hx of cataract surgery Hx of inguinal hernia repair right Status post open reduction with internal fixation of fracture (~08/2020) left tibial fracture with interosseous pinning Family History Family History Father , at age 54 Parkinsons disease Cerebrova
[2022-01-30 11:11] LABS: Basophils Absolute Auto 0.1 K/mm3 (0.0-0.1); Basophils Percent Auto 0.9 % (0.2-1.2); Eosinophils Absolute Auto 0.1 K/mm3 (0-0.3); Eosinophils Percent Auto 1.1 % (0-4.4); Hematocrit 37.7 % (42.0-52.0); Hemoglobin 11.7 g/dL (14.0-18.0); Immature Granulocyte Absolute 0.07 K/mm3 (0.00-0.031); Immature Granulocyte Percent A 0.8 % (0-0.5); Lymphocytes Absolute Auto 0.59 K/mm3 (0.9-3.2); Lymphocytes Percent Auto 6.8 % (18.3-44.2); Mean Corpuscular Hemoglobin 23.1 pg (26-34); Mean Corpuscular Volume 74.4 fl (80-100); Mean Platelet Volume 9.3 fl (7.4-10.4); Monocytes Absolute Auto 0.7 K/mm3 (0.1-0.6); Monocytes Percent Auto 7.6 % (2.6-8.5); Neutrophils Absolute Auto 7.2 K/mm3 (1.3-6.7); Neutrophils Percent Auto 82.8 % (45.5-73.1); Platelet Count Result 249 k/mm3 (150-375); Red Blood Count 5.07 M/mm3 (4.6-6.20); Red Cell Distribution Width 20.1 % (11.5-14.5); White Blood Count 8.7 K/mm3 (4.5-10.0)
[2022-01-30 11:25] LABS: Influenza A QL RT-PCR Negative (Negative); Influenza B QL RT-PCR Negative (Negative); SARS-CoV-2 RNA PCR Negative
[2022-01-30 11:33] LABS: Alanine Aminotransferase 19 U/L (6-50); Albumin Level 2.6 g/dL (3.5-5.1); Alkaline Phosphatase 76 U/L (38-126); Anion Gap 2 mmol/L (8-16); Aspartate Amino Transferase 31 U/L (17-59); Bilirubin,Total 0.6 mg/dL (0.2-1.3); Blood Urea Nitrogen 53 mg/dL (9-20); Calcium 8.1 mg/dL (8.4-10.2); Carbon Dioxide 29 mmol/L (22-30); Chloride 99 mmol/L (98-107); Estimated Glomerular Filt Rate 39; Glucose 113 mg/dL (65-110); Potassium 3.5 mmol/L (3.4-5.0); Sodium 130 mmol/L (137-145)
[2022-01-30 11:41] LABS: NT Pro B Type Natriuretic Pept 4600 pg/mL (5-100)
[2022-01-30 11:44] LABS: Platelet Estimate Adequate (Adequate)
[2022-01-30 11:45] LABS: Anisocytosis 1+ (NORMAL); Poikilocytosis 1+ (NORMAL)
[2022-01-30 13:41] LABS: Troponin I 0.071 ng/mL (0.000-0.034)
--- NOTE | 2022-01-30 13:45 | PM.IMHP ---
H&P: HPI History of Present Illness Date/Time: 01/30/22 13:45 Chief Complaint: Shortness of breath. Narrative: This is a pleasant 81-year-old male with right-sided heart failure, chronic atrial fibrillation, chronic kidney disease, hypertension, and other comorbidities who presented to the emergency department via EMS from [facility] for evaluation of shortness of breath. He has been admitted to the hospital several times this year for his congestive heart failure and most recently he was discharged this past Thursday on 01/25/2022 after being treated for the same. Dr. Lozano saw him during his most recent stay and recommended fluid restriction of 1500 mL a day and his Lasix was increased to 80 mg daily. He was feeling okay on day of discharge and he has been compliant with his fluid restriction diet and his medications. Over the past 24 hours he has had increasing shortness of breath with lesser and lesser exertion and he also endorses a 5 lb weight gain in the last day. He has slept in a recliner for many years and he has not noticed feeling more short of breath at nighttime than usual. Chest x-ray showed mild interstitial edema and given his symptoms I was asked to admit him for IV diuresis. Currently he has no complaints and denies fever, chills, sweats, chest pain, pleuritic pain, palpitations, shortness breath nausea, and vomiting. Review of Systems Review of Systems: Twelve systems were reviewed. No cold or flu symptoms. No sick contacts. Appetite has been good. No nausea, vomiting, diarrhea, or dysuria. Except as documented, all other systems were reviewed and are negative. [facility] Past Medical History Medical History (Updated 01/30/22 @ 20:36 by Malaika Pulido PA-C) Benign prostatic hyperplasia Chronic anticoagulation Chronic atrial fibrillation Chronic atrial flutter Chronic gout without tophus Chronic kidney disease, stage 3 unspecified Chronic right-sided heart failure Echocardiogram on 11/26/2021 showed normal left ventricular chamber size and function with an EF of 65 to 70%, abnormal diastolic function, severely enlarged right ventricular chamber, and reduced right ventricular systolic function. 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 Family History Family History Father , at age 54 Parkinsons disease Cerebrovascular accident Mother , in her 80s Hypertension Cerebrovascular accident Essential hypertension Hypothyroidism Heart disease Sibling Coronary artery disease Social History Social History (Updated 01/30/22 @ 20:25 by Malaika Pulido PA-C) Social History: The patient is single with no children; he has never been . He lives in assisted living at [facility]. 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 Pipe smoker through the . No alcohol or illicit substance abuse. Healthcare power of transactional attorney: Timoteo and Lexi Rico (cousins). Code status: Full code. Spiritual care concerns: No Meds Home Medications and Allergies Home Medications Medication Instructions Recorded Confirmed Type acetaminophen 325 mg capsule 650 mg PO Q6H PRN Pain (Scale 06/08/19 01/30/22 History Score 1-3) docusate sodium 100 mg tablet 100 mg PO DAILY PRN Constipation 06/17/19 01/30/22 History fluticasone propionate 50 1 sp
--- NOTE | 2022-01-30 14:33 | PC.NURSE ---
Nicolette at [facility] given update
--- NOTE | 2022-01-30 14:51 | ADMGEN ---
This patient, Shaan Landis, was admitted to [facility] Surg Room 316-02. Patient/family oriented to hospital policies and general routines including ID bracelet, bed and alarms, visiting hours, pain management, procedures, bathroom and other care routines, personal items, smoking policy, room service/diet, and visiting hours. Information on how to activate the Rapid Response Team has been discussed. Patient/Family are encouraged to report perceived risks to care and to ask questions if they do not understand what they are told or what they should do.
[2022-01-30] MEDS: MEMANTINE 10 MG TABLET PO (21:32)
[2022-01-30] MEDS: POTASSIUM CHLORIDE 20 MEQ TABLET PO (21:33)
[2022-01-30 21:34] LABS: Prealbumin 20.7 mg/dL (17.6-36.0)
[2022-01-30 21:41] LABS: Troponin I 0.078 ng/mL (0.000-0.034)
[2022-01-30 22:49] LABS: Prothrombin Time 21.9 Seconds (11.1-14.7)
[2022-01-30 22:50] LABS: Partial Thromboplastin Time 36.4 SECONDS (22.3-36.8)
[2022-01-30] MEDS: ACETAMINOPHEN 325 MG TABLET 650 MG PO (23:29)
[2022-01-31] VITALS (9 sets, daily range): BP systolic 118–126; BP diastolic 43–80; PULSE 50–64; RESP 16–18; TEMP 35.6–36.1; O2SAT 98–100
[2022-01-31 06:19] LABS: Hematocrit 38.8 % (42.0-52.0); Hemoglobin 11.7 g/dL (14.0-18.0); Mean Corpuscular HGB Conc 30.2 g/dl (32-36); Mean Corpuscular Hemoglobin 23.1 pg (26-34); Mean Corpuscular Volume 76.5 fl (80-100); Mean Platelet Volume 9.5 fl (7.4-10.4); Platelet Count Result 232 k/mm3 (150-375); Red Blood Count 5.07 M/mm3 (4.6-6.20); Red Cell Distribution Width 20.1 % (11.5-14.5); White Blood Count 6.8 K/mm3 (4.5-10.0)
[2022-01-31 06:39] LABS: Anion Gap 1 mmol/L (8-16); Blood Urea Nitrogen 54 mg/dL (9-20); Carbon Dioxide 31 mmol/L (22-30); Chloride 99 mmol/L (98-107); Estimated CRCL calculation 34 ml/min; Estimated Glomerular Filt Rate 39; Glucose 99 mg/dL (65-110); Magnesium 1.9 mg/dL (1.6-2.3); Potassium 3.1 mmol/L (3.4-5.0); Sodium 131 mmol/L (137-145)
[2022-01-31] MEDS: FLUTICASONE PROPIONATE 0.05% NA SPR 16 GM BTL (*BKC) 1 SPRAY NASAL (08:06)
[2022-01-31] MEDS: POTASSIUM CHLORIDE 20 MEQ TABLET.ER 40 MEQ PO (08:07)
[2022-01-31] MEDS: metOLazone 2.5 MG TABLET PO (08:07)
[2022-01-31] MEDS: TAMSULOSIN HCL 0.4 MG CAPSULE PO (08:07)
[2022-01-31] MEDS: FEBUXOSTAT 40 MG TABLET 80 MG PO (08:07)
[2022-01-31] MEDS: PANTOPRAZOLE 40 MG TABLET PO ×2 (08:08→20:37)
[2022-01-31] MEDS: FINASTERIDE 5 MG TABLET PO (08:08)
[2022-01-31] MEDS: MEMANTINE 10 MG TABLET PO ×2 (08:08→20:37)
[2022-01-31] MEDS: FUROSEMIDE INJ 40 MG/4 ML VIAL IV PUSH ×2 (08:09→16:20)
[2022-01-31] MEDS: FOLIC ACID 1 MG TABLET PO (08:09)
--- NOTE | 2022-01-31 11:04 | PCDIET ---
Pt was educated on how to incorporate more protein rich foods into his diet by incorporating higher protein food options to his normal diet. Pt showed a very good understanding of why protein intake was important and made some of his own suggestions that he could implement to increase his daily protein intake. He reported no recent wt loss, a good appetite, and is eating 100% of meals.
--- NOTE | 2022-01-31 14:01 | PCNSR ---
On 01/31/22, the student, Solitario Dai, provided care and completed [facility] documentation on this patient. I have reviewed the student's documentation and agree with the findings.
--- NOTE | 2022-01-31 14:39 | PM.IMPN ---
Progress Note: A&P Assessment and Plan (1) 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: Code(s): I50.813 - Acute on chronic right heart failure Status: Acute Assessment and Plan: He has been hospitalized several times this year for the same situation. He had a positive apnea link screen on 01/25/22. Echo reviewed showing predominately Right Heart failure. Most recently was discharged for the same issue on 01/25/22. He was on Lasix 40mg BID and discharged on 80mg daily. Metolazone was continued. Since that time he has had a 5 lb weight gain with increasing edema and shortness of breath. He received Lasix 80mg IV in ED. He is grossly fluid overloaded. CXR showing moderate cardiomegaly with mild interstitial edema. BNP 4600. Good diuresis with Lasix 40mg IV BID. Will need a slow diuresis. Advance metolazone. Monitor for HoTN since he might be pre-load dependent. [place] hose if possible. (2) Chronic kidney disease, stage 3: Code(s): N18.30 - Chronic kidney disease, stage 3 unspecified Status: Chronic Assessment and Plan: BUN runs in the 30-40 range with baseline creatinine 1.3-1.7. BUN and creatinine are right around his baseline on admission. Levels are stable today. Tolerating diuresis. Good urine output. Monitor renal function closely. (3) Elevated troponin: Code(s): R77.8 - Other specified abnormalities of plasma proteins Status: Acute Assessment and Plan: Troponin elevated at 0.07 but flat. He has a chronic troponin leak and at this time he is having no active symptoms to suggest acute coronary syndrome. EKG showing AFib with slow ventricular response, PVCs, Type [address]-T wave changes. No place for further evaluation at this time. (4) Chronic atrial fibrillation: Code(s): I48.20 - Chronic atrial fibrillation, unspecified Status: Acute Assessment and Plan: Patient with chronic atrial fib. Currently in atrial fibrillation with controlled rate. Not on rate controlling agents. Follow on tele. 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 INR therapeutic. Continue warfarin. Subjective Date/time seen: 01/31/22 14:39 Interval history: 81yo male with right heart failure, cAFib, CKD and HTN here for shortness of breath. Patient is feeling better. He feels slightly short of breath sitting up in the chair today. He is able to walk to the bathroom with minimal dyspnea on exertion. No chest pain or lightheadedness. Exam Narrative: AF 96.3 122/60 55 18 100% ra Gen - NARD sitting up in a chair Chest -mild bibasilar inspiratory crackles CV -irregularly irregular. S1-S2.Tele showing occasional bradycardia with 4 bet run of NSVT Abd - Soft, NT/ND, Positive BS, abdominal wall edmea Back - sacral edema Ext - pitting pedal edema to the flanks bilaterally Psych - Nml mood and affect. in good spirits Skin - Warm and dry Objective Data Vital Signs Vital Signs: Vital Signs - 24 hr 01/30/22 14:52 01/30/22 15:00 01/30/22 16:00 Temperature 97.0 F L Pulse Rate 55 L 48 L Respiratory Rate 18 Blood Pressure 129/54 L Pulse Oximetry 100 Oxygen Delivery Room Air 01/30/22 22:00 01/30/22 20:00 01/31/22 06:00 Temperature 97.1 F L 96.0 F L Pulse Rate 61 63 Respiratory Rate 20 18 Blood Pressure 111/53 L 126/80 Pulse Oximetry 96 98 Oxygen Delivery Room Air 01/30/22 20:00 01/31/22 00:00 01/31/22 04:00 Temperature Pulse Rate 58 L 61 64 Respiratory Rate Blood Pressure Pulse Oximetry Oxygen Delivery 01/31/22 08:00 01/31/22 13:28 01/30/22 15:15 Temperature 96.3 F L 97.0 F L Pulse Rate 58 L 55 L 55 L Respiratory Rate 18 18 Blood Pressure 122/60 129/54 L Pulse Oximetry 100 100 Oxygen Delivery Intake/Output Intake/Output: Intake & Output 01/28/22
[2022-01-31] MEDS: POTASSIUM CHLORIDE 20 MEQ TABLET PO (15:29)
[2022-01-31] MEDS: WARFARIN (*PBKC) 2 MG TABLET PO (16:19)
[2022-01-31] MEDS: ACETAMINOPHEN 325 MG TABLET 650 MG PO (16:19)
[2022-02-01] VITALS (8 sets, daily range): BP systolic 110–116; BP diastolic 39–60; PULSE 51–77; RESP 16–20; TEMP 35.9–36.7; O2SAT 97–99
[2022-02-01 06:50] LABS: Hematocrit 38.3 % (42.0-52.0); Hemoglobin 11.9 g/dL (14.0-18.0); Mean Corpuscular HGB Conc 31.1 g/dl (32-36); Mean Corpuscular Hemoglobin 23.2 pg (26-34); Mean Corpuscular Volume 74.5 fl (80-100); Mean Platelet Volume 9.6 fl (7.4-10.4); Platelet Count Result 226 k/mm3 (150-375); Red Blood Count 5.14 M/mm3 (4.6-6.20); Red Cell Distribution Width 20.1 % (11.5-14.5); White Blood Count 7.3 K/mm3 (4.5-10.0)
[2022-02-01 06:59] LABS: Albumin Level 2.4 g/dL (3.5-5.1); Anion Gap 5 mmol/L (8-16); Blood Urea Nitrogen 57 mg/dL (9-20); Carbon Dioxide 27 mmol/L (22-30); Chloride 97 mmol/L (98-107); Estimated CRCL calculation 36 ml/min; Estimated Glomerular Filt Rate 42; Glucose 97 mg/dL (65-110); Phosphorus 3.4 mg/dL (2.5-4.5); Sodium 129 mmol/L (137-145)
[2022-02-01] MEDS: FEBUXOSTAT 40 MG TABLET 80 MG PO (09:39)
[2022-02-01] MEDS: POTASSIUM CHLORIDE 20 MEQ TABLET 40 MEQ PO (09:39)
[2022-02-01] MEDS: MEMANTINE 10 MG TABLET PO ×2 (09:39→20:33)
[2022-02-01] MEDS: PANTOPRAZOLE 40 MG TABLET PO ×2 (09:40→20:33)
[2022-02-01] MEDS: FUROSEMIDE INJ 40 MG/4 ML VIAL IV PUSH ×2 (09:40→17:17)
[2022-02-01] MEDS: FLUTICASONE PROPIONATE 0.05% NA SPR 16 GM BTL (*BKC) 1 SPRAY NASAL (09:40)
[2022-02-01] MEDS: FINASTERIDE 5 MG TABLET PO (09:40)
[2022-02-01] MEDS: TAMSULOSIN HCL 0.4 MG CAPSULE PO (09:40)
[2022-02-01] MEDS: FOLIC ACID 1 MG TABLET PO (09:40)
[2022-02-01] MEDS: metOLazone 5 MG TABLET PO (09:41)
[2022-02-01] MEDS: DOCUSATE SODIUM 100 MG CAPSULE PO (09:44)
[2022-02-01] MEDS: POTASSIUM CHLORIDE 20 MEQ TABLET.ER 40 MEQ PO (11:50)
--- NOTE | 2022-02-01 12:08 | PM.IMPN ---
Progress Note: A&P Assessment and Plan (1) 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: Code(s): I50.813 - Acute on chronic right heart failure Status: Acute Assessment and Plan: He has been hospitalized several times this year for the same situation. He had a positive apnea link screen (AHI35, RI 35) on 01/25/22 but not hypoxic. Echo 11/26 reviewed showing predominately Right Heart failure. Most recently was discharged for the same issue on 01/25/22. He was on Lasix 40mg BID and discharged on 80mg daily. Metolazone was continued. Since that time he has had a 5 lb weight gain with increasing edema and shortness of breath. He received Lasix 80mg IV in ED. CXR showing moderate cardiomegaly with mild interstitial edema. BNP 4600. Good diuresis with Lasix 40mg IV BID. He remains grossly fluid overloaded but symptomatically improving. Can not tolerate Austin hose. Will need a slow diuresis. BP noted. Continue fluid restriction. Monitor for HoTN since he might be pre-load dependent. (2) Chronic kidney disease, stage 3: Code(s): N18.30 - Chronic kidney disease, stage 3 unspecified Status: Chronic Assessment and Plan: BUN runs in the 30-40 range with baseline creatinine 1.3-1.7. BUN higher today related to the diuresis but creatinine within his baseline. Tolerating diuresis. Good urine output. Monitor renal function closely. (3) Elevated troponin: Code(s): R77.8 - Other specified abnormalities of plasma proteins Status: Acute Assessment and Plan: Troponin elevated at 0.07 but flat. He has a chronic troponin leak and at this time he is having no active symptoms to suggest acute coronary syndrome. EKG showing AFib with slow ventricular response, PVCs, Type [address]-T wave changes. No plans for further evaluation at this time. (4) Chronic atrial fibrillation: Code(s): I48.20 - Chronic atrial fibrillation, unspecified Status: Acute Assessment and Plan: Patient with chronic atrial fib. Currently in atrial fibrillation with controlled rate. Not on rate controlling agents. Okay to stop tele. (5) Chronic anticoagulation: Code(s): Z79.01 - [facility] (current) use of anticoagulants Status: Acute Assessment and Plan: Stable. INR therapeutic. Continue warfarin. Plan DVT prophylaxis: Coumadin Code status: Full Subjective Date/time seen: 02/01/22 12:08 Interval history: 81yo male with right heart failure, cAFib, CKD and HTN here for shortness of breath. Less SOB with exertion. Legs feel less tight. No lightheadedness with standing. No chest pain. Exam Narrative: AF 97.8 112/39 52 16 97% ra Gen - NARD sitting up in a chair Chest -few basilar inspiratory rhonchi otherwise clear. CV -irregularly irregular. S1-S2.Tele showing PVCs and controlled AFib Abd - Soft, NT/ND, Positive BS, abdominal wall edema Back - sacral edema Ext - pitting pedal edema to the flanks bilaterally Psych - Nml mood and affect. in good spirits Skin - Warm and dry Objective Data Vital Signs Vital Signs: Vital Signs - 24 hr 01/31/22 13:28 01/31/22 16:00 01/31/22 21:43 Temperature 96.3 F L 96.9 F L Pulse Rate 55 L 53 L 50 L Respiratory Rate 18 16 Blood Pressure 122/60 118/43 L Pulse Oximetry 100 99 Oxygen Delivery 01/31/22 20:00 02/01/22 00:00 02/01/22 05:50 Temperature 97.8 F Pulse Rate 52 L 54 L 52 L Respiratory Rate 16 Blood Pressure 112/39 L Pulse Oximetry 97 Oxygen Delivery 02/01/22 04:00 02/01/22 07:47 02/01/22 09:55 Temperature Pulse Rate 65 Respiratory Rate Blood Pressure Pulse Oximetry Oxygen Delivery Room Air Room Air 02/01/22 10:10 Temperature Pulse Rate Respiratory Rate Blood Pressure Pulse Oximetry Oxygen Delivery Room Air Intake/Output Intake/Output: Intake & Output 01/29/22 01/30/22 01/31/22 02/01/22 23:59 23:59 23:59 23:59
[2022-02-01 13:27] LABS: Estimated CRCL calculation 39 ml/min; Estimated Glomerular Filt Rate 45
[2022-02-01 13:28] LABS: INR 1.5; Prothrombin Time 17.7 Seconds (11.1-14.7)
[2022-02-01] MEDS: WARFARIN (*PBKC) 2 MG TABLET PO (17:17)
[2022-02-01] MEDS: ACETAMINOPHEN 325 MG TABLET 650 MG PO (22:22)
[2022-02-02 05:36] VITALS: BP 115/74; PULSE 57; RESP 17; TEMP 36.6; O2SAT 94
[2022-02-02 07:02] LABS: Anion Gap 3 mmol/L (8-16); Blood Urea Nitrogen 59 mg/dL (9-20); Calcium 8.1 mg/dL (8.4-10.2); Carbon Dioxide 30 mmol/L (22-30); Chloride 99 mmol/L (98-107); Estimated CRCL calculation 36 ml/min; Estimated Glomerular Filt Rate 42; Glucose 102 mg/dL (65-110); Potassium 3.1 mmol/L (3.4-5.0); Sodium 132 mmol/L (137-145)
[2022-02-02] MEDS: FLUTICASONE PROPIONATE 0.05% NA SPR 16 GM BTL (*BKC) 1 SPRAY NASAL (08:18)
[2022-02-02] MEDS: FEBUXOSTAT 40 MG TABLET 80 MG PO (08:18)
[2022-02-02] MEDS: PANTOPRAZOLE 40 MG TABLET PO ×2 (08:18→22:06)
[2022-02-02] MEDS: POTASSIUM CHLORIDE 20 MEQ TABLET.ER 40 MEQ PO ×2 (08:18→17:04)
[2022-02-02] MEDS: FUROSEMIDE INJ 40 MG/4 ML VIAL 60 MG IV PUSH ×2 (08:19→17:03)
[2022-02-02] MEDS: MEMANTINE 10 MG TABLET PO ×2 (08:19→22:07)
[2022-02-02] MEDS: TAMSULOSIN HCL 0.4 MG CAPSULE PO (08:19)
[2022-02-02] MEDS: FOLIC ACID 1 MG TABLET PO (08:19)
[2022-02-02] MEDS: FINASTERIDE 5 MG TABLET PO (08:19)
[2022-02-02] MEDS: metOLazone 5 MG TABLET PO (08:20)
[2022-02-02 09:21] LABS: INR 1.4; Prothrombin Time 16.9 Seconds (11.1-14.7)
[2022-02-02] MEDS: ACETAMINOPHEN 325 MG TABLET 650 MG PO (10:59)
[2022-02-02 14:00] VITALS: BP 120/58; PULSE 58; RESP 20; TEMP 35.7; O2SAT 100
--- NOTE | 2022-02-02 17:34 | PM.IMPN ---
Progress Note: A&P Assessment and Plan (1) 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: Code(s): I50.813 - Acute on chronic right heart failure Status: Acute Assessment and Plan: He has been hospitalized several times this year for the same situation. He had a positive apnea link screen (AHI35, RI 35) on 01/25/22 but not hypoxic. Echo 11/26 reviewed showing predominately Right Heart failure.? Most recently was discharged for the same issue on 01/25/22. He was on Lasix 40mg BID and discharged on 80mg daily. Metolazone was continued. It seems he had trouble filling his medications and was off his Lasix for a few days. Since that time he has had a 5 lb weight gain with increasing edema and shortness of breath. CXR showing moderate cardiomegaly with mild interstitial edema. BNP 4600. He received Lasix 80mg IV in ED. Good diuresis with Lasix 40mg IV BID but he remains grossly fluid overloaded. Metolazone advanced. Symptomatically improving but still overloaded. Renal function stable. Can not tolerate Austin hose. Advance Lasix. Potassium still low so will advance oral potassium as well. (2) Chronic kidney disease, stage 3: Code(s): N18.30 - Chronic kidney disease, stage 3 unspecified Status: Chronic Assessment and Plan: BUN runs in the 30-40 range with baseline creatinine 1.3-1.7. BUN higher today related to the diuresis but creatinine within his baseline. Tolerating diuresis.? Good urine output.? Monitor renal function closely. (3) Elevated troponin: Code(s): R77.8 - Other specified abnormalities of plasma proteins Status: Acute Assessment and Plan: Troponin elevated at 0.07 but flat. He has a chronic troponin leak and at this time he is having no active symptoms to suggest acute coronary syndrome. EKG showing AFib with slow ventricular response, PVCs, Type [address]-T wave changes.? No need for further evaluation at this time. (4) Chronic atrial fibrillation: Code(s): I48.20 - Chronic atrial fibrillation, unspecified Status: Acute Assessment and Plan: Patient with chronic atrial fib. Currently in atrial fibrillation with controlled rate. Not on rate controlling agents. INR is subtherapeutic now. Extra Coumadin today. Plan DVT prophylaxis:? Coumadin Code status: Full Subjective Date/time seen: 02/02/22 17:34 Interval history: 81yo male with right heart failure, cAFib, CKD and HTN here for shortness of breath. No problems overnight. Voiding well. Denies chest pain or shortness of breath. Less dyspnea on exertion. He is up walking to the bathroom. Exam Narrative: AF ? 96.3 120/58 58 20 100% ra Gen - NARD sitting up in a chair Chest - left basilar inspiratory rhonchi otherwise clear. CV -irregularly irregular.? S1-S2 Abd - Soft, NT/ND, Positive BS, abdominal wall edema Back - sacral edema Ext - pitting pedal edema to the flanks bilaterally Psych - Nml mood and affect. in good spirits Skin - Warm and dry Objective Data Vital Signs Vital Signs: Vital Signs - 24 hr 02/01/22 22:00 02/01/22 22:19 02/02/22 05:36 Temperature 98.1 F 97.9 F Pulse Rate 54 L 57 L Respiratory Rate 16 17 Blood Pressure 110/51 L 115/74 Pulse Oximetry 98 97 94 Oxygen Delivery Room Air 02/02/22 08:20 02/02/22 14:00 Temperature 96.3 F L Pulse Rate 58 L Respiratory Rate 20 Blood Pressure 120/58 L Pulse Oximetry 100 Oxygen Delivery Room Air Intake/Output Intake/Output: Intake & Output 01/30/22 01/31/22 02/01/22 02/02/22 23:59 23:59 23:59 23:59 Intake Total 300 2730 1200 480 Output Total 1325 2000 1200 1425 Balance -1025 730 0 -945 Meds/Results Medications: Active Medications Generic Name Dose Route Start Last Admin Trade Name Freq PRN Reason Stop Dose Admin Acetaminophen 650 mg 01/30/22 20:42 02/02/22 10:59 Acetaminophen 325 Mg Tablet PO 650 mg Q6H PRN Administration Pain
[2022-02-02] MEDS: WARFARIN (*PBKC) 3 MG TABLET PO (18:09)
[2022-02-02] MEDS: WARFARIN (*PBKC) 2 MG TABLET PO (18:09)
[2022-02-02 22:00] VITALS: BP 102/54; PULSE 57; RESP 16; TEMP 35.6; O2SAT 96
[2022-02-03] MEDS: HYDROcodone/acetaminophen (*CRX) 5-325 MG TABLET 1 TAB PO ×2 (03:17→08:56)
[2022-02-03 06:00] VITALS: BP 128/56; PULSE 68; RESP 17; TEMP 36.1; O2SAT 99
[2022-02-03 06:38] LABS: Hematocrit 37.9 % (42.0-52.0); Hemoglobin 11.6 g/dL (14.0-18.0); Mean Corpuscular HGB Conc 30.6 g/dl (32-36); Mean Corpuscular Hemoglobin 23.1 pg (26-34); Mean Corpuscular Volume 75.5 fl (80-100); Mean Platelet Volume 9.7 fl (7.4-10.4); Platelet Count Result 221 k/mm3 (150-375); Red Blood Count 5.02 M/mm3 (4.6-6.20); Red Cell Distribution Width 19.9 % (11.5-14.5); White Blood Count 7.6 K/mm3 (4.5-10.0)
[2022-02-03 06:59] LABS: Albumin Level 2.5 g/dL (3.5-5.1); Anion Gap 4 mmol/L (8-16); Blood Urea Nitrogen 58 mg/dL (9-20); Carbon Dioxide 31 mmol/L (22-30); Chloride 99 mmol/L (98-107); Estimated CRCL calculation 38 ml/min; Estimated Glomerular Filt Rate 45; Glucose 103 mg/dL (65-110); Magnesium 1.8 mg/dL (1.6-2.3); Phosphorus 3.3 mg/dL (2.5-4.5); Potassium 2.9 mmol/L (3.4-5.0); Sodium 134 mmol/L (137-145)
[2022-02-03 07:17] LABS: Iron 24 ug/dL (49-181)
[2022-02-03 07:27] LABS: Percent Iron Saturation 6 % (20-50)
[2022-02-03 07:45] LABS: INR 1.6; Prothrombin Time 18.5 Seconds (11.1-14.7)
[2022-02-03] MEDS: MAGNESIUM SULF 2 GM/WATER 50ML 2 GM/50 ML BAG IVPB (07:59)
[2022-02-03] MEDS: POTASSIUM CHLORIDE 20 MEQ TABLET 40 MEQ PO (08:00)
[2022-02-03 08:02] LABS: Folic Acid > 20.0 ng/mL (2.76->20)
[2022-02-03 08:19] LABS: Creatinine Urine 75.6 mg/dL; Total Protein Urine Random 13 mg/dL; Ur Ttl Prot Creatinine Ratio 0.17 mg/mg (0-0.20)
[2022-02-03] MEDS: FLUTICASONE PROPIONATE 0.05% NA SPR 16 GM BTL (*BKC) 1 SPRAY NASAL (08:48)
[2022-02-03] MEDS: FEBUXOSTAT 40 MG TABLET 80 MG PO (08:50)
[2022-02-03] MEDS: FINASTERIDE 5 MG TABLET PO (08:50)
[2022-02-03] MEDS: FOLIC ACID 1 MG TABLET PO (08:50)
[2022-02-03] MEDS: metOLazone 5 MG TABLET PO (08:50)
[2022-02-03] MEDS: FUROSEMIDE INJ 40 MG/4 ML VIAL 60 MG IV PUSH (08:51)
[2022-02-03] MEDS: PANTOPRAZOLE 40 MG TABLET PO ×2 (08:53→20:15)
[2022-02-03] MEDS: MEMANTINE 10 MG TABLET PO ×2 (08:53→20:15)
[2022-02-03] MEDS: POTASSIUM CHLORIDE 20 MEQ TABLET.ER 40 MEQ PO ×3 (08:53→16:57)
[2022-02-03] MEDS: TAMSULOSIN HCL 0.4 MG CAPSULE PO (08:54)
[2022-02-03] MEDS: DOCUSATE SODIUM 100 MG CAPSULE PO (11:14)
[2022-02-03 14:00] VITALS: BP 113/65; PULSE 53; RESP 16; TEMP 36.3; O2SAT 94
--- NOTE | 2022-02-03 14:52 | PM.IMPN ---
Progress Note: A&P Assessment and Plan (1) 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: Code(s): I50.813 - Acute on chronic right heart failure Status: Acute Assessment and Plan: He has been hospitalized several times this year for the same situation. He had a positive apnea link screen (AHI35, RI 35) on 01/25/22 but not hypoxic. Echo 11/26 reviewed showing predominately Right Heart failure.? Most recently was discharged for the same issue on 01/25/22. He was on Lasix 40mg BID and discharged on 80mg daily. Metolazone was continued. It seems he had trouble filling his medications and was off his Lasix for a few days prior to this admission. Since that time he has had a 5 lb weight gain with increasing edema and shortness of breath. CXR showing moderate cardiomegaly with mild interstitial edema. BNP 4600. He received Lasix 80mg IV in ED. Good diuresis with Lasix 40mg IV BID but he remains grossly fluid overloaded. Metolazone advanced and then Lasix advanced. Symptomatically improving but still overloaded. Renal function stable. Now able to get the Austin hose on. Will advance diuretics and change to Bumex. BP noted - will add parameters. Potassium still low so will replace and advance oral potassium as well. (2) Chronic kidney disease, stage 3: Code(s): N18.30 - Chronic kidney disease, stage 3 unspecified Status: Chronic Assessment and Plan: BUN runs in the 30-40 range with baseline creatinine 1.3-1.7. BUN higher in the 50's but stable related to the diuresis but creatinine within his baseline. Tolerating diuresis.? Good urine output.? Monitor renal function closely. (3) Elevated troponin: Code(s): R77.8 - Other specified abnormalities of plasma proteins Status: Acute Assessment and Plan: Troponin elevated at 0.07 but flat. He has a chronic troponin leak and at this time he is having no active symptoms to suggest acute coronary syndrome. EKG showing AFib with slow ventricular response, PVCs, Type [address]-T wave changes.? No need for further evaluation at this time. (4) Chronic atrial fibrillation: Code(s): I48.20 - Chronic atrial fibrillation, unspecified Status: Acute Assessment and Plan: Patient with chronic atrial fib. Currently in atrial fibrillation with controlled rate. Not on rate controlling agents. INR is still subtherapeutic. Extra Coumadin again today. (5) Hypokalemia: Code(s): E87.6 - Hypokalemia Status: Acute Assessment and Plan: As above (6) Anemia: Code(s): D64.9 - Anemia, unspecified Status: Acute Assessment and Plan: Hemoglobin low but stable in the 11 range. He has a microcytic anemia. Platelet count white count are normal. Iron studies are consistent with iron deficiency. B12 is low end of normal so consider B12 deficiency. Will replace iron and B12. Plan DVT prophylaxis:? Coumadin Code status: Full Subjective Date/time seen: 02/03/22 14:52 Interval history: 81yo male with right heart failure, cAFib, CKD and HTN here for shortness of breath. Complains that his right ankle is stiff. No injury to the ankle. He does have a hx of gout. He was able to get the Austin hose on. He is voiding well. No CP or SOB. No n/v. Exam Narrative: AF ?97.0 128/56 68 17 99% ra Gen - NARD lying semi-recumbent in bed Chest - CTA bilaterally, nml RR CV -irregularly irregular.? S1-S2 Abd - Soft, NT/ND, Positive BS, abdominal wall edema Ext - Austin hose in place. Right ankle ROM limited. Bilateral LE pitting pedal edema better. Left UE edema improved with residual perielbow edema Psych - Nml mood and affect Skin - Warm and dry Objective Data Vital Signs Vital Signs: Vital Signs - 24 hr 02/02/22 22:00 02/03/22 06:00 02/03/22 08:50 Temperature 96.0 F L 97.0 F L Pulse Rate 57 L 68 Respiratory Rate 16 17 Blood Pressure 102/54 L 128/56 L Pulse Oximetry 96 99
[2022-02-03] MEDS: WARFARIN (*PBKC) 3 MG TABLET PO ×2 (16:56)
[2022-02-03] MEDS: BUMETANIDE INJ 2.5 MG/10 ML VIAL 2 MG IV PUSH (16:56)
[2022-02-03] MEDS: CYANOCOBALAMIN INJ 1,000 MCG/ML VIAL 1000 MCG IM (18:22)
[2022-02-03 22:00] VITALS: BP 138/65; PULSE 60; RESP 18; TEMP 36.3; O2SAT 99
[2022-02-04 05:53] VITALS: BP 131/72; PULSE 65; RESP 18; TEMP 36.6; O2SAT 93
[2022-02-04 06:36] LABS: Albumin Level 2.6 g/dL (3.5-5.1); Anion Gap 5 mmol/L (8-16); Blood Urea Nitrogen 56 mg/dL (9-20); Calcium 8.4 mg/dL (8.4-10.2); Carbon Dioxide 27 mmol/L (22-30); Chloride 104 mmol/L (98-107); Estimated CRCL calculation 35 ml/min; Estimated Glomerular Filt Rate 42; Glucose 104 mg/dL (65-110); Magnesium 2.4 mg/dL (1.6-2.3); Potassium 3.8 mmol/L (3.4-5.0); Sodium 136 mmol/L (137-145)
[2022-02-04 06:58] LABS: INR 2.2; Prothrombin Time 23.5 Seconds (11.1-14.7)
[2022-02-04] MEDS: PANTOPRAZOLE 40 MG TABLET PO (08:37)
[2022-02-04] MEDS: CYANOCOBALAMIN 1,000 MCG TABLET 1000 MCG PO (08:37)
[2022-02-04] MEDS: FERROUS SULFATE 324 MG TABLET PO (08:37)
[2022-02-04] MEDS: FLUTICASONE PROPIONATE 0.05% NA SPR 16 GM BTL (*BKC) 1 SPRAY NASAL (08:37)
[2022-02-04] MEDS: FINASTERIDE 5 MG TABLET PO (08:37)
[2022-02-04] MEDS: MEMANTINE 10 MG TABLET PO (08:38)
[2022-02-04] MEDS: TAMSULOSIN HCL 0.4 MG CAPSULE PO (08:38)
[2022-02-04] MEDS: FOLIC ACID 1 MG TABLET PO (08:38)
[2022-02-04] MEDS: metOLazone 5 MG TABLET PO (08:38)
[2022-02-04] MEDS: POTASSIUM CHLORIDE 20 MEQ TABLET.ER 40 MEQ PO ×2 (08:38→13:59)
[2022-02-04] MEDS: FEBUXOSTAT 40 MG TABLET 80 MG PO (08:38)
[2022-02-04] MEDS: BUMETANIDE INJ 2.5 MG/10 ML VIAL 2 MG IV PUSH (08:39)
--- NOTE | 2022-02-04 13:57 | PM.DS ---
DS: Admitting Diagnosis Discharge Date 02/04/22 Admitting Diagnosis Shortness of breath. DS: Discharge Diagnosis Discharge Diagnosis (1) 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: Code(s): I50.813 - Acute on chronic right heart failure Status: Acute Assessment and Plan: He has been hospitalized several times this year for the same situation. He had a positive apnea link screen (AHI35, RI 35) on 01/25/22 but not hypoxic. Echo 11/26 reviewed showing predominately Right Heart failure.? Most recently was discharged for the same issue on 01/25/22. He was on Lasix 40mg BID and discharged on 80mg daily. Metolazone was continued. It seems he had trouble filling his medications and was off his Lasix for a few days prior to this admission. Patient presented with a 5 lb weight gain with increasing edema and shortness of breath. CXR on admission showing moderate cardiomegaly with mild interstitial edema. BNP 4600. He received Lasix 80mg IV in ED. He had good diuresis with Lasix 40mg IV BID but he remained grossly fluid overloaded. Metolazone advanced and then Lasix advanced. Symptomatically improving but still overloaded. Renal function remained stable. He did improve to the point where he was able to get the Austin hose on. We continued to advance his diuretics and changed to Bumex. Potassium was low so this was replaced and we advanced his scheduled oral potassium as well. Potassium normal now. He had clinically improvement. Will discharge today on higher dose of metolazone and Lasix. ? (2) Chronic kidney disease, stage 3: Code(s): N18.30 - Chronic kidney disease, stage 3 unspecified Status: Chronic Assessment and Plan: BUN runs in the 30-40 range with baseline creatinine 1.3-1.7. BUN higher in the 50's but stable related to the diuresis but creatinine remained within his baseline. He tolerated the IV diuretics and had good urine output. Repeat labs as outpatient. (3) Elevated troponin: Code(s): R77.8 - Other specified abnormalities of plasma proteins Status: Acute Assessment and Plan: Troponin elevated at 0.07 but flat. He has a chronic troponin leak and at this time he is having no active symptoms to suggest acute coronary syndrome. EKG showing AFib with slow ventricular response, PVCs, Type [address]-T wave changes.? Not felt to have acute coronary syndrome (4) Chronic atrial fibrillation: Code(s): I48.20 - Chronic atrial fibrillation, unspecified Status: Acute Assessment and Plan: Patient with chronic atrial fib. Currently in atrial fibrillation with controlled rate. Not on rate controlling agents. INR was subtherapeutic but given extra Coumadin and Coumadin dose increased. INR now therapeutic. Follow (5) Hypokalemia: Code(s): E87.6 - Hypokalemia Status: Acute Assessment and Plan: As above (6) Anemia: Code(s): D64.9 - Anemia, unspecified Status: Acute Assessment and Plan: Hemoglobin low but stable in the 11 range.? He has a microcytic anemia.? Platelet count and white count were normal. Iron studies were consistent with iron deficiency.? B12 was low end of normal so consider B12 deficiency.? He received B12 injection x1. Home with B12 and iron replacement. DS: Summary Hospital Course Reason for hospitalization: 81yo male with right heart failure, cAFib, CKD and HTN here for shortness of breath. Please see H&P for details. Hospital Course: Please see above for details of hospital course Status at Discharge Cognitive/behavioral status at discharge: Stable Time Spent with Patient Time attestation: Total time spent providing and/or coordinating discharge services: 38 minutes Time spent: Greater than 30 minutes Exam Narrative: AF ?97.9 131/72 65 18 93% ra Gen - NARD sitting up in the chair Chest - CTA bilaterally, nml RR CV - irregularly irregular.? S1-S2
[2022-02-04 14:00] VITALS: BP 125/51; PULSE 64; RESP 14; TEMP 36.2; O2SAT 100
[2022-02-04 15:20] LABS: EDCOVIDSCREEN Negative (Negative)
[2022-02-08 09:39] LABS: Methylmalonic Acid 513 nmol/L (87-318)
== END 2022-02-04 16:10 | disposition home health service (06) | DRG 292 ==
LOC: ANHED 13:41 → ANH3MEDSUR 14:05
PROVIDERS: Physician Assistant; Admitting Provider Internal Medicine; Emergency Provider Emergency Medicine; PCP Family Medicine; Visit Provider Internal Medicine
DX: I13.0 Hypertensive heart and chronic kidney disease with heart failure and stage 1 through stage 4 chronic kidney disease, or unspecified chronic kidney disease (principal); E46 Unspecified protein-calorie malnutrition; I48.20 Chronic atrial fibrillation, unspecified; I50.813 Acute on chronic right heart failure; N18.30 Chronic kidney disease, stage 3 unspecified; E87.6 Hypokalemia; D50.9 Iron deficiency anemia, unspecified; N40.0 Benign prostatic hyperplasia without lower urinary tract symptoms; Z20.822 Contact with and (suspected) exposure to COVID-19; M1A.9XX0 Chronic gout, unspecified, without tophus (tophi); I87.2 Venous insufficiency (chronic) (peripheral); I25.10 Atherosclerotic heart disease of native coronary artery without angina pectoris; F03.90 Unspecified dementia, unspecified severity, without behavioral disturbance, psychotic disturbance, mood disturbance, and anxiety; E78.5 Hyperlipidemia, unspecified; K21.9 Gastro-esophageal reflux disease without esophagitis; M06.00 Rheumatoid arthritis without rheumatoid factor, unspecified site; E53.8 Deficiency of other specified B group vitamins; Z68.32 Body mass index [BMI] 32.0-32.9, adult; Z79.01 Long term (current) use of anticoagulants; Z98.49 Cataract extraction status, unspecified eye
CPT/HCPCS: 36415; 71045; 80048; 80053; 80069; 82565; 82570; 82607; 82728; 82746; 83540; 83550; 83735; 83880; 83921; 84134; 84156; 84443; 84484; 85025; 85027; 85610; 85730; 87426; 87502; 93005; 96374; 96376; 97161; 97165; 99285; A9270; C9803; G0378; J1940; J3420; J3475; U0003; U0005

== ENCOUNTER 2022-02-27 17:30 | Inpatient (IN) | payer MEDICARE, SELFPAY ==
[2022-02-27] VITALS (16 sets, daily range): BP systolic 118–140; BP diastolic 53–80; PULSE 61–100; RESP 15–25; TEMP 36.6; O2SAT 97–100; BMI 34.1
--- NOTE | ~2022-02-27 | XR_ITS ---
EXAMINATION: XR chest 1V portable DATE: 02/27/2022 17:48 INDICATION: Cough. TECHNIQUE: frontal view of the chest was obtained. COMPARISON: Chest radiograph dated 01/30/2022 FINDINGS: No focal airspace opacities, pulmonary edema, pleural effusion or pneumothorax. Cardiomegaly. Severe bilateral acromioclavicular osteoarthritis. IMPRESSION: 1. Cardiomegaly. Reviewed, dictated and finalized at location A. IMPRESSION: 1. Cardiomegaly.
--- NOTE | 2022-02-27 17:35 | ECG_ITS ---
Measurements Intervals Coward Rate: 69 P: SC: 0 QRS: 22 QRSD: 129 T: 0 QT: 437 QTc: 469 Interpretive Statements ATRIAL FIBRILLATION WITH ABERRANT CONDUCTION OR VENTRICULAR PREMATURE COMPLEXES NONSPECIFIC INTRAVENTRICULAR CONDUCTION DELAY CANNOT RULE OUT ANTERIOR INFARCTION, AGE INDETERMINATE NONSPECIFIC ST ABNORMALITY ABNORMAL ECG COMPARED TO ECG 01/30/2022 10:36:13 NO SIGNIFICANT CHANGE Electronically Signed On 02-28-2022 15:57:19 CDT by Todd Stone M.D.
--- NOTE | 2022-02-27 17:41 | ED.GENADULT ---
HPI - General Adult General Chief complaint: Shortness of Breath/Dyspnea Stated complaint: dyspnea, weight gain Time Seen by Provider: 02/27/22 17:40 Source: RN notes reviewed History of Present Illness HPI narrative: Patient presents emergency room from home for swelling. She states has had increased swelling and has gained a total of 7 pounds over the past 2 days she states has been associate with shortness of breath worse with exertion and laying down flat states he has been taking his medications as prescribed and does have a history of CHF he denies any fevers or chills chest pain abdominal pain nausea vomiting Related Data Home Medications Medication Instructions Recorded Confirmed acetaminophen 325 mg capsule 650 mg PO Q6H PRN Pain (Scale 06/08/19 01/30/22 Score 1-3) docusate sodium 100 mg tablet 100 mg PO DAILY PRN Constipation 06/17/19 01/30/22 fluticasone propionate 50 1 spray intranasal DAILY 02/14/21 01/30/22 mcg/actuation nasal spray,suspension (Flonase Allergy Relief) guaifenesin 600 mg tablet, 600 mg PO BID PRN Sinus Symptoms 02/14/21 01/30/22 extended release 12 hr (Mucinex) hydrocodone 5 mg-acetaminophen 325 1 tablet PO Q4H PRN pain 4-6 02/14/21 01/30/22 mg tablet memantine 10 mg tablet 10 mg PO Q12H 11/25/21 01/30/22 galantamine 8 mg 24 hr 8 mg PO DAILY 01/30/22 01/30/22 capsule,extended release Allergies Allergy/AdvReac Type Severity Reaction Status Date / Time Penicillins Allergy Unknown Rash Verified 01/30/22 15:14 Sulfa (Sulfonamide Allergy Unknown Rash Verified 01/30/22 15:14 Antibiotics) sulfathiazole Allergy Unknown Unverified 02/06/22 07:44 Review of Systems Review of Systems: Gen.: Denies fevers or chills ENT: Denies congestion Respiratory: Reports shortness of breath CV: Denies chest pain or palpitations GI: Denies abdominal pain nausea, emesis or diarrhea Musculoskeletal: Denies back pain or muscle pain reports swelling in the legs Neuro: Denies numbness, tingling, weakness or focal weakness Skin: Denies rash Except as documented, all other systems reviewed and negative PMFSH Past Medical History Medical History Benign prostatic hyperplasia Chronic anticoagulation Chronic atrial fibrillation Chronic atrial flutter Chronic gout without tophus Chronic kidney disease, stage 3 unspecified Chronic right-sided heart failure Echocardiogram on 11/26/2021 showed normal left ventricular chamber size and function with an EF of 65 to 70%, abnormal diastolic function, severely enlarged right ventricular chamber, and reduced right ventricular systolic function. 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 Family History Family History Father , at age 54 Parkinsons disease Cerebrovascular accident Mother , in her 80s Hypertension Cerebrovascular accident Essential hypertension Hypothyroidism Heart disease Sibling Coronary artery disease Social History Social History Social History: The patient is single with no children; he has never been . He lives in assisted living at [facility]. 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 Pipe smoker through the 1980s. No alcohol or illicit substance abuse
[2022-02-27 17:55] LABS: Basophils Absolute Auto 0.1 K/mm3 (0.0-0.1); Basophils Percent Auto 0.7 % (0.2-1.2); Eosinophils Absolute Auto 0.1 K/mm3 (0-0.3); Eosinophils Percent Auto 1.5 % (0-4.4); Hematocrit 41.2 % (42.0-52.0); Hemoglobin 12.3 g/dL (14.0-18.0); Immature Granulocyte Absolute 0.08 K/mm3 (0.00-0.031); Immature Granulocyte Percent A 0.9 % (0-0.5); Lymphocytes Absolute Auto 0.64 K/mm3 (0.9-3.2); Lymphocytes Percent Auto 6.8 % (18.3-44.2); Mean Corpuscular HGB Conc 29.9 g/dl (32-36); Mean Corpuscular Hemoglobin 23.5 pg (26-34); Mean Corpuscular Volume 78.6 fl (80-100); Mean Platelet Volume 8.9 fl (7.4-10.4); Monocytes Absolute Auto 0.8 K/mm3 (0.1-0.6); Monocytes Percent Auto 8.6 % (2.6-8.5); Neutrophils Absolute Auto 7.7 K/mm3 (1.3-6.7); Neutrophils Percent Auto 81.5 % (45.5-73.1); Platelet Count Result 259 k/mm3 (150-375); Red Blood Count 5.24 M/mm3 (4.6-6.20); Red Cell Distribution Width 21.7 % (11.5-14.5); White Blood Count 9.4 K/mm3 (4.5-10.0)
[2022-02-27 18:06] LABS: Alanine Aminotransferase 23 U/L (6-50); Albumin Level 2.6 g/dL (3.5-5.1); Alkaline Phosphatase 100 U/L (38-126); Anion Gap 10 mmol/L (8-16); Aspartate Amino Transferase 39 U/L (17-59); Bilirubin,Total 0.4 mg/dL (0.2-1.3); Blood Urea Nitrogen 61 mg/dL (9-20); Calcium 7.9 mg/dL (8.4-10.2); Carbon Dioxide 26 mmol/L (22-30); Chloride 95 mmol/L (98-107); Estimated CRCL calculation 31 ml/min; Estimated Glomerular Filt Rate 34; Glucose 133 mg/dL (65-110); Potassium 3.7 mmol/L (3.4-5.0); Sodium 131 mmol/L (137-145)
[2022-02-27 18:09] LABS: INR 3.5; Prothrombin Time 34.3 Seconds (11.1-14.7)
[2022-02-27 18:10] LABS: Partial Thromboplastin Time 44.4 SECONDS (22.3-36.8)
[2022-02-27 18:18] LABS: Anisocytosis 3+ (NORMAL); Hypochromasia 1+ (NORMAL); Platelet Estimate Adequate (Adequate)
[2022-02-27 18:21] LABS: NT Pro B Type Natriuretic Pept 4990 pg/mL (5-100); Troponin I 0.076 ng/mL (0.000-0.034)
[2022-02-27] MEDS: BUMETANIDE INJ 1 MG/4 ML VIAL 2 MG IV PUSH (18:43)
[2022-02-27 19:24] LABS: SARS-CoV-2 RNA PCR Negative
--- NOTE | 2022-02-27 21:47 | ADMGEN ---
This patient, Shaan Landis, was admitted to IMU Room 211-01. Patient/family oriented to hospital policies and general routines including ID bracelet, bed and alarms, visiting hours, pain management, procedures, bathroom and other care routines, personal items, smoking policy, room service/diet, and visiting hours. Information on how to activate the Rapid Response Team has been discussed. Patient/Family are encouraged to report perceived risks to care and to ask questions if they do not understand what they are told or what they should do.
[2022-02-27 21:54] LABS: Troponin I 0.086 ng/mL (0.000-0.034)
--- NOTE | 2022-02-27 22:10 | PM.IMHP ---
H&P: HPI History of Present Illness Date/Time: 02/27/22 22:10 Chief Complaint: SOB, swelling Narrative: Greater than 30 minutes spent reviewing chart, evaluating, treating, and counseling patient. Anticipate greater than 48 hour admission, will admit as inpatient. 81-year-old male past medical history of dementia, CAD, CHF with RV failure (11/2021 TTE LVEF 65-70%, severely enlarged RV, RVSP 30 mmHg), chronic AFib on Coumadin, GERD, CKD (baseline creatinine around 1.5), BPH, gout, seronegative rheumatoid arthritis, HTN/HLD. Multiple admissions over the past couple months for heart failure exacerbation with medication adjustments. Presents to the ED with similar issues. Reports increased swelling and has gained a total of 7 lb over the past 2 days. Associated shortness of breath with exertion. In ED, vitals stable. Labs remarkable for sodium of 131, creatinine of 1.9, glucose of 133. BNP 4990, troponin 0.076 with no acute ischemic changes noted on EKG. Albumin of 2.6. UA remarkable for RBC greater than 75, leukocyte esterase +1. Chest x-ray shows enlarged heart. Patient given IV Bumex 2 mg. Review of Systems Review of Systems: Ten point ROS reviewed, negative unless otherwise specified per HPI [facility] Past Medical History Medical History (Updated 02/27/22 @ 22:33 by Gregorio Ding DO) Benign prostatic hyperplasia Chronic anticoagulation Chronic atrial fibrillation Chronic atrial flutter Chronic gout without tophus Chronic kidney disease, stage 3 unspecified Chronic right-sided heart failure Echocardiogram on 11/26/2021 showed normal left ventricular chamber size and function with an EF of 65 to 70%, abnormal diastolic function, severely enlarged right ventricular chamber, and reduced right ventricular systolic function. 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 Family History Family History Father , at age 54 Parkinsons disease Cerebrovascular accident Mother , in her 80s Hypertension Cerebrovascular accident Essential hypertension Hypothyroidism Heart disease Sibling Coronary artery disease Social History Social History Social History: The patient is single with no children; he has never been . He lives in assisted living at [facility]. 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 Pipe smoker through the . No alcohol or illicit substance abuse. Healthcare power of privacy attorney: Timoteo and Lexi Rico (cousins). Code status: Full code. Smoking status: Former smoker Tobacco type: pipe Alcohol intake: never Substance use: never Substance use type: does not use Spiritual care concerns: No Meds Home Medications and Allergies Home Medications Medication Instructions Recorded Confirmed Type acetaminophen 325 mg capsule 650 mg PO Q6H PRN Pain (Scale 06/08/19 02/27/22 History Score 1-3) docusate sodium 100 mg tablet 100 mg PO DAILY PRN Constipation 06/17/19 02/27/22 History fluticasone propionate 50 1 spray intranasal DAILY 02/14/21 02/27/22 History mcg/actuation nasal spray,suspension (Flonase Allergy Relief) guaifenesin 600 mg tablet, 600 mg PO BID PRN Cough 02/14/21 02/27/22 History extended release 12 hr (Mucinex) hydrocodone 5 mg-aceta
[2022-02-28] VITALS (8 sets, daily range): BP systolic 105–124; BP diastolic 50–65; PULSE 53–70; RESP 16–18; TEMP 35.7–36.6; O2SAT 94–99; BMI 34.9
[2022-02-28 01:16] LABS: Troponin I 0.087 ng/mL (0.000-0.034)
[2022-02-28] MEDS: HYDROcodone/acetaminophen (*CRX) 5-325 MG TABLET 1 TAB PO ×3 (02:26→19:57)
[2022-02-28 04:45] LABS: Basophils Absolute Auto 0.1 K/mm3 (0.0-0.1); Basophils Percent Auto 0.7 % (0.2-1.2); Eosinophils Absolute Auto 0.1 K/mm3 (0-0.3); Eosinophils Percent Auto 1.6 % (0-4.4); Hematocrit 39.9 % (42.0-52.0); Immature Granulocyte Absolute 0.08 K/mm3 (0.00-0.031); Lymphocytes Absolute Auto 0.69 K/mm3 (0.9-3.2); Lymphocytes Percent Auto 8.4 % (18.3-44.2); Mean Corpuscular HGB Conc 30.1 g/dl (32-36); Mean Corpuscular Hemoglobin 23.6 pg (26-34); Mean Corpuscular Volume 78.4 fl (80-100); Mean Platelet Volume 8.7 fl (7.4-10.4); Monocytes Absolute Auto 0.7 K/mm3 (0.1-0.6); Monocytes Percent Auto 8.4 % (2.6-8.5); Neutrophils Absolute Auto 6.6 K/mm3 (1.3-6.7); Neutrophils Percent Auto 79.9 % (45.5-73.1); Platelet Count Result 220 k/mm3 (150-375); Red Blood Count 5.09 M/mm3 (4.6-6.20); Red Cell Distribution Width 21.4 % (11.5-14.5); White Blood Count 8.2 K/mm3 (4.5-10.0)
[2022-02-28 04:55] LABS: INR 3.6; Prothrombin Time 34.9 Seconds (11.1-14.7)
[2022-02-28 05:00] LABS: Alanine Aminotransferase 21 U/L (6-50); Albumin Level 2.4 g/dL (3.5-5.1); Alkaline Phosphatase 81 U/L (38-126); Anion Gap 7 mmol/L (8-16); Aspartate Amino Transferase 34 U/L (17-59); Bilirubin,Total 0.7 mg/dL (0.2-1.3); Blood Urea Nitrogen 59 mg/dL (9-20); Carbon Dioxide 29 mmol/L (22-30); Chloride 95 mmol/L (98-107); Estimated CRCL calculation 34 ml/min; Estimated Glomerular Filt Rate 39; Glucose 117 mg/dL (65-110); Sodium 131 mmol/L (137-145)
[2022-02-28] MEDS: POTASSIUM CHLORIDE 20 MEQ TABLET 40 MEQ PO (10:01)
[2022-02-28] MEDS: FERROUS SULFATE 324 MG TABLET PO (10:01)
[2022-02-28] MEDS: TAMSULOSIN HCL 0.4 MG CAPSULE PO (10:02)
[2022-02-28] MEDS: CYANOCOBALAMIN 1,000 MCG TABLET 1000 MCG PO (10:02)
[2022-02-28] MEDS: MEMANTINE 10 MG TABLET PO ×2 (10:02→19:53)
[2022-02-28] MEDS: BUMETANIDE INJ 1 MG/4 ML VIAL 2 MG IV PUSH ×2 (10:02→16:18)
[2022-02-28] MEDS: FINASTERIDE 5 MG TABLET PO (10:02)
[2022-02-28] MEDS: FLUTICASONE PROPIONATE 0.05% NA SPR 16 GM BTL (*BKC) 1 SPRAY NASAL (10:03)
[2022-02-28] MEDS: PANTOPRAZOLE 40 MG TABLET PO (10:03)
[2022-02-28] MEDS: metOLazone 5 MG TABLET PO (10:03)
[2022-02-28] MEDS: FOLIC ACID 1 MG TABLET PO (10:03)
--- NOTE | 2022-02-28 12:39 | PC.NURSE ---
This patient, Shaan Landis, was transferred to [facility] on 02/28/22 at 1239. Personal belongings sent with patient. Report given to Nanette MARRUFO. Appropriate documentation sent with patient.
--- NOTE | 2022-02-28 15:03 | PM.IMPN ---
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 Consult cardiology given frequency of admission. Patient is end-stage heart failure at this point, discussed code status and patient decided on DNR. (2) Atrial fibrillation, chronic: Code(s): I48.20 - Chronic atrial fibrillation, unspecified Status: Acute Assessment and Plan: Patient with known history of slow AFib, not on any rate control medication. INR 3.5, will hold Coumadin and recheck INR tomorrow. (3) Anemia: Code(s): D64.9 - Anemia, unspecified Status: Acute Assessment and Plan: Continue iron and B12 supplement (4) Acute kidney injury superimposed on chronic kidney disease: Code(s): N17.9 - Acute kidney failure, unspecified; N18.9 - Chronic kidney disease, unspecified Status: Acute Assessment and Plan: Likely cardiorenal etiology, continue to monitor with diuresis (5) Poor nutrition: Code(s): E63.9 - Nutritional deficiency, unspecified Status: Acute Assessment and Plan: Dietary consultation (6) Hyperglycemia: Code(s): R73.9 - Hyperglycemia, unspecified Status: Acute Assessment and Plan: Check A1c (7) Dementia: Code(s): F03.90 - Unspecified dementia without behavioral disturbance Status: Acute Assessment and Plan: continue galantamine and memantine Subjective Date/time seen: 02/28/22 15:03 81-year-old male past medical history of dementia, CAD, CHF with RV failure (11/2021 TTE LVEF 65-70%, severely enlarged RV, RVSP 30 mmHg), chronic AFib on Coumadin, GERD, CKD (baseline creatinine around 1.5), BPH, gout, seronegative rheumatoid arthritis, HTN/HLD.? Multiple admissions over the past couple months for heart failure exacerbation with medication adjustments. Pt is still edematous, pt needing iv bumex for diuresis pt is on low sodium diet and salt restriction Pt has elevated inrs today hold Coumadin today Review of Systems Review of Systems: edematous legs Exam Const: General: comfortable and no acute distress HENMT: Mouth: Yes moist mucous membranes Eyes: General: appearance normal, both eyes and all related structures Sclera: sclerae normal Neck: Neck: supple Other: JVD present Resp: Effort & Inspection: normal respiratory effort Auscultation: clear to auscultation bilaterally Cardio: Rate: regular rate Rhythm: regular rhythm Other: no gallop or murmur GI: Inspection: distended GI Palp: Yes Soft to palpation Auscultation: normal bowel sounds Other: soft nontender Skin: General skin exam: normal color Lesions: lesion noted (R forearm) Neuro: Speech: normal speech Sensory Exam: normal sensation Extrem: General: edema (chornic venous stasis dermatitis, no erythema, warmth, tenderness) bilateral Other: bilateral ankle edema Psych: Mental Status: mental status grossly normal Affect: normal affect Objective Data Vital Signs Vital Signs: Vital Signs - 24 hr 02/27/22 17:29 02/27/22 17:40 02/27/22 17:46 Temperature 36.6 C Pulse Rate 79 71 63 Respiratory Rate 18 19 Blood Pressure 140/57 L 130/66 Pulse Oximetry 98 97 Oxygen Delivery 02/27/22 18:00 02/27/22 18:15 02/27/22 18:16 Temperature Pulse Rate 65 70 70 Respiratory Rate 19 20 20 Blood Pressure 138/56 L Pulse Oximetry 97 97 Oxygen Delivery 02/27/22 19:16 02/27/22 19:46 02/27/22 20:01 Temperature Pulse Rate 71 67 69 Respiratory Rate 15 23 H 20 Blood Pressure 128/53 L 134/66 138/73 Pulse Oximetry Oxygen Delivery 02/27/22 20:16 02/27/22 20:31 02/27/22 20:46 Temperature Pulse Rate 66 63 66 Respiratory Rate 18 25 H 23 H Blood Pressure 135/63 125/66 127/65 Pulse Oximetry Ox
[2022-02-28] MEDS: POTASSIUM CHLORIDE 20 MEQ PACKET (FOR LIQUID) 40 MEQ PO (16:17)
[2022-02-28] MEDS: POTASSIUM CHLORIDE 20 MEQ TABLET.ER 40 MEQ PO (17:20)
--- NOTE | 2022-02-28 17:27 | PM.CNCAR ---
Assessment and Plan Assessment and plan (1) CHF (congestive heart failure): Code(s): I50.9 - Heart failure, unspecified Status: Acute Plan This is an 81-year-old man with chronic atrial fibrillation and severe right ventricular failure. He has had numerous admissions like this to the hospital. He is benefiting symptomatic Karlie from intravenous diuretics and this should continue for probably another day or 2 this has been his longstanding pattern. He has made the decision for DNR status given his poor overall condition and what appears to be truly end-stage right heart failure that is due resulting in recent and frequent admissions to the hospital. There are no other treatment modalities to offer this gentleman unfortunately. Gregorio Lozano MD [facility] History of Present Illness History of Present Illness Consult date/time: 02/28/22 17:27 Consult reason: atrial fibrillation and congestive heart failure Reason For Visit: CHF,Elevated Troponin,Chronic Renal Insufficiency Narrative: This is an 81-year-old man well known to most of the physicians here at [facility] with a history of chronic atrial fibrillation and right ventricular failure. He was admitted to the hospital last evening with worsening shortness of breath and increasing abdominal girth and had the sense of breathlessness. The patient is well known to me in his consult/H and Ps in the last several months have well delineated this history. In summary he is a gentleman with chronic atrial fib for a long time managed with anticoagulation and rate control. In recent months he has developed recalcitrant edema/shortness of breath due to right ventricular dysfunction and he has been admitted here frequently with symptoms like this numerous times. The patient has not been ever presenting with left-sided failure and pulmonary congestion. At this time he simply noted shortness of breath he thinks his abdominal girth has increased he does have chronic lower extremity edema which does not look worse to him that it typically did at the time of his most recent discharge. He at home he is on an aggressive diuretic regimen to address this including a high dose of bumetanide and metolazone. Despite this he continues to be admitted frequently with symptoms like this. Review of Systems Constitutional: Constitutional: Reports lethargy Eyes: Eyes: Reports no additional eye complaints ENT: Reports system reviewed and no additional complaints, except as documented Cardiovascular: Cardiovascular: Reports no additional cardiovascular complaints Respiratory: Respiratory: Reports dyspnea Gastrointestinal: Comments: Increasing abdominal girth Musculoskeletal: Musculoskeletal: Reports no additional musculoskeletal complaints Neurologic: Reports system reviewed and no additional complaints, except as documented Endocrine: Endocrine: Reports no additional endocrine complaints Hematologic/Lymphatic: Hematologic/Lymphatic: Reports no additional hematologic/lymphatic complaints Allergic/Immunologic: Allergic/Immunologic: Reports no additional allergic/immunologic complaints [facility] Past Medical History Medical History (Updated 02/27/22 @ 22:33 by Gregorio Ding DO) Benign prostatic hyperplasia Chronic anticoagulation Chronic atrial fibrillation Chronic atrial flutter Chronic gout without tophus Chronic kidney disease, stage 3 unspecified Chronic right-sided heart failure Echocardiogram on 11/26/2021 showed normal left ventricular chamber size and function with an EF of 65 to 70%, abnormal diastolic function, severely enlarged right ventricular chamber, and reduced right ventricular systolic function. Chronic venous stasis dermatitis Coronary artery disease Dementia Dyslipidemia Gastroesophageal reflux disease Gastrointestinal ulcer Hypertension Pneumonia Rheumatoid arthritis Seizures Seronegative rheumatoid arthritis Undifferentiated connective tissue disease (~201
[2022-03-01] VITALS: BP 127/64; PULSE 60; RESP 16; TEMP 36.6; O2SAT 99
[2022-03-01] MEDS: HYDROcodone/acetaminophen (*CRX) 5-325 MG TABLET 1 TAB PO ×3 (01:19→20:01)
[2022-03-01 04:00] VITALS: BP 132/73; PULSE 67; RESP 18; TEMP 36.3; O2SAT 97
[2022-03-01 05:01] LABS: Basophils Absolute Auto 0.1 K/mm3 (0.0-0.1); Basophils Percent Auto 0.7 % (0.2-1.2); Eosinophils Absolute Auto 0.1 K/mm3 (0-0.3); Eosinophils Percent Auto 1.5 % (0-4.4); Hematocrit 41.4 % (42.0-52.0); Hemoglobin 12.6 g/dL (14.0-18.0); Immature Granulocyte Absolute 0.08 K/mm3 (0.00-0.031); Immature Granulocyte Percent A 0.9 % (0-0.5); Lymphocytes Absolute Auto 0.63 K/mm3 (0.9-3.2); Lymphocytes Percent Auto 7.3 % (18.3-44.2); Mean Corpuscular HGB Conc 30.4 g/dl (32-36); Mean Corpuscular Hemoglobin 23.9 pg (26-34); Mean Corpuscular Volume 78.6 fl (80-100); Mean Platelet Volume 9.4 fl (7.4-10.4); Monocytes Absolute Auto 0.7 K/mm3 (0.1-0.6); Monocytes Percent Auto 7.9 % (2.6-8.5); Neutrophils Absolute Auto 7.1 K/mm3 (1.3-6.7); Neutrophils Percent Auto 81.7 % (45.5-73.1); Platelet Count Result 243 k/mm3 (150-375); Red Blood Count 5.27 M/mm3 (4.6-6.20); Red Cell Distribution Width 21.9 % (11.5-14.5); White Blood Count 8.7 K/mm3 (4.5-10.0)
[2022-03-01 05:12] LABS: Alanine Aminotransferase 19 U/L (6-50); Albumin Level 2.5 g/dL (3.5-5.1); Alkaline Phosphatase 77 U/L (38-126); Anion Gap 5 mmol/L (8-16); Aspartate Amino Transferase 30 U/L (17-59); Bilirubin,Total 0.9 mg/dL (0.2-1.3); Blood Urea Nitrogen 63 mg/dL (9-20); Carbon Dioxide 30 mmol/L (22-30); Chloride 97 mmol/L (98-107); Estimated CRCL calculation 32 ml/min; Estimated Glomerular Filt Rate 36; Glucose 110 mg/dL (65-110); Potassium 3.9 mmol/L (3.4-5.0); Sodium 132 mmol/L (137-145)
[2022-03-01 05:13] LABS: INR 2.7; Prothrombin Time 27.5 Seconds (11.1-14.7)
[2022-03-01] MEDS: FLUTICASONE PROPIONATE 0.05% NA SPR 16 GM BTL (*BKC) 1 SPRAY NASAL (08:09)
[2022-03-01] MEDS: metOLazone 5 MG TABLET PO (08:10)
[2022-03-01] MEDS: BUMETANIDE INJ 1 MG/4 ML VIAL 2 MG IV PUSH ×2 (08:11→16:26)
[2022-03-01] MEDS: FOLIC ACID 1 MG TABLET PO (08:12)
[2022-03-01] MEDS: FERROUS SULFATE 324 MG TABLET PO (08:12)
[2022-03-01] MEDS: FINASTERIDE 5 MG TABLET PO (08:12)
[2022-03-01] MEDS: MEMANTINE 10 MG TABLET PO ×2 (08:13→20:01)
[2022-03-01] MEDS: PANTOPRAZOLE 40 MG TABLET PO (08:13)
[2022-03-01] MEDS: TAMSULOSIN HCL 0.4 MG CAPSULE PO (08:13)
[2022-03-01 08:51] LABS: Anion Gap 6 mmol/L (8-16); Blood Urea Nitrogen 64 mg/dL (9-20); Calcium 8.2 mg/dL (8.4-10.2); Carbon Dioxide 30 mmol/L (22-30); Chloride 96 mmol/L (98-107); Estimated CRCL calculation 33 ml/min; Estimated Glomerular Filt Rate 39; Glucose 108 mg/dL (65-110); Potassium 3.9 mmol/L (3.4-5.0); Sodium 132 mmol/L (137-145)
[2022-03-01 08:57] LABS: INR 2.5; Prothrombin Time 26.4 Seconds (11.1-14.7)
--- NOTE | 2022-03-01 09:31 | PM.PNCARD ---
Progress Note: A&P Assessment and Plan (1) CHF (congestive heart failure): Code(s): I50.9 - Heart failure, unspecified Status: Acute (2) Chronic atrial fibrillation: Code(s): I48.20 - Chronic atrial fibrillation, unspecified Status: Acute Plan 81-year-old man with chronic right ventricular dysfunction and frequent admissions with shortness of breath when he gets more volume overloaded. Once again he has responded reasonably well to loop diuretics. There are no additional cardiac suggestions/ recommendations. Unfortunately there does not seem to be any way to prevent these frequent readmissions Gregorio Lozano MD [facility] Subjective Date/time seen: date of service:03/01/22 09:31 Interval history: Follow-up visit in this 81-year-old man with: Chronic atrial fibrillation with chronic right ventricular dysfunction. Patient with multiple admissions with shortness of breath and peripheral volume overload. Seems that shortness of breath is due to increased abdominal girth and with difficulty ventilating. Otherwise no real pulmonary congestion. Patient as he typically does feels much better very quickly with some intravenous loop diuretics. Continues to have no complaints this morning Exam Const: General: comfortable and no acute distress Other: chronically ill-appearing elderly man comfortable watching television no distress HENMT: Mouth: Yes moist mucous membranes Eyes: Sclera: sclerae normal Neck: Neck: supple and no JVD Resp: Effort & Inspection: normal respiratory effort Cardio: Rhythm: abnormal rhythm irregularly irregular GI: GI Palp: Yes Soft to palpation Auscultation: normal bowel sounds Neuro: Other: alert and oriented x3 normal mentation Extrem: Other: changes of chronic venous insufficiency which are chronic and bilateral. Modest edema which appears to be good for him Objective Data Vital Signs Vital Signs: Vital Signs - 24 hr 02/28/22 15:05 02/28/22 20:00 03/01/22 00:00 Temperature 35.7 C L 36.6 C 36.6 C Pulse Rate 54 L 53 L 60 Respiratory Rate 16 18 16 Blood Pressure 124/52 L 123/63 127/64 Pulse Oximetry 99 98 99 Oxygen Delivery 03/01/22 04:00 02/28/22 22:27 Temperature 36.3 C L Pulse Rate 67 Respiratory Rate 18 Blood Pressure 132/73 Pulse Oximetry 97 98 Oxygen Delivery Room Air Intake/Output Intake/Output: Intake & Output 02/26/22 02/27/22 02/28/22 08/06/22 23:59 23:59 23:59 23:59 Intake Total 930 560 Output Total 1200 400 Balance -270 160 Meds/Results Medications: Active Medications Generic Name Dose Route Start Last Admin Trade Name Freq PRN Reason Stop Dose Admin Hydrocodone Bitart/Acetaminophen 1 tab 02/28/22 00:07 03/01/22 08:10 Hydrocodone/Acetaminophen (*Crx) 5-325 Mg Tablet PO 1 tab Q4H PRN Administration Pain Rated 4-6 Albuterol 2 puff 02/28/22 00:07 Albuterol Sulfate (*Sp) Aerosol 1 Puff INHALATION Q8H PRN shortness of breath or wheezing Bumetanide 2 mg 02/28/22 09:00 03/01/22 08:11 Bumetanide Inj 1 Mg/4 Ml Vial IV PUSH 2 mg BID SANAM Administration Cyanocobalamin 1,000 mcg 02/28/22 09:00 02/28/22 10:02 Cyanocobalamin 1,000 Mcg Tablet PO 1,000 mcg QAM SANAM Administration Docusate Sodium 100 mg 02/28/22 00:07 Docusate Sodium 100 Mg Capsule PO DAILY PRN Constipation Ergocalciferol 50,000 unit 03/03/22 09:00 Ergocalciferol 50,000 Unit Capsule PO Mo@0900 [facility] Ferrous Sulfate 324 mg 02/28/22 08:00 03/01/22 08:12 Ferrous Sulfate 324 Mg Tablet PO 324 mg DAILY@0800 SANAM Administration Finasteride 5 mg 02/28/22 09:00 03/01/22 08:12 Finasteride 5 Mg Tablet PO 5 mg QAM SANAM Administration Fluticasone Propionate 1 spray 02/28/22 09:00 03/01/22 08:09 Fluticasone Propionate 0.05% Na Spr 16 Gm Btl (*Bkc) NASAL 1 spray DAILY SANAM Administration Folic Acid 1 mg 02/28/22 09:00 03/01/22 08
[2022-03-01] MEDS: CYANOCOBALAMIN 1,000 MCG TABLET 1000 MCG PO (09:57)
[2022-03-01] MEDS: POTASSIUM CHLORIDE 20 MEQ PACKET (FOR LIQUID) 40 MEQ PO ×2 (09:57→16:27)
[2022-03-01 11:09] VITALS: BP 120/62; PULSE 65; RESP 18; TEMP 35.9; O2SAT 98
--- NOTE | 2022-03-01 11:48 | PM.IMPN ---
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 Consult cardiology given frequency of admission. Patient is end-stage heart failure at this point, discussed code status and patient decided on DNR. (2) Atrial fibrillation, chronic: Code(s): I48.20 - Chronic atrial fibrillation, unspecified Status: Acute Assessment and Plan: Patient with known history of slow AFib, not on any rate control medication. INR 3.5, will hold Coumadin and recheck INR tomorrow. (3) Anemia: Code(s): D64.9 - Anemia, unspecified Status: Acute Assessment and Plan: Continue iron and B12 supplement (4) Acute kidney injury superimposed on chronic kidney disease: Code(s): N17.9 - Acute kidney failure, unspecified; N18.9 - Chronic kidney disease, unspecified Status: Acute Assessment and Plan: Likely cardiorenal etiology, continue to monitor with diuresis (5) Poor nutrition: Code(s): E63.9 - Nutritional deficiency, unspecified Status: Acute Assessment and Plan: Dietary consultation (6) Hyperglycemia: Code(s): R73.9 - Hyperglycemia, unspecified Status: Acute Assessment and Plan: Check A1c (7) Dementia: Code(s): F03.90 - Unspecified dementia without behavioral disturbance Status: Acute Assessment and Plan: continue galantamine and memantine Additional Plan 03/01/2022 Cardiology consult noted. Plan is to continue current treatment. Monitor closely. Discharge on Thursday. Subjective Date/time seen: 03/01/22 11:48 Patient was seen during the morning rounds today. Patient has mild shortness breath. No chest pain. No abdominal pain, nausea, no vomiting. Mood stable. Exam Const: General: comfortable and no acute distress HENMT: Mouth: Yes moist mucous membranes Eyes: General: appearance normal, both eyes and all related structures Sclera: sclerae normal Neck: Neck: supple Other: JVD present Resp: Effort & Inspection: normal respiratory effort Auscultation: clear to auscultation bilaterally Cardio: Rate: regular rate Rhythm: regular rhythm Other: no gallop or murmur GI: Inspection: distended Auscultation: normal bowel sounds Other: soft nontender Skin: General skin exam: normal color Lesions: lesion noted (R forearm) Neuro: Speech: normal speech Sensory Exam: normal sensation Extrem: General: edema (chornic venous stasis dermatitis, no erythema, warmth, tenderness) bilateral Other: bilateral ankle edema Psych: Mental Status: mental status grossly normal Affect: normal affect Objective Data Vital Signs Vital Signs: Vital Signs - 24 hr 02/28/22 15:05 02/28/22 20:00 03/01/22 00:00 Temperature 35.7 C L 36.6 C 36.6 C Pulse Rate 54 L 53 L 60 Respiratory Rate 16 18 16 Blood Pressure 124/52 L 123/63 127/64 Pulse Oximetry 99 98 99 Oxygen Delivery 03/01/22 04:00 02/28/22 22:27 03/01/22 08:15 Temperature 36.3 C L Pulse Rate 67 Respiratory Rate 18 Blood Pressure 132/73 Pulse Oximetry 97 98 Oxygen Delivery Room Air Room Air 03/01/22 11:09 Temperature 35.9 C L Pulse Rate 65 Respiratory Rate 18 Blood Pressure 120/62 Pulse Oximetry 98 Oxygen Delivery Intake/Output Intake/Output: Intake & Output 02/26/22 02/27/22 02/28/22 03/01/22 23:59 23:59 23:59 23:59 Intake Total 930 560 Output Total 1200 400 Balance -270 160 Meds/Results Medications: Active Medications Generic Name Dose Route Start Last Admin Trade Name Freq PRN Reason Stop Dose Admin Hydrocodone Bitart/Acetaminophen 1 tab 02/28/22 00:07 03/01/22 08:10 Hydrocodone/Acetaminophen (*Crx) 5-325 Mg Tablet PO 1 tab Q4H PRN Administration Pain Rated 4-6 Deout
[2022-03-01 16:00] VITALS: BP 128/62; PULSE 54; RESP 16; TEMP 36; O2SAT 98
[2022-03-01] MEDS: WARFARIN (*PBKC) 2.5 MG TABLET PO (16:27)
[2022-03-01 19:51] VITALS: BP 135/61; PULSE 59; RESP 16; TEMP 36.4; O2SAT 100
[2022-03-02 00:21] VITALS: BP 130/68; PULSE 51; RESP 16; TEMP 36.4; O2SAT 99
[2022-03-02 03:35] VITALS: BP 125/66; PULSE 58; RESP 12; TEMP 36.2; O2SAT 99
[2022-03-02 06:45] LABS: Prothrombin Time 21.6 Seconds (11.1-14.7)
[2022-03-02 08:00] VITALS: BP 131/68; PULSE 56; RESP 14; TEMP 36.6; O2SAT 100
[2022-03-02] MEDS: BUMETANIDE INJ 1 MG/4 ML VIAL 2 MG IV PUSH ×2 (08:21→16:46)
[2022-03-02] MEDS: POTASSIUM CHLORIDE 20 MEQ PACKET (FOR LIQUID) 40 MEQ PO ×2 (08:22→16:47)
[2022-03-02] MEDS: TAMSULOSIN HCL 0.4 MG CAPSULE PO (08:22)
[2022-03-02] MEDS: FLUTICASONE PROPIONATE 0.05% NA SPR 16 GM BTL (*BKC) 1 SPRAY NASAL (08:22)
[2022-03-02] MEDS: FOLIC ACID 1 MG TABLET PO (08:23)
[2022-03-02] MEDS: MEMANTINE 10 MG TABLET PO ×2 (08:23→20:15)
[2022-03-02] MEDS: metOLazone 5 MG TABLET PO (08:23)
[2022-03-02] MEDS: FERROUS SULFATE 324 MG TABLET PO (08:23)
[2022-03-02] MEDS: CYANOCOBALAMIN 1,000 MCG TABLET 1000 MCG PO (08:23)
[2022-03-02] MEDS: FINASTERIDE 5 MG TABLET PO (08:23)
[2022-03-02] MEDS: PANTOPRAZOLE 40 MG TABLET PO (08:23)
--- NOTE | 2022-03-02 08:47 | PM.PNCARD ---
Progress Note: A&P Assessment and Plan (1) 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: Code(s): I50.813 - Acute on chronic right heart failure Status: Acute (2) Chronic atrial fibrillation: Code(s): I48.20 - Chronic atrial fibrillation, unspecified Status: Acute Plan 81-year-old man with chronic atrial fibrillation and chronic right ventricular dysfunction. Multiple hospitalizations with shortness of breath. Symptoms of dyspnea are always out of proportion to any evidence of pulmonary congestion as he has well-preserved left ventricular function and no mitral or aortic valve disease. This typically turned around very quickly with a couple of days of intravenous diuretics as it has again. He does not appear to be significantly volume overloaded by physical exam it would be fine with me to return him back to his p.o. diuretic regimen and once again back to his residence. I do not have any suggestions otherwise to prevent these frequent readmissions. Gregorio Lozano MD [facility] Subjective Date/time seen: Date of service:03/02/22 08:47 Interval history: Follow-up visit in this 81-year-old man with: Chronic atrial fibrillation with chronic right ventricular dysfunction. Patient with multiple admissions with shortness of breath and peripheral volume overload. Seems that shortness of breath is due to increased abdominal girth and with difficulty ventilating. Otherwise no real pulmonary congestion. Patient as he typically does feels much better very quickly with some intravenous loop diuretics. Continues to have no complaints this morning Date of service 03/02/2022: Sitting up in bedside chair having his breakfast offers no complaints says his breathing is okay Exam Const: General: comfortable and no acute distress Other: chronically ill-appearing elderly man comfortable watching television no distress HENMT: Mouth: Yes moist mucous membranes and Yes dry mucous membranes Eyes: Sclera: sclerae normal Neck: Neck: supple and no JVD Other: Jugular venous distention up to the angle of the jaw Resp: Effort & Inspection: normal respiratory effort Auscultation: clear to auscultation bilaterally Other: Breath sounds are clear throughout no rales no rhonchi no wheezing Cardio: Rhythm: abnormal rhythm irregularly irregular GI: Auscultation: normal bowel sounds Skin: General skin exam: normal color Neuro: Other: alert and oriented x3 normal mentation Extrem: Other: changes of chronic venous insufficiency which are chronic and bilateral. Modest edema which appears to be good for him Objective Data Vital Signs Vital Signs: Vital Signs - 24 hr 03/01/22 11:09 03/01/22 16:00 03/01/22 19:51 Temperature 35.9 C L 36.0 C L 36.4 C Pulse Rate 65 54 L 59 L Respiratory Rate 18 16 16 Blood Pressure 120/62 128/62 135/61 Pulse Oximetry 98 98 100 03/02/22 00:21 03/02/22 03:35 03/02/22 08:00 Temperature 36.4 C 36.2 C L 36.6 C Pulse Rate 51 L 58 L 56 L Respiratory Rate 16 12 14 Blood Pressure 130/68 125/66 131/68 Pulse Oximetry 99 99 100 Intake/Output Intake/Output: Intake & Output 02/27/22 02/28/22 03/01/22 03/02/22 23:59 23:59 23:59 23:59 Intake Total 930 1480 140 Output Total 1200 1400 Balance -270 80 140 Meds/Results Medications: Active Medications Generic Name Dose Route Start Last Admin Trade Name Freq PRN Reason Stop Dose Admin Hydrocodone Bitart/Acetaminophen 1 tab 02/28/22 00:07 03/01/22 20:01 Hydrocodone/Acetaminophen (*Crx) 5-325 Mg Tablet PO 1 tab Q4H PRN Administration Pain Rated 4-6 Albuterol 2 puff 02/28/22 00:07 Albuterol Sulfate (*Sp) Aerosol 1 Puff INHALATION Q8H PRN shortness of breath or wheezing Bumetanide 2 mg 02/28/22 09:00 03/02/22 08:21 Bumetanide Inj 1 Mg/4 Ml Vial IV PUSH 2 mg BID SANAM Administration Cyanocobalamin 1,000 mcg 02/28/22 09:00 03/02/22 08:23 Cyanoc
--- NOTE | 2022-03-02 09:44 | PM.IMPN ---
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 Consult cardiology given frequency of admission. Patient is end-stage heart failure at this point, discussed code status and patient decided on DNR. (2) Atrial fibrillation, chronic: Code(s): I48.20 - Chronic atrial fibrillation, unspecified Status: Acute Assessment and Plan: Patient with known history of slow AFib, not on any rate control medication. INR 3.5, will hold Coumadin and recheck INR tomorrow. (3) Anemia: Code(s): D64.9 - Anemia, unspecified Status: Acute Assessment and Plan: Continue iron and B12 supplement (4) Acute kidney injury superimposed on chronic kidney disease: Code(s): N17.9 - Acute kidney failure, unspecified; N18.9 - Chronic kidney disease, unspecified Status: Acute Assessment and Plan: Likely cardiorenal etiology, continue to monitor with diuresis (5) Poor nutrition: Code(s): E63.9 - Nutritional deficiency, unspecified Status: Acute Assessment and Plan: Dietary consultation (6) Hyperglycemia: Code(s): R73.9 - Hyperglycemia, unspecified Status: Acute Assessment and Plan: Check A1c (7) Dementia: Code(s): F03.90 - Unspecified dementia without behavioral disturbance Status: Acute Assessment and Plan: continue galantamine and memantine Additional Plan 03/02/2022 Cardiology consult noted. Plan is to continue current treatment. Monitor closely. Discharge on Thursday. Subjective Date/time seen: 03/02/22 09:44 Patient was seen during the morning rounds today. Feeling slightly better. Decreased shortness of breath. No chest pain. No abdominal pain, no nausea, vomiting. Mood stable. Review of Systems Review of Systems: All systems reviewed & are unremarkable except as noted in HPI and below (the history and physical exam.) Exam Const: General: comfortable and no acute distress HENMT: Mouth: Yes moist mucous membranes Eyes: General: appearance normal, both eyes and all related structures Sclera: sclerae normal Neck: Neck: supple Other: JVD present Resp: Effort & Inspection: normal respiratory effort Auscultation: clear to auscultation bilaterally Cardio: Rate: regular rate Rhythm: regular rhythm Other: no gallop or murmur GI: Inspection: distended Auscultation: normal bowel sounds Other: soft nontender Skin: General skin exam: normal color Lesions: lesion noted (R forearm) Neuro: Speech: normal speech Sensory Exam: normal sensation Extrem: General: edema (chornic venous stasis dermatitis, no erythema, warmth, tenderness) bilateral Other: bilateral ankle edema Psych: Mental Status: mental status grossly normal Affect: normal affect Objective Data Vital Signs Vital Signs: Vital Signs - 24 hr 03/01/22 11:09 03/01/22 16:00 03/01/22 19:51 Temperature 35.9 C L 36.0 C L 36.4 C Pulse Rate 65 54 L 59 L Respiratory Rate 18 16 16 Blood Pressure 120/62 128/62 135/61 Pulse Oximetry 98 98 100 03/02/22 00:21 03/02/22 03:35 03/02/22 08:00 Temperature 36.4 C 36.2 C L 36.6 C Pulse Rate 51 L 58 L 56 L Respiratory Rate 16 12 14 Blood Pressure 130/68 125/66 131/68 Pulse Oximetry 99 99 100 Intake/Output Intake/Output: Intake & Output 02/27/22 02/28/22 03/01/22 03/02/22 23:59 23:59 23:59 23:59 Intake Total 930 1480 140 Output Total 1200 1400 Balance -270 80 140 Meds/Results Medications: Active Medications Generic Name Dose Route Start Last Admin Trade Name Freq PRN Reason Stop Dose Admin Hydrocodone Bitart/Acetaminophen 1 tab 02/28/22 00:07 03/01/22 20:01 Hydrocodone/Acetaminophen (*Crx) 5-325 Mg Tablet PO 1 tab Q4H PRN Administrati
[2022-03-02 12:00] VITALS: BP 140/66; PULSE 66; RESP 16; TEMP 36.3; O2SAT 100
[2022-03-02 16:44] VITALS: BP 113/53; PULSE 66; RESP 17; TEMP 36; O2SAT 97
[2022-03-02] MEDS: WARFARIN (*PBKC) 2.5 MG TABLET PO (16:46)
[2022-03-02 19:55] VITALS: BP 126/61; PULSE 60; RESP 14; TEMP 36.6; O2SAT 100
[2022-03-03] VITALS (8 sets, daily range): BP systolic 126–151; BP diastolic 56–68; PULSE 56–66; RESP 16–18; TEMP 36.1–36.6; O2SAT 97–100
[2022-03-03 06:56] LABS: Basophils Absolute Auto 0.1 K/mm3 (0.0-0.1); Basophils Percent Auto 0.7 % (0.2-1.2); Eosinophils Absolute Auto 0.1 K/mm3 (0-0.3); Eosinophils Percent Auto 1.3 % (0-4.4); Hematocrit 41.6 % (42.0-52.0); Hemoglobin 12.7 g/dL (14.0-18.0); Immature Granulocyte Absolute 0.07 K/mm3 (0.00-0.031); Immature Granulocyte Percent A 0.8 % (0-0.5); Lymphocytes Absolute Auto 0.45 K/mm3 (0.9-3.2); Lymphocytes Percent Auto 5.4 % (18.3-44.2); Mean Corpuscular HGB Conc 30.5 g/dl (32-36); Mean Corpuscular Hemoglobin 24.1 pg (26-34); Mean Corpuscular Volume 78.9 fl (80-100); Mean Platelet Volume 9.8 fl (7.4-10.4); Monocytes Absolute Auto 0.6 K/mm3 (0.1-0.6); Monocytes Percent Auto 7.4 % (2.6-8.5); Neutrophils Absolute Auto 7.1 K/mm3 (1.3-6.7); Neutrophils Percent Auto 84.4 % (45.5-73.1); Platelet Count Result 252 k/mm3 (150-375); Red Blood Count 5.27 M/mm3 (4.6-6.20); Red Cell Distribution Width 22.5 % (11.5-14.5); White Blood Count 8.4 K/mm3 (4.5-10.0)
[2022-03-03 07:07] LABS: INR 1.7; Prothrombin Time 19.7 Seconds (11.1-14.7)
[2022-03-03 07:33] LABS: Alanine Aminotransferase 18 U/L (6-50); Albumin Level 2.7 g/dL (3.5-5.1); Alkaline Phosphatase 77 U/L (38-126); Anion Gap 9 mmol/L (8-16); Aspartate Amino Transferase 43 U/L (17-59); Bilirubin,Total 0.9 mg/dL (0.2-1.3); Blood Urea Nitrogen 72 mg/dL (9-20); Calcium 9.2 mg/dL (8.4-10.2); Carbon Dioxide 26 mmol/L (22-30); Chloride 99 mmol/L (98-107); Estimated CRCL calculation 40 ml/min; Estimated Glomerular Filt Rate 49; Glucose 103 mg/dL (65-110); Sodium 134 mmol/L (137-145)
[2022-03-03] MEDS: CYANOCOBALAMIN 1,000 MCG TABLET 1000 MCG PO (08:28)
[2022-03-03] MEDS: PANTOPRAZOLE 40 MG TABLET PO (08:28)
[2022-03-03] MEDS: ERGOCALCIFEROL 50,000 UNIT CAPSULE 50000 UNITS PO (08:28)
[2022-03-03] MEDS: BUMETANIDE INJ 1 MG/4 ML VIAL 2 MG IV PUSH ×2 (08:28→17:23)
[2022-03-03] MEDS: MEMANTINE 10 MG TABLET PO ×2 (08:28→20:31)
[2022-03-03] MEDS: FERROUS SULFATE 324 MG TABLET PO (08:28)
[2022-03-03] MEDS: metOLazone 5 MG TABLET PO (08:28)
[2022-03-03] MEDS: FLUTICASONE PROPIONATE 0.05% NA SPR 16 GM BTL (*BKC) 1 SPRAY NASAL (08:28)
[2022-03-03] MEDS: FINASTERIDE 5 MG TABLET PO (08:28)
[2022-03-03] MEDS: POTASSIUM CHLORIDE 20 MEQ PACKET (FOR LIQUID) 40 MEQ PO ×2 (08:28→17:23)
[2022-03-03] MEDS: TAMSULOSIN HCL 0.4 MG CAPSULE PO (08:28)
[2022-03-03] MEDS: FOLIC ACID 1 MG TABLET PO (08:28)
[2022-03-03] MEDS: TOLNAFTATE 1% POWDER 45 GM BTL 1 APPLIC TOPICAL ×2 (08:29→20:31)
--- NOTE | 2022-03-03 08:45 | PM.PNCARD ---
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 He has improved from a symptomatic standpoint with several doses of IV Bumex. No significant volume overload on exam today. I would anticipate that he can be discharged home tomorrow on his usual p.o. diuretic dose. (2) Chronic atrial fibrillation: Code(s): I48.20 - Chronic atrial fibrillation, unspecified Status: Acute Assessment and Plan: Controlled. Continue warfarin. Subjective Date/time seen: 03/03/22 08:45 Interval history: Follow-up visit in this 81-year-old man with: Chronic atrial fibrillation with chronic right ventricular dysfunction. Patient with multiple admissions with shortness of breath and peripheral volume overload. Seems that shortness of breath is due to increased abdominal girth and with difficulty ventilating. Otherwise no real pulmonary congestion. Patient as he typically does feels much better very quickly with some intravenous loop diuretics. Continues to have no complaints this morning Date of service 03/02/2022: Sitting up in bedside chair having his breakfast offers no complaints says his breathing is okay Date of service 03/03/2022: Feels good today. Does not have any omplaints this morning. Review of Systems Constitutional: Constitutional: Reports lethargy Eyes: Eyes: Reports no additional eye complaints ENT: Reports system reviewed and no additional complaints, except as documented Cardiovascular: Cardiovascular: Reports no additional cardiovascular complaints and Reports dyspnea Respiratory: Respiratory: Reports dyspnea Musculoskeletal: Musculoskeletal: Reports no additional musculoskeletal complaints Neurologic: Reports system reviewed and no additional complaints, except as documented Endocrine: Endocrine: Reports no additional endocrine complaints Hematologic/Lymphatic: Hematologic/Lymphatic: Reports no additional hematologic/lymphatic complaints Allergic/Immunologic: Allergic/Immunologic: Reports no additional allergic/immunologic complaints Exam Const: General: comfortable and no acute distress Other: chronically ill-appearing elderly man comfortable watching television no distress HENMT: Mouth: Yes moist mucous membranes and Yes dry mucous membranes Eyes: Sclera: sclerae normal Neck: Neck: supple and JVD Resp: Effort & Inspection: normal respiratory effort Auscultation: clear to auscultation bilaterally Other: Breath sounds are clear throughout no rales no rhonchi no wheezing Cardio: Rhythm: abnormal rhythm irregularly irregular GI: Auscultation: normal bowel sounds Skin: General skin exam: normal color Neuro: Other: alert and oriented x3 normal mentation Extrem: Other: changes of chronic venous insufficiency which are chronic and bilateral. Modest edema Objective Data Vital Signs Vital Signs: Vital Signs - 24 hr 03/02/22 12:00 03/02/22 16:44 03/02/22 19:55 Temperature 36.3 C L 36.0 C L 36.6 C Pulse Rate 66 66 60 Respiratory Rate 16 17 14 Blood Pressure 140/66 113/53 L 126/61 Pulse Oximetry 100 97 100 03/03/22 00:09 03/03/22 04:29 Temperature 36.4 C 36.5 C Pulse Rate 56 L 60 Respiratory Rate 18 16 Blood Pressure 126/56 L 140/62 Pulse Oximetry 99 100 Intake/Output Intake/Output: Intake & Output 02/28/22 03/01/22 03/02/22 03/03/22 23:59 23:59 23:59 23:59 Intake Total 930 1480 1650 Output Total 1200 1400 775 Balance -270 80 875 Meds/Results Medications: Active Medications Generic Name Dose Route Start Last Admin Trade Name Freq PRN Reason Stop Dose Admin Hydrocodone Bitart/Acetaminophen 1 tab 02/28/22 00:07 03/01/22 20:01 Hydrocodone/Acetaminophen (*Crx) 5-325 Mg Tablet PO 1 tab
--- NOTE | 2022-03-03 11:36 | PM.IMPN ---
Progress Note: A&P Assessment and Plan (1) 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: Code(s): I50.813 - Acute on chronic right heart failure Status: Acute Assessment and Plan: Patient presents with shortness of breath. BNP 5000. Chest x-ray shows cardiomegaly. He was started on Bumex 2 mg IV b.i.d.. He has been continued on the metolazone. Cardiology has been consulted. Cumulative I/O inaccurate. Daily weight however is down 7 kilos. It is felt the patient is end-stage heart failure at this point. Clinically improving. Continue current treatment plan. (2) Atrial fibrillation, chronic: Code(s): I48.20 - Chronic atrial fibrillation, unspecified Status: Acute Assessment and Plan: Patient with known history of slow AFib, not on any rate control medication. INR was 3.5 so Coumadin held but now INR 1.7. Coumadin resumed. Continue daily INR. (3) Acute kidney injury superimposed on chronic kidney disease: Code(s): N17.9 - Acute kidney failure, unspecified; N18.9 - Chronic kidney disease, unspecified Status: Acute Assessment and Plan: Likely cardiorenal etiology. Cr down to 1.4 but BUN 72. Continue to monitor closely with diuresis (4) Poor nutrition: Code(s): E63.9 - Nutritional deficiency, unspecified Status: Acute Assessment and Plan: Dietary consultation. Continue supplement (5) Hyperglycemia: Code(s): R73.9 - Hyperglycemia, unspecified Status: Acute Assessment and Plan: patient noted to be mildly hyper glycemic. A1c 6.0. (6) Dementia: Code(s): F03.90 - Unspecified dementia without behavioral disturbance Status: Acute Assessment and Plan: Mood stable. Continue galantamine and memantine. (7) Anemia: Code(s): D64.9 - Anemia, unspecified Status: Acute Assessment and Plan: Hgb 12.7. Continue iron and B12 supplement Plan DVT prophylaxis: Coumadin Code status: DNR Diet: Heart healthy with supplements and fluid restriction. Subjective Date/time seen: 03/03/22 11:36 Interval history: 81yo male with right heart failure, cAFib, CKD and HTN here for shortness of breath. Assuming care. Chart reviewed. His legs are sore but improved overall. His shortness of breath is better. He denies any chest pain. No nausea or vomiting. no cough. Exam Narrative: AF 97.0 151/68 61 16 97% ra Gen - NARD sitting up in the chair Chest - left basilar crackles o/w clear. nml RR CV - irregularly irregular Abd - Soft, NT/ND, Positive BS Ext - Pedal edema to the thighs. Psych - Nml mood and affect Skin - small firm nodules with chronic venous stasis skin changes bilateral LE Objective Data Vital Signs Vital Signs: Vital Signs - 24 hr 03/02/22 12:00 03/02/22 16:44 03/02/22 19:55 Temperature 97.3 F L 96.8 F L 97.8 F Pulse Rate 66 66 60 Respiratory Rate 16 17 14 Blood Pressure 140/66 113/53 L 126/61 Pulse Oximetry 100 97 100 Oxygen Delivery 03/03/22 00:09 03/03/22 04:29 03/03/22 09:43 Temperature 97.6 F 97.7 F 97 F L Pulse Rate 56 L 60 61 Respiratory Rate 18 16 16 Blood Pressure 126/56 L 140/62 151/68 H Pulse Oximetry 99 100 97 Oxygen Delivery 03/03/22 08:45 Temperature Pulse Rate Respiratory Rate Blood Pressure Pulse Oximetry 99 Oxygen Delivery Room Air Intake/Output Intake/Output: Intake & Output 02/28/22 03/01/22 03/02/22 03/03/22 23:59 23:59 23:59 23:59 Intake Total 930 1480 1650 118 Output Total 1200 1400 775 Balance -270 80 875 118 Meds/Results Medications: Active Medications Generic Name Dose Route Start Last Admin Trade Name Freq PRN Reason Stop Dose Admin Hydrocodone Bitart/Acetaminophen 1 tab 02/28/22 00:07 03/01/22 20:01 Hydrocodone/Acetaminophen (*Crx) 5-325 Mg Tablet PO 1 tab Q4H PRN Administration Pain Rated 4-6 Albuterol 2 puff 02/28/22 00:07 Albuterol Sulfate
[2022-03-03] MEDS: POTASSIUM CHLORIDE 20 MEQ TABLET 40 MEQ PO (14:40)
[2022-03-03] MEDS: WARFARIN (*PBKC) 3 MG TABLET PO (17:23)
[2022-03-03] MEDS: HYDROcodone/acetaminophen (*CRX) 5-325 MG TABLET 1 TAB PO (21:45)
[2022-03-04 04:05] VITALS: BP 140/56; PULSE 53; RESP 18; TEMP 36.4; O2SAT 97
[2022-03-04 05:46] LABS: Basophils Absolute Auto 0.1 K/mm3 (0.0-0.1); Basophils Percent Auto 0.6 % (0.2-1.2); Eosinophils Absolute Auto 0.2 K/mm3 (0-0.3); Eosinophils Percent Auto 1.9 % (0-4.4); Hematocrit 48.4 % (42.0-52.0); Hemoglobin 13.9 g/dL (14.0-18.0); Immature Granulocyte Absolute 0.08 K/mm3 (0.00-0.031); Lymphocytes Absolute Auto 0.63 K/mm3 (0.9-3.2); Lymphocytes Percent Auto 7.6 % (18.3-44.2); Mean Corpuscular HGB Conc 28.7 g/dl (32-36); Mean Corpuscular Hemoglobin 23.7 pg (26-34); Mean Corpuscular Volume 82.5 fl (80-100); Mean Platelet Volume 9.3 fl (7.4-10.4); Monocytes Absolute Auto 0.6 K/mm3 (0.1-0.6); Monocytes Percent Auto 7.4 % (2.6-8.5); Neutrophils Absolute Auto 6.8 K/mm3 (1.3-6.7); Neutrophils Percent Auto 81.5 % (45.5-73.1); Platelet Count Result 226 k/mm3 (150-375); Red Blood Count 5.87 M/mm3 (4.6-6.20); White Blood Count 8.3 K/mm3 (4.5-10.0)
[2022-03-04 05:52] LABS: INR 2.2; Prothrombin Time 23.6 Seconds (11.1-14.7)
[2022-03-04 06:00] LABS: Alanine Aminotransferase 21 U/L (6-50); Albumin Level 2.7 g/dL (3.5-5.1); Alkaline Phosphatase 74 U/L (38-126); Anion Gap 7 mmol/L (8-16); Aspartate Amino Transferase 39 U/L (17-59); Blood Urea Nitrogen 70 mg/dL (9-20); Calcium 8.9 mg/dL (8.4-10.2); Carbon Dioxide 31 mmol/L (22-30); Chloride 96 mmol/L (98-107); Estimated CRCL calculation 40 ml/min; Estimated Glomerular Filt Rate 49; Glucose 99 mg/dL (65-110); Potassium 3.2 mmol/L (3.4-5.0); Sodium 134 mmol/L (137-145)
[2022-03-04] MEDS: POTASSIUM CHLORIDE 20 MEQ TABLET 40 MEQ PO (08:06)
[2022-03-04] MEDS: FINASTERIDE 5 MG TABLET PO (08:07)
[2022-03-04] MEDS: FERROUS SULFATE 324 MG TABLET PO (08:07)
[2022-03-04] MEDS: BUMETANIDE INJ 1 MG/4 ML VIAL 2 MG IV PUSH (08:07)
[2022-03-04] MEDS: CYANOCOBALAMIN 1,000 MCG TABLET 1000 MCG PO (08:07)
[2022-03-04] MEDS: POTASSIUM CHLORIDE 20 MEQ PACKET (FOR LIQUID) 40 MEQ PO (08:08)
[2022-03-04] MEDS: metOLazone 5 MG TABLET PO (08:08)
[2022-03-04] MEDS: PANTOPRAZOLE 40 MG TABLET PO (08:08)
[2022-03-04] MEDS: MEMANTINE 10 MG TABLET PO (08:08)
[2022-03-04] MEDS: TAMSULOSIN HCL 0.4 MG CAPSULE PO (08:08)
[2022-03-04] MEDS: FOLIC ACID 1 MG TABLET PO (08:08)
[2022-03-04] MEDS: FLUTICASONE PROPIONATE 0.05% NA SPR 16 GM BTL (*BKC) 1 SPRAY NASAL (08:08)
[2022-03-04] MEDS: TOLNAFTATE 1% POWDER 45 GM BTL 1 APPLIC TOPICAL (08:09)
[2022-03-04] MEDS: HYDROcodone/acetaminophen (*CRX) 5-325 MG TABLET 1 TAB PO (09:25)
[2022-03-04 11:57] LABS: EDCOVIDSCREEN Negative (Negative)
--- NOTE | 2022-03-04 13:51 | PM.PNCARD ---
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 He has improved from a symptomatic standpoint with several doses of IV Bumex. No significant volume overload on exam today. Appropriate for discharge today on his usual p.o. diuretic regimen. (2) Chronic atrial fibrillation: Code(s): I48.20 - Chronic atrial fibrillation, unspecified Status: Acute Assessment and Plan: Controlled. Continue warfarin. Subjective Date/time seen: 03/04/22 13:51 Cardiology follow up for CHF Feeling much better today. Swelling has improved. No shortness of breath. Eager to be discharged. Review of Systems Constitutional: Constitutional: Reports lethargy Eyes: Eyes: Reports no additional eye complaints ENT: Reports system reviewed and no additional complaints, except as documented Cardiovascular: Cardiovascular: Reports no additional cardiovascular complaints and Reports dyspnea Respiratory: Respiratory: Reports dyspnea Musculoskeletal: Musculoskeletal: Reports no additional musculoskeletal complaints Neurologic: Reports system reviewed and no additional complaints, except as documented Endocrine: Endocrine: Reports no additional endocrine complaints Hematologic/Lymphatic: Hematologic/Lymphatic: Reports no additional hematologic/lymphatic complaints Allergic/Immunologic: Allergic/Immunologic: Reports no additional allergic/immunologic complaints Exam Const: General: comfortable and no acute distress Other: chronically ill-appearing elderly man comfortable watching television no distress HENMT: Mouth: Yes moist mucous membranes and Yes dry mucous membranes Eyes: Sclera: sclerae normal Neck: Neck: supple, JVD and no JVD Other: Jugular venous distention up to the angle of the jaw Resp: Effort & Inspection: normal respiratory effort Auscultation: clear to auscultation bilaterally Other: Breath sounds are clear throughout no rales no rhonchi no wheezing Cardio: Rhythm: abnormal rhythm irregularly irregular GI: Auscultation: normal bowel sounds Skin: General skin exam: normal color Neuro: Other: alert and oriented x3 normal mentation Extrem: Other: changes of chronic venous insufficiency which are chronic and bilateral. Modest edema Objective Data Vital Signs Vital Signs: Vital Signs - 24 hr 03/03/22 18:47 03/03/22 19:29 03/03/22 23:43 Temperature 36.1 C L 36.5 C 36.6 C Pulse Rate 59 L 57 L 66 Respiratory Rate 16 18 16 Blood Pressure 137/68 130/57 L 126/64 Pulse Oximetry 98 99 98 Oxygen Delivery 03/04/22 04:05 03/04/22 08:10 Temperature 36.4 C L Pulse Rate 53 L Respiratory Rate 18 Blood Pressure 140/56 L Pulse Oximetry 97 Oxygen Delivery Room Air Intake/Output Intake/Output: Intake & Output 03/01/22 03/02/22 03/03/22 03/04/22 23:59 23:59 23:59 23:59 Intake Total 1480 1650 868 838 Output Total 1387 229 1491 800 Balance 80 955 -310 38 Meds/Results Medications: Active Medications Generic Name Dose Route Start Last Admin Trade Name Freq PRN Reason Stop Dose Admin Hydrocodone Bitart/Acetaminophen 1 tab 02/28/22 00:07 03/04/22 09:25 Hydrocodone/Acetaminophen (*Crx) 5-325 Mg Tablet PO 1 tab Q4H PRN Administration Pain Rated 4-6 Albuterol 2 puff 02/28/22 00:07 Albuterol Sulfate (*Sp) Aerosol 1 Puff INHALATION Q8H PRN shortness of breath or wheezing Bumetanide 2 mg 02/28/22 09:00 03/04/22 08:07 Bumetanide Inj 1 Mg/4 Ml Vial IV PUSH 2 mg BID SANAM Administration Cyanocobalamin 1,000 mcg 02/28/22 09:00 03/04/22 08:07 Cyanocobalamin 1,000 Mcg Tablet PO 1,000 mcg QAM SANAM Administration Docusate Sodium 100 mg 02/28/22 00:07 Docusate Sodium 100 Mg Capsule PO
[2022-03-04 15:00] VITALS: BP 122/65; PULSE 60; RESP 16; TEMP 36.4; O2SAT 92
--- NOTE | 2022-03-04 15:08 | PM.DS ---
DS: Admitting Diagnosis Discharge Date 03/04/22 Admitting Diagnosis Shortness of breath DS: Discharge Diagnosis Discharge Diagnosis (1) 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: Code(s): I50.813 - Acute on chronic right heart failure Status: Acute (2) Atrial fibrillation, chronic: Code(s): I48.20 - Chronic atrial fibrillation, unspecified Status: Acute (3) Acute kidney injury superimposed on chronic kidney disease: Code(s): N17.9 - Acute kidney failure, unspecified; N18.9 - Chronic kidney disease, unspecified Status: Acute (4) Poor nutrition: Code(s): E63.9 - Nutritional deficiency, unspecified Status: Acute (5) Hyperglycemia: Code(s): R73.9 - Hyperglycemia, unspecified Status: Acute (6) Dementia: Code(s): F03.90 - Unspecified dementia without behavioral disturbance Status: Acute (7) Anemia: Code(s): D64.9 - Anemia, unspecified Status: Acute DS: Summary Hospital Course Reason for hospitalization: 81yo male with right heart failure, cAFib, CKD and HTN here for shortness of breath. Please see H&P for details Hospital Course: Patient presents with shortness of breath.? BNP 5000.? Chest x-ray shows cardiomegaly.? He was started on Bumex 2 mg IV b.i.d..? He was continued on the metolazone.? Cardiology was consulted.? Cumulative I/O inaccurate but daily weight however is down 8 kilos.? It is felt the patient is end-stage heart failure at this point.?Patient with known history of slow AFib, not on any rate control medication.? INR therapeutic. Clinically improving.?He overall did well and was discharged home on 03/04/22. Status at Discharge Cognitive/behavioral status at discharge: Stable Time Spent with Patient Time attestation: Total time spent providing and/or coordinating discharge services: 32 minutes Time spent: Greater than 30 minutes Exam Narrative: AF 97.5 140/56 53 18 97% ra Gen - NARD sitting up in the chair Chest - CTA bilaterally. nml RR CV - irregularly irregular Abd - Soft, NT/ND, Positive BS Ext - 1+ pitting pedal edema Psych - Nml mood and affect Skin - small firm nodules with chronic venous stasis skin changes bilateral LE DS: Data Data Completed and Pending Labs on day of discharge: Labs from last 24 hours 03/04/22 03/04/22 03/04/22 11:38 05:12 05:12 WBC RBC Hgb Hct MCV MCH MCHC RDW Plt Count MPV Immature Gran % (Auto) Neut % (Auto) Lymph % (Auto) [place] % (Auto) Eos % (Auto) Baso % (Auto) Lymph # (Auto) [place] # (Auto) Eos # (Auto) Baso # (Auto) Abs Immat Gran (auto) Absolute Neuts (auto) Absolute Nucleated RBC Nucleated RBC % PT 23.6 H INR 2.2 Sodium 134 L Potassium 3.2 L Chloride 96 L Carbon Dioxide 31 H Anion Gap 7 L BUN 70 H Creatinine 1.40 H Estim Creat Clear Calc 40 Estimated GFR 49 L Glucose 99 Calcium 8.9 Magnesium 2.0 Total Bilirubin 1.0 AST 39 ALT 21 Alkaline Phosphatase 74 Total Protein 5.0 L Albumin 2.7 L SARS-CoV-2 IgG/IgM Ag?Rapid Negative 03/04/22 05:12 WBC 8.3 RBC 5.87 Hgb 13.9 L Hct 48.4 MCV 82.5 MCH 23.7 L MCHC 28.7 L RDW 23.0 H Plt Count 226 MPV 9.3 Immature Gran % (Auto) 1.0 H Neut % (Auto) 81.5 H Lymph % (Auto) 7.6 L [place] % (Auto) 7.4 Eos % (Auto) 1.9 Baso % (Auto) 0.6 Lymph # (Auto) 0.63 L [place] # (Auto) 0.6 Eos # (Auto) 0.2 Baso # (Auto) 0.1 Abs Immat Gran (auto) 0.08 H Absolute Neuts (auto) 6.8 H Absolute Nucleated RBC 0.0 Nucleated RBC % 0.0 PT INR Sodium Potassium Chloride Carbon Dioxide Anion Gap BUN Creatinine Estim Creat Clear Calc Estimated GFR Glucose Calcium Magnesium Total Bilirubin AST ALT Alkaline Phosphatase Total Protein Albumin SARS-CoV-2 IgG/IgM Ag?Rapid Discharge Plan Discharge Attendi
== END 2022-03-04 16:55 | DRG 292 ==
LOC: ANHED 18:30 → ANHIMU 20:44 → ANH2MED 02-28 12:46
PROVIDERS: Family Medicine; Internal Medicine; Admitting Provider Student in an Organized Health Care Education/Training Program; Emergency Provider Emergency Medicine; PCP Family Medicine; Visit Provider Internal Medicine
DX: I13.0 Hypertensive heart and chronic kidney disease with heart failure and stage 1 through stage 4 chronic kidney disease, or unspecified chronic kidney disease (principal); I48.20 Chronic atrial fibrillation, unspecified; N17.9 Acute kidney failure, unspecified; I50.813 Acute on chronic right heart failure; Z20.822 Contact with and (suspected) exposure to COVID-19; N40.0 Benign prostatic hyperplasia without lower urinary tract symptoms; N18.30 Chronic kidney disease, stage 3 unspecified; I25.10 Atherosclerotic heart disease of native coronary artery without angina pectoris; F03.90 Unspecified dementia, unspecified severity, without behavioral disturbance, psychotic disturbance, mood disturbance, and anxiety; R73.9 Hyperglycemia, unspecified; D64.9 Anemia, unspecified; M06.00 Rheumatoid arthritis without rheumatoid factor, unspecified site; K21.9 Gastro-esophageal reflux disease without esophagitis; E63.9 Nutritional deficiency, unspecified; E78.5 Hyperlipidemia, unspecified; Z79.01 Long term (current) use of anticoagulants; Z66 Do not resuscitate; M1A.9XX0 Chronic gout, unspecified, without tophus (tophi)
CPT/HCPCS: 36415; 71045; 80048; 80053; 83036; 83735; 83880; 84484; 85025; 85610; 85730; 87426; 93005; 96374; 96376; 99285; A9270; C9803; G0378; U0003; U0005

== ENCOUNTER 2022-03-16 15:12 | Inpatient (IN) | payer MEDICARE, SELFPAY ==
[2022-03-16] VITALS (34 sets, daily range): BP systolic 68–110; BP diastolic 36–58; PULSE 45–67; RESP 10–22; TEMP 36.3–36.7; O2SAT 91–100; BMI 33.5
--- NOTE | ~2022-03-16 | XR_ITS ---
EXAMINATION: XR chest 1V portable DATE: 03/24/2022 05:36 INDICATION: Pneumonia TECHNIQUE: frontal view of the chest was obtained. COMPARISON: Chest radiograph dated 03/21/2022 FINDINGS: Right internal jugular central venous catheter with distal tip at the caudal superior vena cava. Sign ificant interval improvement in airspace opacities in the airspace opacities previously in the left l ower lung zone. Increasing pulmonary vascular congestion without dawson pulmonary edema. No pleural ef fusion or pneumothorax. Cardiomegaly. IMPRESSION: 1. Significant decrease in opacities in the left lower lung zone which could represent improving pneu monia or atelectasis. 2. Cardiomegaly with increasing pulmonary vascular congestion without dawson pulmonary edema. Reviewed, dictated and finalized at location A. IMPRESSION: 1. Significant decrease in opacities in the left lower lung zone which could re present improving pneumonia or atelectasis. 2. Cardiomegaly with increasing pulmonary vascular congestion without dawson pul monary edema.
--- NOTE | ~2022-03-16 | US_ITS ---
EXAMINATION: US renal BI DATE: 03/17/2022 10:14 INDICATION: Acute renal insufficiency TECHNIQUE: Multiple ultrasound grayscale images of the kidneys were obtained. COMPARISON: None. FINDINGS: The right kidney measures 11.6 x 4.5 x 5.6 cm. The left kidney measures 11.5 x 5.4 x 6.4 cm. The kidn eys demonstrate normal echogenicity. There is no hydronephrosis in either kidney. No stones identifi ed. The bladder is nonvisualized and likely decompressed. IMPRESSION: 1. Normal kidneys without hydronephrosis. Reviewed, dictated and finalized at location A.
--- NOTE | ~2022-03-16 | XR_ITS ---
EXAMINATION: XR chest 1V portable Exam Date/Time: 03/16/2022 16:25 CDT HISTORY: Weakness Comparison: 02/27/2022. RESULT: Lines, tubes, and devices: None. Lungs and pleura: Senescent changes. Cardiomediastinal silhouette: Cardiomegaly, unchanged. Other: No acute osseous or upper abdominal finding. IMPRESSION: No acute cardiopulmonary process. Reviewed, dictated and finalized at location K.
--- NOTE | ~2022-03-16 | XR_ITS ---
EXAMINATION: XR chest port-a-cath/central DATE: 03/17/2022 08:51 INDICATION: Central line placement TECHNIQUE: frontal and lateral views of the chest were obtained. COMPARISON: Chest radiograph dated 03/16/2022 FINDINGS: Right internal jugular central venous catheter with distal tip at the caudal superior vena cava. Visu alized portions of the lungs are clear with no focal airspace opacities, pulmonary edema, pleural eff usion or pneumothorax. The left costophrenic angle is excluded from the [id number]. Cardiomegaly. IMPRESSION: 1. Right internal jugular central venous catheter tip at the caudal superior vena cava. No acute card iopulmonary disease. Reviewed, dictated and finalized at location A. IMPRESSION: 1. Right internal jugular central venous catheter tip at the caudal superior ve na cava. No acute cardiopulmonary disease.
--- NOTE | ~2022-03-16 | XR_ITS ---
EXAMINATION: XR chest 1V portable DATE: 03/18/2022 05:46 INDICATION: Septic shock. TECHNIQUE: A single frontal view of the chest was obtained. COMPARISON: Chest single view 03/17/2022 FINDINGS: There are airspace opacities at left lung base. No pleural effusion or pneumothorax. Cardio megaly is noted. A right internal jugular central venous catheter is seen with tip at the superior ca voatrial junction. IMPRESSION: 1. Worsened airspace opacities at left lung base, consistent with atelectasis versus pneumonia. 2. Cardiomegaly. Reviewed, dictated and finalized at location A. IMPRESSION: 1. Worsened airspace opacities at left lung base, consistent with atelectasis v ersus pneumonia. 2. Cardiomegaly.
--- NOTE | ~2022-03-16 | XR_ITS ---
EXAMINATION: XR chest 1V portable INDICATION: Fluid overload TECHNIQUE: Portable AP chest at 0933 hours COMPARISON: 03/18/2022 FINDINGS: Cardiomegaly is noted. There is a mild diffuse interstitial pattern. Left basilar airspace opacities persist without significant change. No pleural effusion or pneumothorax. A right internal j ugular central venous catheter ends with its tip at the superior cavoatrial junction. IMPRESSION: 1. Cardiomegaly with mild pulmonary edema. 2. Left basilar airspace opacities, consistent with atelectasis versus pneumonia. Reviewed, dictated and finalized at location B. IMPRESSION: 1. Cardiomegaly with mild pulmonary edema. 2. Left basilar airspace opacities, consistent with atelectasis versus pneumoni a.
--- NOTE | 2022-03-16 15:36 | ECG_ITS ---
Measurements Intervals [place] Rate: 51 P: NH: 0 QRS: 11 QRSD: 138 T: -40 QT: 481 QTc: 445 Interpretive Statements ATRIAL FIBRILLATION WITH SLOW VENTRICULAR RESPONSE NONCPEFIC INTRAVENTRICULAR CONDUCTION DELAY CANNOT RULE OUT ANTERIOR, INFARCTION ABNORMAL ECG COMPARED TO ECG 02/27/2022 17:41:41 NO SIGNIFICANT CHANGE Electronically Signed On 03-17-2022 16:10:36 CDT by Todd Stone M.D.
--- NOTE | 2022-03-16 16:00 | ED.GENADULT ---
HPI - General Adult General Chief complaint: Weakness Stated complaint: SOB Time Seen by Provider: 03/16/22 16:00 Source: patient, EMS and RN notes reviewed Mode of arrival: EMS Limitations: no limitations History of Present Illness HPI narrative: 81 years old white male came from assisting living complaining of cannot take care of himself plus weakness. Patient is DNR. He denies any shortness of breath, chest pain, headache, abdominal pain or back pain. Patient also denies any fever, chills, nausea, vomiting Related Data Home Medications Medication Instructions Recorded Confirmed acetaminophen 325 mg capsule 650 mg PO Q6H PRN Pain (Scale 06/08/19 02/27/22 Score 1-3) docusate sodium 100 mg tablet 100 mg PO DAILY PRN Constipation 06/17/19 02/27/22 fluticasone propionate 50 1 spray intranasal DAILY 02/14/21 02/27/22 mcg/actuation nasal spray,suspension (Flonase Allergy Relief) guaifenesin 600 mg tablet, 600 mg PO BID PRN Cough 02/14/21 02/27/22 extended release 12 hr (Mucinex) memantine 10 mg tablet 10 mg PO Q12H 11/25/21 02/27/22 galantamine 8 mg 24 hr 8 mg PO DAILY 01/30/22 02/27/22 capsule,extended release bumetanide 1 mg tablet 3 mg PO BID 02/27/22 02/27/22 warfarin 3 mg tablet 3 mg PO QMWF 02/27/22 02/27/22 Allergies Allergy/AdvReac Type Severity Reaction Status Date / Time Penicillins Allergy Unknown Rash Verified 02/27/22 18:38 Sulfa (Sulfonamide Allergy Unknown Rash Verified 02/27/22 18:38 Antibiotics) sulfathiazole Allergy Unknown Unknown Verified 02/27/22 18:38 Review of Systems Review of Systems: All systems reviewed & are unremarkable except as noted in HPI and below PMFSH Past Medical History Medical History Benign prostatic hyperplasia Chronic anticoagulation Chronic atrial fibrillation Chronic atrial flutter Chronic gout without tophus Chronic kidney disease, stage 3 unspecified Chronic right-sided heart failure Echocardiogram on 11/26/2021 showed normal left ventricular chamber size and function with an EF of 65 to 70%, abnormal diastolic function, severely enlarged right ventricular chamber, and reduced right ventricular systolic function. 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 Family History Family History Father , at age 54 Parkinsons disease Cerebrovascular accident Mother , in her 80s Hypertension Cerebrovascular accident Essential hypertension Hypothyroidism Heart disease Sibling Coronary artery disease Social History Social History Social History: The patient is single with no children; he has never been . He lives in assisted living at [facility]. 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 Pipe smoker through the . No alcohol or illicit substance abuse. Healthcare power of staff attorney: Timoteo and Lexi Rico (cousins). Code status: Full code. Smoking status: Former smoker Tobacco type: pipe Alcohol intake: never Substance use: never Substance use type: does not use Spiritual care concerns: No Exam Narrative: General appearance: Well-developed, well-nourished Skin: Normal color 2+ edema of the abdomen, poor hygienic condition, multiple healing wounds/ulcerations
[2022-03-16 16:53] LABS: Basophils Absolute Auto 0.1 K/mm3 (0.0-0.1); Basophils Percent Auto 0.7 % (0.2-1.2); Eosinophils Absolute Auto 0.1 K/mm3 (0-0.3); Eosinophils Percent Auto 0.9 % (0-4.4); Hematocrit 43.7 % (42.0-52.0); Hemoglobin 13.2 g/dL (14.0-18.0); Immature Granulocyte Absolute 0.15 K/mm3 (0.00-0.031); Immature Granulocyte Percent A 1.2 % (0-0.5); Lymphocytes Absolute Auto 0.81 K/mm3 (0.9-3.2); Lymphocytes Percent Auto 6.3 % (18.3-44.2); Mean Corpuscular HGB Conc 30.2 g/dl (32-36); Mean Corpuscular Hemoglobin 24.4 pg (26-34); Mean Corpuscular Volume 80.6 fl (80-100); Mean Platelet Volume 9.5 fl (7.4-10.4); Monocytes Absolute Auto 0.9 K/mm3 (0.1-0.6); Monocytes Percent Auto 7.2 % (2.6-8.5); Neutrophils Absolute Auto 10.7 K/mm3 (1.3-6.7); Neutrophils Percent Auto 83.7 % (45.5-73.1); Platelet Count Result 274 k/mm3 (150-375); Red Blood Count 5.42 M/mm3 (4.6-6.20); Red Cell Distribution Width 22.3 % (11.5-14.5); White Blood Count 12.8 K/mm3 (4.5-10.0)
[2022-03-16 16:54] LABS: Add Urine Microscopic? YES; Appearance Urine Clear (Clear); Bilirubin Urine 2+ (Negative); Blood Urine 3+ (Negative); Color Urine Brown (Yellow); Glucose Urine UA Negative (Negative); Ketones Urine 1+ mg/dL (Negative); Leukocyte Esterase Ur 3+ LEU/UL (Negative); Nitrate Urine Negative (Negative); Protein Urine 3+ mg/dL (Negative)
[2022-03-16 17:08] LABS: Alanine Aminotransferase 31 U/L (6-50); Albumin Level 3.3 g/dL (3.5-5.1); Alkaline Phosphatase 132 U/L (38-126); Anion Gap 15 mmol/L (8-16); Aspartate Amino Transferase 42 U/L (17-59); Bilirubin,Total 0.8 mg/dL (0.2-1.3); Blood Urea Nitrogen 81 mg/dL (9-20); Carbon Dioxide 20 mmol/L (22-30); Chloride 89 mmol/L (98-107); Estimated CRCL calculation 16 ml/min; Estimated Glomerular Filt Rate 16; Glucose 90 mg/dL (65-110); Potassium 5.5 mmol/L (3.4-5.0); Sodium 124 mmol/L (137-145)
[2022-03-16 17:16] LABS: Mucus Urine Rare /lpf; RBC Urine >75 /hpf (0-2); WBC Urine >75 /hpf
[2022-03-16 17:17] LABS: INR 1.3; Prothrombin Time 15.8 Seconds (11.1-14.7)
[2022-03-16 17:18] LABS: Partial Thromboplastin Time 31.9 SECONDS (22.3-36.8)
[2022-03-16 17:28] LABS: SARS-CoV-2 RNA PCR Negative
--- NOTE | 2022-03-16 18:25 | PC.NURSE ---
only 1 liter given per ERP
[2022-03-16] MEDS: SODIUM CHLORIDE 0.9% IV 1,000 ML 150 ML IV CONT (18:34)
--- NOTE | 2022-03-16 18:38 | PC.NURSE ---
at 1643 labs drawn, unable to get cultures or lactic. [facility] called phleb to let them know we needed assistance with lab draw
--- NOTE | 2022-03-16 18:45 | ADMGEN ---
This patient, Shaan Landis, was admitted to Medical Room 253-01. Patient/family oriented to hospital policies and general routines including ID bracelet, bed and alarms, visiting hours, pain management, procedures, bathroom and other care routines, personal items, smoking policy, room service/diet, and visiting hours. Information on how to activate the Rapid Response Team has been discussed. Patient/Family are encouraged to report perceived risks to care and to ask questions if they do not understand what they are told or what they should do.
[2022-03-16 20:42] LABS: Lactic Acid Reflex 1.8 mmol/L (0.7-2.0)
--- NOTE | 2022-03-16 20:58 | PM.IMHP ---
H&P: HPI History of Present Illness Date/Time: 03/16/22 20:58 Chief Complaint: Weakness Narrative: this is a 81-year-old male patient who resides at [facility]. The patient came in complaining any could not take care of himself and he has this weakness. the patient denied any nausea vomiting or diarrhea. He denies any fever chills or cough. Patient stated he had a Arnett catheter placed just a couple days ago. His white count is 12.8. Sodium was low at 124 and potassium 5.5 chloride 89 BUN 81 creatinine 3.6. GFR 17. The patient was found to be positive for UTI. He was given an IV bolus and started on IV fluids. He was given IV Tylenol and Zofran. He did have a blood pressure 85/54 and it did start to come up to 99/57. Patient is awake and talking. The patient is being admitted to inpatient services on the date of service of 03/16/2022. Review of Systems Review of Systems: See HPI All systems reviewed & are unremarkable except as noted in HPI and below Constitutional: Constitutional: Reports as per HPI and Reports no additional constitutional complaints Eyes: Eyes: Reports as per HPI and Reports no additional eye complaints ENT: Reports system reviewed and no additional complaints, except as documented and Reports Normal hearing present Cardiovascular: Cardiovascular: Reports no additional cardiovascular complaints Respiratory: Respiratory: Reports no additional respiratory complaints and Reports no additional respiratory complaints Gastrointestinal: Gastrointestinal: Reports as per HPI and Reports no additional gastrointestinal complaints Musculoskeletal: Musculoskeletal: Reports no additional musculoskeletal complaints Integumentary/Breasts: Skin/Breast: Reports system reviewed and no additional complaints, except as docu and Reports as per HPI Neurologic: Reports system reviewed and no additional complaints, except as documented, Reports as per HPI and Reports Normal hearing present Psychiatric: Psychiatric: Reports no additional psychiatric complaints and Reports as per HPI Endocrine: Endocrine: Reports no additional endocrine complaints Hematologic/Lymphatic: Hematologic/Lymphatic: Reports no additional hematologic/lymphatic complaints Allergic/Immunologic: Allergic/Immunologic: Reports no additional allergic/immunologic complaints [facility] Past Medical History Medical History Benign prostatic hyperplasia Chronic anticoagulation Chronic atrial fibrillation Chronic atrial flutter Chronic gout without tophus Chronic kidney disease, stage 3 unspecified Chronic right-sided heart failure Echocardiogram on 11/26/2021 showed normal left ventricular chamber size and function with an EF of 65 to 70%, abnormal diastolic function, severely enlarged right ventricular chamber, and reduced right ventricular systolic function. 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 Family History Family History Father , at age 54 Parkinsons disease Cerebrovascular accident Mother , in her 80s Hypertension Cerebrovascular accident Essential hypertension Hypothyroidism Heart disease Sibling Coronary artery disease Social History Social History (Updated 03/16/22 @ 21:02 by Nicolette Jose NP) Social History: The patient
[2022-03-16 20:59] LABS: Anion Gap 12 mmol/L (8-16); Blood Urea Nitrogen 84 mg/dL (9-20); Calcium 7.5 mg/dL (8.4-10.2); Carbon Dioxide 21 mmol/L (22-30); Chloride 90 mmol/L (98-107); Estimated CRCL calculation 17 ml/min; Estimated Glomerular Filt Rate 17; Glucose 83 mg/dL (65-110); Potassium 5.7 mmol/L (3.4-5.0); Sodium 123 mmol/L (137-145)
[2022-03-16] MEDS: ALBUTEROL SULFATE NEB 2.5 MG/3 ML INH 5 MG INHALATION (21:25)
[2022-03-16] MEDS: SODIUM CHLORIDE 0.9% IV 250 ML BAG 500 ML IVPB (21:42)
[2022-03-16] MEDS: SODIUM ZIRCONIUM CYCLOSILICATE 10 GM POWD.PACK PO (22:04)
[2022-03-16 22:19] LABS: Sodium Urine Random 23 meq/L
[2022-03-16] MEDS: ENOXAPARIN 100 MG/ML SYRINGE 95 MG SUB-Q (22:46)
[2022-03-16 23:15] LABS: Anion Gap 8 mmol/L (8-16); Blood Urea Nitrogen 81 mg/dL (9-20); Calcium 6.8 mg/dL (8.4-10.2); Carbon Dioxide 23 mmol/L (22-30); Chloride 93 mmol/L (98-107); Estimated CRCL calculation 17 ml/min; Estimated Glomerular Filt Rate 17; Glucose 123 mg/dL (65-110); Potassium 5.2 mmol/L (3.4-5.0); Sodium 124 mmol/L (137-145)
[2022-03-17] VITALS (24 sets, daily range): BP systolic 78–117; BP diastolic 39–79; PULSE 53–64; RESP 15–22; TEMP 36.6–37.1; O2SAT 95–99
[2022-03-17] MEDS: SODIUM CHLORIDE 0.9% IV 250 ML BAG 500 ML IVPB (00:11)
[2022-03-17] MEDS: SODIUM CHLORIDE 0.9% IV 1,000 ML 150 ML IV CONT (03:13)
[2022-03-17] MEDS: SODIUM CHLORIDE 0.9% IV 1,000 ML 500 ML IV CONT (03:33)
--- NOTE | 2022-03-17 05:35 | PC.NURSE ---
pt transferd from [facility] for possible central line. A&O x 3 heart rate 59 flutter with slow ventricular response. pt placed on monitor
--- NOTE | 2022-03-17 05:40 | P.PNCROSS_ITS ---
Event Note Event Note Event Note: 03/17/2022 at 4:15 a.m. Nursing staff called me as the patient was having persistent hypotension in setting of acute UTI. The patient had already received 2 L in fluid bolus. The patient has a preserved ejection fraction but has history of significant right- sided heart failure. I ordered an additional L bolus over 2 hours. I evaluated the patient about penitentiary through that bolus and the patient was mildly tachypneic but did not have significant crackles. He did have significant anasarca of his abdominal wall and lower extremities with chronic venous stasis changes. The patient's blood pressures were still low between 84 systolic manually and 76 systolic on automated cuff. Decision was made to transfer the patient to the ICU for central line placement after discussion of risks and benefits of procedure with the patient. The patient stated that he would not wa nt cardiopulmonary resuscitation but was willing to have pressors. When I re- evaluated the patient in the ICU the patient was definitely more tachypneic after the additional 500 mL bolus. However his blood pressures at least transiently have improved to low 100s. The patient did not have any significant hypoxia. I did evaluate the patient for possible central line placement but both of the patient's eye days rapidly collapsed when the ultrasound probe was placed. Patient has an active yeast infection in his left groin and I evaluated his right femoral and he had a extremely small right femoral vein. As the patient's blood pressures or holding with SBP of 60-62 I held off on placing the central line at this time. The patient's urine output has improved by 100 mL after his last fluid bolus. I will discuss the patient's case with the buffer inflated pad and transition care at the end of my shift. Patient has been continued on antibiotic therapy. Repeat labs are pending. Unfortunately tata humphrey also has acute on chronic kidney injury. 30 minute spent in critical care activities. Due to a high probability of clinically significant, life threatening deterioration, the patient required my highest level of preparedness to intervene emergently and I personally spent this critical care time directly and personally managing the patient. This critical care time included obtaining a history; examining the patient; pulse oximetry; ordering and review of studies; arranging urgent treatment with development of a management plan; evaluation of patient's response to treatment; frequent reassessment; and discussions with other providers. It was exclusive of separately billable procedures and treating other patients and teaching time. Please see Assessment and Plan section and the rest of the note for further information on patient assessment and treatment.
[2022-03-17 07:58] LABS: Basophils Absolute Auto 0.1 K/mm3 (0.0-0.1); Basophils Percent Auto 0.8 % (0.2-1.2); Eosinophils Absolute Auto 0.1 K/mm3 (0-0.3); Eosinophils Percent Auto 1.2 % (0-4.4); Hematocrit 39.7 % (42.0-52.0); Hemoglobin 12.4 g/dL (14.0-18.0); Immature Granulocyte Absolute 0.14 K/mm3 (0.00-0.031); Immature Granulocyte Percent A 1.4 % (0-0.5); Lymphocytes Percent Auto 7.1 % (18.3-44.2); Mean Corpuscular HGB Conc 31.2 g/dl (32-36); Mean Corpuscular Hemoglobin 24.5 pg (26-34); Mean Corpuscular Volume 78.3 fl (80-100); Mean Platelet Volume 9.5 fl (7.4-10.4); Monocytes Absolute Auto 0.8 K/mm3 (0.1-0.6); Monocytes Percent Auto 7.8 % (2.6-8.5); Neutrophils Percent Auto 81.7 % (45.5-73.1); Platelet Count Result 261 k/mm3 (150-375); Red Blood Count 5.07 M/mm3 (4.6-6.20); Red Cell Distribution Width 22.3 % (11.5-14.5); White Blood Count 9.8 K/mm3 (4.5-10.0)
[2022-03-17 08:14] LABS: INR 1.4
[2022-03-17 08:21] LABS: Lactic Acid Reflex 1.3 mmol/L (0.7-2.0)
[2022-03-17 08:26] LABS: Alanine Aminotransferase 27 U/L (6-50); Albumin Level 2.7 g/dL (3.5-5.1); Alkaline Phosphatase 120 U/L (38-126); Anion Gap 10 mmol/L (8-16); Aspartate Amino Transferase 38 U/L (17-59); Bilirubin,Total 0.7 mg/dL (0.2-1.3); Blood Urea Nitrogen 80 mg/dL (9-20); CRP 3.7 mg/dL (<1.0); Calcium 6.6 mg/dL (8.4-10.2); Carbon Dioxide 20 mmol/L (22-30); Chloride 97 mmol/L (98-107); Creatine Kinase 184 U/L (55-170); Estimated CRCL calculation 16 ml/min; Estimated Glomerular Filt Rate 16; Glucose 91 mg/dL (65-110); Magnesium 1.8 mg/dL (1.6-2.3); Phosphorus 5.9 mg/dL (2.5-4.5); Potassium 5.2 mmol/L (3.4-5.0); Sodium 127 mmol/L (137-145)
[2022-03-17 08:34] LABS: Anisocytosis 1+ (NORMAL); Platelet Estimate Adequate (Adequate)
[2022-03-17 08:35] LABS: Crenated RBC 1+ (NORMAL); Ovalocytes 1+ (NORMAL)
[2022-03-17 08:57] LABS: Lactate Dehydrogenase 256 U/L (120-246)
[2022-03-17] MEDS: ALBUMIN HUMAN 25% 25 GM/100 ML 100 ML IVPB ×3 (08:57→20:52)
[2022-03-17] MEDS: NOREPINEPHRINE 8 MG/D5W 250 ML 8 MG/250 ML BAG 9.38 MG IV CONT (08:57)
[2022-03-17] MEDS: FERROUS SULFATE 324 MG TABLET PO (08:58)
[2022-03-17] MEDS: FLUTICASONE PROPIONATE 0.05% NA SPR 16 GM BTL (*BKC) 1 SPRAY NASAL (08:58)
[2022-03-17] MEDS: CYANOCOBALAMIN 1,000 MCG TABLET 1000 MCG PO (08:58)
[2022-03-17] MEDS: ARTIFICIAL TEARS OPHTH SOLN 15 ML BOTTLE 2 DROP EACH EYE ×2 (08:58→16:52)
[2022-03-17] MEDS: TOLNAFTATE 1% POWDER 45 GM BTL 1 APPLIC TOPICAL ×2 (08:58→20:57)
--- NOTE | 2022-03-17 12:31 | WPDCNINT ---
Assessment and Plan Assessment and plan (1) Septic shock: Code(s): A41.9 - Sepsis, unspecified organism; R65.21 - Severe sepsis with septic shock Status: Acute Assessment and Plan: Patient presented with generalized weakness, was found to be hypotensive, UA reflective of UTI, patient received adequate IV fluids, 3 L bolus despite which his blood pressures remain low. -I inserted a right IJ central line on 03/17/2022 -started on Levophed, maintain mean arterial pressures > 65 mmHg -patient is on ceftriaxone 03/16 -03/16/2022 blood and urine cultures have been obtained and pending (2) Urinary tract infection associated with catheterization of urinary tract: Code(s): T83.511A - Infection and inflammatory reaction due to indwelling urethral catheter, initial encounter; N39.0 - Urinary tract infection, site not specified Status: Acute Assessment and Plan: Cultures pending, continue antibiotics as above (3) Acute renal failure superimposed on stage 3 chronic kidney disease: Code(s): N17.9 - Acute kidney failure, unspecified; N18.30 - Chronic kidney disease, stage 3 unspecified Status: Acute Assessment and Plan: Acute kidney injury likely related to UTI, hypovolemia, septic shock, ATN, patient also on lisinopril and bumetanide at home, history of chronic kidney disease stage 3, essential hypertension -adequately fluid-resuscitated -continue maintenance IV fluids, currently on vasopressors -creatinine is 3.7 (he ranges between 1.4 and 1.7) -03/17 renal ultrasound showed normal kidneys without hydronephrosis -urine lytes not reflective of prerenal at this time -CK level 184 -continue to monitor renal function, electrolytes and urine output -nephrology has been consulted (4) Acute hyponatremia: Code(s): E87.1 - Hypo-osmolality and hyponatremia Status: Acute Assessment and Plan: Multifactorial could be related to acute kidney injury, medications -sodium level improving -continue to monitor (5) 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: Code(s): I50.813 - Acute on chronic right heart failure Status: Acute Assessment and Plan: 11/26/2021 Echocardiogram: EF of 65-70%, LV diastolic dysfunction, D shaped septum in both systole and diastole consistent with right ventricular volume and pressure, right ventricle chamber dimension is severely enlarged, right ventricular systolic function is reduced, right atrial chamber dimension is severely enlarged -patient on bumetanide and lisinopril at home currently on hold due to patient being on vasopressors (6) Chronic atrial fibrillation: Code(s): I48.20 - Chronic atrial fibrillation, unspecified Status: Acute Assessment and Plan: History of chronic atrial fibrillation, currently in sinus rhythm, rate controlled -continue Coumadin (7) Gastroesophageal reflux disease: Code(s): K21.9 - Gastro-esophageal reflux disease without esophagitis Status: Acute Assessment and Plan: Continue Protonix Plan DVT prophylaxis: On Coumadin Stress ulcer prophylaxis: Protonix Nutrition: Will switch to heart healthy diet Code Status: Do not resuscitate Critical Care Time Spent: 47 minutes Due to a high probability of clinically significant, life threatening deterioration, the patient required my highest level of preparedness to intervene emergently and I personally spent this critical care time directly and personally managing the patient. This critical care time included obtaining a history; examining the patient; pulse oximetry; ordering and review of studies; arranging urgent treatment with development of a management plan; evaluation of patient's response to treatment; frequent reassessment; and discussions with other providers. It was exclusive of separately billable procedures and treating other patients and teaching time. Please see Assessment and Plan section and the rest of the
--- NOTE | 2022-03-17 12:51 | PM.CNNEP ---
Assessment and Plan Assessment and plan (1) HILARIO (acute kidney injury): Code(s): N17.9 - Acute kidney failure, unspecified Status: Acute Assessment and Plan: due to several issues: hemodynamic instability/shock pre-renal factors infection (UTI) use of lisinopril + diuretics [employer] s/p adequate fluid resuscitation on vasopressor support to maintain MAP evaluation noted to date: renal ultrasound unremarkable urine electrolytes not pre-renal CPK okay follow trend of repeat labs and UOP (2) Chronic kidney disease, stage 3: Code(s): N18.30 - Chronic kidney disease, stage 3 unspecified Status: Chronic Assessment and Plan: baseline creatinine runs ~ 1.4 - 1.7mg/dl presumably secondary to CAD/CHF, HTN, vascular disease, and age (3) Acute hyponatremia: Code(s): E87.1 - Hypo-osmolality and hyponatremia Status: Acute Assessment and Plan: suspect more related to HILARIO/ARF sodium improving with current interventions follow trend (4) Septic shock: Code(s): A41.9 - Sepsis, unspecified organism; R65.21 - Severe sepsis with septic shock Status: Acute Assessment and Plan: remained hypotension despite adequate fluid resuscitation on vasopressor support currently presumed source UTI blood and urine culture pending on antibiotic therapy (5) Acute UTI: Code(s): N39.0 - Urinary tract infection, site not specified Status: Acute Assessment and Plan: as evidenced by admission urinalysis follow up on culture data on antibiotics Will continue to follow. History of Present Illness Reason for Consult Consult date: 03/17/22 Reason for consult: acute renal failure (on chronic kidney disease) Chief Complaint Chief complaint: Urinary Tract Infection, Hyponatremia,HILARIO History of Present Illness Narrative: The patient is a 81-year-old male with a past medical history as outlined below who presented to [facility] Emergency room with complaints of generalized weakness. Aside from the fact that he had generalized weakness and inability to take care of himself, the patient did not have any other significant complaints. He denied shortness of breath, chest pain, cough, nausea, vomiting, diarrhea, fevers, or chills. He does report that he had a Arnett catheter placed a few days ago at his nursing facility but I am unclear why this was done (urinary retention?). He presented to the ER for further evaluation. Workup and evaluation the emergency room demonstrated the patient to be hypotensive in the 80s systolic but this did improve to close to 100 systolic with aggressive IV fluid resuscitation. Routine blood tests were done which demonstrated a marked decline in his kidney function with elevated BUN and creatinine above baseline in association with hyponatremia and mild hyperkalemia. His urinalysis was highly suggestive of urinary tract infection as well. Given these findings, appropriate cultures were obtained and he was started on IV antibiotic therapy with subsequent admission to the hospital for further monitoring. Overnight, he continued to remain hypotensive despite IV fluids and subsequently was transferred to the intensive care unit for further monitoring. A central line was placed due to his ongoing hypotension and he was started on Levophed to maintain stability in his blood pressure. His repeat labs demonstrate improvement if not stability in his sodium level but his renal function is about the same. Renal consultation was requested due to his acute kidney injury on top of his baseline kidney disease. His baseline creatinine seems to fluctuate anywhere from 1.4 - 1.7 mg/dL which a classify him as chronic kidney disease stage 3 (with fluctuations between stage IIIA and stage IIIB). Presumably his baseline kidney disease is due to his risk factors in the form of congestive heart failure, atrial fibrillation,
[2022-03-17] MEDS: SILVERGEL (ELTA) 45 ML 1 APPLIC TOPICAL (13:05)
[2022-03-17] MEDS: CALCIUM GLUC 2,000 MG/NS 100ML 2,000 MG/100 ML BAG 100 MG IVPB (13:36)
[2022-03-17] MEDS: PANTOPRAZOLE SODIUM IV 40 MG VIAL IV PUSH (13:36)
[2022-03-17] MEDS: SODIUM CHLORIDE 0.9% IV 1,000 ML 75 ML IV CONT (13:39)
[2022-03-17] MEDS: CENTRAL LINE FLUSH 10 ML IV PUSH ×3 (13:39→20:57)
--- NOTE | 2022-03-17 14:45 | P.PCNBED_ITS ---
Procedures Central Line Placement Right IJ: Central Line Date: 03/17/22 Central Line Time: 07:44 Discussed w/ the patient/family/POA,the placement of a central venous catheter, including its clinical necessity/indication & associated potential risks, benifits and alternatives.: Yes The patient/family/POA understand(s) and acknowledge(s) the need to proceed with central venous catheter insertion as an important element of the patient's clinical management.: Yes Consent: I have discussed with the patient and/or surrogate, the non-emergent placement of a central venous catheter, including its clinical necessity/indication and associated potential risks and complications. The patient and/or surrogate understand(s) and acknowledge(s) the need to proceed with central venous catheter insertion as an important element of the patient's clinical management. Time Out Performed: Yes Patient Position: supine Patient placed on monitor/pulse ox: Yes Provider Prep: mask, sterile gown, sterile gloves, Max. sterile barrier precautions, cap and hand hygiene with conventional soap/water or alcohol based hand rub Central line prep: 2% Chlorhexidine scrub Local anesthesia used: lidocaine 1% Amount of anesthesia used (ml): 3 Sterile US Technique with sterile gel/sterile probe covers: Yes Central line lumen inserted: triple Estonian: 12 Length (cm): 16 Depth of Insertion (cm): 16 Post Procedure: sutured in place, good blood return, all ports aspirated, flushed, capped, transparent dressing, hemostatic product, antimicrobial product, securement product and aseptic technique maintained throughout procedure Post procedure x-ray: tip of catheter in good position Patient tolerated procedure: well Complications: none
[2022-03-17] MEDS: ACETAMINOPHEN 325 MG TABLET 650 MG PO (16:51)
[2022-03-17] MEDS: WARFARIN (*PBKC) 4 MG TABLET PO (16:52)
--- NOTE | 2022-03-17 17:40 | PM.IMPN ---
Progress Note: A&P Assessment and Plan (1) Urinary tract infection associated with catheterization of urinary tract: Code(s): T83.511A - Infection and inflammatory reaction due to indwelling urethral catheter, initial encounter; N39.0 - Urinary tract infection, site not specified Status: Acute Assessment and Plan: - cultures pending - patient appears to be septic with low blood pressure and acute renal failure. - Continue with IV fluids. 03/17/22 interval history Patient 81-year-old male was brought emergency department weakness is found to for hypertension suspect sepsis secondary to UTI, patient was given 3 L IV fluid with no significant improved, was seen by nuclear powerplant mechanic patient is placed on Levophed to maintain the blood pressure, patient is a chronic indwelling catheter suspect cause of UTI patient being treated with ceftriaxone will follow-up on urine blood culture, patient with acute on chronic kidney disease exacerbated by poor p.o. intake and dehydration patient is being hydrated and seen by Nephrology further recommendation to follow, patient is quite somnolent unable to provide detailed review of symptom (2) Acute hyponatremia: Code(s): E87.1 - Hypo-osmolality and hyponatremia Status: Acute Assessment and Plan: - gently hydrate - check urine for sodium and osmolarity - could be related to the CHF - could be related to his diuretics (3) HILARIO (acute kidney injury): Code(s): N17.9 - Acute kidney failure, unspecified Status: Acute Assessment and Plan: - Nephrology consult - renal ultrasound (4) Acute hyperkalemia: Code(s): E87.5 - Hyperkalemia Status: Acute Assessment and Plan: - neb treatment was ordered - sodium zirconium has been ordered. - Repeat BMP in the a.m. 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 - Holding lisinopril due to the low blood pressure and acute renal failure - metolazone on hold at this time due to the low blood pressure (7) Hypertension: Code(s): I10 - Essential (primary) hypertension Status: Acute (8) Gastroesophageal reflux disease: Code(s): K21.9 - Gastro-esophageal reflux disease without esophagitis Status: Acute Assessment and Plan: - patient is hypotensive - antihypertensive on hold at this time (9) Benign prostatic hyperplasia: Code(s): N40.0 - Benign prostatic hyperplasia without lower urinary tract symptoms Status: Acute Assessment and Plan: - patient currently has a Arnett catheter. (10) Atrial flutter: Code(s): I48.92 - Unspecified atrial flutter Status: Acute Assessment and Plan: - The patient will need daily PT INRs he is on Coumadin. - The patient is subtherapeutic and I did give him a renal dose of Lovenox today but he can only have it every other day because of his renal failure. - May consider Eliquis. (11) Unspecified dementia without behavioral disturbance: Code(s): F03.90 - Unspecified dementia without behavioral disturbance Status: Acute Assessment and Plan: - Continue with galantamine (12) CHF (congestive heart failure): Code(s): I50.9 - Heart failure, unspecified Status: Acute Subjective Date/time seen: 03/17/22 17:40 03/17/22 interval historyPatient 81-year-old male was brought emergency department weakness is found to for hypertension suspect sepsis secondary to UTI, patient was given 3 L IV fluid with no significant improved, was seen by nuclear powerplant mechanic patient is placed o
[2022-03-17] MEDS: ENOXAPARIN 100 MG/ML SYRINGE 95 MG SUB-Q (20:58)
[2022-03-17 23:03] LABS: Creatinine Urine 129.1 mg/dL
[2022-03-17 23:04] LABS: Potassium Urine Random 76.3 meq/L; Sodium Urine Random 16 meq/L
[2022-03-17 23:07] LABS: Eosinophil Urine None Seen % (None Seen)
[2022-03-18] VITALS (21 sets, daily range): BP systolic 81–123; BP diastolic 34–60; PULSE 43–63; RESP 16–20; TEMP 36.3–36.8; O2SAT 95–99
[2022-03-18] MEDS: ALBUMIN HUMAN 25% 25 GM/100 ML 100 ML IVPB ×3 (02:07→17:21)
[2022-03-18] MEDS: SODIUM CHLORIDE 0.9% IV 1,000 ML 75 ML IV CONT ×2 (02:59→16:32)
[2022-03-18 04:51] LABS: Basophils Absolute Auto 0.1 K/mm3 (0.0-0.1); Basophils Percent Auto 0.7 % (0.2-1.2); Eosinophils Absolute Auto 0.2 K/mm3 (0-0.3); Eosinophils Percent Auto 2.2 % (0-4.4); Hematocrit 35.8 % (42.0-52.0); Immature Granulocyte Absolute 0.09 K/mm3 (0.00-0.031); Immature Granulocyte Percent A 1.1 % (0-0.5); Lymphocytes Absolute Auto 0.67 K/mm3 (0.9-3.2); Lymphocytes Percent Auto 8.2 % (18.3-44.2); Mean Corpuscular HGB Conc 30.7 g/dl (32-36); Mean Corpuscular Hemoglobin 24.2 pg (26-34); Mean Corpuscular Volume 78.7 fl (80-100); Mean Platelet Volume 9.2 fl (7.4-10.4); Monocytes Absolute Auto 0.7 K/mm3 (0.1-0.6); Neutrophils Absolute Auto 6.4 K/mm3 (1.3-6.7); Neutrophils Percent Auto 78.8 % (45.5-73.1); Platelet Count Result 214 k/mm3 (150-375); Red Blood Count 4.55 M/mm3 (4.6-6.20); Red Cell Distribution Width 21.6 % (11.5-14.5); White Blood Count 8.2 K/mm3 (4.5-10.0)
[2022-03-18 05:03] LABS: INR 1.6; Prothrombin Time 18.2 Seconds (11.1-14.7)
[2022-03-18 05:04] LABS: Alanine Aminotransferase 17 U/L (6-50); Albumin Level 3.1 g/dL (3.5-5.1); Alkaline Phosphatase 75 U/L (38-126); Anion Gap 13 mmol/L (8-16); Aspartate Amino Transferase 25 U/L (17-59); Bilirubin,Total 0.9 mg/dL (0.2-1.3); Blood Urea Nitrogen 86 mg/dL (9-20); Calcium 7.4 mg/dL (8.4-10.2); Carbon Dioxide 18 mmol/L (22-30); Chloride 95 mmol/L (98-107); Estimated CRCL calculation 18 ml/min; Estimated Glomerular Filt Rate 19; Glucose 99 mg/dL (65-110); Magnesium 1.8 mg/dL (1.6-2.3); Phosphorus 5.7 mg/dL (2.5-4.5); Potassium 4.4 mmol/L (3.4-5.0); Sodium 126 mmol/L (137-145)
[2022-03-18 05:05] LABS: Lactic Acid Reflex 0.8 mmol/L (0.7-2.0)
[2022-03-18] MEDS: CENTRAL LINE FLUSH 10 ML IV PUSH ×4 (05:32→21:03)
[2022-03-18] MEDS: FLUTICASONE PROPIONATE 0.05% NA SPR 16 GM BTL (*BKC) 1 SPRAY NASAL (08:19)
[2022-03-18] MEDS: PANTOPRAZOLE SODIUM IV 40 MG VIAL IV PUSH (08:19)
[2022-03-18] MEDS: FERROUS SULFATE 324 MG TABLET PO (08:20)
[2022-03-18] MEDS: CYANOCOBALAMIN 1,000 MCG TABLET 1000 MCG PO (08:20)
[2022-03-18] MEDS: TOLNAFTATE 1% POWDER 45 GM BTL 1 APPLIC TOPICAL ×2 (08:20→21:02)
[2022-03-18] MEDS: ARTIFICIAL TEARS OPHTH SOLN 15 ML BOTTLE 2 DROP EACH EYE ×2 (08:20→16:30)
[2022-03-18] MEDS: NOREPINEPHRINE 8 MG/D5W 250 ML 8 MG/250 ML BAG 9.38 MG IV CONT (10:22)
--- NOTE | 2022-03-18 10:40 | P.PNNP_ITS ---
Progress Note: A&P Assessment and Plan (1) HILARIO (acute kidney injury): Code(s): N17.9 - Acute kidney failure, unspecified Status: Acute Assessment and Plan: * due to several issues: * hemodynamic instability/shock * pre-renal factors * infection (UTI) * use of lisinopril + diuretics [employer] * s/p adequate fluid resuscitation * on vasopressor support to maintain MAP * evaluation noted to date: * renal ultrasound unremarkable * urine electrolytes not pre-renal * CPK okay * follow trend of repeat labs and UOP (2) Chronic kidney disease, stage 3: Code(s): N18.30 - Chronic kidney disease, stage 3 unspecified Status: Chronic Assessment and Plan: * baseline creatinine runs ~ 1.4 - 1.7mg/dl * presumably secondary to CAD/CHF, HTN, vascular disease, and age (3) Acute hyponatremia: Code(s): E87.1 - Hypo-osmolality and hyponatremia Status: Acute Assessment and Plan: * suspect more related to HILARIO/ARF * sodium improving with current interventions * follow trend (4) Septic shock: Code(s): A41.9 - Sepsis, unspecified organism; R65.21 - Severe sepsis with septic shock Status: Acute Assessment and Plan: * remained hypotension despite adequate fluid resuscitation * on vasopressor support currently * presumed source UTI * blood and urine culture pending * on antibiotic therapy (5) Acute UTI: Code(s): N39.0 - Urinary tract infection, site not specified Status: Acute Assessment and Plan: * as evidenced by admission urinalysis * follow up on culture data * on antibiotics Will continue to follow. Subjective Date/time seen: 03/18/22 10:40 No apparent distress voiced at the time of my visit; remains on levophed to maintain MAP; overall, he states that he feels well and better in comparison to admission; no issues/events overnight or earlier this morning; eating and drinking okay. Exam 2 Narrative: General: Elderly male in NAD Heart: normal S1 and S2; no rub Lungs: clear to auscultation Abdomen: soft, nontender, nondistended, positive bowel sounds Extremities: no cyanosis or clubbing; no edema Skin: warm and dry Objective Data Vital Signs Vital Signs: Vital Signs Temp Pulse Resp BP Pulse Ox O2 Del Method 03/18/22 10:22 109/54 L 03/18/22 10:22 109/54 L 03/18/22 08:00 36.5 C 50 L 16 81/44 L 96 03/18/22 08:05 81/44 L 03/18/22 06:57 58 L 104/42 L 03/18/22 06:00 51 L 16 99/46 L 95 03/18/22 06:00 51 L 03/18/22 04:00 Room Air 03/18/22 04:00 36.6 C 54 L 16 104/47 L 95 03/18/22 04:00 54 L 03/18/22 02:00 60 18 116/50 L 96 03/18/22 02:00 60 03/18/22 00:00 36.6 C 63 17 114/53 L 95 03/18/22 00:00 63 03/18/22 00:00 Room Air 03/17/22 23:48 93/40 L 03/17/22 23:33 53 L 113/57 L 03/17/22 22:00 55 L 03/17/22 20:00 61 03/17/22 20:00 Room Air 03/17/22 22:00 58 L 20 112/56 L 95 03/17/22 22:21 58 L 112/56 L 03/17/22 20:59 61 103/79 03/17/22 20:00 36.6 C 58 L 15 108/55 L 96 03/17/22 20:47 60 108/55 L 03/17/22 18:00 62 18 117/5
--- NOTE | 2022-03-18 10:40 | PM.PNNEP ---
Progress Note: A&P Assessment and Plan (1) HILARIO (acute kidney injury): Code(s): N17.9 - Acute kidney failure, unspecified Status: Acute Assessment and Plan: due to several issues: hemodynamic instability/shock pre-renal factors infection (UTI) use of lisinopril + diuretics [employer] W[employer]OL[employer] s/p adequate fluid resuscitation on vasopressor support to maintain MAP evaluation noted to date: renal ultrasound unremarkable urine electrolytes not pre-renal CPK okay follow trend of repeat labs and UOP (2) Chronic kidney disease, stage 3: Code(s): N18.30 - Chronic kidney disease, stage 3 unspecified Status: Chronic Assessment and Plan: baseline creatinine runs ~ 1.4 - 1.7mg/dl presumably secondary to CAD/CHF, HTN, vascular disease, and age (3) Acute hyponatremia: Code(s): E87.1 - Hypo-osmolality and hyponatremia Status: Acute Assessment and Plan: suspect more related to HILARIO/ARF sodium improving with current interventions follow trend (4) Septic shock: Code(s): A41.9 - Sepsis, unspecified organism; R65.21 - Severe sepsis with septic shock Status: Acute Assessment and Plan: remained hypotension despite adequate fluid resuscitation on vasopressor support currently presumed source UTI blood and urine culture pending on antibiotic therapy (5) Acute UTI: Code(s): N39.0 - Urinary tract infection, site not specified Status: Acute Assessment and Plan: as evidenced by admission urinalysis follow up on culture data on antibiotics Will continue to follow. Subjective Date/time seen: 03/18/22 10:40 No apparent distress voiced at the time of my visit; remains on levophed to maintain MAP; overall, he states that he feels well and better in comparison to admission; no issues/events overnight or earlier this morning; eating and drinking okay. Exam Narrative: General: Elderly male in NAD Heart: normal S1 and S2; no rub Lungs: clear to auscultation Abdomen: soft, nontender, nondistended, positive bowel sounds Extremities: no cyanosis or clubbing; no edema Skin: warm and dry Objective Data Vital Signs Vital Signs: Vital Signs Temp Pulse Resp BP Pulse Ox O2 Del Method 03/18/22 10:22 109/54 L 03/18/22 10:22 109/54 L 03/18/22 08:00 36.5 C 50 L 16 81/44 L 96 03/18/22 08:05 81/44 L 03/18/22 06:57 58 L 104/42 L 03/18/22 06:00 51 L 16 99/46 L 95 03/18/22 06:00 51 L 03/18/22 04:00 Room Air 03/18/22 04:00 36.6 C 54 L 16 104/47 L 95 03/18/22 04:00 54 L 03/18/22 02:00 60 18 116/50 L 96 03/18/22 02:00 60 03/18/22 00:00 36.6 C 63 17 114/53 L 95 03/18/22 00:00 63 03/18/22 00:00 Room Air 03/17/22 23:48 93/40 L 03/17/22 23:33 53 L 113/57 L 03/17/22 22:00 55 L 03/17/22 20:00 61 03/17/22 20:00 Room Air 03/17/22 22:00 58 L 20 112/56 L 95 03/17/22 22:21 58 L 112/56 L 03/17/22 20:59 61 103/79 03/17/22 20:00 36.6 C 58 L 15 108/55 L 96 03/17/22 20:47 60 108/55 L 03/17/22 18:00 62 18 117/51 L 95 03/17/22 16:00 64 03/17/22 17:04 60 22 H 96 Room Air 03/17/22 16:00 37.1 C 60 20 113/53 L 95 03/17/22 14:00 58 L 16 110/46 L 97 03/17/22 13:37 57 L 103/45 L 03/17/22 12:00 59 L 03/17/22 12:00 36.9 C 60 15 102/48 L 96 03/17/22 12:19 60 21 H 95 Room Air Intake/Output Intake/Output: Intake & Output 03/15/22 03/16/22 03/17/22 03/18/22 23:59 23:59 23:59 23:59 Intake Total 50 3320 1550 Output Total 306 475 Balance 50 3014 1075 Meds/Results Medications: Active Medications Generic Name Dose Route Start Last Admin Trade Name Freq PRN Reason Stop Dose Admin Acetaminophen 650 mg 03/16/22 21:24 03/17/22 16:51 Acetaminophen 325 Mg Tablet PO 650 mg Q6H PRN
[2022-03-18] MEDS: CALCIUM GLUC 2,000 MG/NS 100ML 2,000 MG/100 ML BAG 100 MG IVPB (10:46)
--- NOTE | 2022-03-18 11:20 | PC.NURSE ---
RN attempted to replaced chronic pereira catheter per Dr. Decker's order. RN was unable to replace catheter. Consult for Urology was placed. urology will come replace pereira catheter at bedside.
[2022-03-18] MEDS: SILVERGEL (ELTA) 45 ML 1 APPLIC TOPICAL (12:17)
[2022-03-18] MEDS: MIDODRINE HCL 10 MG TABLET PO ×2 (12:20→17:21)
--- NOTE | 2022-03-18 12:29 | WPDINTPN ---
Progress Note: A&P Assessment and Plan (1) Septic shock: Code(s): A41.9 - Sepsis, unspecified organism; R65.21 - Severe sepsis with septic shock Status: Acute Assessment and Plan: Patient presented with generalized weakness, was found to be hypotensive, UA reflective of UTI, patient received adequate IV fluids, 3 L bolus despite which his blood pressures remain low. Right IJ central line was placed on 03/17/2022 Continue Levophed maintain mean arterial pressures > 65 mmHg Continue ceftriaxone 03/16 -03/16/2022 blood cultures have been obtained and pending, urine cultures growing Gram-negative rods WBC is normal and patient is now afebrile Add midodrine Continue albumin (2) Urinary tract infection associated with catheterization of urinary tract: Code(s): T83.511A - Infection and inflammatory reaction due to indwelling urethral catheter, initial encounter; N39.0 - Urinary tract infection, site not specified Status: Acute Assessment and Plan: See above (3) Acute renal failure superimposed on stage 3 chronic kidney disease: Code(s): N17.9 - Acute kidney failure, unspecified; N18.30 - Chronic kidney disease, stage 3 unspecified Status: Acute Assessment and Plan: Acute kidney injury likely related to UTI, hypovolemia, septic shock, ATN, patient also on lisinopril and bumetanide at home, history of chronic kidney disease stage 3, essential hypertension Patient was fluid-resuscitated -continue maintenance IV fluids, currently on vasopressors -continue albumin -creatinine is 3.2 (he ranges between 1.4 and 1.7) -03/17 renal ultrasound showed normal kidneys without hydronephrosis -urine lytes not reflective of prerenal at this time -CK level 184 -continue to monitor renal function, electrolytes and urine output -nephrology following -add bicarb (4) Acute hyponatremia: Code(s): E87.1 - Hypo-osmolality and hyponatremia Status: Acute Assessment and Plan: Multifactorial could be related to acute kidney injury, medications -sodium level improving -continue to monitor (5) 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: Code(s): I50.813 - Acute on chronic right heart failure Status: Acute Assessment and Plan: 11/26/2021 Echocardiogram: EF of 65-70%, LV diastolic dysfunction, D shaped septum in both systole and diastole consistent with right ventricular volume and pressure, right ventricle chamber dimension is severely enlarged, right ventricular systolic function is reduced, right atrial chamber dimension is severely enlarged -patient on bumetanide and lisinopril at home currently on hold due to patient being on vasopressors (6) Chronic atrial fibrillation: Code(s): I48.20 - Chronic atrial fibrillation, unspecified Status: Acute Assessment and Plan: History of chronic atrial fibrillation, currently in sinus rhythm, rate controlled -continue Coumadin (7) Gastroesophageal reflux disease: Code(s): K21.9 - Gastro-esophageal reflux disease without esophagitis Status: Acute Assessment and Plan: Continue Protonix Plan DVT prophylaxis: On Coumadin Stress ulcer prophylaxis: Protonix Nutrition: Continue heart healthy diet Code Status: Do not resuscitate Critical Care Time Spent: 30 minutes Due to a high probability of clinically significant, life threatening deterioration, the patient required my highest level of preparedness to intervene emergently and I personally spent this critical care time directly and personally managing the patient. This critical care time included obtaining a history; examining the patient; pulse oximetry; ordering and review of studies; arranging urgent treatment with development of a management plan; evaluation of patient's response to treatment; frequent reassessment; and discussions with other providers. It was exclusive of separately billable procedures and treating other patients
--- NOTE | 2022-03-18 12:56 | PM.IMPN ---
Progress Note: A&P Assessment and Plan (1) Urinary tract infection associated with catheterization of urinary tract: Code(s): T83.511A - Infection and inflammatory reaction due to indwelling urethral catheter, initial encounter; N39.0 - Urinary tract infection, site not specified Status: Acute Assessment and Plan: - cultures pending - patient appears to be septic with low blood pressure and acute renal failure. - Continue with IV fluids. 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 intake and dehydration patient is being hydrated and seen by Nephrology further recommendation to follow, patient is quite somnolent unable to provide detailed review of symptom. 03/18/22 interval history Patient 81-year-old male was brought emergency department with weakness was found to for hypotension suspect sepsis secondary to UTI, patient was given 3 L IV fluid with no significant improvement, was seen by m1a1 tank crewman patient is placed on Levophed and also added midodrine, to maintain the blood pressure, patient is a chronic indwelling catheter suspect cause of UTI, urine culture is growing Oxidase neg Gram neg bacillus, patient being treated with ceftriaxone will follow-up on urine blood culture, patient with acute on chronic kidney disease exacerbated by poor p.o. intake and dehydration patient is being hydrated and seen by Nephrology further recommendation to follow, today patient is more awake and stats feeling better. (2) Acute hyponatremia: Code(s): E87.1 - Hypo-osmolality and hyponatremia Status: Acute Assessment and Plan: - gently hydrate - check urine for sodium and osmolarity - could be related to the CHF - could be related to his diuretics (3) HILARIO (acute kidney injury): Code(s): N17.9 - Acute kidney failure, unspecified Status: Acute Assessment and Plan: - Nephrology consult - renal ultrasound (4) Acute hyperkalemia: Code(s): E87.5 - Hyperkalemia Status: Acute Assessment and Plan: - neb treatment was ordered - sodium zirconium has been ordered. - Repeat BMP in the a.m. 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 - Holding lisinopril due to the low blood pressure and acute renal failure - metolazone on hold at this time due to the low blood pressure (7) Hypertension: Code(s): I10 - Essential (primary) hypertension Status: Acute (8) Gastroesophageal reflux disease: Code(s): K21.9 - Gastro-esophageal reflux disease without esophagitis Status: Acute Assessment and Plan: - patient is hypotensive - antihypertensive on hold at this time (9) Benign prostatic hyperplasia: Code(s): N40.0 - Benign prostatic hyperplasia without lower urinary tract symptoms Status: Acute Assessment and Plan: - patient currently has a Arnett catheter. (10) Atrial flutter: Code(s): I48.92 - Unspecified atrial flutter Status: Acute Assessment and Plan: - The patient will need daily PT INRs he is on Coumadin. - The patient is subtherapeutic and I did
--- NOTE | 2022-03-18 15:10 | PC.NURSE ---
Dr. Crocker at bedside for pereira catheter exchange. Current pereira removed and 16Fr Coude pereira catheter inserted by Dr. Crocker with no difficulties noted
--- NOTE | 2022-03-18 15:57 | WPDURCON ---
Assessment and Plan Assessment and plan (1) Acute UTI: Code(s): N39.0 - Urinary tract infection, site not specified Status: Acute Assessment and Plan: Cultures pending. Patient was significant amount of edema and induration in the pubic area making it difficult for Arnett catheter placement. Will proceed with placement of Arnett catheter and that will be dictated as a separate procedure note. Patient will require some diuresis which hopefully will help make visualization of the penis easier in the future. Plan Arnett catheter placement at the bedside was performed with a 16 Gambian coude. Urology Consult Note HPI Date Seen: 03/18/22 Time Seen: 15:58 Requesting Physician: Candie Brink DO Primary Care Provider: Carlos Manuel Vasquez MD Consult Narrative Reason for consult: Arnett catheter placement Narrative: Shaan Landis is a 81 year old male who resides at [facility]. He has multiple medical issues and was admitted for UTI and weakness. [facility] The ICU physician wanted the catheter changed at this point time. The nurses had tried to replace a without any success. Patient states that he has been incontinent of urine. 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 He also has renal insufficiency with a renal ultrasound revealing no evidence of hydronephrosis. Review of Systems Review of Systems: All systems reviewed & are unremarkable except as noted in HPI and below PMFSH Past Medical History Medical History Benign prostatic hyperplasia Chronic anticoagulation Chronic atrial fibrillation Chronic atrial flutter Chronic gout without tophus Chronic kidney disease, stage 3 unspecified Chronic right-sided heart failure Echocardiogram on 11/26/2021 showed normal left ventricular chamber size and function with an EF of 65 to 70%, abnormal diastolic function, severely enlarged right ventricular chamber, and reduced right ventricular systolic function. 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 Family History Family History Father , at age 54 Parkinsons disease Cerebrovascular accident Mother , in her 80s Hypertension Cerebrovascular accident Essential hypertension Hypothyroidism Heart disease Sibling Coronary artery disease Social History Social History Social History: The patient is single with no children; he has never been . He lives in [facility]. 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 Pipe smoker through the . No alcohol or illicit substance abuse. Healthcare power of clinical nurse manager: Timoteo and Lexi Rico (cousins). Code status: dnr Smoking status: Former smoker Tobacco type: pipe Alcohol intake: never Substance use: never Substance use type: does not use Spiritual care concerns: No Meds Home Medications and Allergies Home Medications Medication Instructions Recorded Confirmed Type acetaminophen 325 mg capsule 650 mg PO Q6H PRN Pain (Scale 06/08/19 03/16/22 History Score 1-3) docusate sodium 100 mg tablet 100 mg PO DAILY PRN Constipation 06/17/19
--- NOTE | 2022-03-18 16:01 | W.PM.PROC2 ---
Procedure Note - Detailed Date of Procedure 03/18/22 Pre-op Diagnosis Urinary Tract Infection, Hyponatremia,HILARIO, incontinence difficult Arnett placement Post-op Diagnosis Same Procedure Performed Complex Arnett catheter placement Surgeon Perfecto Crocker MD Anesthesia Local Findings Buried penis with edema Description of Procedure Patient is in the intensive care unit at this time. He has a Arnett catheter placed but unclear whether this is placed correctly in the bladder. This catheter is removed. With the assistance of the nurse we were able to find the glans of the penis. He was prepped and draped. Sixteen Fijian coude catheter was inserted without difficulty. 10 cc were placed in the balloon. This was placed to gravity drainage. Drains Yes Packing No Pathology None sent Condition Stable Disposition ICU
--- NOTE | 2022-03-18 16:07 | PC.NURSE ---
Dr. [facility] pereira caheter enxchage. Currenty folety removed and 16Fr Coude pereira hernán inserted with no difficulties noted
[2022-03-18] MEDS: SODIUM BICARBONATE TAB 650 MG TABLET PO (17:22)
[2022-03-18] MEDS: WARFARIN (*PBKC) 3 MG TABLET PO (17:22)
[2022-03-18] MEDS: ENOXAPARIN 100 MG/ML SYRINGE 95 MG SUB-Q (21:02)
[2022-03-19] VITALS (14 sets, daily range): BP systolic 92–127; BP diastolic 43–68; PULSE 40–82; RESP 14–24; TEMP 36.3–36.6; O2SAT 93–100
[2022-03-19] MEDS: ALBUMIN HUMAN 25% 25 GM/100 ML 100 ML IVPB ×2 (00:04→05:29)
[2022-03-19] MEDS: CENTRAL LINE FLUSH 10 ML IV PUSH ×4 (05:00→20:53)
[2022-03-19 05:19] LABS: Hematocrit 34.5 % (42.0-52.0); Hemoglobin 10.7 g/dL (14.0-18.0); Mean Corpuscular Hemoglobin 24.5 pg (26-34); Mean Corpuscular Volume 78.9 fl (80-100); Mean Platelet Volume 9.4 fl (7.4-10.4); Platelet Count Result 186 k/mm3 (150-375); Red Blood Count 4.37 M/mm3 (4.6-6.20); Red Cell Distribution Width 21.4 % (11.5-14.5); White Blood Count 7.2 K/mm3 (4.5-10.0)
[2022-03-19 05:29] LABS: INR 1.8; Prothrombin Time 19.9 Seconds (11.1-14.7)
[2022-03-19 05:34] LABS: Anion Gap 14 mmol/L (8-16); Blood Urea Nitrogen 94 mg/dL (9-20); Calcium 7.7 mg/dL (8.4-10.2); Carbon Dioxide 16 mmol/L (22-30); Chloride 97 mmol/L (98-107); Estimated CRCL calculation 19 ml/min; Estimated Glomerular Filt Rate 19; Glucose 87 mg/dL (65-110); Magnesium 1.7 mg/dL (1.6-2.3); Phosphorus 5.4 mg/dL (2.5-4.5); Potassium 4.1 mmol/L (3.4-5.0); Sodium 127 mmol/L (137-145)
[2022-03-19] MEDS: SODIUM CHLORIDE 0.9% IV 1,000 ML 75 ML IV CONT (05:59)
[2022-03-19] MEDS: FERROUS SULFATE 324 MG TABLET PO (08:40)
[2022-03-19] MEDS: FLUTICASONE PROPIONATE 0.05% NA SPR 16 GM BTL (*BKC) 1 SPRAY NASAL (08:40)
[2022-03-19] MEDS: CYANOCOBALAMIN 1,000 MCG TABLET 1000 MCG PO (08:40)
[2022-03-19] MEDS: ARTIFICIAL TEARS OPHTH SOLN 15 ML BOTTLE 2 DROP EACH EYE ×2 (08:40→16:19)
[2022-03-19] MEDS: TOLNAFTATE 1% POWDER 45 GM BTL 1 APPLIC TOPICAL ×2 (08:41→20:53)
[2022-03-19] MEDS: SILVERGEL (ELTA) 45 ML 1 APPLIC TOPICAL (08:41)
[2022-03-19] MEDS: MIDODRINE HCL 10 MG TABLET PO ×3 (08:41→16:20)
[2022-03-19] MEDS: PANTOPRAZOLE SODIUM IV 40 MG VIAL IV PUSH (08:41)
[2022-03-19] MEDS: SODIUM BICARBONATE TAB 650 MG TABLET PO ×3 (08:41→16:20)
[2022-03-19] MEDS: MAGNESIUM SULF 1 GM/D5W 100 ML 1 GM/100 ML BAG IVPB (08:41)
--- NOTE | 2022-03-19 09:22 | WPDINTPN ---
Progress Note: A&P Assessment and Plan (1) Septic shock: Code(s): A41.9 - Sepsis, unspecified organism; R65.21 - Severe sepsis with septic shock Status: Acute Assessment and Plan: Patient presented with generalized weakness, was found to be hypotensive, UA reflective of UTI, patient received adequate IV fluids, 3 L bolus despite which his blood pressures remain low. Right IJ central line was placed on 03/17/2022 Off Levophed at this time Continue to maintain mean arterial pressures > 65 mmHg Continue ceftriaxone 03/16 -03/16/2022 blood cultures have been obtained and pending, urine cultures growing Providencia which is sensitive to cefepime WBC is normal and patient is now afebrile Continue midodrine Discontinue albumin (2) Urinary tract infection associated with catheterization of urinary tract: Code(s): T83.511A - Infection and inflammatory reaction due to indwelling urethral catheter, initial encounter; N39.0 - Urinary tract infection, site not specified Status: Acute Assessment and Plan: Arnett catheter was changed by Urology on 03/18 See above (3) Acute renal failure superimposed on stage 3 chronic kidney disease: Code(s): N17.9 - Acute kidney failure, unspecified; N18.30 - Chronic kidney disease, stage 3 unspecified Status: Acute Assessment and Plan: Acute kidney injury likely related to UTI, hypovolemia, septic shock, ATN, patient also on lisinopril and bumetanide at home, history of chronic kidney disease stage 3, essential hypertension Patient was fluid-resuscitated Off of vasopressors Will discontinue IV fluids Discontinue albumin -creatinine is 3.1 (he ranges between 1.4 and 1.7) -03/17 renal ultrasound showed normal kidneys without hydronephrosis -urine lytes not reflective of prerenal at this time -CK level 184 -continue to monitor renal function, electrolytes and urine output -nephrology following -continue bicarb (4) Acute hyponatremia: Code(s): E87.1 - Hypo-osmolality and hyponatremia Status: Acute Assessment and Plan: Multifactorial could be related to acute kidney injury, medications -sodium level improving -continue to monitor (5) 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: Code(s): I50.813 - Acute on chronic right heart failure Status: Acute Assessment and Plan: 11/26/2021 Echocardiogram: EF of 65-70%, LV diastolic dysfunction, D shaped septum in both systole and diastole consistent with right ventricular volume and pressure, right ventricle chamber dimension is severely enlarged, right ventricular systolic function is reduced, right atrial chamber dimension is severely enlarged -patient on bumetanide and lisinopril at home currently on hold due to patient being on vasopressors (6) Chronic atrial fibrillation: Code(s): I48.20 - Chronic atrial fibrillation, unspecified Status: Acute Assessment and Plan: History of chronic atrial fibrillation, currently in sinus rhythm, rate controlled Continue Lovenox but hold Coumadin as patient may need a invasive procedure in case he needs dialysis (7) Gastroesophageal reflux disease: Code(s): K21.9 - Gastro-esophageal reflux disease without esophagitis Status: Acute Assessment and Plan: Continue Protonix Plan DVT prophylaxis: On Lovenox, Coumadin on hold Stress ulcer prophylaxis: Protonix Nutrition: Continue heart healthy diet Code Status: Do not resuscitate PT OT consult Up in chair Incentive spirometry Transfer out of ICU today Subjective Date/time seen: 03/19/22 09:22 Overnight events reviewed. Afebrile Arnett was replaced yesterday Levophed was weaned off yesterday evening His heart rate and blood pressure is lower when he sleeping but in acceptable range when he is awake AFib on the monitor He states he does not have any new complaints and feels fine. Continues to have chronic swelling in the legs. Denies fev
--- NOTE | 2022-03-19 11:23 | PM.CNCAR ---
Assessment and Plan Assessment and plan (1) CHF (congestive heart failure): Code(s): I50.9 - Heart failure, unspecified Status: Acute (2) Atrial fibrillation, chronic: Code(s): I48.20 - Chronic atrial fibrillation, unspecified Status: Acute Plan this is an 81-year-old man with chronic atrial fibrillation admitted with suspected urinary tract infection and acute renal failure. Acute renal failure is likely related to combination of this as well as aggressive diuretic treatment in recent admissions because of the repeated concerns regarding edema and volume overload. He has right ventricular dysfunction normal left ventricular function. Diuretics of course are on hold, STEFFANIE-inhibitor of course is on hold and he is receiving antibiotics. The patient has a very poor prognosis given the frequency of these admissions. Given his age, very poor prognosis and lack of his significant symptoms he is not a candidate given his DNR status to have a pacemaker device implanted. He has no medications that would be related to his bradycardia. Gregorio Lozano MD [facility] History of Present Illness History of Present Illness Consult date/time: 03/19/22 11:23 Reason For Visit: Urinary Tract Infection, Hyponatremia,HILARIO Narrative: This is a 81-year-old man who is well known to me into many of physicians here at [facility] as he is frequently admitted here in the last year. I am seeing him today at the request of the hospitalist because of bradycardia. The patient has a well-known history of chronic atrial fibrillation initially managed with rate control and anticoagulation. Recently he has developed AV node dysfunction and has not required any medication for rate control. He has a history of severe right ventricular dysfunction and has been hospitalized here numerous times with volume overload for diuresis. He resides in a local long term/ skilled care facility. He was sent here for admission several days ago because of symptoms of weakness, inability to care for himself and was felt to have a a urinary infection. While he is in the hospital he is receiving antibiotics and he also was found to have acute renal failure. He normally has a creatinine of about 1.5 is much higher than that now and he is noted to be more bradycardic. He is in chronic atrial fibrillation with a nonspecific interventricular conduction delay which is unchanged on previous ECGs but his heart rate is running between 45 and 50 and that has prompted us to see him in consultation. The patient in recent months have decided himself that he does not wish to be resuscitated her have any aggressive procedures performed. I did discuss the patient's cardiac rhythm with him and given his a age, very poor proper prognosis and lack of a syncopal problems I would not think it is appropriate for this DNR patient to receive a pacemaker device because of this bradycardia. He understands is in is in agreement. Review of Systems Constitutional: Constitutional: Reports fatigue and Reports lethargy Eyes: Eyes: Reports no additional eye complaints ENT: Reports system reviewed and no additional complaints, except as documented Cardiovascular: Cardiovascular: Reports as per HPI Respiratory: Respiratory: Reports dyspnea on exertion Gastrointestinal: Gastrointestinal: Reports no additional gastrointestinal complaints Genitourinary: Genitourinary: Reports as per HPI Musculoskeletal: Musculoskeletal: Reports no additional musculoskeletal complaints Integumentary/Breasts: Skin/Breast: Reports system reviewed and no additional complaints, except as docu Neurologic: Reports system reviewed and no additional complaints, except as documented Endocrine: Endocrine: Reports no additional endocrine complaints Hematologic/Lymphatic: Hematologic/Lymphatic: Reports no additional hematologic/lymphatic complaints Allergic/Immunologic: Allergic/Immunologic: Reports no ad
--- NOTE | 2022-03-19 11:57 | PM.IMPN ---
Progress Note: A&P Assessment and Plan (1) Urinary tract infection associated with catheterization of urinary tract: Code(s): T83.511A - Infection and inflammatory reaction due to indwelling urethral catheter, initial encounter; N39.0 - Urinary tract infection, site not specified Status: Acute Assessment and Plan: - cultures pending - patient appears to be septic with low blood pressure and acute renal failure. - Continue with IV fluids. 03/17/22 interval history Patient 81-year-old male was brought emergency department weakness is found to for hypertension suspect sepsis secondary to UTI, patient was given 3 L IV fluid with no significant improved, was seen by hand picker patient is placed on Levophed to maintain the blood pressure, patient is a chronic indwelling catheter suspect cause of UTI patient being treated with ceftriaxone will follow-up on urine blood culture, patient with acute on chronic kidney disease exacerbated by poor p.o. intake and dehydration patient is being hydrated and seen by Nephrology further recommendation to follow, patient is quite somnolent unable to provide detailed review of symptom. 03/18/22 interval history Patient 81-year-old male was brought emergency department with weakness was found to for hypotension suspect sepsis secondary to UTI, patient was given 3 L IV fluid with no significant improvement, was seen by hand picker patient is placed on Levophed and also added midodrine, to maintain the blood pressure, patient is a chronic indwelling catheter suspect cause of UTI, urine culture is growing Oxidase neg Gram neg bacillus, patient being treated with ceftriaxone will follow-up on urine blood culture, patient with acute on chronic kidney disease exacerbated by poor p.o. intake and dehydration patient is being hydrated and seen by Nephrology further recommendation to follow, today patient is more awake and stats feeling better. 03/19/22 interval history Patient 81-year-old male was brought emergency department with weakness was found to be hypotension suspect sepsis secondary to UTI, patient was given 3 L IV fluid with no significant improvement, was seen by hand picker patient was placed on Levophed and also added midodrine, to maintain the blood pressure, patient has a chronic indwelling catheter suspect cause of UTI, urine culture is growing Providencia rettgeri sensitive to ceftriaxone, patient being treated with ceftriaxone will follow-up on blood culture, patient blood pressure is improving he is off Levophed, patient with acute on chronic kidney disease exacerbated by poor p.o. intake and dehydration patient is being hydrated and seen by Nephrology further recommendation to follow, today patient is more awake and stats feeling better. today we will transfer patient out of ICU to IMU. (2) Acute hyponatremia: Code(s): E87.1 - Hypo-osmolality and hyponatremia Status: Acute Assessment and Plan: - gently hydrate - check urine for sodium and osmolarity - could be related to the CHF - could be related to his diuretics (3) HILARIO (acute kidney injury): Code(s): N17.9 - Acute kidney failure, unspecified Status: Acute Assessment and Plan: - Nephrology consult - renal ultrasound (4) Acute hyperkalemia: Code(s): E87.5 - Hyperkalemia Status: Acute Assessment and Plan: - neb treatment was ordered - sodium zirconium has been ordered. - Repeat BMP in the a.m. 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 - Holding lisinopril due
--- NOTE | 2022-03-19 12:56 | P.PNNP_ITS ---
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 * s/p adequate fluid resuscitation * on vasopressor support to maintain MAP * evaluation noted to date: * renal ultrasound unremarkable * urine electrolytes not pre-renal * CPK okay * follow trend of repeat labs and UOP (2) Chronic kidney disease, stage 3: Code(s): N18.30 - Chronic kidney disease, stage 3 unspecified Status: Chronic Assessment and Plan: * baseline creatinine runs ~ 1.4 - 1.7mg/dl * presumably secondary to CAD/CHF, HTN, vascular disease, and age (3) Acute hyponatremia: Code(s): E87.1 - Hypo-osmolality and hyponatremia Status: Acute Assessment and Plan: * suspect more related to HILARIO/ARF * sodium improving with current interventions * follow trend (4) Septic shock: Code(s): A41.9 - Sepsis, unspecified organism; R65.21 - Severe sepsis with septic shock Status: Acute Assessment and Plan: * remained hypotension despite adequate fluid resuscitation * offf vasopressor support currently * presumed source UTI * blood cultures pending * urine culture with Providencia rettgeri * on antibiotic therapy (5) Acute UTI: Code(s): N39.0 - Urinary tract infection, site not specified Status: Acute Assessment and Plan: * urine culture with Providencia rettgeri * on antibiotics Will continue to follow. Subjective Date/time seen: 03/19/22 12:56 Arnett catheter exchanged yesterday by Urology; able to be weaned off levophed yesterday evening as well with relative stability in hemodynamics; continues to make slow and steady progress with improvement in general; no other issues/events noted overnight or earlier this AM. Exam Narrative: General: Elderly male in NAD Heart: normal S1 and S2; no rub Lungs: clear to auscultation Abdomen: soft, nontender, nondistended, positive bowel sounds Extremities: no cyanosis or clubbing; chronic LE edema present Skin: chronic venous stasis/edema changes noted Objective Data Vital Signs Vital Signs: Vital Signs Temp Pulse Resp BP Pulse Ox O2 Del Method O2 Flow Rate 03/19/22 12:29 36.4 C 45 L 16 118/53 L 03/19/22 12:00 98 Room Air 03/19/22 12:00 44 L 03/19/22 12:00 36.6 C 42 L 15 118/53 L 100 03/19/22 10:00 42 L 14 118/52 L 100 03/19/22 10:00 49 L 03/19/22 09:28 Nasal Cannula 3 03/19/22 08:00 46 L 03/19/22 08:00 98 Room Air 03/19/22 07:49 36.4 C 46 L 16 105/50 L 98 03/19/22 06:00 44 L 18 102/49 L 100 03/19/22 06:00 44 L 03/19/22 04:00 Room Air 03/19/22 04:00 36.4 C 42 L 16 127/48 L 99 03/19/22 04:00 46 L 03/19/22 02:00 40 L 18 111/43 L 100 03/19/22 02:00 40 L 03/19/22 00:00 Room Air 03/19/22 00:00 43 L 03/19/22 00:00 36.5 C 46 L 18 103/59 L 98 03/18/22 20:00 Room Air 03/18/22 22:00
--- NOTE | 2022-03-19 12:56 | PM.PNNEP ---
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 on vasopressor support to maintain MAP evaluation noted to date: renal ultrasound unremarkable urine electrolytes not pre-renal CPK okay follow trend of repeat labs and UOP (2) Chronic kidney disease, stage 3: Code(s): N18.30 - Chronic kidney disease, stage 3 unspecified Status: Chronic Assessment and Plan: baseline creatinine runs ~ 1.4 - 1.7mg/dl presumably secondary to CAD/CHF, HTN, vascular disease, and age (3) Acute hyponatremia: Code(s): E87.1 - Hypo-osmolality and hyponatremia Status: Acute Assessment and Plan: suspect more related to HILARIO/ARF sodium improving with current interventions follow trend (4) Septic shock: Code(s): A41.9 - Sepsis, unspecified organism; R65.21 - Severe sepsis with septic shock Status: Acute Assessment and Plan: remained hypotension despite adequate fluid resuscitation offf vasopressor support currently presumed source UTI blood cultures pending urine culture with Providencia rettgeri on antibiotic therapy (5) Acute UTI: Code(s): N39.0 - Urinary tract infection, site not specified Status: Acute Assessment and Plan: urine culture with Providencia rettgeri on antibiotics Will continue to follow. Subjective Date/time seen: 03/19/22 12:56 Arnett catheter exchanged yesterday by Urology; able to be weaned off levophed yesterday evening as well with relative stability in hemodynamics; continues to make slow and steady progress with improvement in general; no other issues/events noted overnight or earlier this AM. Exam Narrative: General: Elderly male in NAD Heart: normal S1 and S2; no rub Lungs: clear to auscultation Abdomen: soft, nontender, nondistended, positive bowel sounds Extremities: no cyanosis or clubbing; chronic LE edema present Skin: chronic venous stasis/edema changes noted Objective Data Vital Signs Vital Signs: Vital Signs Temp Pulse Resp BP Pulse Ox O2 Del Method O2 Flow Rate 03/19/22 12:29 36.4 C 45 L 16 118/53 L 08/24/22 12:00 98 Room Air 03/19/22 12:00 44 L 03/19/22 12:00 36.6 C 42 L 15 118/53 L 100 03/19/22 10:00 42 L 14 118/52 L 100 03/19/22 10:00 49 L 03/19/22 09:28 Nasal Cannula 3 03/19/22 08:00 46 L 03/19/22 08:00 98 Room Air 03/19/22 07:49 36.4 C 46 L 16 105/50 L 98 03/19/22 06:00 44 L 18 102/49 L 100 03/19/22 06:00 44 L 03/19/22 04:00 Room Air 03/19/22 04:00 36.4 C 42 L 16 127/48 L 99 03/19/22 04:00 46 L 03/19/22 02:00 40 L 18 111/43 L 100 03/19/22 02:00 40 L 03/19/22 00:00 Room Air 03/19/22 00:00 43 L 03/19/22 00:00 36.5 C 46 L 18 103/59 L 98 03/18/22 20:00 Room Air 03/18/22 22:00 43 L 17 91/60 L 95 03/18/22 22:00 43 L 03/18/22 20:00 47 L 03/18/22 20:00 36.4 C 46 L 20 98/34 L 99 03/18/22 17:30 110/45 L 03/18/22 18:00 48 L 03/18/22 18:00 48 L 18 111/48 L 95 03/18/22 17:11 115/48 L Intake/Output Intake/Output: Intake & Output 03/16/22 03/17/22 03/18/22 03/19/22 23:59 23:59 23:59 23:59 Intake Total 50 3320 3740 2260 Output Total 306 825 800 Balance 50 3014 2915 1460 Meds/Results Medications: Active Medications Generic Name Dose Route Start Last Admin Trade Name Freq PRN Reason Stop Dose Admin Acetaminophen 650 mg 03/16/22 21:24 03/17/22 16:51 Acetaminophen 325 Mg Tablet PO 650 mg Q6H PRN
[2022-03-19 15:27] LABS: Osmolality, Urine 406 mOsm/kg (50-1200)
[2022-03-19] MEDS: ENOXAPARIN 100 MG/ML SYRINGE 95 MG SUB-Q (20:52)
[2022-03-20] VITALS (17 sets, daily range): BP systolic 96–116; BP diastolic 43–79; PULSE 40–64; RESP 20–24; TEMP 36.2–36.9; O2SAT 97–100
[2022-03-20] MEDS: CENTRAL LINE FLUSH 10 ML IV PUSH ×4 (05:32→21:16)
[2022-03-20 05:47] LABS: Hemoglobin 10.4 g/dL (14.0-18.0); Mean Corpuscular HGB Conc 30.6 g/dl (32-36); Mean Corpuscular Hemoglobin 24.2 pg (26-34); Mean Corpuscular Volume 79.3 fl (80-100); Mean Platelet Volume 9.8 fl (7.4-10.4); Platelet Count Result 182 k/mm3 (150-375); Red Blood Count 4.29 M/mm3 (4.6-6.20); Red Cell Distribution Width 21.5 % (11.5-14.5); White Blood Count 6.4 K/mm3 (4.5-10.0)
[2022-03-20 06:00] LABS: INR 1.8
[2022-03-20 06:13] LABS: Alanine Aminotransferase 13 U/L (6-50); Albumin Level 2.8 g/dL (3.5-5.1); Alkaline Phosphatase 69 U/L (38-126); Anion Gap 12 mmol/L (8-16); Aspartate Amino Transferase 27 U/L (17-59); Bilirubin,Total 0.5 mg/dL (0.2-1.3); Blood Urea Nitrogen 97 mg/dL (9-20); Carbon Dioxide 19 mmol/L (22-30); Chloride 96 mmol/L (98-107); Estimated CRCL calculation 21 ml/min; Estimated Glomerular Filt Rate 22; Glucose 82 mg/dL (65-110); Magnesium 1.9 mg/dL (1.6-2.3); Potassium 3.7 mmol/L (3.4-5.0); Sodium 127 mmol/L (137-145)
[2022-03-20] MEDS: SILVERGEL (ELTA) 45 ML 1 APPLIC TOPICAL (08:41)
[2022-03-20] MEDS: ACETAMINOPHEN 325 MG TABLET 650 MG PO ×2 (08:43→17:24)
[2022-03-20] MEDS: ARTIFICIAL TEARS OPHTH SOLN 15 ML BOTTLE 2 DROP EACH EYE ×2 (08:44→17:21)
[2022-03-20] MEDS: FLUTICASONE PROPIONATE 0.05% NA SPR 16 GM BTL (*BKC) 1 SPRAY NASAL (08:45)
[2022-03-20] MEDS: FERROUS SULFATE 324 MG TABLET PO (08:46)
[2022-03-20] MEDS: MIDODRINE HCL 10 MG TABLET PO ×3 (08:47→17:21)
[2022-03-20] MEDS: CYANOCOBALAMIN 1,000 MCG TABLET 1000 MCG PO (08:47)
[2022-03-20] MEDS: SODIUM BICARBONATE TAB 650 MG TABLET PO ×3 (08:47→17:22)
[2022-03-20] MEDS: PANTOPRAZOLE SODIUM IV 40 MG VIAL IV PUSH (08:48)
[2022-03-20] MEDS: TOLNAFTATE 1% POWDER 45 GM BTL 1 APPLIC TOPICAL ×2 (08:48→21:17)
--- NOTE | 2022-03-20 12:35 | P.PNNP_ITS ---
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 * s/p vasopressor support to maintain MAP * evaluation noted to date: * renal ultrasound unremarkable * urine electrolytes not pre-renal * CPK okay * follow trend of repeat labs and UOP (2) Chronic kidney disease, stage 3: Code(s): N18.30 - Chronic kidney disease, stage 3 unspecified Status: Chronic Assessment and Plan: * baseline creatinine runs ~ 1.4 - 1.7mg/dl * presumably secondary to CAD/CHF, HTN, vascular disease, and age (3) Acute hyponatremia: Code(s): E87.1 - Hypo-osmolality and hyponatremia Status: Acute Assessment and Plan: * suspect more related to HILARIO/ARF * sodium improving with current interventions * follow trend (4) Septic shock: Code(s): A41.9 - Sepsis, unspecified organism; R65.21 - Severe sepsis with septic shock Status: Acute Assessment and Plan: * remained hypotension despite adequate fluid resuscitation * offf vasopressor support currently * presumed source UTI * blood cultures pending * urine culture with Providencia rettgeri * on antibiotic therapy (5) Acute UTI: Code(s): N39.0 - Urinary tract infection, site not specified Status: Acute Assessment and Plan: * urine culture with Providencia rettgeri * on antibiotics Will continue to follow. Subjective Date/time seen: 03/20/22 12:35 Transferred out of ICU yesterday with relatively stability in hemodynamics in the last 24 - 48 hours; renal function is improving albeit slowly; no apparent distress voiced at the time of my visit; no events/issues overnight or earlier this morning. Exam Narrative: General: Elderly male in NAD Heart: normal S1 and S2; no rub Lungs: clear to auscultation Abdomen: soft, nontender, nondistended, positive bowel sounds Extremities: no cyanosis or clubbing; chronic LE edema present Skin: chronic venous stasis/edema changes Objective Data Vital Signs Vital Signs: Vital Signs Temp Pulse Resp BP Pulse Ox O2 Del Method 03/20/22 12:00 53 L 24 H 97 Room Air 03/20/22 12:00 53 L 03/20/22 11:50 36.9 C 58 L 24 H 98/43 L 97 03/20/22 10:00 52 L 03/20/22 08:00 49 L 03/20/22 08:00 Room Air 03/20/22 08:06 36.2 C L 49 L 22 H 106/46 L 100 03/20/22 06:00 64 03/20/22 04:00 45 L 22 H 97 Room Air 03/20/22 04:00 45 L 03/20/22 02:00 40 L 03/20/22 04:00 36.4 C 46 L 22 H 96/51 L 97 03/20/22 00:00 40 L 24 H 99 Room Air 03/20/22 00:00 40 L 03/19/22 23:37 36.4 C 41 L 24 H 92/46 L 99 03/19/22 22:00 56 L 03/19/22 20:00 55 L 22 H 93 Room Air 03/19/22 20:00 55 L 03/19/22 20:00 36.4 C 82 22 H 96/54 L 93 03/19/22 16:00 36.3 C L 41 L 14 114/68 93 03/19/22 16:00 98 Room Air 03/19/22 16:00 45 L 03/19/22 14:00 4
--- NOTE | 2022-03-20 12:35 | PM.PNNEP ---
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 s/p vasopressor support to maintain MAP evaluation noted to date: renal ultrasound unremarkable urine electrolytes not pre-renal CPK okay follow trend of repeat labs and UOP (2) Chronic kidney disease, stage 3: Code(s): N18.30 - Chronic kidney disease, stage 3 unspecified Status: Chronic Assessment and Plan: baseline creatinine runs ~ 1.4 - 1.7mg/dl presumably secondary to CAD/CHF, HTN, vascular disease, and age (3) Acute hyponatremia: Code(s): E87.1 - Hypo-osmolality and hyponatremia Status: Acute Assessment and Plan: suspect more related to HILARIO/ARF sodium improving with current interventions follow trend (4) Septic shock: Code(s): A41.9 - Sepsis, unspecified organism; R65.21 - Severe sepsis with septic shock Status: Acute Assessment and Plan: remained hypotension despite adequate fluid resuscitation offf vasopressor support currently presumed source UTI blood cultures pending urine culture with Providencia rettgeri on antibiotic therapy (5) Acute UTI: Code(s): N39.0 - Urinary tract infection, site not specified Status: Acute Assessment and Plan: urine culture with Providencia rettgeri on antibiotics Will continue to follow. Subjective Date/time seen: 03/20/22 12:35 Transferred out of ICU yesterday with relatively stability in hemodynamics in the last 24 - 48 hours; renal function is improving albeit slowly; no apparent distress voiced at the time of my visit; no events/issues overnight or earlier this morning. Exam Narrative: General: Elderly male in NAD Heart: normal S1 and S2; no rub Lungs: clear to auscultation Abdomen: soft, nontender, nondistended, positive bowel sounds Extremities: no cyanosis or clubbing; chronic LE edema present Skin: chronic venous stasis/edema changes Objective Data Vital Signs Vital Signs: Vital Signs Temp Pulse Resp BP Pulse Ox O2 Del Method 03/20/22 12:00 53 L 24 H 97 Room Air 03/20/22 12:00 53 L 03/20/22 11:50 36.9 C 58 L 24 H 98/43 L 97 03/20/22 10:00 52 L 03/20/22 08:00 49 L 03/20/22 08:00 Room Air 03/20/22 08:06 36.2 C L 49 L 22 H 106/46 L 100 03/20/22 06:00 64 03/20/22 04:00 45 L 22 H 97 Room Air 03/20/22 04:00 45 L 03/20/22 02:00 40 L 03/20/22 04:00 36.4 C 46 L 22 H 96/51 L 97 03/20/22 00:00 40 L 24 H 99 Room Air 03/20/22 00:00 40 L 03/19/22 23:37 36.4 C 41 L 24 H 92/46 L 99 03/19/22 22:00 56 L 03/19/22 20:00 55 L 22 H 93 Room Air 03/19/22 20:00 55 L 03/19/22 20:00 36.4 C 82 22 H 96/54 L 93 03/19/22 16:00 36.3 C L 41 L 14 114/68 93 03/19/22 16:00 98 Room Air 03/19/22 16:00 45 L 03/19/22 14:00 42 L Intake/Output Intake/Output: Intake & Output 03/17/22 03/18/22 03/19/22 03/20/22 23:59 23:59 23:59 23:59 Intake Total 3320 3740 2260 390 Output Total 306 825 800 500 Balance 3014 2915 1460 -110 Meds/Results Medications: Active Medications Generic Name Dose Route Start Last Admin Trade Name Freq PRN Reason Stop Dose Admin Acetaminophen 650 mg 03/16/22 21:24 03/20/22 08:43 Acetaminophen 325 Mg Tablet PO 650 mg Q6H PRN Administration Pain (Scale Score 1-3) Artificial Tears 2 drop 03/17/22 09:00 03/20/22 08:44 Artificial Tears Ophth Soln 15 Ml Bottle EACH EYE 2 drop BID SANAM Administration Cyanocobalamin 1,000 mcg 03/17/22 09:00 03/20/22 08:47 Cyanocobalamin 1,
--- NOTE | 2022-03-20 12:48 | PM.PNCARD ---
Progress Note: A&P Assessment and Plan (1) CHF (congestive heart failure): Code(s): I50.9 - Heart failure, unspecified <REKHA Walker - Last Filed: 03/20/22 16:30> Status: Acute <REKHA Walker - Last Filed: 03/20/22 16:30> Assessment and Plan: Chronic RV dysfunction. Unfortunately at this time his diuretics and heart failure medications are on hold due to his kidney function. Concern for development of significant volume overload given his requirement for high dose diuretics and frequent readmissions for IV diuresis in recent months. Monitor volume status and respiratory status closely. Currently does not have any oxygen requirements. Will resume diuretics and HF regimen as kidney function and BP allow. <REKHA Walker - Last Filed: 03/20/22 16:30> (2) Atrial fibrillation, chronic: Code(s): I48.20 - Chronic atrial fibrillation, unspecified <REKHA Walker - Last Filed: 03/20/22 16:30> Status: Acute <REKHA Walker - Last Filed: 03/20/22 16:30> Assessment and Plan: Chronic atrial fibrillation. He has now developed AV node dysfunction and is not requiring any AV iram blocking agents to control heart rate. He is actually mildly bradycardia at this time which was why we were asked to see him. He is not symptomatic with this and BP is relatively stable. No further cardiac recommendations in this regard at the current time. <REKHA Walker - Last Filed: 03/20/22 16:30> Additional Plan Attending Addendum: I agree with the above documentation and plan of care as outlined. <Todd Stone MD - Last Filed: 03/20/22 16:34> Subjective Date/time seen: 03/20/22 12:48 Cardiology follow up for atrial fibrillation, CHF, CKD Feeling about the same today. Complaining of mild shortness of breath. No chest pain or palpitations. <REKHA Walker - Last Filed: 03/20/22 16:30> Review of Systems Constitutional: Constitutional: Reports fatigue and Reports lethargy <REKHA Walker - Last Filed: 03/20/22 16:30> Eyes: Eyes: Reports no additional eye complaints <REKHA Walker - Last Filed: 03/20/22 16:30> ENT: Reports system reviewed and no additional complaints, except as documented <REKHA Walker - Last Filed: 03/20/22 16:30> Cardiovascular: Cardiovascular: Reports as per HPI and Reports dyspnea on exertion <REKHA Walker - Last Filed: 03/20/22 16:30> Respiratory: Respiratory: Reports dyspnea on exertion <REKHA Walker - Last Filed: 03/20/22 16:30> Gastrointestinal: Gastrointestinal: Reports no additional gastrointestinal complaints <REKHA Walker - Last Filed: 03/20/22 16:30> Genitourinary: Genitourinary: Reports as per HPI <REKHA Walker - Last Filed: 03/20/22 16:30> Musculoskeletal: Musculoskeletal: Reports no additional musculoskeletal complaints <REKHA Walker - Last Filed: 03/20/22 16:30> Integumentary/Breasts: Skin/Breast: Reports system reviewed and no additional complaints, except as docu <REKHA Walker - Last Filed: 03/20/22 16:30> Neurologic: Reports system reviewed and no additional complaints, except as documented <REKHA Walker - Last Filed: 03/20/22 16:30> Endocrine: Endocrine: Reports no additional endocrine complaints and Reports fatigue <REKHA Walker - Last Filed: 03/20/22 16:30> Hematologic/Lymphatic: Hematologic/Lymphatic: Reports no additional hematologic/lymphatic complaints <ERKHA Walker - Last Filed: 03/20/22 16:30> Allergic/Immunologic: Allergic/Immunologic: Reports no additional allergic/immunologic complaints <REKHA Walker - Last Filed: 03/20/22 16:30> Exam Const: General: comfortable and no acute distress <REKHA Walker - Last Filed: 03/20/22 16:30> Other: Frail chronically ill-appearing gentleman lying comfortably in bed. <REKHA Walker -
--- NOTE | 2022-03-20 13:20 | PM.IMPN ---
Progress Note: A&P Assessment and Plan (1) Urinary tract infection associated with catheterization of urinary tract: Code(s): T83.511A - Infection and inflammatory reaction due to indwelling urethral catheter, initial encounter; N39.0 - Urinary tract infection, site not specified Status: Acute Assessment and Plan: - cultures pending - patient appears to be septic with low blood pressure and acute renal failure. - Continue with IV fluids. 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 intake and dehydration patient is being hydrated and seen by Nephrology further recommendation to follow, patient is quite somnolent unable to provide detailed review of symptom. 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 intake and dehydration patient is being hydrated and seen by Nephrology further recommendation to follow, today patient is more awake and stats feeling better. 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 intake and dehydration patient is being hydrated and seen by Nephrology further recommendation to follow, today patient is more awake and stats feeling better. today we will transfer patient out of ICU to IMU. 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 intake and dehydration patient is being hydrated and seen by Nephrology further recommendation to follow, on 03/19 we transferred patient out of ICU to IMU. today patient is more awake and stats feeling better however patient is quite will continue PT/OT and patient will benefit going to SNF rehab. (2) Acute hyponatremia: Code(s): E87.1 - Hypo-osmolality and hyponatremia Status: Acute Assessment and Plan
[2022-03-20] MEDS: ENOXAPARIN 100 MG/ML SYRINGE 95 MG SUB-Q (21:16)
[2022-03-21] VITALS (14 sets, daily range): BP systolic 102–128; BP diastolic 42–65; PULSE 35–74; RESP 12–20; TEMP 35.9–36.9; O2SAT 96–100
[2022-03-21] MEDS: ACETAMINOPHEN 325 MG TABLET 650 MG PO ×2 (03:25→08:25)
[2022-03-21 04:49] LABS: Hematocrit 34.9 % (42.0-52.0); Hemoglobin 11.1 g/dL (14.0-18.0); Mean Corpuscular HGB Conc 31.8 g/dl (32-36); Mean Corpuscular Hemoglobin 24.9 pg (26-34); Mean Corpuscular Volume 78.3 fl (80-100); Mean Platelet Volume 9.4 fl (7.4-10.4); Platelet Count Result 202 k/mm3 (150-375); Red Blood Count 4.46 M/mm3 (4.6-6.20); Red Cell Distribution Width 21.7 % (11.5-14.5); White Blood Count 5.8 K/mm3 (4.5-10.0)
[2022-03-21 04:58] LABS: INR 1.5; Prothrombin Time 17.8 Seconds (11.1-14.7)
[2022-03-21 05:09] LABS: Alanine Aminotransferase 15 U/L (6-50); Albumin Level 2.9 g/dL (3.5-5.1); Alkaline Phosphatase 75 U/L (38-126); Anion Gap 11 mmol/L (8-16); Aspartate Amino Transferase 34 U/L (17-59); Bilirubin,Total 0.5 mg/dL (0.2-1.3); Blood Urea Nitrogen 96 mg/dL (9-20); Calcium 7.9 mg/dL (8.4-10.2); Carbon Dioxide 20 mmol/L (22-30); Chloride 99 mmol/L (98-107); Estimated CRCL calculation 25 ml/min; Estimated Glomerular Filt Rate 26; Glucose 88 mg/dL (65-110); Magnesium 1.9 mg/dL (1.6-2.3); Sodium 130 mmol/L (137-145)
[2022-03-21] MEDS: CENTRAL LINE FLUSH 10 ML IV PUSH ×4 (06:00→21:52)
[2022-03-21] MEDS: PANTOPRAZOLE SODIUM IV 40 MG VIAL IV PUSH (08:26)
[2022-03-21] MEDS: TOLNAFTATE 1% POWDER 45 GM BTL 1 APPLIC TOPICAL ×2 (08:27→21:52)
[2022-03-21] MEDS: CYANOCOBALAMIN 1,000 MCG TABLET 1000 MCG PO (08:27)
[2022-03-21] MEDS: FLUTICASONE PROPIONATE 0.05% NA SPR 16 GM BTL (*BKC) 1 SPRAY NASAL (08:27)
[2022-03-21] MEDS: FERROUS SULFATE 324 MG TABLET PO (08:27)
[2022-03-21] MEDS: SODIUM BICARBONATE TAB 650 MG TABLET PO ×3 (08:27→17:30)
[2022-03-21] MEDS: ARTIFICIAL TEARS OPHTH SOLN 15 ML BOTTLE 2 DROP EACH EYE ×2 (08:27→17:30)
[2022-03-21] MEDS: SILVERGEL (ELTA) 45 ML 1 APPLIC TOPICAL (08:27)
[2022-03-21] MEDS: MIDODRINE HCL 10 MG TABLET PO ×3 (08:28→17:29)
--- NOTE | 2022-03-21 09:44 | PM.IMPN ---
Progress Note: A&P Assessment and Plan (1) Urinary tract infection associated with catheterization of urinary tract: Code(s): T83.511A - Infection and inflammatory reaction due to indwelling urethral catheter, initial encounter; N39.0 - Urinary tract infection, site not specified Status: Acute Assessment and Plan: - IV resusciatation in ED, previously requiring levophed, now weaned off - blood cultures NGTD. Urine cx with providencia rettgeri, sensitvites resulted - continue rocephin through 02/26 (2) Acute hyponatremia: Code(s): E87.1 - Hypo-osmolality and hyponatremia Status: Acute Assessment and Plan: - likely related to the CHF and HILARIO - improving (3) HILARIO (acute kidney injury): Code(s): N17.9 - Acute kidney failure, unspecified Status: Acute Assessment and Plan: - Nephrology consulted - renal ultrasound normal - likely related to hypotension. Cr improving (4) Metabolic acidosis: Code(s): E87.2 - Acidosis Status: Acute Assessment and Plan: -NAGMA -on sodium bicarb (5) 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: Code(s): I50.813 - Acute on chronic right heart failure Status: Acute Assessment and Plan: - lisinopril, bumex, and metolazone on hold at this time due to HILARIO. Pressures are better - patient appears to be becoming more volume overloaded on exam and as seen on CXR 03/21. Will hold off on diuresis for one more day while monitoring Cr and likley restart diuresis tomorrow. Cardiology following (6) Hypertension: Code(s): I10 - Essential (primary) hypertension Status: Acute Assessment and Plan: Holding meds due to hypotension Patient on midodrine due to hypotension, will attempt to wean down if pressures stable (7) Gastroesophageal reflux disease: Code(s): K21.9 - Gastro-esophageal reflux disease without esophagitis Status: Acute Assessment and Plan: -protonix (8) Benign prostatic hyperplasia: Code(s): N40.0 - Benign prostatic hyperplasia without lower urinary tract symptoms Status: Acute Assessment and Plan: - patient currently has a Arnett catheter. (9) Atrial flutter: Code(s): I48.92 - Unspecified atrial flutter Status: Acute Assessment and Plan: - Patient with known slow AF not on rate control meds - On therapeutic lovenox, will restart coumadin today (10) Unspecified dementia without behavioral disturbance: Code(s): F03.90 - Unspecified dementia without behavioral disturbance Status: Acute Assessment and Plan: - Continue with galantamine Subjective Date/time seen: 03/21/22 09:44 Patient examined, chart reviewed. No new events. Reports slightly worsening pedal edema, denies shortness of breath. Patient had 1 L of urine output over the last 24 hours. Review of Systems Review of Systems: Ten point ROS reviewed, negative unless otherwise specified per subjective Exam Narrative: General: Patient is in bed, comfortable, no acute distress HEENT:? Pupils equal and reactive, moist oral mucosa Neck:? Neck is supple with skin tags, no cervical lymphadenopathy. RIJ central line present Respiratory:? Clear to auscultation bilaterally, decreased at bases, no wheezing, adequate air entry Cardiac:? S1-S2 is normal, regular rate and rhythm Abdomen:? Soft, nondistended, non tender, normoactive bowel sounds, obese Extremities:? Bilateral lower extremity edema which appears to be chronic with venous status changes on skin Neuro:? Patient is awake, alert, oriented to place and person, answers to questions appropriately and follows simple commands in all extremities Skin:? Chronic venous status changes, small clear ulcer on right heel Psych:? Flat affect : Arnett in place Objective Data Vital Signs Vital Signs: Vital Signs - 24 hr 03/20/22 10:00 03/20/22 11:50 03/20/22 12:00 Temperature 98.5 F
--- NOTE | 2022-03-21 10:07 | P.PNNP_ITS ---
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 * s/p adequate fluid resuscitation * s/p vasopressor support to maintain MAP (weaned off) * evaluation noted to date: * renal ultrasound unremarkable * urine electrolytes not pre-renal * CPK okay * follow trend of repeat labs and UOP (2) Chronic kidney disease, stage 3: Code(s): N18.30 - Chronic kidney disease, stage 3 unspecified Status: Chronic Assessment and Plan: * baseline creatinine runs ~ 1.4 - 1.7mg/dl (causing him to fluctuate between CKD stage 3A and 3B) * presumably secondary to CAD/CHF, HTN, vascular disease, and age (3) Acute hyponatremia: Code(s): E87.1 - Hypo-osmolality and hyponatremia Status: Acute Assessment and Plan: * suspect more related to HILARIO/ARF * sodium improving with current interventions/therapy * consider adding fluid restriction given known CHF history * suspect will need to restart diuretics as well * follow trend (4) Septic shock: Code(s): A41.9 - Sepsis, unspecified organism; R65.21 - Severe sepsis with septic shock Status: Acute Assessment and Plan: * resolved * remained hypotension despite adequate fluid resuscitation * off vasopressor support currently * presumed source UTI * blood cultures with no growth * urine culture with Providencia rettgeri * on antibiotic therapy (5) Acute UTI: Code(s): N39.0 - Urinary tract infection, site not specified Status: Acute Assessment and Plan: * urine culture with Providencia rettgeri * on antibiotics Will continue to follow. Subjective Date/time seen: 03/21/22 10:07 Slow and steady improvement noted -- reasonable urine output in the last 24 hours with improvmement in renal function as well as sodium noted; no apparent distress voiced at the time of my visit; no issues/events overnight or earlier this morning. Exam Narrative: General: Elderly male in NAD Heart: normal S1 and S2; no rub Lungs: clear to auscultation Abdomen: soft, nontender, nondistended, positive bowel sounds Extremities: no cyanosis or clubbing; chronic LE edema present Skin: chronic venous stasis/edema changes present Objective Data Vital Signs Vital Signs: Vital Signs Temp Pulse Resp BP Pulse Ox O2 Del Method 03/21/22 10:00 56 L 03/21/22 08:00 43 L 03/21/22 08:00 Room Air 03/21/22 08:00 36.3 C L 49 L 20 128/54 L 98 03/21/22 04:00 Room Air 03/21/22 06:00 37 L 03/21/22 04:00 35 L 03/21/22 04:00 36.9 C 45 L 16 102/42 L 99 03/21/22 02:00 49 L 03/21/22 00:00 36.1 C L 44 L 20 113/45 L 97 03/21/22 00:00 46 L 03/20/22 22:00 46 L 03/20/22 20:00 42 L 03/20/22 19:48 36.8 C 40 L 20 104/79 98 03/20/22 18:00 58 L 03/20/22 16:00 45 L 20 97 Room Air 03/20/22 16:00 45 L 03/20/22 16:15 36.3 C L 45 L 20 116/53 L 97 03/20/22 14:29 97
--- NOTE | 2022-03-21 10:07 | PM.PNNEP ---
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 s/p vasopressor support to maintain MAP (weaned off) evaluation noted to date: renal ultrasound unremarkable urine electrolytes not pre-renal CPK okay follow trend of repeat labs and UOP (2) Chronic kidney disease, stage 3: Code(s): N18.30 - Chronic kidney disease, stage 3 unspecified Status: Chronic Assessment and Plan: baseline creatinine runs ~ 1.4 - 1.7mg/dl (causing him to fluctuate between CKD stage 3A and 3B) presumably secondary to CAD/CHF, HTN, vascular disease, and age (3) Acute hyponatremia: Code(s): E87.1 - Hypo-osmolality and hyponatremia Status: Acute Assessment and Plan: suspect more related to HILARIO/ARF sodium improving with current interventions/therapy consider adding fluid restriction given known CHF history suspect will need to restart diuretics as well follow trend (4) Septic shock: Code(s): A41.9 - Sepsis, unspecified organism; R65.21 - Severe sepsis with septic shock Status: Acute Assessment and Plan: resolved remained hypotension despite adequate fluid resuscitation off vasopressor support currently presumed source UTI blood cultures with no growth urine culture with Providencia rettgeri on antibiotic therapy (5) Acute UTI: Code(s): N39.0 - Urinary tract infection, site not specified Status: Acute Assessment and Plan: urine culture with Providencia rettgeri on antibiotics Will continue to follow. Subjective Date/time seen: 03/21/22 10:07 Slow and steady improvement noted -- reasonable urine output in the last 24 hours with improvmement in renal function as well as sodium noted; no apparent distress voiced at the time of my visit; no issues/events overnight or earlier this morning. Exam Narrative: General: Elderly male in NAD Heart: normal S1 and S2; no rub Lungs: clear to auscultation Abdomen: soft, nontender, nondistended, positive bowel sounds Extremities: no cyanosis or clubbing; chronic LE edema present Skin: chronic venous stasis/edema changes present Objective Data Vital Signs Vital Signs: Vital Signs Temp Pulse Resp BP Pulse Ox O2 Del Method 03/21/22 10:00 56 L 03/21/22 08:00 43 L 03/21/22 08:00 Room Air 03/21/22 08:00 36.3 C L 49 L 20 128/54 L 98 03/21/22 04:00 Room Air 03/21/22 06:00 37 L 03/21/22 04:00 35 L 03/21/22 04:00 36.9 C 45 L 16 102/42 L 99 03/21/22 02:00 49 L 03/21/22 00:00 36.1 C L 44 L 20 113/45 L 97 03/21/22 00:00 46 L 03/20/22 22:00 46 L 03/20/22 20:00 42 L 03/20/22 19:48 36.8 C 40 L 20 104/79 98 03/20/22 18:00 58 L 03/20/22 16:00 45 L 20 97 Room Air 03/20/22 16:00 45 L 03/20/22 16:15 36.3 C L 45 L 20 116/53 L 97 03/20/22 14:29 97 Room Air 03/20/22 14:00 48 L 03/20/22 12:00 53 L 24 H 97 Room Air 03/20/22 12:00 53 L 03/20/22 11:50 36.9 C 58 L 24 H 98/43 L 97 Intake/Output Intake/Output: Intake & Output 03/18/22 03/19/22 03/20/22 03/21/22 23:59 23:59 23:59 23:59 Intake Total 3740 2310 1420 350 Output Total 234 630 3392 450 Balance 2915 1510 320 -100 Meds/Results Medications: Active Medications Generic Name Dose Route Start Last Admin Trade Name Freq PRN Reason Stop Dose Admin Acetaminophen 650 mg 03/16/22 21:24 03/21/22 08:25 Acetaminophen 325 Mg Tablet PO 650 mg Q6H PRN Administration Pain (Scale Score 1-3) Artificial Tears 2 drop 03/17/22 09:00 03/21/22
--- NOTE | 2022-03-21 11:48 | PM.PNCARD ---
Progress Note: A&P Assessment and Plan (1) HILARIO (acute kidney injury): Code(s): N17.9 - Acute kidney failure, unspecified Status: Acute (2) CHF (congestive heart failure): Code(s): I50.9 - Heart failure, unspecified Status: Acute (3) Atrial fibrillation, chronic: Code(s): I48.20 - Chronic atrial fibrillation, unspecified Status: Acute Additional Plan 81-year-old man with: Chronic atrial fibrillation and chronic right ventricular dysfunction. Very difficult situation that he has now with necessitation to withdraw guideline directed medical therapy and actually start him on midodrine to support his blood pressure. Renal function is improving very slowly. Still probably cannot resume diuretics but he is significantly volume overloaded his upper extremities in particular are getting severely edematous. Prognosis in this situation is very poor. Patient understands this to some degree. DNR status is appropriate. Gregorio Lozano MD [facility] Subjective Date/time seen: Date of service: 03/21/22 11:48 Interval history: Follow-up visit in this 81-year-old man with: Chronic congestive heart failure primarily right ventricular dysfunction and chronic atrial fibrillation. Multiple frequent admissions in this hospital through the course of this year. Current admission initially related to apparent urinary infection/urosepsis. Patient has had to have guideline directed medical therapy discontinued because of hypotension and acute renal failure. Exam Const: General: comfortable and no acute distress Other: Elderly gentleman seated in the chair watching television no distress HENMT: Mouth: Yes moist mucous membranes Eyes: Sclera: sclerae normal Neck: Neck: supple Other: Cannot assess JVD given obesity Resp: Effort & Inspection: normal respiratory effort Auscultation: clear to auscultation bilaterally Cardio: Rhythm: abnormal rhythm irregularly irregular GI: GI Palp: Yes Soft to palpation Skin: General skin exam: normal color Neuro: Other: Alert and oriented x3 Extrem: Other: Chronic lower extremity edema unchanged upper extremity edema has worsened. Objective Data Vital Signs Vital Signs: Vital Signs - 24 hr 03/20/22 11:50 03/20/22 12:00 03/20/22 12:00 Temperature 36.9 C Pulse Rate 58 L 53 L 53 L Respiratory Rate 24 H 24 H Blood Pressure 98/43 L Pulse Oximetry 97 97 Oxygen Delivery Room Air 03/20/22 14:00 03/20/22 14:29 03/20/22 16:15 Temperature 36.3 C L Pulse Rate 48 L 45 L Respiratory Rate 20 Blood Pressure 116/53 L Pulse Oximetry 97 97 Oxygen Delivery Room Air 03/20/22 16:00 03/20/22 16:00 03/20/22 18:00 Temperature Pulse Rate 45 L 45 L 58 L Respiratory Rate 20 Blood Pressure Pulse Oximetry 97 Oxygen Delivery Room Air 03/20/22 19:48 03/20/22 20:00 03/20/22 22:00 Temperature 36.8 C Pulse Rate 40 L 42 L 46 L Respiratory Rate 20 Blood Pressure 104/79 Pulse Oximetry 98 Oxygen Delivery 03/21/22 00:00 03/21/22 00:00 03/21/22 02:00 Temperature 36.1 C L Pulse Rate 46 L 44 L 49 L Respiratory Rate 20 Blood Pressure 113/45 L Pulse Oximetry 97 Oxygen Delivery 03/21/22 04:00 03/21/22 04:00 03/21/22 06:00 Temperature 36.9 C Pulse Rate 45 L 35 L 37 L Respiratory Rate 16 Blood Pressure 102/42 L Pulse Oximetry 99 Oxygen Delivery 03/21/22 04:00 03/21/22 08:00 03/21/22 08:00 Temperature 36.3 C L Pulse Rate 49 L Respiratory Rate 20 Blood Pressure 128/54 L Pulse Oximetry 98 Oxygen Delivery Room Air Room Air 03/21/22 08:00 03/21/22 10:00 Temperature Pulse Rate 43 L 56 L Respiratory Rate Blood Pressure Pulse Oximetry Oxygen Delivery Intake/Output Intake/Output: Intake & Output 03/18/22 03/19/22 03/20/22 03/21/22 23:59 23:59 23:59 23:59 Intake Total 3740 2310 1420 590 Output Total 691 166 3862 450 Balance 2915 1510 320 140
[2022-03-21] MEDS: WARFARIN (*PBKC) 3 MG TABLET PO (17:30)
[2022-03-21] MEDS: ENOXAPARIN 100 MG/ML SYRINGE 95 MG SUB-Q (21:52)
[2022-03-22] VITALS (13 sets, daily range): BP systolic 105–131; BP diastolic 49–68; PULSE 39–68; RESP 14–20; TEMP 36.1–36.7; O2SAT 93–100
[2022-03-22] MEDS: ACETAMINOPHEN 325 MG TABLET 650 MG PO (02:08)
[2022-03-22 04:46] LABS: Hematocrit 35.9 % (42.0-52.0); Hemoglobin 11.2 g/dL (14.0-18.0); Mean Corpuscular HGB Conc 31.2 g/dl (32-36); Mean Corpuscular Hemoglobin 24.8 pg (26-34); Mean Corpuscular Volume 79.4 fl (80-100); Mean Platelet Volume 9.3 fl (7.4-10.4); Platelet Count Result 205 k/mm3 (150-375); Red Blood Count 4.52 M/mm3 (4.6-6.20); Red Cell Distribution Width 21.9 % (11.5-14.5); White Blood Count 5.6 K/mm3 (4.5-10.0)
[2022-03-22 04:56] LABS: Alanine Aminotransferase 15 U/L (6-50); Albumin Level 2.8 g/dL (3.5-5.1); Alkaline Phosphatase 72 U/L (38-126); Anion Gap 8 mmol/L (8-16); Aspartate Amino Transferase 27 U/L (17-59); Bilirubin,Total 0.4 mg/dL (0.2-1.3); Blood Urea Nitrogen 93 mg/dL (9-20); Calcium 8.3 mg/dL (8.4-10.2); Carbon Dioxide 22 mmol/L (22-30); Chloride 97 mmol/L (98-107); Estimated CRCL calculation 27 ml/min; Estimated Glomerular Filt Rate 29; Glucose 91 mg/dL (65-110); Potassium 3.7 mmol/L (3.4-5.0); Sodium 127 mmol/L (137-145)
[2022-03-22 05:03] LABS: INR 1.3; Prothrombin Time 16.1 Seconds (11.1-14.7)
[2022-03-22] MEDS: CENTRAL LINE FLUSH 10 ML IV PUSH ×4 (06:00→21:06)
[2022-03-22] MEDS: FLUTICASONE PROPIONATE 0.05% NA SPR 16 GM BTL (*BKC) 1 SPRAY NASAL (10:27)
[2022-03-22] MEDS: FERROUS SULFATE 324 MG TABLET PO (10:27)
[2022-03-22] MEDS: CYANOCOBALAMIN 1,000 MCG TABLET 1000 MCG PO (10:27)
[2022-03-22] MEDS: PANTOPRAZOLE 40 MG TABLET PO (10:27)
[2022-03-22] MEDS: ARTIFICIAL TEARS OPHTH SOLN 15 ML BOTTLE 2 DROP EACH EYE ×2 (10:28→17:34)
--- NOTE | 2022-03-22 11:40 | P.PNNP_ITS ---
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 * s/p vasopressor support to maintain MAP (weaned off) * evaluation noted to date: * renal ultrasound unremarkable * urine electrolytes not pre-renal * CPK okay * follow trend of repeat labs and UOP (2) Chronic kidney disease, stage 3: Code(s): N18.30 - Chronic kidney disease, stage 3 unspecified Status: Chronic Assessment and Plan: * baseline creatinine runs ~ 1.4 - 1.7mg/dl (causing him to fluctuate between CKD stage 3A and 3B) * presumably secondary to CAD/CHF, HTN, vascular disease, and age along with chronic diuretic therapy to maintain his volume status (3) Acute hyponatremia: Code(s): E87.1 - Hypo-osmolality and hyponatremia Status: Acute Assessment and Plan: * suspect more related to HILARIO/ARF * sodium improving with current interventions/therapy * consider adding fluid restriction given known CHF history * suspect will need to restart diuretics as well * follow trend (4) CHF (congestive heart failure): Code(s): I50.9 - Heart failure, unspecified Status: Acute Assessment and Plan: * would not be opposed to restart of diuretics * consider IV diuretic (lasix or bumex) trial today if hemodynamics can tolerate * follow I/Os (5) Septic shock: Code(s): A41.9 - Sepsis, unspecified organism; R65.21 - Severe sepsis with septic shock Status: Acute Assessment and Plan: * resolved * remained hypotension despite adequate fluid resuscitation * off vasopressor support currently * presumed source UTI * blood cultures with no growth * urine culture with Providencia rettgeri * on antibiotic therapy (6) Acute UTI: Code(s): N39.0 - Urinary tract infection, site not specified Status: Acute Assessment and Plan: * urine culture with Providencia rettgeri * on antibiotics Will continue to follow. Subjective Date/time seen: 03/22/22 11:40 No new issues or problems to report although his edema appears to be worsening ( off diuretic therapy since admission); has shortness of breath as well but this is a chronic issue; no other acute complaints voiced at the time of my visit. Exam Narrative: General: Elderly male in NAD Heart: normal S1 and S2; no rub Lungs: clear to auscultation Abdomen: soft, nontender, nondistended, positive bowel sounds Extremities: no cyanosis or clubbing; chronic LE edema present Skin: chronic venous stasis/edema changes present Objective Data Vital Signs Vital Signs: Vital Signs Temp Pulse Resp BP Pulse Ox O2 Del Method 03/22/22 08:00 53 L 03/22/22 08:00 Room Air 03/22/22 08:00 36.4 C 57 L 16 131/57 L 100 03/22/22 04:00 Room Air 03/22/22 06:00 39 L 03/22/22 00:00 Room Air 03/21/22 20:00 Room Air 03/22/22 04:00 39 L 03/22/22 02:00 39 L 03/22/22 00:00 50 L 03/21/22 22:00 39 L 03/21/22 20:00 3
--- NOTE | 2022-03-22 11:40 | PM.PNNEP ---
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 s/p adequate fluid resuscitation s/p vasopressor support to maintain MAP (weaned off) evaluation noted to date: renal ultrasound unremarkable urine electrolytes not pre-renal CPK okay follow trend of repeat labs and UOP (2) Chronic kidney disease, stage 3: Code(s): N18.30 - Chronic kidney disease, stage 3 unspecified Status: Chronic Assessment and Plan: baseline creatinine runs ~ 1.4 - 1.7mg/dl (causing him to fluctuate between CKD stage 3A and 3B) presumably secondary to CAD/CHF, HTN, vascular disease, and age along with chronic diuretic therapy to maintain his volume status (3) Acute hyponatremia: Code(s): E87.1 - Hypo-osmolality and hyponatremia Status: Acute Assessment and Plan: suspect more related to HILARIO/ARF sodium improving with current interventions/therapy consider adding fluid restriction given known CHF history suspect will need to restart diuretics as well follow trend (4) CHF (congestive heart failure): Code(s): I50.9 - Heart failure, unspecified Status: Acute Assessment and Plan: would not be opposed to restart of diuretics consider IV diuretic (lasix or bumex) trial today if hemodynamics can tolerate follow I/Os (5) Septic shock: Code(s): A41.9 - Sepsis, unspecified organism; R65.21 - Severe sepsis with septic shock Status: Acute Assessment and Plan: resolved remained hypotension despite adequate fluid resuscitation off vasopressor support currently presumed source UTI blood cultures with no growth urine culture with Providencia rettgeri on antibiotic therapy (6) Acute UTI: Code(s): N39.0 - Urinary tract infection, site not specified Status: Acute Assessment and Plan: urine culture with Providencia rettgeri on antibiotics Will continue to follow. Subjective Date/time seen: 03/22/22 11:40 No new issues or problems to report although his edema appears to be worsening (off diuretic therapy since admission); has shortness of breath as well but this is a chronic issue; no other acute complaints voiced at the time of my visit. Exam Narrative: General: Elderly male in NAD Heart: normal S1 and S2; no rub Lungs: clear to auscultation Abdomen: soft, nontender, nondistended, positive bowel sounds Extremities: no cyanosis or clubbing; chronic LE edema present Skin: chronic venous stasis/edema changes present Objective Data Vital Signs Vital Signs: Vital Signs Temp Pulse Resp BP Pulse Ox O2 Del Method 03/22/22 08:00 53 L 03/22/22 08:00 Room Air 03/22/22 08:00 36.4 C 57 L 16 131/57 L 100 03/22/22 04:00 Room Air 03/22/22 06:00 39 L 03/22/22 00:00 Room Air 03/21/22 20:00 Room Air 03/22/22 04:00 39 L 03/22/22 02:00 39 L 03/22/22 00:00 50 L 03/21/22 22:00 39 L 03/21/22 20:00 39 L 03/22/22 04:00 36.7 C 43 L 14 122/49 L 98 03/21/22 23:43 36.6 C 45 L 12 117/51 L 96 03/21/22 20:00 36.6 C 44 L 20 104/44 L 100 03/21/22 18:00 69 03/21/22 16:00 35.9 C L 50 L 20 111/65 100 03/21/22 16:00 38 L 03/21/22 16:00 42 L 16 99 Room Air 03/21/22 14:00 42 L 03/21/22 11:55 Room Air 03/21/22 12:00 74 03/21/22 12:00 52 L 16 99 Room Air 03/21/22 11:58 36.2 C L 52 L 16 123/59 L 99 Intake/Output Intake/Output: Intake & Output 03/19/22 03/20/22 03/21/22 03/22/22 23:59 23:59 23:59 23:59 Intake Total 2310 1420 1120 170 Output Total 800 1100 1250 750 Balance 1510
--- NOTE | 2022-03-22 14:44 | PM.PNCARD ---
Progress Note: A&P Assessment and Plan (1) HILARIO (acute kidney injury): Code(s): N17.9 - Acute kidney failure, unspecified Status: Acute Assessment and Plan: Improving (2) CHF (congestive heart failure): Code(s): I50.9 - Heart failure, unspecified Status: Acute Assessment and Plan: Give a dose of furosemide 40 mg IV times 1 (3) Atrial fibrillation, chronic: Code(s): I48.20 - Chronic atrial fibrillation, unspecified Status: Acute Assessment and Plan: Chronic atrial fibrillation. He has now developed AV node dysfunction and is not requiring any AV iram blocking agents to control heart rate. He is actually mildly bradycardia at this time which was why we were asked to see him. He is not symptomatic with this and BP is relatively stable. Subjective Date/time seen: 03/22/22 14:45 Interval history: Follow-up visit in this 81-year-old man with: Chronic congestive heart failure primarily right ventricular dysfunction and chronic atrial fibrillation. Multiple frequent admissions in this hospital through the course of this year. Current admission initially related to apparent urinary infection/urosepsis. Patient has had to have guideline directed medical therapy discontinued because of hypotension and acute renal failure. Date of service 03/22/2022: Still markedly edematous and worsening. Has baseline shortness of breath Review of Systems Constitutional: Constitutional: Reports fatigue and Reports lethargy Eyes: Eyes: Reports no additional eye complaints ENT: Reports system reviewed and no additional complaints, except as documented Cardiovascular: Cardiovascular: Reports as per HPI and Reports dyspnea on exertion Respiratory: Respiratory: Reports dyspnea on exertion Gastrointestinal: Gastrointestinal: Reports no additional gastrointestinal complaints Genitourinary: Genitourinary: Reports as per HPI Musculoskeletal: Musculoskeletal: Reports no additional musculoskeletal complaints Integumentary/Breasts: Skin/Breast: Reports system reviewed and no additional complaints, except as docu Neurologic: Reports system reviewed and no additional complaints, except as documented Endocrine: Endocrine: Reports no additional endocrine complaints and Reports fatigue Hematologic/Lymphatic: Hematologic/Lymphatic: Reports no additional hematologic/lymphatic complaints Allergic/Immunologic: Allergic/Immunologic: Reports no additional allergic/immunologic complaints Exam Const: General: comfortable and no acute distress Other: Elderly gentleman seated in the chair watching television no distress HENMT: Mouth: Yes moist mucous membranes Eyes: Sclera: sclerae normal Neck: Neck: supple and no JVD Other: Cannot assess JVD given obesity Resp: Effort & Inspection: normal respiratory effort Auscultation: clear to auscultation bilaterally, crackles and diminished lung sounds Cardio: Rate: bradycardic Rhythm: abnormal rhythm irregularly irregular Other: no audible murmur GI: Auscultation: normal bowel sounds Urinary Catheter: Urinary Catheter: patent and draining Skin: General skin exam: normal color Wounds: wounds noted Other: Blisters noted left arm Neuro: Speech: normal speech Other: Alert and oriented x3 Extrem: Other: Chronic lower extremity edema unchanged upper extremity edema has worsened. Psych: Mental Status: mental status grossly normal Objective Data Vital Signs Vital Signs: Vital Signs - 24 hr 03/21/22 16:00 03/21/22 16:00 03/21/22 16:00 Temperature 35.9 C L Pulse Rate 42 L 38 L 50 L Respiratory Rate 16 20 Blood Pressure 111/65 Pulse Oximetry 99 100 Oxygen Delivery Room Air 03/21/22 18:00 03/21/22 20:00 03/21/22 23:43 Temperature 36.6 C 36.6 C Pulse Rate 69 44 L 45 L Respiratory Rate 20 12 Blood Pressure 104/44 L 117/51 L Pulse Oximetry 100 96 Oxygen Delivery 03/22/22 04:00 03/21/22 20:00 0
[2022-03-22] MEDS: FUROSEMIDE INJ 40 MG/4 ML VIAL IV PUSH (15:27)
[2022-03-22] MEDS: MIDODRINE HCL 2.5 MG TABLET 5 MG PO ×2 (15:28→17:34)
[2022-03-22] MEDS: SILVERGEL (ELTA) 45 ML 1 APPLIC TOPICAL (16:07)
[2022-03-22] MEDS: TOLNAFTATE 1% POWDER 45 GM BTL 1 APPLIC TOPICAL ×2 (16:07→20:59)
--- NOTE | 2022-03-22 16:17 | PM.IMPN ---
Progress Note: A&P Assessment and Plan (1) Urinary tract infection associated with catheterization of urinary tract: Code(s): T83.511A - Infection and inflammatory reaction due to indwelling urethral catheter, initial encounter; N39.0 - Urinary tract infection, site not specified Status: Acute Assessment and Plan: - IV resusciatation in ED, previously requiring levophed, now weaned off - blood cultures NGTD. Urine cx with providencia rettgeri, sensitvites resulted - continue rocephin through 02/26 (2) Acute hyponatremia: Code(s): E87.1 - Hypo-osmolality and hyponatremia Status: Acute Assessment and Plan: - likely related to the CHF and HILARIO - improving (3) HILARIO (acute kidney injury): Code(s): N17.9 - Acute kidney failure, unspecified Status: Acute Assessment and Plan: - Nephrology consulted - renal ultrasound normal - likely related to hypotension. Cr improving (4) Metabolic acidosis: Code(s): E87.2 - Acidosis Status: Acute Assessment and Plan: -NAGMA -on sodium bicarb (5) 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: Code(s): I50.813 - Acute on chronic right heart failure Status: Acute Assessment and Plan: - lisinopril, bumex, and metolazone on hold at this time due to HILARIO. Pressures are better - patient appears to be becoming more volume overloaded on exam and as seen on CXR 03/21. Will trial 1 dose of IV Lasix 40. Cardiology following (6) Hypertension: Code(s): I10 - Essential (primary) hypertension Status: Acute Assessment and Plan: Holding meds due to hypotension Patient on midodrine due to hypotension, wean down to 5 t.i.d. (7) Gastroesophageal reflux disease: Code(s): K21.9 - Gastro-esophageal reflux disease without esophagitis Status: Acute Assessment and Plan: -protonix (8) Benign prostatic hyperplasia: Code(s): N40.0 - Benign prostatic hyperplasia without lower urinary tract symptoms Status: Acute Assessment and Plan: - patient currently has a Arnett catheter. (9) Atrial flutter: Code(s): I48.92 - Unspecified atrial flutter Status: Acute Assessment and Plan: - Patient with known slow AF not on rate control meds - On therapeutic lovenox, will restart coumadin today (10) Unspecified dementia without behavioral disturbance: Code(s): F03.90 - Unspecified dementia without behavioral disturbance Status: Acute Assessment and Plan: - Continue with galantamine Subjective Date/time seen: 03/22/22 16:17 Patient examined, chart reviewed. No new events. Patient appears to be more edematous. Blood pressure stable. Review of Systems Review of Systems: Ten point ROS reviewed, negative unless otherwise specified per subjective Exam Narrative: General: Patient is in bed, comfortable, no acute distress HEENT:? Pupils equal and reactive, moist oral mucosa Neck:? Neck is supple with skin tags, no cervical lymphadenopathy. RIJ central line present Respiratory:? Clear to auscultation bilaterally, decreased at bases, no wheezing, adequate air entry Cardiac:? S1-S2 is normal, regular rate and rhythm Abdomen:? Soft, nondistended, non tender, normoactive bowel sounds, obese Extremities:? Bilateral lower extremity edema which appears to be chronic with venous status changes on skin. Appear more edematous in all four extremeties Neuro:? Patient is awake, alert, oriented to place and person, answers to questions appropriately and follows simple commands in all extremities Skin:? Chronic venous status changes, small clear ulcer on right heel Psych:? Flat affect : Arnett in place Objective Data Vital Signs Vital Signs: Vital Signs - 24 hr 03/21/22 18:00 03/21/22 20:00 03/21/22 23:43 Temperature 97.8 F 97.9 F Pulse Rate 69 44 L 45 L Respiratory Rate 20 12 Blood Pressure 104/44 L 117/51 L Pulse Oximetry
[2022-03-22 16:44] LABS: Chloride Rand Ur 28 mmol/L (32-290); Chloride/Creatinine Rand Ur 23 (23-275); Creatinine Random Urine 124 mg/dL (20-320)
[2022-03-22] MEDS: WARFARIN (*PBKC) 3 MG TABLET PO (17:34)
[2022-03-22] MEDS: ENOXAPARIN 100 MG/ML SYRINGE 95 MG SUB-Q (21:06)
[2022-03-23] VITALS (10 sets, daily range): BP systolic 110–136; BP diastolic 51–95; PULSE 52–95; RESP 18–20; TEMP 36.3–36.6; O2SAT 97–100
[2022-03-23] MEDS: CENTRAL LINE FLUSH 10 ML IV PUSH ×4 (05:34→20:43)
[2022-03-23 05:44] LABS: Hematocrit 36.7 % (42.0-52.0); Hemoglobin 11.6 g/dL (14.0-18.0); Mean Corpuscular HGB Conc 31.6 g/dl (32-36); Mean Corpuscular Volume 79.1 fl (80-100); Mean Platelet Volume 9.5 fl (7.4-10.4); Platelet Count Result 193 k/mm3 (150-375); Red Blood Count 4.64 M/mm3 (4.6-6.20); Red Cell Distribution Width 22.2 % (11.5-14.5); White Blood Count 6.4 K/mm3 (4.5-10.0)
[2022-03-23 05:53] LABS: INR 1.3; Prothrombin Time 15.8 Seconds (11.1-14.7)
[2022-03-23 05:54] LABS: Alanine Aminotransferase 15 U/L (6-50); Albumin Level 2.8 g/dL (3.5-5.1); Alkaline Phosphatase 73 U/L (38-126); Anion Gap 12 mmol/L (8-16); Aspartate Amino Transferase 27 U/L (17-59); Bilirubin,Total 0.5 mg/dL (0.2-1.3); Blood Urea Nitrogen 83 mg/dL (9-20); Calcium 8.8 mg/dL (8.4-10.2); Carbon Dioxide 23 mmol/L (22-30); Chloride 96 mmol/L (98-107); Estimated CRCL calculation 37 ml/min; Estimated Glomerular Filt Rate 42; Glucose 94 mg/dL (65-110); Magnesium 1.8 mg/dL (1.6-2.3); Potassium 3.2 mmol/L (3.4-5.0); Sodium 131 mmol/L (137-145)
[2022-03-23] MEDS: FERROUS SULFATE 324 MG TABLET PO (10:15)
[2022-03-23] MEDS: ARTIFICIAL TEARS OPHTH SOLN 15 ML BOTTLE 2 DROP EACH EYE ×2 (10:15→16:50)
[2022-03-23] MEDS: MIDODRINE HCL 2.5 MG TABLET 5 MG PO ×3 (10:15→18:27)
[2022-03-23] MEDS: PANTOPRAZOLE 40 MG TABLET PO (10:15)
[2022-03-23] MEDS: FLUTICASONE PROPIONATE 0.05% NA SPR 16 GM BTL (*BKC) 1 SPRAY NASAL (10:15)
[2022-03-23] MEDS: CYANOCOBALAMIN 1,000 MCG TABLET 1000 MCG PO (10:15)
--- NOTE | 2022-03-23 10:38 | PM.PNCARD ---
Progress Note: A&P Assessment and Plan (1) HILARIO (acute kidney injury): Code(s): N17.9 - Acute kidney failure, unspecified Status: Acute Assessment and Plan: Continues to improve. I prescribed Diuretics given yesterday. (2) CHF (congestive heart failure): Code(s): I50.9 - Heart failure, unspecified Status: Acute Assessment and Plan: Will order another dose of furosemide 40 mg IV x1. KCL 40 mEq p.o. x1. (3) Atrial fibrillation, chronic: Code(s): I48.20 - Chronic atrial fibrillation, unspecified Status: Acute Assessment and Plan: Chronic atrial fibrillation. He has now developed AV node dysfunction and is not requiring any AV iram blocking agents to control heart rate. He is actually mildly bradycardia at this time which was why we were asked to see him. He is not symptomatic with this and BP is relatively stable. Subjective Date/time seen: 03/23/22 10:38 Interval history: Follow-up visit in this 81-year-old man with: Chronic congestive heart failure primarily right ventricular dysfunction and chronic atrial fibrillation. Multiple frequent admissions in this hospital through the course of this year. Current admission initially related to apparent urinary infection/urosepsis. Patient has had to have guideline directed medical therapy discontinued because of hypotension and acute renal failure. Date of service 03/22/2022: Still markedly edematous and worsening. Has baseline shortness of breath Date of service 03/23/2022: Swelling is slightly improved. Still has shortness of breath but he states he feels a little better today. No chest pain Review of Systems Constitutional: Constitutional: Reports fatigue and Reports lethargy Eyes: Eyes: Reports no additional eye complaints ENT: Reports system reviewed and no additional complaints, except as documented Cardiovascular: Cardiovascular: Reports as per HPI and Reports dyspnea on exertion Respiratory: Respiratory: Reports dyspnea on exertion Gastrointestinal: Gastrointestinal: Reports no additional gastrointestinal complaints Genitourinary: Genitourinary: Reports as per HPI Musculoskeletal: Musculoskeletal: Reports no additional musculoskeletal complaints Integumentary/Breasts: Skin/Breast: Reports system reviewed and no additional complaints, except as docu Neurologic: Reports system reviewed and no additional complaints, except as documented Endocrine: Endocrine: Reports no additional endocrine complaints and Reports fatigue Hematologic/Lymphatic: Hematologic/Lymphatic: Reports no additional hematologic/lymphatic complaints Allergic/Immunologic: Allergic/Immunologic: Reports no additional allergic/immunologic complaints Exam Const: General: comfortable and no acute distress Other: Elderly gentleman seated in the chair watching television no distress HENMT: Mouth: Yes moist mucous membranes Eyes: Sclera: sclerae normal Neck: Neck: supple and no JVD Other: Cannot assess JVD given obesity Resp: Effort & Inspection: normal respiratory effort Auscultation: clear to auscultation bilaterally, crackles and diminished lung sounds Cardio: Rate: bradycardic Rhythm: abnormal rhythm irregularly irregular Other: no audible murmur GI: Auscultation: normal bowel sounds Urinary Catheter: Urinary Catheter: patent and draining Skin: General skin exam: normal color Wounds: wounds noted Other: Blisters noted left arm Neuro: Speech: normal speech Other: Alert and oriented x3 Extrem: Other: Chronic lower extremity edema unchanged upper extremity edema has worsened. Psych: Mental Status: mental status grossly normal Objective Data Vital Signs Vital Signs: Vital Signs - 24 hr 03/22/22 12:00 03/22/22 12:00 03/22/22 14:00 Temperature 36.1 C L Pulse Rate 57 L 63 62 Respiratory Rate 20 Blood Pressure 120/54 L Pulse Oximetry 99 Oxygen Delivery 03/22/22 16:00
[2022-03-23] MEDS: TOLNAFTATE 1% POWDER 45 GM BTL 1 APPLIC TOPICAL ×2 (12:28→20:43)
[2022-03-23] MEDS: SILVERGEL (ELTA) 45 ML 1 APPLIC TOPICAL (12:28)
--- NOTE | 2022-03-23 12:44 | PM.PNNEP ---
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 s/p vasopressor support to maintain MAP (weaned off) evaluation noted to date: renal ultrasound unremarkable urine electrolytes not pre-renal CPK okay follow trend of repeat labs and UOP (2) Chronic kidney disease, stage 3: Code(s): N18.30 - Chronic kidney disease, stage 3 unspecified Status: Chronic Assessment and Plan: baseline creatinine runs ~ 1.4 - 1.7mg/dl (causing him to fluctuate between CKD stage 3A and 3B) presumably secondary to CAD/CHF, HTN, vascular disease, and age along with chronic diuretic therapy to maintain his volume status we may have to accept a higher creatinine to achieve euvolemia unless he has a component of renal venous hypertension... (3) Acute hyponatremia: Code(s): E87.1 - Hypo-osmolality and hyponatremia Status: Acute Assessment and Plan: suspect more related to HILARIO/ARF sodium improving with current interventions/therapy back on diuretics which may help this as well follow trend (4) CHF (congestive heart failure): Code(s): I50.9 - Heart failure, unspecified Status: Acute Assessment and Plan: back on diuretic therapy follow I/Os Cardiology following (5) Septic shock: Code(s): A41.9 - Sepsis, unspecified organism; R65.21 - Severe sepsis with septic shock Status: Acute Assessment and Plan: resolved remained hypotension despite adequate fluid resuscitation off vasopressor support currently presumed source UTI blood cultures with no growth urine culture with Providencia rettgeri on antibiotic therapy (6) Acute UTI: Code(s): N39.0 - Urinary tract infection, site not specified Status: Acute Assessment and Plan: urine culture with Providencia rettgeri on antibiotics Will continue to follow. Subjective Date/time seen: 03/23/22 12:45 Reasonably diuresis in the last 24 hours with IV lasix administration; another dose of IV lasix ordered for today; swelling/edema seems a bit better today as well as his shortness of breath; no other acute complaints voiced at this time; no other events overnight or earlier this morning. Exam Narrative: General: Elderly male in NAD Heart: normal S1 and S2; no rub Lungs: clear to auscultation Abdomen: soft, nontender, nondistended, positive bowel sounds Extremities: no cyanosis or clubbing; chronic LE edema present Skin: chronic venous stasis/edema changes present Objective Data Vital Signs Vital Signs: Vital Signs Temp Pulse Resp BP Pulse Ox O2 Del Method 03/23/22 10:00 81 03/23/22 08:00 95 03/23/22 08:00 36.3 C L 88 18 136/95 H 100 03/23/22 08:00 Room Air 03/23/22 04:00 Room Air 03/23/22 06:00 65 03/23/22 04:00 59 L 03/23/22 04:00 36.4 C 65 20 110/63 97 03/23/22 02:00 52 L 03/23/22 00:00 53 L 03/22/22 22:00 43 L 03/22/22 20:00 45 L 03/23/22 00:00 Room Air 03/22/22 23:36 36.3 C L 56 L 16 105/54 L 98 03/22/22 20:00 Room Air 03/22/22 20:00 36.2 C L 60 20 118/51 L 93 03/22/22 18:00 67 03/22/22 16:00 Room Air 03/22/22 16:00 36.3 C L 50 L 18 115/68 99 03/22/22 16:00 67 Intake/Output Intake/Output: Intake & Output 03/20/22 03/21/22 03/22/22 03/23/22 23:59 23:59 23:59 23:59 Intake Total 1420 1120 890 520 Output Total 1100 1250 1950 1400 Balance 133 -130 -1060 -880 Meds/Results Medications: Active Medications Generic Name Dose Route Start Last Admin Trade Name Freq PRN Reason Stop Dose Admin
--- NOTE | 2022-03-23 12:44 | P.PNNP_ITS ---
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 * s/p adequate fluid resuscitation * s/p vasopressor support to maintain MAP (weaned off) * evaluation noted to date: * renal ultrasound unremarkable * urine electrolytes not pre-renal * CPK okay * follow trend of repeat labs and UOP (2) Chronic kidney disease, stage 3: Code(s): N18.30 - Chronic kidney disease, stage 3 unspecified Status: Chronic Assessment and Plan: * baseline creatinine runs ~ 1.4 - 1.7mg/dl (causing him to fluctuate between CKD stage 3A and 3B) * presumably secondary to CAD/CHF, HTN, vascular disease, and age along with chronic diuretic therapy to maintain his volume status * we may have to accept a higher creatinine to achieve euvolemia unless he has a component of renal venous hypertension... (3) Acute hyponatremia: Code(s): E87.1 - Hypo-osmolality and hyponatremia Status: Acute Assessment and Plan: * suspect more related to HILARIO/ARF * sodium improving with current interventions/therapy * back on diuretics which may help this as well * follow trend (4) CHF (congestive heart failure): Code(s): I50.9 - Heart failure, unspecified Status: Acute Assessment and Plan: * back on diuretic therapy * follow I/Os * Cardiology following (5) Septic shock: Code(s): A41.9 - Sepsis, unspecified organism; R65.21 - Severe sepsis with septic shock Status: Acute Assessment and Plan: * resolved * remained hypotension despite adequate fluid resuscitation * off vasopressor support currently * presumed source UTI * blood cultures with no growth * urine culture with Providencia rettgeri * on antibiotic therapy (6) Acute UTI: Code(s): N39.0 - Urinary tract infection, site not specified Status: Acute Assessment and Plan: * urine culture with Providencia rettgeri * on antibiotics Will continue to follow. Subjective Date/time seen: 03/23/22 12:45 Reasonably diuresis in the last 24 hours with IV lasix administration; another dose of IV lasix ordered for today; swelling/edema seems a bit better today as well as his shortness of breath; no other acute complaints voiced at this time; no other events overnight or earlier this morning. Exam Narrative: General: Elderly male in NAD Heart: normal S1 and S2; no rub Lungs: clear to auscultation Abdomen: soft, nontender, nondistended, positive bowel sounds Extremities: no cyanosis or clubbing; chronic LE edema present Skin: chronic venous stasis/edema changes present Objective Data Vital Signs Vital Signs: Vital Signs Temp Pulse Resp BP Pulse Ox O2 Del Method 03/23/22 10:00 81 03/23/22 08:00 95 03/23/22 08:00 36.3 C L 88 18 136/95 H 100 03/23/22 08:00 Room Air 03/23/22 04:00 Room Air 03/23/22 06:00 65 03/23/22 04:00 59 L 03/23/22 04:00 36.4 C 65 20 110/63 97 03/23/22 02:00 52 L 03/23/22 00:00 53 L 03/22/22 22:00 43 L
[2022-03-23] MEDS: POTASSIUM CHLORIDE 20 MEQ TABLET 40 MEQ PO (12:50)
[2022-03-23] MEDS: FUROSEMIDE INJ 40 MG/4 ML VIAL IV PUSH (12:50)
--- NOTE | 2022-03-23 14:06 | PM.IMPN ---
Progress Note: A&P Assessment and Plan (1) Urinary tract infection associated with catheterization of urinary tract: Code(s): T83.511A - Infection and inflammatory reaction due to indwelling urethral catheter, initial encounter; N39.0 - Urinary tract infection, site not specified Status: Acute Assessment and Plan: - IV resusciatation in ED, previously requiring levophed, now weaned off - blood cultures NGTD. 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 to maintain the blood pressure, patient has a chronic indwelling catheter suspect cause of UTI, urine culture is growing Providencia rettgeri sensitive to ceftriaxone,?will continue abx until 03/25, patient being treated with ceftriaxone will follow-up on? blood culture so far no growth, patient white counts have trended down,? patient blood pressure is improving he is off Levophed,? patient with acute on chronic kidney disease exacerbated by poor p.o. intake and dehydration patient is being hydrated and seen by Nephrology further recommendation to follow, on 03/19 we transferred patient out of ICU to IMU. patient has wound on b/l arms, seem by wound nurse and being treated, today patient is more awake and stats feeling better, will continue PT/OT and patient will benefit going to SNF rehab. ? (2) Acute hyponatremia: Code(s): E87.1 - Hypo-osmolality and hyponatremia Status: Acute Assessment and Plan: - likely related to the CHF and HILARIO - improving (3) HILARIO (acute kidney injury): Code(s): N17.9 - Acute kidney failure, unspecified Status: Acute Assessment and Plan: - Nephrology consulted - renal ultrasound normal - likely related to hypotension. Cr improving (4) Metabolic acidosis: Code(s): E87.2 - Acidosis Status: Acute Assessment and Plan: -NAGMA -on sodium bicarb (5) 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: Code(s): I50.813 - Acute on chronic right heart failure Status: Acute Assessment and Plan: - lisinopril, bumex, and metolazone on hold at this time due to HILARIO. Pressures are better - patient appears to be becoming more volume overloaded on exam and as seen on CXR 03/21. Will trial 1 dose of IV Lasix 40. Cardiology following (6) Hypertension: Code(s): I10 - Essential (primary) hypertension Status: Acute Assessment and Plan: Holding meds due to hypotension Patient on midodrine due to hypotension, wean down to 5 t.i.d. (7) Gastroesophageal reflux disease: Code(s): K21.9 - Gastro-esophageal reflux disease without esophagitis Status: Acute Assessment and Plan: -protonix (8) Benign prostatic hyperplasia: Code(s): N40.0 - Benign prostatic hyperplasia without lower urinary tract symptoms Status: Acute Assessment and Plan: - patient currently has a Arnett catheter. (9) Atrial flutter: Code(s): I48.92 - Unspecified atrial flutter Status: Acute Assessment and Plan: - Patient with known slow AF not on rate control meds - On therapeutic lovenox, will restart coumadin today (10) Unspecified dementia without behavioral disturbance: Code(s): F03.90 - Unspecified dementia without behavioral disturbance Status: Acute Assessment and Plan: - Continue with galantamine Subjective Date/time seen: 03/23/22 14:06 03/23/2022 interval history: Patient 81-year-old male was brought emergency department with weakness was found to be hypotension suspect sepsis secondary to UTI, patient was given 3 L IV fluid with no significant improvement, was seen by
[2022-03-23] MEDS: WARFARIN (*PBKC) 3 MG TABLET PO (16:51)
--- NOTE | 2022-03-23 20:28 | PC.NURSE ---
This patient, Shaan Landis, was transferred to [ [facility]] on 03/23/22 at 2027. Personal belongings sent with patient. Report given to [ Ashley delcid]. Appropriate documentation sent with patient.
[2022-03-23] MEDS: ENOXAPARIN 100 MG/ML SYRINGE 95 MG SUB-Q (20:43)
[2022-03-24 06:00] VITALS: BP 132/65; PULSE 90; RESP 20; TEMP 36.3; O2SAT 92
[2022-03-24] MEDS: CENTRAL LINE FLUSH 10 ML IV PUSH ×3 (06:06→20:25)
[2022-03-24 06:20] LABS: Hematocrit 37.4 % (42.0-52.0); Hemoglobin 11.7 g/dL (14.0-18.0); Mean Corpuscular HGB Conc 31.3 g/dl (32-36); Mean Corpuscular Hemoglobin 24.8 pg (26-34); Mean Corpuscular Volume 79.4 fl (80-100); Mean Platelet Volume 9.7 fl (7.4-10.4); Platelet Count Result 200 k/mm3 (150-375); Red Blood Count 4.71 M/mm3 (4.6-6.20); White Blood Count 6.5 K/mm3 (4.5-10.0)
[2022-03-24 06:41] LABS: INR 1.4; Prothrombin Time 16.5 Seconds (11.1-14.7)
[2022-03-24 07:06] LABS: Alanine Aminotransferase 14 U/L (6-50); Albumin Level 2.8 g/dL (3.5-5.1); Alkaline Phosphatase 76 U/L (38-126); Anion Gap 8 mmol/L (8-16); Aspartate Amino Transferase 25 U/L (17-59); Bilirubin,Total 0.5 mg/dL (0.2-1.3); Blood Urea Nitrogen 67 mg/dL (9-20); Calcium 8.9 mg/dL (8.4-10.2); Carbon Dioxide 25 mmol/L (22-30); Chloride 97 mmol/L (98-107); Estimated CRCL calculation 45 ml/min; Estimated Glomerular Filt Rate 53; Glucose 98 mg/dL (65-110); Magnesium 1.7 mg/dL (1.6-2.3); Potassium 3.2 mmol/L (3.4-5.0); Sodium 130 mmol/L (137-145)
[2022-03-24] MEDS: PANTOPRAZOLE 40 MG TABLET PO (09:03)
[2022-03-24] MEDS: MIDODRINE HCL 2.5 MG TABLET 5 MG PO ×3 (09:03→17:08)
[2022-03-24] MEDS: FLUTICASONE PROPIONATE 0.05% NA SPR 16 GM BTL (*BKC) 1 SPRAY NASAL (09:03)
[2022-03-24] MEDS: FERROUS SULFATE 324 MG TABLET PO (09:04)
[2022-03-24] MEDS: CYANOCOBALAMIN 1,000 MCG TABLET 1000 MCG PO (09:04)
[2022-03-24] MEDS: guaiFENesin 12 HR 600 MG TABCR PO (09:04)
[2022-03-24] MEDS: TOLNAFTATE 1% POWDER 45 GM BTL 1 APPLIC TOPICAL ×2 (09:05→20:25)
[2022-03-24] MEDS: ARTIFICIAL TEARS OPHTH SOLN 15 ML BOTTLE 2 DROP EACH EYE ×2 (09:05→17:08)
[2022-03-24] MEDS: POTASSIUM CHLORIDE 20 MEQ TABLET 40 MEQ PO (09:08)
[2022-03-24] MEDS: SILVERGEL (ELTA) 45 ML 1 APPLIC TOPICAL (09:09)
[2022-03-24] MEDS: MAGNESIUM OXIDE 400 MG TABLET PO (10:26)
[2022-03-24] MEDS: traMADol HCL (*CRX) 50 MG TABLET PO (10:50)
--- NOTE | 2022-03-24 11:09 | PCNWS ---
Weekly nutritional screen. Patient is tolerating a heart healthy diet with adequate intake at 50-100% all meals. No weight loss reported. No nutritional needs at this time.
--- NOTE | 2022-03-24 13:54 | P.PNNP_ITS ---
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 * s/p adequate fluid resuscitation * s/p vasopressor support to maintain MAP (weaned off) * evaluation noted to date: * renal ultrasound unremarkable * urine electrolytes not pre-renal * CPK okay * follow trend of repeat labs and UOP (2) Chronic kidney disease, stage 3: Code(s): N18.30 - Chronic kidney disease, stage 3 unspecified Status: Chronic Assessment and Plan: * baseline creatinine runs ~ 1.4 - 1.7mg/dl (causing him to fluctuate between CKD stage 3A and 3B) * presumably secondary to CAD/CHF, HTN, vascular disease, and age along with chronic diuretic therapy to maintain his volume status (3) Acute hyponatremia: Code(s): E87.1 - Hypo-osmolality and hyponatremia Status: Acute Assessment and Plan: * suspect more related to HILARIO/ARF * sodium improving with current interventions/therapy * back on diuretics which may help this as well * follow trend (4) CHF (congestive heart failure): Code(s): I50.9 - Heart failure, unspecified Status: Acute Assessment and Plan: * back on diuretic therapy * follow I/Os * CXR results noted * Cardiology following (5) Septic shock: Code(s): A41.9 - Sepsis, unspecified organism; R65.21 - Severe sepsis with septic shock Status: Acute Assessment and Plan: * resolved * remained hypotension despite adequate fluid resuscitation * off vasopressor support currently * presumed source UTI * blood cultures with no growth * urine culture with Providencia rettgeri * on antibiotic therapy (6) Acute UTI: Code(s): N39.0 - Urinary tract infection, site not specified Status: Acute Assessment and Plan: * urine culture with Providencia rettgeri * on antibiotics Will continue to follow. Subjective Date/time seen: 03/24/22 13:54 Swelling/edema and well as shortness of breath appear to be improving with recent IV diuretic use; renal function appears tolerating diuretic therapy as well; no other acute issues/events voiced at the time of my visit. Exam Narrative: General:Elderly male in NAD Heart: normal S1 and S2; no rub Lungs: decreased at bases Abdomen: soft, nontender, nondistended, positive bowel sounds Extremities: no cyanosis or clubbing; chronic LE edema present Skin: chronic venous stasis/edema changes present Objective Data Vital Signs Vital Signs: Vital Signs Temp Pulse Resp BP Pulse Ox O2 Del Method 03/24/22 09:00 Room Air 03/24/22 06:00 36.3 C L 90 20 132/65 92 03/23/22 21:31 36.3 C L 88 20 129/84 100 03/23/22 20:00 60 20 100 Room Air 03/23/22 19:49 36.5 C 60 20 115/51 L 100 03/23/22 16:00 36.6 C 57 L 18 129/55 L 98 Intake/Output Intake/Output: Intake & Output 03/21/22 03/22/22 03/23/22 03/24/22 23:59 23:59 23:59 23:59 Intake Total 7165 682 0880 340 Output Total 1250 1950 3125 1075 Balance -130 -106
--- NOTE | 2022-03-24 13:54 | PM.PNNEP ---
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 s/p vasopressor support to maintain MAP (weaned off) evaluation noted to date: renal ultrasound unremarkable urine electrolytes not pre-renal CPK okay follow trend of repeat labs and UOP (2) Chronic kidney disease, stage 3: Code(s): N18.30 - Chronic kidney disease, stage 3 unspecified Status: Chronic Assessment and Plan: baseline creatinine runs ~ 1.4 - 1.7mg/dl (causing him to fluctuate between CKD stage 3A and 3B) presumably secondary to CAD/CHF, HTN, vascular disease, and age along with chronic diuretic therapy to maintain his volume status (3) Acute hyponatremia: Code(s): E87.1 - Hypo-osmolality and hyponatremia Status: Acute Assessment and Plan: suspect more related to HILARIO/ARF sodium improving with current interventions/therapy back on diuretics which may help this as well follow trend (4) CHF (congestive heart failure): Code(s): I50.9 - Heart failure, unspecified Status: Acute Assessment and Plan: back on diuretic therapy follow I/Os CXR results noted Cardiology following (5) Septic shock: Code(s): A41.9 - Sepsis, unspecified organism; R65.21 - Severe sepsis with septic shock Status: Acute Assessment and Plan: resolved remained hypotension despite adequate fluid resuscitation off vasopressor support currently presumed source UTI blood cultures with no growth urine culture with Providencia rettgeri on antibiotic therapy (6) Acute UTI: Code(s): N39.0 - Urinary tract infection, site not specified Status: Acute Assessment and Plan: urine culture with Providencia rettgeri on antibiotics Will continue to follow. Subjective Date/time seen: 03/24/22 13:54 Swelling/edema and well as shortness of breath appear to be improving with recent IV diuretic use; renal function appears tolerating diuretic therapy as well; no other acute issues/events voiced at the time of my visit. Exam Narrative: General:Elderly male in NAD Heart: normal S1 and S2; no rub Lungs: decreased at bases Abdomen: soft, nontender, nondistended, positive bowel sounds Extremities: no cyanosis or clubbing; chronic LE edema present Skin: chronic venous stasis/edema changes present Objective Data Vital Signs Vital Signs: Vital Signs Temp Pulse Resp BP Pulse Ox O2 Del Method 03/24/22 09:00 Room Air 03/24/22 06:00 36.3 C L 90 20 132/65 92 03/23/22 21:31 36.3 C L 88 20 129/84 100 03/23/22 20:00 60 20 100 Room Air 03/23/22 19:49 36.5 C 60 20 115/51 L 100 03/23/22 16:00 36.6 C 57 L 18 129/55 L 98 Intake/Output Intake/Output: Intake & Output 03/21/22 03/22/22 03/23/22 03/24/22 23:59 23:59 23:59 23:59 Intake Total 7136 052 9898 340 Output Total 1250 1950 0867 1075 Balance -130 -1060 -2095 -735 Meds/Results Medications: Active Medications Generic Name Dose Route Start Last Admin Trade Name Elq PRN Reason Stop Dose Admin Acetaminophen 650 mg 03/16/22 21:24 03/22/22 02:08 Acetaminophen 325 Mg Tablet PO 650 mg Q6H PRN Administration Pain (Scale Score 1-3) Artificial Tears 2 drop 03/17/22 09:00 03/24/22 09:05 Artificial Tears Ophth Soln 15 Ml Bottle EACH EYE 2 drop BID SANAM Administration Cyanocobalamin 1,000 mcg 03/17/22 09:00 03/24/22 09:04 Cyanocobalamin 1,000 Mcg Tablet PO 1,000 mcg QAM SANAM Administration Docusate Sodium 100 mg 03/16/22 21:03 Docusate Sodium 100 Mg Capsule PO DAILY PRN Constipation Enoxaparin Sodium 95 mg 02/25
--- NOTE | 2022-03-24 14:01 | PM.IMPN ---
Progress Note: A&P Assessment and Plan (1) Urinary tract infection associated with catheterization of urinary tract: Code(s): T83.511A - Infection and inflammatory reaction due to indwelling urethral catheter, initial encounter; N39.0 - Urinary tract infection, site not specified Status: Acute Assessment and Plan: - IV resusciatation in ED, previously requiring levophed, now weaned off - blood cultures NGTD. 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 to maintain the blood pressure, patient has a chronic indwelling catheter suspect cause of UTI, urine culture is growing Providencia rettgeri sensitive to ceftriaxone,?will continue abx until 03/25, patient being treated with ceftriaxone will follow-up on? blood culture so far no growth, patient white counts have trended down,? patient blood pressure is improving he is off Levophed,? patient with acute on chronic kidney disease exacerbated by poor p.o. intake and dehydration patient is being hydrated and seen by Nephrology further recommendation to follow, on 03/19 we transferred patient out of ICU to IMU. patient has wound on b/l arms, seem by wound nurse and being treated, today patient is more awake and stats feeling better, will continue PT/OT and patient will benefit going to SNF rehab. ? 03/24/2022 interval history: Patient 81-year-old male was brought emergency department with weakness was found to be hypotension suspect sepsis secondary to UTI, patient was given 3 L IV fluid with no significant improvement, was seen by account information clerk patient was placed on Levophed and also added midodrine,? to maintain the blood pressure, patient has a chronic indwelling catheter suspect cause of UTI, urine culture is growing Providencia rettgeri sensitive to ceftriaxone,?will continue abx until 03/25, patient being treated with ceftriaxone will follow-up on? blood culture so far no growth, patient white counts have trended down,? patient blood pressure is improving he is off Levophed,? patient with acute on chronic kidney disease exacerbated by poor p.o. intake and dehydration patient is being hydrated and seen by Nephrology further recommendation to follow, on 03/19 we transferred patient out of ICU to IMU. and on 03/23 patient was transferred to med-surg, patient has wound on b/l arms, seem by wound nurse and being treated, discuss with his nurse patient lives at an assisted living and now his baseline, today patient is more awake and stats feeling better, will continue PT/OT and patient will benefit going to SNF rehab. (2) Acute hyponatremia: Code(s): E87.1 - Hypo-osmolality and hyponatremia Status: Acute Assessment and Plan: - likely related to the CHF and HILARIO - improving (3) HILARIO (acute kidney injury): Code(s): N17.9 - Acute kidney failure, unspecified Status: Acute Assessment and Plan: - Nephrology consulted - renal ultrasound normal - likely related to hypotension. Cr improving (4) Metabolic acidosis: Code(s): E87.2 - Acidosis Status: Acute Assessment and Plan: -NAGMA -on sodium bicarb (5) 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: Code(s): I50.813 - Acute on chronic right heart failure Status: Acute Assessment and Plan: - lisinopril, bumex, and metolazone on hold at this time due to HILARIO. Pressures are better - patient appears to be becoming more volume overloaded on exam and as seen on CXR 03/21. Will trial 1 dose of IV Lasix 40. Cardiology following (6) Hypertension: Code(s): I10 - Essential (primary) hypertension Status: Acute Asses
[2022-03-24 15:48] VITALS: BP 126/63; PULSE 56; RESP 18; TEMP 36.9; O2SAT 100
[2022-03-24] MEDS: MICONAZOLE NITRATE 2% CREAM 30 GM TUBE 1 APPLIC TOPICAL ×2 (16:11→20:25)
[2022-03-24] MEDS: WARFARIN (*PBKC) 5 MG TABLET PO (17:07)
[2022-03-24] MEDS: ENOXAPARIN 100 MG/ML SYRINGE 95 MG SUB-Q (20:25)
[2022-03-24 22:00] VITALS: BP 132/62; PULSE 63; RESP 18; TEMP 36.3; O2SAT 97
[2022-03-25 06:00] VITALS: BP 127/60; PULSE 65; RESP 18; TEMP 35.9; O2SAT 99
[2022-03-25 06:59] LABS: INR 1.7; Prothrombin Time 19.7 Seconds (11.1-14.7)
[2022-03-25 08:00] VITALS: O2SAT 99
[2022-03-25] MEDS: CENTRAL LINE FLUSH 10 ML IV PUSH ×3 (08:37→21:11)
[2022-03-25] MEDS: SILVERGEL (ELTA) 45 ML 1 APPLIC TOPICAL (08:38)
[2022-03-25] MEDS: ARTIFICIAL TEARS OPHTH SOLN 15 ML BOTTLE 2 DROP EACH EYE ×2 (08:38→17:26)
[2022-03-25] MEDS: MICONAZOLE NITRATE 2% CREAM 30 GM TUBE 1 APPLIC TOPICAL ×2 (08:38→21:21)
[2022-03-25] MEDS: FERROUS SULFATE 324 MG TABLET PO (08:39)
[2022-03-25] MEDS: TOLNAFTATE 1% POWDER 45 GM BTL 1 APPLIC TOPICAL ×2 (08:39→21:19)
[2022-03-25] MEDS: FLUTICASONE PROPIONATE 0.05% NA SPR 16 GM BTL (*BKC) 1 SPRAY NASAL (08:39)
[2022-03-25] MEDS: CYANOCOBALAMIN 1,000 MCG TABLET 1000 MCG PO (08:40)
[2022-03-25] MEDS: MAGNESIUM OXIDE 400 MG TABLET PO (08:40)
[2022-03-25] MEDS: MIDODRINE HCL 2.5 MG TABLET 5 MG PO ×3 (08:40→17:26)
[2022-03-25] MEDS: PANTOPRAZOLE 40 MG TABLET PO (08:40)
[2022-03-25 10:21] LABS: Hematocrit 39.6 % (42.0-52.0); Mean Corpuscular HGB Conc 30.3 g/dl (32-36); Mean Corpuscular Hemoglobin 24.8 pg (26-34); Mean Corpuscular Volume 81.8 fl (80-100); Mean Platelet Volume 9.5 fl (7.4-10.4); Platelet Count Result 229 k/mm3 (150-375); Red Blood Count 4.84 M/mm3 (4.6-6.20); Red Cell Distribution Width 22.8 % (11.5-14.5); White Blood Count 7.7 K/mm3 (4.5-10.0)
--- NOTE | 2022-03-25 10:22 | PM.PNCARD ---
Progress Note: A&P Assessment and Plan (1) CHF (congestive heart failure): Code(s): I50.9 - Heart failure, unspecified Status: Acute Assessment and Plan: acute on chronic diastolic CHF, mostly right-sided. Severe volume overload Since blood pressure is more stable I will start furosemide 40 mg IV push daily. Might be able to tolerate b.i.d. (2) Atrial fibrillation, chronic: Code(s): I48.20 - Chronic atrial fibrillation, unspecified Status: Acute Assessment and Plan: Chronic atrial fibrillation. He has now developed AV node dysfunction and is not requiring any AV iram blocking agents to control heart rate. He is actually mildly bradycardia at this time which was why we were asked to see him. He is not symptomatic with this and BP is relatively stable. being anticoagulated with warfarin, INR today 1.7, on Lovenox now. (3) Low blood pressure: Code(s): I95.9 - Hypotension, unspecified Status: Acute Assessment and Plan: Improved taking midodrine 5 mg t.i.d.. (4) HILARIO (acute kidney injury): Code(s): N17.9 - Acute kidney failure, unspecified Status: Acute Assessment and Plan: Continues to improve. Resume furosemide 40 mg IV push daily Subjective Date/time seen: 03/25/22 10:22 Interval history: Follow-up visit in this 81-year-old man with: Chronic congestive heart failure primarily right ventricular dysfunction and chronic atrial fibrillation. Multiple frequent admissions in this hospital through the course of this year. Current admission initially related to apparent urinary infection/urosepsis. Patient has had to have guideline directed medical therapy (lisinopril, po bumetanide) discontinued because of hypotension and acute renal failure. Now on midodrine. Date of service 03/22/2022: Still markedly edematous and worsening. Has baseline shortness of breath Date of service 03/23/2022: Swelling is slightly improved. Still has shortness of breath but he states he feels a little better today. No chest pain. Furosemide 40 mg IVP X 1. Date of service 03/24/2022: Diuresing a little; Has been getting IV furosemide sporadically. SBP running 115-130 mmHg. On room air. Improving ambulation w/ Ph Tx. Still very swollen w/ some PRASAD. They do not let you sleep much here! Arnett catheter out of 5:00 a.m., urinating Review of Systems Review of Systems: some shortness of breath and PRASAD, significant edema, especially the left upper extremity which is wrapped due to weeping of wounds. No chest pain or abdominal pain. Exam Const: General: cooperative and comfortable; No confusion Orientation/consciousness: oriented to person, patient oriented x3 and No confusion Other: Obese, sitting up in a chair, pleasant and cooperative Eyes: General: appearance normal, both eyes and all related structures Resp: Effort & Inspection: normal respiratory effort Auscultation: rales ( rales in bases) Cardio: Rate: regular rate Rhythm: abnormal rhythm irregularly irregular GI: Inspection: distended GI Palp: No abdominal tenderness Other: obese abdomen Skin: Wounds: wounds noted Other: ecchymosis and lesions of the arms, left upper extremity wrapped due to weeping wound Neuro: General: oriented to person, patient oriented x3 and No confusion Extrem: General: edema Other: severe lower extremity edema extending up to the thighs and sacral area as well as midback area. Psych: Appearance: grossly normal Mental Status: mental status grossly normal Objective Data Vital Signs Vital Signs: Vital Signs - 24 hr 03/24/22 15:48 03/24/22 22:00 03/25/22 06:00 Temperature 98.5 F 97.3 F L 96.7 F L Pulse Rate 56 L 63 65 Respiratory Rate 18 18 18 Blood Pressure 126/63 132/62 127/60 Pulse Oximetry 100 97 99 Intake/Output Intake/Output: Intake & Output 03/22/22 03/23/22 03/24/22 03/25/22 23:59 23:59 23:59 23
[2022-03-25 10:45] LABS: Anion Gap 12 mmol/L (8-16); Blood Urea Nitrogen 56 mg/dL (9-20); Calcium 8.9 mg/dL (8.4-10.2); Carbon Dioxide 23 mmol/L (22-30); Chloride 97 mmol/L (98-107); Estimated CRCL calculation 45 ml/min; Estimated Glomerular Filt Rate 53; Glucose 144 mg/dL (65-110); Sodium 132 mmol/L (137-145)
--- NOTE | 2022-03-25 11:59 | PM.PNNEP ---
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 s/p vasopressor support to maintain MAP (weaned off) on midodrine to maintain blood pressure evaluation noted to date: renal ultrasound unremarkable urine electrolytes not pre-renal CPK okay follow trend of repeat labs and UOP (2) Chronic kidney disease, stage 3: Code(s): N18.30 - Chronic kidney disease, stage 3 unspecified Status: Chronic Assessment and Plan: baseline creatinine runs ~ 1.4 - 1.7mg/dl (causing him to fluctuate between CKD stage 3A and 3B) presumably secondary to CAD/CHF, HTN, vascular disease, and age along with chronic diuretic therapy to maintain his volume status (3) Acute hyponatremia: Code(s): E87.1 - Hypo-osmolality and hyponatremia Status: Acute Assessment and Plan: improving suspect more related to HILARIO/ARF sodium improving with current interventions/therapy back on diuretics which may help this as well follow trend (4) CHF (congestive heart failure): Code(s): I50.9 - Heart failure, unspecified Status: Acute Assessment and Plan: back on diuretic therapy - push as tolerated by hemodynamics follow I/Os Cardiology following (5) Acute UTI: Code(s): N39.0 - Urinary tract infection, site not specified Status: Acute Assessment and Plan: urine culture with Providencia rettgeri on antibiotics Will continue to follow. Subjective Date/time seen: 03/25/22 11:59 Continues to make reasonable urine output with IV diuretics but still quite swollen/edematous in general; has some shortness of breath but no worse that baseline; no acute issues/events overnight or earlier this morning; no apparent distress. Exam Narrative: General:Elderly male in NAD Heart: normal S1 and S2; no rub Lungs: decreased at bases Abdomen: soft, nontender, nondistended, positive bowel sounds Extremities: no cyanosis or clubbing; chronic LE edema present Skin: chronic venous stasis/edema changes present Objective Data Vital Signs Vital Signs: Vital Signs Temp Pulse Resp BP Pulse Ox O2 Del Method 03/25/22 08:00 99 Room Air 03/25/22 06:00 35.9 C L 65 18 127/60 99 03/24/22 22:00 36.3 C L 63 18 132/62 97 03/24/22 15:48 36.9 C 56 L 18 126/63 100 Intake/Output Intake/Output: Intake & Output 03/22/22 03/23/22 03/24/22 03/25/22 23:59 23:59 23:59 23:59 Intake Total 890 1080 1250 790 Output Total 9696 2558 1727 2191 [facility] -1060 -2045 -475 -810 Meds/Results Medications: Active Medications Generic Name Dose Route Start Last Admin Trade Name Freq PRN Reason Stop Dose Admin Acetaminophen 650 mg 03/16/22 21:24 03/22/22 02:08 Acetaminophen 325 Mg Tablet PO 650 mg Q6H PRN Administration Pain (Scale Score 1-3) Artificial Tears 2 drop 03/17/22 09:00 03/25/22 08:38 Artificial Tears Ophth Soln 15 Ml Bottle EACH EYE 2 drop BID SANAM Administration Cyanocobalamin 1,000 mcg 03/17/22 09:00 03/25/22 08:40 Cyanocobalamin 1,000 Mcg Tablet PO 1,000 mcg QAM SANAM Administration Docusate Sodium 100 mg 03/16/22 21:03 Docusate Sodium 100 Mg Capsule PO DAILY PRN Constipation Enoxaparin Sodium 95 mg 03/16/22 22:00 03/24/22 20:25 Enoxaparin 100 Mg/Ml Syringe SUB-Q 95 mg Q24H SANAM Administration Ferrous Sulfate 324 mg 03/17/22 09:00 03/25/22 08:39 Ferrous Sulfate 324 Mg Tablet PO 324 mg DAILY SANAM Administration Fluticasone Propionate 1 spray 03/17/22 09:00 03/25/22 08:39 Fluticasone Propionate 0.05% Na Spr 16 Gm Btl (*Bkc) NASAL 1 spray DAILY SANAM Ad
--- NOTE | 2022-03-25 11:59 | P.PNNP_ITS ---
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 * s/p adequate fluid resuscitation * s/p vasopressor support to maintain MAP (weaned off) * on midodrine to maintain blood pressure * evaluation noted to date: * renal ultrasound unremarkable * urine electrolytes not pre-renal * CPK okay * follow trend of repeat labs and UOP (2) Chronic kidney disease, stage 3: Code(s): N18.30 - Chronic kidney disease, stage 3 unspecified Status: Chronic Assessment and Plan: * baseline creatinine runs ~ 1.4 - 1.7mg/dl (causing him to fluctuate between CKD stage 3A and 3B) * presumably secondary to CAD/CHF, HTN, vascular disease, and age along with chronic diuretic therapy to maintain his volume status (3) Acute hyponatremia: Code(s): E87.1 - Hypo-osmolality and hyponatremia Status: Acute Assessment and Plan: * improving * suspect more related to HILARIO/ARF * sodium improving with current interventions/therapy * back on diuretics which may help this as well * follow trend (4) CHF (congestive heart failure): Code(s): I50.9 - Heart failure, unspecified Status: Acute Assessment and Plan: * back on diuretic therapy - push as tolerated by hemodynamics * follow I/Os * Cardiology following (5) Acute UTI: Code(s): N39.0 - Urinary tract infection, site not specified Status: Acute Assessment and Plan: * urine culture with Providencia rettgeri * on antibiotics Will continue to follow. Subjective Date/time seen: 03/25/22 11:59 Continues to make reasonable urine output with IV diuretics but still quite swollen/edematous in general; has some shortness of breath but no worse that baseline; no acute issues/events overnight or earlier this morning; no apparent distress. Exam Narrative: General:Elderly male in NAD Heart: normal S1 and S2; no rub Lungs: decreased at bases Abdomen: soft, nontender, nondistended, positive bowel sounds Extremities: no cyanosis or clubbing; chronic LE edema present Skin: chronic venous stasis/edema changes present Objective Data Vital Signs Vital Signs: Vital Signs Temp Pulse Resp BP Pulse Ox O2 Del Method 03/25/22 08:00 99 Room Air 03/25/22 06:00 35.9 C L 65 18 127/60 99 03/24/22 22:00 36.3 C L 63 18 132/62 97 03/24/22 15:48 36.9 C 56 L 18 126/63 100 Intake/Output Intake/Output: Intake & Output 03/22/22 03/23/22 03/24/22 03/25/22 23:59 23:59 23:59 23:59 Intake Total 890 1080 1250 790 Output Total 0863 9708 1729 2952 [facility] -1060 -2045 -475 -810 Meds/Results Medications: Active Medications Generic Name Dose Route Start Last Admin Trade Name Freq PRN Reason Stop Dose Admin Acetaminophen 650 mg 03/16/22 21:24 03/22/22 02:08 Acetaminophen 325 Mg Tablet PO 650 mg Q6H PRN Administration Pain (Scale Score 1-3) Artificia
[2022-03-25] MEDS: FUROSEMIDE INJ 40 MG/4 ML VIAL IV PUSH (12:52)
--- NOTE | 2022-03-25 13:46 | PM.IMPN ---
Progress Note: A&P Assessment and Plan (1) Urinary tract infection associated with catheterization of urinary tract: Code(s): T83.511A - Infection and inflammatory reaction due to indwelling urethral catheter, initial encounter; N39.0 - Urinary tract infection, site not specified Status: Acute Assessment and Plan: - IV resusciatation in ED, previously requiring levophed, now weaned off - blood cultures NGTD. Urine cx with providencia rettgeri, sensitvites resulted - continue rocephin through 02/2603/23/2022 interval history: Patient 81-year-old male was brought emergency department with weakness was found to be hypotension suspect sepsis secondary to UTI, patient was given 3 L IV fluid with no significant improvement, was seen by supervisor propellant charge loading patient was placed on Levophed and also added midodrine,? to maintain the blood pressure, patient has a chronic indwelling catheter suspect cause of UTI, urine culture is growing Providencia rettgeri sensitive to ceftriaxone,?will continue abx until 03/25, patient being treated with ceftriaxone will follow-up on? blood culture so far no growth, patient white counts have trended down,? patient blood pressure is improving he is off Levophed,? patient with acute on chronic kidney disease exacerbated by poor p.o. intake and dehydration patient is being hydrated and seen by Nephrology further recommendation to follow, on 03/19 we transferred patient out of ICU to IMU. patient has wound on b/l arms, seem by wound nurse and being treated, today patient is more awake and stats feeling better, will continue PT/OT and patient will benefit going to SNF rehab. ? 03/24/2022 interval history: Patient 81-year-old male was brought emergency department with weakness was found to be hypotension suspect sepsis secondary to UTI, patient was given 3 L IV fluid with no significant improvement, was seen by supervisor propellant charge loading patient was placed on Levophed and also added midodrine,? to maintain the blood pressure, patient has a chronic indwelling catheter suspect cause of UTI, urine culture is growing Providencia rettgeri sensitive to ceftriaxone,?will continue abx until 03/25, patient being treated with ceftriaxone will follow-up on? blood culture so far no growth, patient white counts have trended down,? patient blood pressure is improving he is off Levophed,? patient with acute on chronic kidney disease exacerbated by poor p.o. intake and dehydration patient is being hydrated and seen by Nephrology further recommendation to follow, on 03/19 we transferred patient out of ICU to IMU. and on 03/23 patient was transferred to med-surg, patient has wound on b/l arms, seem by wound nurse and being treated, discuss with his nurse patient lives at an assisted living and now his baseline, today patient is more awake and stats feeling better, will continue PT/OT and patient will benefit going to SNF rehab. 03/25/2022 interval history: Patient 81-year-old male was brought emergency department with weakness was found to be hypotension suspect sepsis secondary to UTI, patient was given 3 L IV fluid with no significant improvement, was seen by supervisor propellant charge loading patient was placed on Levophed and also added midodrine,? to maintain the blood pressure, patient has a chronic indwelling catheter suspect cause of UTI, urine culture is growing Providencia rettgeri sensitive to ceftriaxone,?will continue abx until 03/25, patient being treated with ceftriaxone will follow-up on? blood culture so far no growth, patient white counts have trended down,? patient blood pressure is improving he is off Levophed,? patient with acute on chronic kidney disease exacerbated by poor p.o. intake and dehydration patient is being hydrated and seen by Nephrology further recommendation to follow, on 03/19 we transferred patient out of ICU to IMU. and on 03/23 patient was transferred to med-surg, patient has wound on b/l arms, seem by wound nurse and being treated, discuss with his nurse patient addi
[2022-03-25 14:00] VITALS: BP 134/58; PULSE 59; RESP 14; TEMP 36.7; O2SAT 100
[2022-03-25] MEDS: WARFARIN (*PBKC) 5 MG TABLET PO (17:26)
[2022-03-25 20:30] VITALS: PULSE 59; RESP 14; O2SAT 100
[2022-03-25] MEDS: ENOXAPARIN 100 MG/ML SYRINGE 95 MG SUB-Q (21:11)
[2022-03-25 22:00] VITALS: BP 127/62; PULSE 54; RESP 19; TEMP 36.4; O2SAT 100
[2022-03-26 04:58] LABS: Hematocrit 37.2 % (42.0-52.0); Hemoglobin 11.4 g/dL (14.0-18.0); Mean Corpuscular HGB Conc 30.6 g/dl (32-36); Mean Corpuscular Hemoglobin 24.9 pg (26-34); Mean Corpuscular Volume 81.2 fl (80-100); Mean Platelet Volume 9.2 fl (7.4-10.4); Platelet Count Result 201 k/mm3 (150-375); Red Blood Count 4.58 M/mm3 (4.6-6.20); Red Cell Distribution Width 22.3 % (11.5-14.5); White Blood Count 6.7 K/mm3 (4.5-10.0)
[2022-03-26 05:11] LABS: INR 2.2; Prothrombin Time 23.4 Seconds (11.1-14.7)
[2022-03-26 05:26] LABS: Anion Gap 7 mmol/L (8-16); Blood Urea Nitrogen 51 mg/dL (9-20); Calcium 8.7 mg/dL (8.4-10.2); Carbon Dioxide 28 mmol/L (22-30); Chloride 96 mmol/L (98-107); Estimated CRCL calculation 48 ml/min; Estimated Glomerular Filt Rate 58; Glucose 96 mg/dL (65-110); Potassium 3.5 mmol/L (3.4-5.0); Sodium 131 mmol/L (137-145)
[2022-03-26 06:00] VITALS: BP 128/52; PULSE 56; RESP 18; TEMP 35.9; O2SAT 97
[2022-03-26] MEDS: CENTRAL LINE FLUSH 10 ML IV PUSH (06:52)
[2022-03-26 08:00] VITALS: PULSE 56; RESP 18; O2SAT 97
[2022-03-26] MEDS: CYANOCOBALAMIN 1,000 MCG TABLET 1000 MCG PO (09:13)
[2022-03-26] MEDS: guaiFENesin 12 HR 600 MG TABCR PO (09:13)
[2022-03-26] MEDS: POTASSIUM CHLORIDE 20 MEQ TABLET 40 MEQ PO (09:13)
[2022-03-26] MEDS: FERROUS SULFATE 324 MG TABLET PO (09:13)
[2022-03-26] MEDS: FUROSEMIDE INJ 40 MG/4 ML VIAL IV PUSH (09:13)
[2022-03-26] MEDS: ARTIFICIAL TEARS OPHTH SOLN 15 ML BOTTLE 2 DROP EACH EYE (09:14)
[2022-03-26] MEDS: PANTOPRAZOLE 40 MG TABLET PO (09:14)
[2022-03-26] MEDS: SILVERGEL (ELTA) 45 ML 1 APPLIC TOPICAL (09:14)
[2022-03-26] MEDS: TOLNAFTATE 1% POWDER 45 GM BTL 1 APPLIC TOPICAL (09:14)
[2022-03-26] MEDS: MICONAZOLE NITRATE 2% CREAM 30 GM TUBE 1 APPLIC TOPICAL (09:14)
[2022-03-26] MEDS: MAGNESIUM OXIDE 400 MG TABLET PO (09:14)
[2022-03-26] MEDS: FLUTICASONE PROPIONATE 0.05% NA SPR 16 GM BTL (*BKC) 1 SPRAY NASAL (09:14)
[2022-03-26] MEDS: MIDODRINE HCL 2.5 MG TABLET 5 MG PO (09:14)
--- NOTE | 2022-03-26 10:14 | PM.PNCARD ---
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 Upon this admission he had significant acute kidney injury related to this diuresis as well as suspected urinary infection. He is improved with some IV furosemide. His previous diuretic regimen included Bumex 3 mg daily as well as metolazone. Patient [facility] Obviously the decision will need to be made regarding his oral diuretic regimen upon discharge and close follow-up to prevent recurrent frequent hospitalization is important. I am going to start with Bumex 2 mg daily without metolazone which hopefully will prevent significant volume overload and not result in excessive azotemia. Likelihood is high that this will have to be adjusted short intervals in follow-up. Is important to communicate to the [facility] that if he does develop more edema/swelling we can adjust these medications as an outpatient he/she does not have to be readmitted to the hospital if he is oxygenating adequately Gregorio Lozano MD [facility] Subjective Date/time seen: Date of service:03/26/22 10:14 Interval history: Follow-up visit in this 81-year-old man with: Chronic atrial fibrillation and chronic right-sided heart failure. Patient was admitted to the hospital this time with acute kidney insufficiency related to both volume depletion as well as urinary infection. He has had return of his creatinine to baseline. As his diuretics were held he became as expected significantly volume overloaded again. Currently receiving IV furosemide and is improving. This morning he offers no other complaints he states that physicians have told him he is being [facility] although I do not see any notes on the chart to that effect. Exam Const: General: comfortable and no acute distress HENMT: Mouth: Yes moist mucous membranes Eyes: Sclera: sclerae normal Neck: Neck: supple Resp: Effort & Inspection: normal respiratory effort Other: Breath sounds somewhat diminished but essentially clear both lung marshall no audible rales or wheezing Cardio: Rhythm: abnormal rhythm irregularly irregular GI: GI Palp: Yes Soft to palpation Auscultation: normal bowel sounds Skin: General skin exam: normal color Extrem: Other: chronic appearing edema is improved from last week with resumption and diuretics Objective Data Vital Signs Vital Signs: Vital Signs - 24 hr 03/25/22 14:00 03/25/22 20:30 03/25/22 22:00 Temperature 36.7 C 36.4 C L Pulse Rate 59 L 59 L 54 L Respiratory Rate 14 14 19 Blood Pressure 134/58 L 127/62 Pulse Oximetry 100 100 100 Oxygen Delivery Room Air 03/26/22 06:00 Temperature 35.9 C L Pulse Rate 56 L Respiratory Rate 18 Blood Pressure 128/52 L Pulse Oximetry 97 Oxygen Delivery Intake/Output Intake/Output: Intake & Output 03/23/22 03/24/22 03/25/22 03/26/22 23:59 23:59 23:59 23:59 Intake Total 1080 1300 1620 630 Output Total 3127 1725 1700 300 Balance -2045 -425 -80 330 Meds/Results Medications: Active Medications Generic Name Dose Route Start Last Admin Trade Name Magdy PRN Reason Stop Dose Admin Acetaminophen 650 mg 03/16/22 21:24 03/22/22 02:08 Acetaminophen 325 Mg Tablet PO 650 mg Q6H PRN Administration Pain (Scale Score 1-3) Artificial Tears 2 drop 03/17/22 09:00 03/26/22 09:14 Artificial Tears Ophth Soln 15 Ml Bottle EACH EYE 2 drop BID SANAM Administration Bumetanide 2 mg 03/27/22 09:00 Bumetanide 1 Mg Tablet PO DAILY [facility] Cyan
--- NOTE | 2022-03-26 10:25 | P.PNNP_ITS ---
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 * s/p adequate fluid resuscitation * s/p vasopressor support to maintain MAP (weaned off) * on midodrine to maintain blood pressure * evaluation noted to date: * renal ultrasound unremarkable * urine electrolytes not pre-renal * CPK okay * follow trend of repeat labs and UOP (2) Chronic kidney disease, stage 3: Code(s): N18.30 - Chronic kidney disease, stage 3 unspecified Status: Chronic Assessment and Plan: * baseline creatinine runs ~ 1.4 - 1.7mg/dl (causing him to fluctuate between CKD stage 3A and 3B) * presumably secondary to CAD/CHF, HTN, vascular disease, and age along with chronic diuretic therapy to maintain his volume status (3) Acute hyponatremia: Code(s): E87.1 - Hypo-osmolality and hyponatremia Status: Acute Assessment and Plan: * improving * suspect more related to HILARIO/ARF * sodium improving with current interventions/therapy * back on diuretics which may help this as well * follow trend (4) CHF (congestive heart failure): Code(s): I50.9 - Heart failure, unspecified Status: Acute Assessment and Plan: * back on diuretic therapy - push as tolerated by hemodynamics * follow I/Os * Cardiology following (5) Acute UTI: Code(s): N39.0 - Urinary tract infection, site not specified Status: Acute Assessment and Plan: * urine culture with Providencia rettgeri * on antibiotics Not opposed to discharge from renal perspective if otherwise medically stable. Will continue to follow. Subjective Date/time seen: 03/26/22 10:29 He appears to be doing quite well at this time; renal function continues to tolerated IV diuresis; swelling/edema/breathing all seemed to have improved with use of IV lasix; no other issues/events overnight or earlier this morning; tells me that he may be possibly discharged today. Exam Narrative: General:Elderly male in NAD Heart: normal S1 and S2; no rub Lungs: decreased at bases Abdomen: soft, nontender, nondistended, positive bowel sounds Extremities: no cyanosis or clubbing; chronic LE edema present Skin: chronic venous stasis/edema changes present Objective Data Vital Signs Vital Signs: Vital Signs Temp Pulse Resp BP Pulse Ox O2 Del Method 03/26/22 08:00 56 L 18 97 Room Air 03/26/22 06:00 35.9 C L 56 L 18 128/52 L 97 03/25/22 22:00 36.4 C L 54 L 19 127/62 100 03/25/22 20:30 59 L 14 100 Room Air Intake/Output Intake/Output: Intake & Output 03/23/22 03/24/22 03/25/22 03/26/22 23:59 23:59 23:59 23:59 Intake Total 1080 1300 1620 870 Output Total 3127 1725 1700 300 [facility] -2045 -425 -80 570 Meds/Results Medications: Active Medications Generic Name Dose Route Start Last Admin Trade Name Freq PRN Reason Stop Dose Admin Acetaminophen 650 mg 03/16/22 21:24 08
--- NOTE | 2022-03-26 10:25 | PM.PNNEP ---
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 s/p vasopressor support to maintain MAP (weaned off) on midodrine to maintain blood pressure evaluation noted to date: renal ultrasound unremarkable urine electrolytes not pre-renal CPK okay follow trend of repeat labs and UOP (2) Chronic kidney disease, stage 3: Code(s): N18.30 - Chronic kidney disease, stage 3 unspecified Status: Chronic Assessment and Plan: baseline creatinine runs ~ 1.4 - 1.7mg/dl (causing him to fluctuate between CKD stage 3A and 3B) presumably secondary to CAD/CHF, HTN, vascular disease, and age along with chronic diuretic therapy to maintain his volume status (3) Acute hyponatremia: Code(s): E87.1 - Hypo-osmolality and hyponatremia Status: Acute Assessment and Plan: improving suspect more related to HILARIO/ARF sodium improving with current interventions/therapy back on diuretics which may help this as well follow trend (4) CHF (congestive heart failure): Code(s): I50.9 - Heart failure, unspecified Status: Acute Assessment and Plan: back on diuretic therapy - push as tolerated by hemodynamics follow I/Os Cardiology following (5) Acute UTI: Code(s): N39.0 - Urinary tract infection, site not specified Status: Acute Assessment and Plan: urine culture with Providencia rettgeri on antibiotics Not opposed to discharge from renal perspective if otherwise medically stable. Will continue to follow. Subjective Date/time seen: 03/26/22 10:29 He appears to be doing quite well at this time; renal function continues to tolerated IV diuresis; swelling/edema/breathing all seemed to have improved with use of IV lasix; no other issues/events overnight or earlier this morning; tells me that he may be possibly discharged today. Exam Narrative: General:Elderly male in NAD Heart: normal S1 and S2; no rub Lungs: decreased at bases Abdomen: soft, nontender, nondistended, positive bowel sounds Extremities: no cyanosis or clubbing; chronic LE edema present Skin: chronic venous stasis/edema changes present Objective Data Vital Signs Vital Signs: Vital Signs Temp Pulse Resp BP Pulse Ox O2 Del Method 03/26/22 08:00 56 L 18 97 Room Air 03/26/22 06:00 35.9 C L 56 L 18 128/52 L 97 03/25/22 22:00 36.4 C L 54 L 19 127/62 100 03/25/22 20:30 59 L 14 100 Room Air Intake/Output Intake/Output: Intake & Output 03/23/22 03/24/22 03/25/22 03/26/22 23:59 23:59 23:59 23:59 Intake Total 1080 1300 1620 870 Output Total 3125 1725 1700 300 Balance -2045 -425 -80 570 Meds/Results Medications: Active Medications Generic Name Dose Route Start Last Admin Trade Name Freq PRN Reason Stop Dose Admin Acetaminophen 650 mg 03/16/22 21:24 03/22/22 02:08 Acetaminophen 325 Mg Tablet PO 650 mg Q6H PRN Administration Pain (Scale Score 1-3) Artificial Tears 2 drop 03/17/22 09:00 03/26/22 09:14 Artificial Tears Ophth Soln 15 Ml Bottle EACH EYE 2 drop BID SANAM Administration Bumetanide 2 mg 03/27/22 09:00 Bumetanide 1 Mg Tablet PO DAILY SANAM Cyanocobalamin 1,000 mcg 03/17/22 09:00 03/26/22 09:13 Cyanocobalamin 1,000 Mcg Tablet PO 1,000 mcg QAM SANAM Administration Docusate Sodium 100 mg 03/16/22 21:03 Docusate Sodium 100 Mg Capsule PO DAILY PRN Constipation Enoxaparin Sodium 95 mg 03/16/22 22:00 03/25/22 21:11 Enoxaparin 100 Mg/Ml Syringe SUB-Q 95 mg Q24H SANAM Administration Ferrous Sulfate 324 mg 03/17/22 09:00 083
--- NOTE | 2022-03-26 10:35 | PM.DS ---
DS: Admitting Diagnosis Discharge Date 03/26/2022 Admitting Diagnosis weakness DS: Discharge Diagnosis Discharge Diagnosis (1) Urinary tract infection associated with catheterization of urinary tract: Code(s): T83.511A - Infection and inflammatory reaction due to indwelling urethral catheter, initial encounter; N39.0 - Urinary tract infection, site not specified Status: Acute Assessment and Plan: - IV resusciatation in ED, previously requiring levophed, now weaned off - blood cultures NGTD. 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 to maintain the blood pressure, patient has a chronic indwelling catheter suspect cause of UTI, urine culture is growing Providencia rettgeri sensitive to ceftriaxone,?will continue abx until 03/25, patient being treated with ceftriaxone will follow-up on? blood culture so far no growth, patient white counts have trended down,? patient blood pressure is improving he is off Levophed,? patient with acute on chronic kidney disease exacerbated by poor p.o. intake and dehydration patient is being hydrated and seen by Nephrology further recommendation to follow, on 03/19 we transferred patient out of ICU to IMU. patient has wound on b/l arms, seem by wound nurse and being treated, today patient is more awake and stats feeling better, will continue PT/OT and patient will benefit going to SNF rehab. ? 03/24/2022 interval history: Patient 81-year-old male was brought emergency department with weakness was found to be hypotension suspect sepsis secondary to UTI, patient was given 3 L IV fluid with no significant improvement, was seen by director inbound sales patient was placed on Levophed and also added midodrine,? to maintain the blood pressure, patient has a chronic indwelling catheter suspect cause of UTI, urine culture is growing Providencia rettgeri sensitive to ceftriaxone,?will continue abx until 03/25, patient being treated with ceftriaxone will follow-up on? blood culture so far no growth, patient white counts have trended down,? patient blood pressure is improving he is off Levophed,? patient with acute on chronic kidney disease exacerbated by poor p.o. intake and dehydration patient is being hydrated and seen by Nephrology further recommendation to follow, on 03/19 we transferred patient out of ICU to IMU. and on 03/23 patient was transferred to med-surg, patient has wound on b/l arms, seem by wound nurse and being treated, discuss with his nurse patient lives at an assisted living and now his baseline, today patient is more awake and stats feeling better, will continue PT/OT and patient will benefit going to SNF rehab. 03/25/2022 interval history: Patient 81-year-old male was brought emergency department with weakness was found to be hypotension suspect sepsis secondary to UTI, patient was given 3 L IV fluid with no significant improvement, was seen by director inbound sales patient was placed on Levophed and also added midodrine,? to maintain the blood pressure, patient has a chronic indwelling catheter suspect cause of UTI, urine culture is growing Providencia rettgeri sensitive to ceftriaxone,?will continue abx until 03/25, patient being treated with ceftriaxone will follow-up on? blood culture so far no growth, patient white counts have trended down,? patient blood pressure is improving he is off Levophed,? patient with acute on chronic kidney disease exacerbated by poor p.o. intake and dehydration patient is being hydrated and seen by Nephrology further recommendation to follow, on 03/19 we transferred patient out of ICU to IMU. and on 03/23 [facility], patient has
[2022-03-26 11:47] LABS: EDCOVIDSCREEN Negative (Negative)
[2022-03-26 14:00] VITALS: BP 121/62; PULSE 50; RESP 16; TEMP 36.2; O2SAT 96
--- NOTE | 2022-03-26 15:00 | PC.NURSE ---
Post void residual per baldder scan with results of 47 ml. Provider notified.
--- NOTE | 2022-03-26 15:01 | WPDUROPN2 ---
Progress Note: A&P Assessment and Plan (1) Urinary retention: Code(s): R33.9 - Retention of urine, unspecified Status: Acute Assessment and Plan: Pereira removed yesterday and he is urinating without difficulty. He empties his bladder well. No further evaluation needed. Subjective Subjective Date/Time Seen: 03/26/22 15:01 S/P voiding trial/pereira removal. The patient is urinating well in a urinal at the bedside. His bladder scan was 47cc PVR. He has no urinary complaints. Scrotal and Penile edema are improved. Review of Systems Cardiovascular: Cardiovascular: Denies chest pain Respiratory: Respiratory: Reports no additional respiratory complaints Gastrointestinal: Gastrointestinal: Denies abdominal pain, Denies nausea and Denies vomiting Genitourinary: Genitourinary: Denies hematuria, Denies genital pain, Denies dysuria, Denies flank pain, Denies scrotal swelling, Denies urinary frequency, Denies urinary hesitancy and Denies urinary urgency Exam Resp: Effort & Inspection: normal respiratory effort Cardio: Rate: regular rate GI: GI Palp: Yes Soft to palpation and No Tenderness to palpation present (GI) : General: Yes no CVA tenderness Penis: Yes other (hidden) Scrotum: not edematous Extrem: Right lower extremity: no edema Left lower extremity: no edema Objective Data Vital Signs Vital Signs: Vital Signs - 24 hr 03/25/22 20:30 03/25/22 22:00 03/26/22 06:00 Temperature 97.5 F L 96.7 F L Pulse Rate 59 L 54 L 56 L Respiratory Rate 14 19 18 Blood Pressure 127/62 128/52 L Pulse Oximetry 100 100 97 Oxygen Delivery Room Air 03/26/22 08:00 Temperature Pulse Rate 56 L Respiratory Rate 18 Blood Pressure Pulse Oximetry 97 Oxygen Delivery Room Air Intake/Output Intake/Output: Intake & Output 03/23/22 03/24/22 03/25/22 03/26/22 23:59 23:59 23:59 23:59 Intake Total 1080 1300 1620 870 Output Total 3125 1725 1700 300 [facility] -[phone] Meds/Results Medications: Active Medications Generic Name Dose Route Start Last Admin Trade Name Freq PRN Reason Stop Dose Admin Acetaminophen 650 mg 03/16/22 21:24 03/22/22 02:08 Acetaminophen 325 Mg Tablet PO 650 mg Q6H PRN Administration Pain (Scale Score 1-3) Artificial Tears 2 drop 03/17/22 09:00 03/26/22 09:14 Artificial Tears Ophth Soln 15 Ml Bottle EACH EYE 2 drop BID [facility] Administration Bumetanide 2 mg 03/27/22 09:00 Bumetanide 1 Mg Tablet PO DAILY [facility] Cyanocobalamin 1,000 mcg 03/17/22 09:00 03/26/22 09:13 Cyanocobalamin 1,000 Mcg Tablet PO 1,000 mcg QAM [facility] Administration Docusate Sodium 100 mg 03/16/22 21:03 Docusate Sodium 100 Mg Capsule PO DAILY PRN Constipation Enoxaparin Sodium 95 mg 03/16/22 22:00 03/25/22 21:11 Enoxaparin 100 Mg/Ml Syringe SUB-Q 95 mg Q24H [facility] Administration Ferrous Sulfate 324 mg 03/17/22 09:00 03/26/22 09:13 Ferrous Sulfate 324 Mg Tablet PO 324 mg DAILY [facility] Administration Fluticasone Propionate 1 spray 03/17/22 09:00 03/26/22 09:14 Fluticasone Propionate 0.05% Na Spr 16 Gm Btl (*Bkc) NASAL 1 spray DAILY [facility] Administration Galantamine Hydrobromide 8 mg 03/17/22 09:00 03/26/22 09:13 Galantamine Er 8 Mg Cap PO 8 mg DAILY [facility] Administration Guaifenesin 600 mg 03/16/22 21:03 03/26/22 09:13 Guaifenesin 12 Hr 600 Mg Tabcr PO 600 mg Q12H PRN Administration Cough Ceftriaxone Sodium/Dextrose 1 gm in 50 mls @ 100 mls/hr 03/16/22 21:00 03/25/22 21:05 Rocephin 1 Gm/D5w 50 Ml IVPB 100 mls/hr Q24H [facility] Administration Magnesium Oxide 400 mg 03/24/22 09:00 03/26/22 09:14 Magnesium Oxide 400 Mg Tablet PO 400 mg QAM [facility] Administration Miconazole Nitrate 1 applic 03/24/22 13:00 03/26/22 09:14 Miconazole Nitrate 2% Cream 30 Gm Tube TOPICAL 1 applic Q12HR [facility] Administration Midodrine 5 mg 03/22/22 14:15 03/26/22 09:14 Midodrine Hcl 2
== END 2022-03-26 15:25 | DRG 698 ==
LOC: ANHED 17:45 → ANH2MED 20:54 → ANHICU 03-17 07:41 → ANHIMU 03-20 12:32 → ANH3MEDSUR 03-24 06:51 → ANH2MED 03-27 12:29 → ANH3MEDSUR 03-27 12:29 → ANHICU 03-27 12:29 → ANHIMU 03-27 12:29
PROVIDERS: Family Medicine; Internal Medicine; Nurse Practitioner; Admitting Provider Student in an Organized Health Care Education/Training Program; Emergency Provider Emergency Medicine; PCP Family Medicine; Visit Provider Internal Medicine
DX: T83.511A Infection and inflammatory reaction due to indwelling urethral catheter, initial encounter (principal); A41.9 Sepsis, unspecified organism; R65.21 Severe sepsis with septic shock; N17.0 Acute kidney failure with tubular necrosis; I50.33 Acute on chronic diastolic (congestive) heart failure; E87.1 Hypo-osmolality and hyponatremia; I48.20 Chronic atrial fibrillation, unspecified; I13.0 Hypertensive heart and chronic kidney disease with heart failure and stage 1 through stage 4 chronic kidney disease, or unspecified chronic kidney disease; E87.2 Acidosis; I48.92 Unspecified atrial flutter; L97.419 Non-pressure chronic ulcer of right heel and midfoot with unspecified severity; I50.810 Right heart failure, unspecified; N18.30 Chronic kidney disease, stage 3 unspecified; E87.5 Hyperkalemia; Z87.891 Personal history of nicotine dependence; I87.2 Venous insufficiency (chronic) (peripheral); K21.9 Gastro-esophageal reflux disease without esophagitis; F03.90 Unspecified dementia, unspecified severity, without behavioral disturbance, psychotic disturbance, mood disturbance, and anxiety; I25.10 Atherosclerotic heart disease of native coronary artery without angina pectoris; Z79.01 Long term (current) use of anticoagulants; Z66 Do not resuscitate; M06.00 Rheumatoid arthritis without rheumatoid factor, unspecified site; E86.0 Dehydration; R40.0 Somnolence; Z20.822 Contact with and (suspected) exposure to COVID-19; B96.89 Other specified bacterial agents as the cause of diseases classified elsewhere; N48.83 Acquired buried penis; R00.1 Bradycardia, unspecified; T46.4X5A Adverse effect of angiotensin-converting-enzyme inhibitors, initial encounter; T50.2X5A Adverse effect of carbonic-anhydrase inhibitors, benzothiadiazides and other diuretics, initial encounter; N40.1 Benign prostatic hyperplasia with lower urinary tract symptoms; N39.498 Other specified urinary incontinence; N48.89 Other specified disorders of penis; N50.89 Other specified disorders of the male genital organs; R33.9 Retention of urine, unspecified; E66.9 Obesity, unspecified; Z68.33 Body mass index [BMI] 33.0-33.9, adult; Y84.6 Urinary catheterization as the cause of abnormal reaction of the patient, or of later complication, without mention of misadventure at the time of the procedure; S40.022A Contusion of left upper arm, initial encounter; S40.021A Contusion of right upper arm, initial encounter
CPT/HCPCS: 36415; 71045; 76775; 80048; 80053; 81001; 82436; 82550; 82570; 83605; 83615; 83735; 83935; 84100; 84133; 84300; 85025; 85027; 85610; 85730; 85999; 86140; 87040; 87077; 87086; 87088; 87186; 87426; 93005; 94640; 97110; 97116; 97162; 97166; 97530; 97535; 99285; A9270; C1751; C9113; C9803; J0610; J0696; J1650; J1940; J3475; J7030; J7050; P9047; U0003; U0005